=== PATIENT | male | born 1950 | race Caucasian/White ===

== ENCOUNTER 2019-02-17 10:49 | Observation (INO) | payer MEDICARE, OTHER, SELFPAY ==
[2019-02-17] VITALS (13 sets, daily range): BP systolic 143–174; BP diastolic 73–88; PULSE 73–83; RESP 13–20; TEMP 36.7–36.9; O2SAT 96–100; BMI 28.0; BMI 28.2
--- NOTE | 2019-02-17 11:02 | RAD_ITS ---
STUDY: X-RAY CHEST REASON FOR EXAM: Male, 68 years old. Mediastinal evaluation, right arm pain. TECHNIQUE: Single AP portable view of the chest. COMPARISON: None. FINDINGS: The lungs are clear and expanded. There is no demonstrated pleural abnormality. Normal size heart. Normal mediastinum and jenelle. Normal visualized pulmonary arteries. Normal visualized aortic arch and descending thoracic aorta. Normal visualized thoracic spine. Normal visualized ribs, clavicles, and shoulders. There is no demonstrated abnormality of the visualized soft tissue structures of the upper abdomen. RAD/Chest 1 View IMPRESSION: No evidence of acute cardiopulmonary process. Electronically Signed: Romulo Goode DO at 12:31 EDT , Service support ,
--- NOTE | 2019-02-17 11:02 | CT_ITS ---
STUDY: CT BRAIN WITHOUT CONTRAST REASON FOR EXAM: Male, 68 years old. CVA. RADIATION DOSAGE (If Supplied By Facility): CTDIvol = ( 44.99 ) mGy, DLP = ( 812.98 ) mGycm TECHNIQUE: Transaxial CT imaging of the brain was performed without administration of intravenous contrast material. Individualized dose optimization techniques were used for this CT. COMPARISON: No relevant priors. FINDINGS: Normal soft tissue structures. Normal calvarium. Normal size ventricles and extra-axial spaces for the patient's age. Normal white matter tracts of the cerebral hemispheres. Normal basal ganglia and thalami. Normal brainstem. Normal cerebellum. There is no intracranial hemorrhage. There are no findings of an acute ischemic infarction. Normal visualized paranasal sinuses. CT/Brain/Head without Contrast IMPRESSION: No evidence of acute intracranial bleed, mass or ischemia. N.B. : The above information has been verbally conveyed by Romulo Goode DO to Dr. Suarez; [phone], on 02/17/2019 11:29:07 (ET). Electronically Signed: Romulo Goode DO at 11:30 EDT , Service support ,
--- NOTE | 2019-02-17 11:02 | EKG12_ITS ---
Test Reason : PAIN Blood Pressure : / mmHG Vent. Rate : 087 BPM Atrial Rate : 087 BPM P-R Int : 196 ms QRS Dur : 122 ms QT Int : 380 ms P-R-T Axes : 028 -40 045 degrees QTc Int : 457 ms Sinus rhythm with Premature atrial complexes Left axis deviation Septal infarct , age undetermined Abnormal ECG Confirmed by LEEANN HUITRON, DANIELLE ([id number]), television news video editor TANESHA LU ([id number]) on 02/19/2019 11:28:48 AM Referred By: AMADA Confirmed By:DANIELLE BRADSHAW MD
--- NOTE | 2019-02-17 11:03 | CT_ITS ---
STUDY: CTA HEAD AND NECK WITH CONTRAST REASON FOR EXAM: Male, 68 years old. CVA. RADIATION DOSAGE (If Supplied By Facility): CTDIvol = ( 21.98 ) mGy, DLP = ( 786.48 ) mGycm TECHNIQUE: CT angiography was performed with a multi-detector CT scanner. Data acquisition was obtained from the skull base through the vertex following intravenous administration of 100 IV Isovue 370. MIP images were reconstructed from the axial data set. Post-processing of the angiographic images was performed, with multiplanar reformation and 3D reconstruction. Individualized dose optimization techniques were used for this CT. COMPARISON: No relevant priors. FINDINGS: Normal bilateral petrous carotid arteries. Normal right cavernous carotid artery with a normal supraclinoid bifurcation. Normal left cavernous carotid artery with a normal supraclinoid bifurcation. Normal right A1 segments of the anterior cerebral artery. Normal left A1 segments of the anterior cerebral artery. Normal intact anterior communicating artery (ACOM). Normal bilateral A2 segments of the anterior cerebral arteries. Normal right M1 and M2 segments of the middle cerebral arteries, with a normal M1 bifurcation. Normal left M1 and M2 segments of the middle cerebral arteries, with a normal M1 bifurcation. Normal right posterior communicating artery (PCOM). Normal left posterior communicating artery (PCOM). Normal bilateral vertebral arteries. Normal basilar artery with a normal basilar bifurcation. The visualized bilateral superior cerebellar (SCA) arteries are normal. Normal bilateral P1, P2 and visualized P3 segments of the posterior cerebral arteries. There is no demonstrated aneurysm of the [place] of [place]. There is no demonstrated abnormality of the visualized brain. AORTIC ARCH: Normal visualized aortic arch. Normal origins of the brachiocephalic, left common carotid, and left subclavian arteries. RIGHT CAROTID ARTERIES: Normal right common carotid artery (CCA). Normal right common carotid bulb. Normal origin of the right internal carotid (ICA) artery without a hemodynamically significant stenosis. Normal visualized cervical portion of the right internal carotid artery. Normal origin of the right external carotid artery (ECA). LEFT CAROTID ARTERIES: Normal left common carotid artery (CCA). Normal left common carotid bulb. Normal origin of the left internal carotid (ICA) artery without a hemodynamically significant stenosis. Normal visualized cervical portion of the left internal carotid artery. Normal origin of the left external carotid artery (ECA). VERTEBRAL ARTERIES: There is enhancement within the bilateral vertebral arteries with a small right vertebral artery, and a dominant left vertebral artery. CT/CTA Head AND Neck W/ Contrast IMPRESSION: No evidence of significant steno-occlusive disease or aneurysm. N.B. : The above information has been verbally conveyed by Romulo Goode DO to Dr. Suarez; [phone], on 02/17/2019 11:28:55 (ET). Electronically Signed: Romulo Goode DO at 11:29 EDT , Service support ,
--- NOTE | 2019-02-17 11:04 | ED.DCSUM_ITS ---
History of Present Illness Chief Complaint: General Illness Informant: Patient - Arrival: Ambulatory Onset: Today - 20-30 min [employer] Context: Sudden Onset Timing: Continuous Quality and Location: Right Arm Parasthesia. Negative for: Right Facial Droop, Left Facial Droop, Right Arm Weakness, Slurred Speech, Expressive Aphasia, Receptive Aphasia, Difficulty with Ambulation Onset: relatively sudden Current Severity: Mild Maximum Severity: Severe Worsened by: nothing Relieved by: nothing Associated Symptoms: Headache - mild. Negative for: Nausea, Vomiting, Chest Pain Narrative: Patient states she was driving to time, I started feeling a little lightheaded but not near syncopal, states he had trouble focusing with regards to his vision without any focal visual field deficits, and his right upper extremity was numb. He did not notice weakness or any pain. Mild headache, no thunderclap. No loss of consciousness. No chest discomfort or chest symptoms. Never had this before. No history of strokes. No recent head injury. No recent h ospitalization or surgery. No IV drug use. No known history of cardiac disease or valvular disease. Prior similar symptoms: No - Past Medical History (1) HTN (hypertension) Status: Chronic (2) Hyperlipidemia Status: Chronic Past Medical History - Allergies and Home Meds Allergies/Adverse Reactions: Allergies Penicillins [PCN] Allergy (Verified 02/17/19 10:51) Hives Primary Care Physician: Jamey Damian MD [Primary Care Provider] - Smoking Status: Former smoker Drugs: None Review of Systems General: Denies: Chills, Fever, Sweats Eyes: Reports: Blurred Vision - bilaterally - improved now. Denies: Diplopia ENT: Denies: Rhinorrhea, Sore throat Cardiovascular: Denies: Chest pain, Palpitations Respiratory: Denies: Dyspnea, Cough, Dyspnea on exertion Gastrointestinal: Denies: Abdominal pain, Nausea, Vomiting, Diarrhea, Melena, Hematochezia Genitourinary: Denies: Dysuria, Hematuria, Frequency Musculoskeletal: Denies: Back pain, Extremity Pain Skin: Denies: Rash, Wounds Neurological: Reports: Headache, Weakness, Numbness STROKE Vital Signs/Narrative: Vital Signs Temp Pulse Resp BP Pulse Ox 02/17/19 10:52 98.1 F 83 16 174/80 H 96 Inital Vital Signs reviewed: Yes - NIHSS Initial 1a Level of Consciousness: 0 1b LOC Questions (Score 2 if aphasic/stupor): 0 1c LOC Commands (Only score 1st attempt): 0 2 Best Gaze (If aphasic, use reflexive mvmts.): 0 3 Visual: 0 4 Facial Palsy: 0 5 Motor Arm Right (UN = amputation/fusion): 1 5 Motor Arm Left: 0 6 Motor Leg Right: 0 6 Motor Leg Left: 0 7 Limb ataxia (Only + if out of proportion): 0 8 Sensory (Aphasia/stupor=0 or 1, coma=2): 1 9 Best Language: 0 10 Dysarthria (mute, coma=2, intubated=UN): 0 11 Extinction and Inattention (only scored if +): 0 Total Score: 2 General: Well nourished, Well developed Head: Normocephalic, Atraumatic Eyes: Perrl, EOMI ENT: Moist mucous membranes, No rhinorrhea Neck: Supple, Nontender, - - no carotid bruits Cardiovascular: Regular rate, Regular rhythm, No murmurs, Normal S1, Normal S2. Negative for: Tachycardia Respiratory: No distress, CTA bilaterally, Chest nontender Abdomen: Soft, Nontender, Nondistended, Normal bowel sounds Back: Nontender, Normal Inspection Extremities: Nontender, No edema. Negative for: Calf Tenderness Skin: Normal color, No rash, No Trauma Neurological: Alert, Oriented x3, Cranial nerves II-XII grossly intact, Normal Gait Psychological: Normal affect, Normal Mood Diagnostic/Tx/Re-eval - Rhythm Strip Rhythm Strip: Sinus Rhythm Rate: 87 Ectopy: None - EKG Initial EKG Interpretation: Sinus Rhythm, No Acute Injury Pattern, - - Left axis. Q waves V1-2. Prior: No Prior - Medical Decision Making Stroke Team Activated: Yes - Upon completion of NIH Reviewed Inclusion/Exclusion criteria: Yes Was Patient considered for Endovascular Intervention?: No - CTA neg IV Alteplase (t-PA) Administered: No - due to significant improvement/resolution of sx Radiology called CT and CTA report at [address] Fine evaluated patient via [facility] tele-stroke neurology consultation. At the time of evaluation, his symptoms resolved and his NIH is 0. Therefore, no TPA is indicated. He recommends admission for TIA work-up and close monitoring. He also recommends aspirin. Patient states he had some lower GI bleeding when he was on aspirin after his prostate cancer surgery, so he stopped it but that was long ago, may be 2 or 3 years. He has had no GI bleeding lately. We will give him aspirin and continue to monitor. Discussed w/ Dr. Bright for admission to tele. Critical care time (excluding procedures): 30-74 minutes - 35 minutes including time spent discussing with patient, consultants, arranging admission, and performing direct patient care to bedside ED Disposition - Plan for ED Patient: Disposition: Acute Care [facility] Diagnosis: TIA (transient ischemic attack) Referrals: Jamey Damian MD [Primary Care Provider] -
[2019-02-17 11:10] LABS: Absolute Lymphocyte Count 0.99 X10^3/uL (0.83-4.51); Absolute Neutrophil Count 5.2 X10^3/uL (2.0-7.7); Basophil# 0.07 X10^3/uL; Eosinophil# 0.14 X10^3/uL; Hematocrit 37.9 % (40-54); Hemoglobin 13.4 g/dL (13.0-16.5); Lymphocyte # 0.99 X10^3/ul (4.0); Lymphocyte % 14.4 % (19-41); Mean Corp Hgb Conc 35.4 g/dL (32-36); Mean Corpuscular Hgb 31.6 pg (27.0-32.0); Mean Corpuscular Volume 89.4 fL (80-94); Mean Platelet Vol. 9.5 fl (6.2-12.0); Monocyte# 0.43 X10^3/uL; Monocyte% 6.2 % (0-10); NRBC Flagged by Analyzer 0 % (0-5); Neutrophil # 5.23 X10^3/uL (2.7-7.7); Platelet Count 245 K/mm3 (150-450); RBC Distribution Width CV 11.9 % (11.6-14.6); RBC Distribution Width SD 39.2 fl (35.1-43.9); Red Blood Count 4.24 M/mm3 (4.6-6.2); White Blood Count 6.9 K/mm3 (4.4-11.0)
[2019-02-17 11:11] LABS: Bedside Glucose 237 mg/dL (70-110)
[2019-02-17 11:21] LABS: Partial Thromboplast Time 38.3 Seconds (24.1-36.2)
[2019-02-17 11:27] LABS: Anion Gap 8 (5-15); BUN 19 mg/dL (7-18); BUN/Creat Ratio 16.8 RATIO (10-20); Calcium,Total 8.9 mg/dL (8.5-10.1); Chloride 97 mmol/L (98-107); Creatinine, Serum 1.13 mg/dL (0.70-1.30); EST Glomerular Filtration Rate 69 mL/min (>60); Est Glom Filt Rate - Afr Amer 83 mL/min (>60); Estimated Creatinine Clearance 70.58 ml/min; Glucose 240 mg/dL (74-106); Potassium 3.7 mmol/L (3.5-5.1); Sodium Level 128 mmol/L (136-145)
[2019-02-17] MEDS: Aspirin E.C. 325 MG Tablet PO (11:51)
--- NOTE | 2019-02-17 12:02 | HP.PCM_ITS ---
Problem List (1) TIA (transient ischemic attack) Status: Acute (2) HTN (hypertension) Status: Chronic (3) Hyperlipidemia Status: Chronic History of Present Illness Date of Admission: 02/17/19 Chief Complaint: Right arm numbness and blurry vision. The patient is a 68 year old M with history of hypertension and dyslipidemia came to ER when he had blurry vision and right arm numbness while driving to a store today. The symptoms lasted for about 15 to 20 minutes as per the patient. He also found his speech slow but no slurring or difficulty in understanding or difficulty verbalization. Mild headache. Patient denies any previous history of TIA or stroke, coronary artery disease/OR or stents or head injury. In ED, triage blood pressure was high BP 174/80, heart rate 83/min. No tachypnea or hypoxia EKG shows normal sinus rhythm at 87 bpm PACs and LAD. ER labs shows glucose 240 in BMP and Accu-Chek 237. As per patient, his BP was 130/72 in PCP office and glucose 97 during screening in December 2018 CT head does not show evidence of acute intracranial bleed mass or ischemia. CTA head and neck no significant evidence of steno-occlusive disease or aneurysm. [] Past Medical History Past Medical History (Chronic Problems): Chronic Problems HTN (hypertension) (Chronic) Hyperlipidemia (Chronic) Allergies Penicillins [PCN] Allergy (Verified 02/17/19 10:51) Hives Home Medications: Ambulatory Orders Medication Instructions Recorded Amlodipine [Norvasc] 10 mg PO DAILY 02/17/19 Losartan Potassium 25 mg PO DAILY 02/17/19 Simvastatin 20 mg PO QHS 02/17/19 Smoking Status: Former smoker - Quit 39 years ago Drugs: None - *Family History Paternal History Items: Hypertension Review of Systems Constitutional: Denies: Chills, Fever, Weight Change HEENT: Reports: Visual Changes. Denies: Head Aches, Sinus Congestion, Sinus Drainage Cardiovascular: Denies: Chest Pain, Palpitations Respiratory: Denies: Cough, Shortness of breath at rest, Sputum production Gastrointestinal: Denies: Abdominal Pain, Nausea, Vomiting Genitourinary: Denies: Dysuria Musculoskeletal: Denies: Joint Pain, Joint Tenderness Skin: Denies: Rash, Wounds Neurological: Reports: Blurred vision, Change in Speech, Numbness. Denies: Focal weakness, Tingling Psychiatric: Denies: Anxiety, Depression, Homicidal Ideations, Suicidal Ideations Hematologic/ Lymphatic: Denies: Easy Bruising, Easy Bleeding VTE Information - Inpt Only VTE Present on Admission: No VTE Mechan Device Prophylaxis: None VTE Pharm Prophylaxis ordered?: Yes Patient Problems: Active and Suspected Problems TIA (transient ischemic attack) (Acute) - Physical Exam General: Alert, Oriented x3, Cooperative HEENT: Atraumatic, PERRLA, EOMI, Normocephalic Neck: Supple, No JVD, Negative Carotid Bruits Lungs: Clear to auscultation, Normal air movement, No rhonchi, No wheeze, No rales Cardiovascular: Regular rate, Regular Rhythm, Normal S1, Normal S2, No murmurs Abdomen: Bowel Sounds Present, Soft, Non Tender, Non-Distended Extremities: No edema, Capillary Refill Less than 3 Seconds Skin: No rashes, No breakdown Musculoskeletal: No Tenderness to Palpation of Joints or Extremities, Arthritic Changes Neurological: Cranial nerves II-XII grossly intact, Deep Tendon Reflexes 2+/4 and Symmetrical, Neuro grossly intact, Motor Exam 5/5 strength throughout, - - No facial droop. Muscle strength at major joints 5 x 5. NIH stroke scale 0. Was NIH stroke scale 2 as per nursing staff in triage Psych/Mental Status: Normal Affect, Appropriate Vital Signs Temp Pulse Resp BP Pulse Ox 98.1 F 79 20 H 149/82 H 97 02/17/19 10:52 02/17/19 11:50 02/17/19 11:50 02/17/19 11:50 02/17/19 11:50 Oxygen Flow Rate (L/min) 1 Oxygen Delivery Method Nasal Cannula Weight: 206 lb 9.17 oz Body Mass Index (BMI) 28.0 Finger Stick Blood Glucose 237 Intake and Output for Last 24 Hours 02/15/19 02/16/19 02/17/19 23:59 23:59 23:59 Intake Total 500 / 500 Balance 500 / 500 Laboratory Tests Past 24 Hrs 02/17/19 02/17/19 02/17/19 11:04 11:04 11:04 WBC 6.9 RBC 4.24 L Hgb 13.4 Hct 37.9 L MCV 89.4 MCH 31.6 MCHC 35.4 RDW Std Deviation 39.2 RDW Coeff of Tobin 11.9 Plt Count 245 MPV 9.5 Immature Gran % (Auto) 0.400 Neut % (Auto) 76.0 H Lymph % (Auto) 14.4 L Reeves % (Auto) 6.2 Eos % (Auto) 2.0 Baso % (Auto) 1.0 Absolute Neuts (auto) 5.2 Absolute Lymphs (auto) 0.99 Nucleated RBC % 0 PT 13.0 INR 1.0 APTT 38.3 H Sodium 128 L Potassium 3.7 Chloride 97 L Carbon Dioxide 23.0 Anion Gap 8 BUN 19 H Creatinine 1.13 Estim Creat Clear Calc 70.58 Est GFR (MDRD) Af Amer 83 Est GFR (MDRD) Non-Af 69 BUN/Creatinine Ratio 16.8 Glucose 240 H Calcium 8.9 Troponin I < 0.015 POC Glucose 02/17/19 11:04 POC Glucose 237 H Assessment/Plan All Active Problems TIA (transient ischemic attack) (Acute) The patient is a 68 year old M with history of hypertension and dyslipidemia came to ER when he had blurry vision and right arm numbness while driving to a store today. The symptoms lasted for about 15 to 20 minutes as per the patient. He also found his speech slow but no slurring or difficulty in understanding or difficulty verbalization. Mild headache. Patient denies any previous history of TIA or stroke, coronary artery disease/OR or stents or head injury. In ED, triage blood pressure was high BP 174/80, heart rate 83/min. No tachypnea or hypoxia EKG shows normal sinus rhythm at 87 bpm PACs and LAD. ER labs shows glucose 240 in BMP and Accu-Chek 237. As per patient, his BP was 130/72 in PCP office and glucose 97 during screening in December 2018 CT head does not show evidence of acute intracranial bleed mass or ischemia. CTA head and neck no significant evidence of steno-occlusive disease or aneurysm. 1. Acute neurological status most probably TIA: Patient is being admitted in PCU. Neuro exam is at baseline and no neurological deficit. Cardiac monitori ng. Troponin is normal. On aspirin and statin. MRI brain ordered. 2D echo ordered. PT, OT and speech evaluation. Accu-Cheks before meals and at bedtime and cover with Humalog sliding scale. Fasting profile, TSH and A1c ordered. Blood pressure control as per stroke guidelines. To maintain about systolic 150-185 mmHg in first 24 hours. 2. Hypertension, uncontrolled: Patient is on losartan 25 mg daily and amlodipine 10 mg daily at home. Antihypertensive meds and resumed with holding parameters as per stroke guidelines. 3. Dyslipidemia: On statin 80 mg daily. 4. DVT prophylaxis: On Lovenox 40 mg subcu daily Laboratory Results 02/17/19 11:04: WBC 6.9, RBC 4.24 L, Hgb 13.4, Hct 37.9 L, MCV 89.4, MCH 31.6, MCHC 35.4, RDW Std Deviation 39.2, RDW Coeff of Tobin 11.9, Plt Count 245, MPV 9.5, Immature Gran % (Auto) 0.400, Neut % (Auto) 76.0 H, Lymph % (Auto) 14.4 L, Reeves % (Auto) 6.2, Eos % (Auto) 2.0, Baso % (Auto) 1.0, Absolute Neuts (auto) 5.2, Absolute Lymphs (auto) 0.99, Nucleated RBC % 0 02/17/19 11:04: PT 13.0, INR 1.0, APTT 38.3 H 02/17/19 11:04: Sodium 128 L, Potassium 3.7, Chloride 97 L, Carbon Dioxide 23.0, Anion Gap 8, BUN 19 H, Creatinine 1.13, Estim Creat Clear Calc 70.58, Est GFR (MDRD) Af Amer 83, Est GFR (MDRD) Non-Af 69, BUN/Creatinine Ratio 16.8, Glucose 240 H, Calcium 8.9, Troponin I < 0.015 02/17/19 11:04: POC Glucose 237 H 02/17/19 12:22: Hemoglobin A1c Pending Clinical Impression(s) from Imaging Studies Brain CT 02/17/19 11:02 IMPRESSION: No evidence of acute intracranial bleed, mass or ischemia. Chest X-Ray 02/17/19 11:02 IMPRESSION: No evidence of acute cardiopulmonary process. Head/Neck CTA 02/17/19 11:03 IMPRESSION: No evidence of significant steno-occlusive disease or aneurysm. Code Visit OBSV E&M: 29985 Initial observation care L3
[2019-02-17 12:57] LABS: Hemoglobin A1c 5.6 % (4.2-6.3)
[2019-02-17 13:28] LABS: Magnesium 1.9 mg/dL (1.6-2.6)
[2019-02-17] MEDS: 0.9% Normal Saline 1,000 ML 100 ML IV (13:32)
[2019-02-17 16:51] LABS: Bedside Glucose 101 mg/dL (70-110)
[2019-02-17] MEDS: Enoxaparin 40 MG/0.4 ML Syringe SC (21:34)
[2019-02-17 22:56] LABS: Bedside Glucose 111 mg/dL (70-110)
[2019-02-18] VITALS (8 sets, daily range): BP systolic 129–153; BP diastolic 73–79; PULSE 67–87; RESP 16; TEMP 36.6–36.9; O2SAT 94–98; BMI 28.2
[2019-02-18 05:51] LABS: Bedside Glucose 103 mg/dL (70-110)
--- NOTE | 2019-02-18 05:55 | ECHOD_ITS ---
Reason For Study: TIA/[facility] Procedure This was a 2D Doppler, Color Flow transthoracic echocardiogram. Contrast injection was performed. Exam performed portable in patient room. Left Ventricle Normal LV size. Left ventricular systolic function is normal. The estimated ejection fraction is 60 %. No regional wall motion abnormalities noted. Right Ventricle Normal RV size. Normal systolic function. Atria The left atrium is moderately enlarged. Normal right atrium. No doppler evidence for ASD. Bubble contrast study negative for right to left interatrial shunt. Mitral Valve There is no mitral annular calcification. Normal mitral valve. Mild (1+) mitral valve insufficiency. Tricuspid Valve Normal tricuspid valve. Trivial tricuspid valve insufficiency. Aortic Valve Trisinus/trileaflet aortic valve. Normal aortic valve. Mild (1+) aortic valve insufficiency. Pulmonic Valve The pulmonic valve is not well visualized. Trivial pulmonic valve insufficiency. Great Vessels The aortic root is not well visualized. Pericardium/Pleural No pericardial effusion. Medication Performed a rapid injection of agitated mix of 9 cc saline and 1cc air to assess for atrial septal defect. MMode/2D Measurements & Calculations LVIDd: 4.3 cm IVSd: 1.5 cm LA dimension: 4.4 cm LVIDs: 2.7 cm LVPWd: 1.2 cm FS: 36.3 % LAV(MOD-sp4): 78.3 ml LA A4 area: 23.1 cm2 RA A4 area: 14.4 cm2 Time Measurements MV dec time: 0.25 sec Doppler Measurements & Calculations MV E max sadi: 80.0 cm/sec Lat Peak E' Sadi: 9.8 cm/sec Med Peak E' Sadi: 8.6 cm/sec MV A max sadi: 70.3 cm/sec E/E' lat: 8.2 E/E' med: 9.3 MV E/A: 1.1 MV V2 max: 85.4 cm/sec MV P1/2t max sadi: 86.1 cm/sec Ao V2 max: 134.6 cm/sec MV max P.9 mmHg MV P1/2t: 86.4 msec Ao max P.2 mmHg MV V2 mean: 53.2 cm/sec MV dec slope: 291.6 cm/sec2 MV mean P.3 mmHg MV V2 VTI: 23.5 cm MVA(P1/2t): 2.5 cm2 AI max sadi: 425.8 cm/sec LV V1 max: 121.8 cm/sec PA V2 max: 122.3 cm/sec AI max P.5 mmHg LV V1 max P.9 mmHg AI dec slope: 143.9 cm/sec2 AI P1/2t: 866.6 msec Interpretation Summary Contrast injection was performed. Left ventricular systolic function is normal. The estimated ejection fraction is 60 %. The left atrium is moderately enlarged. Mild (1+) mitral valve insufficiency. Trivial tricuspid valve insufficiency. Mild (1+) aortic valve insufficiency. Trivial pulmonic valve insufficiency. Transmitral diastolic flow velocities suggest diastolic dysfunction (pseudonormal pattern). Bubble contrast study negative for right to left interatrial shunt. Ordering Physician: Rupert Bright Referring Physician: Jamey Damian M.D. Performed By: Marbin Barksdale RCS
[2019-02-18 06:19] LABS: Anion Gap 8 (5-15); BUN 13 mg/dL (7-18); BUN/Creat Ratio 14.9 RATIO (10-20); Calcium,Total 8.5 mg/dL (8.5-10.1); Chloride 104 mmol/L (98-107); Cholesterol 160 mg/dL (200); Creatinine, Serum 0.87 mg/dL (0.70-1.30); EST Glomerular Filtration Rate 93 mL/min (>60); Est Glom Filt Rate - Afr Amer 113 mL/min (>60); Estimated Creatinine Clearance 88.96 ml/min; Glucose 99 mg/dL (74-106); High Density Lipoprotein 82 mg/dL; Potassium 3.8 mmol/L (3.5-5.1); Sodium Level 136 mmol/L (136-145); Thyroid Stim Hormone (TSH) 1.79 uIU/mL (0.358-3.74); Triglycerides 85 mg/dL; Very Low Density Lipoprotein 17 mg/dL (5-40)
--- NOTE | 2019-02-18 08:00 | MRI_ITS ---
STUDY: MRI BRAIN WITHOUT CONTRAST REASON FOR EXAM: Male, 68 years old. TIA, right arm numbness. Vision change TECHNIQUE: Standardized multiplanar fat and water weighted pulse sequences were obtained. COMPARISON: CT head 02/17/2019. FINDINGS: Normal size of the ventricles and extra-axial spaces for the patient's age. Normal white matter tracts of the supratentorial brain. Normal bilateral basal ganglia. Normal thalami. There is no extra-axial fluid accumulation. Normal flow voids within the major intracranial circulation suggesting patency by spin echo criteria. Normal sella turcica, pituitary gland, infundibular stalk, optic chiasm and hypothalamus. Normal tectal plate and pineal gland. Normal midbrain, sidra and medulla. Normal cerebellum. Normal basal cisterns. Normal bilateral temporal bones. Normal bilateral internal auditory canals. No demonstrated orbital abnormality, within the constraints of a routine brain study. Normal visualized paranasal sinuses. Normal calvarium and skull base. Normal visualized soft tissue structures. Normal visualized upper cervical spine. MRI/Brain without Contrast IMPRESSION: Normal unenhanced MRI of the brain. Electronically Signed: Juana Agrawal, at 13:11 EDT Tel , Service support ,
[2019-02-18] MEDS: Aspirin 81 MG TAB.CHEW PO (10:03)
[2019-02-18] MEDS: Losartan Potassium 25 MG Tablet PO (10:03)
[2019-02-18] MEDS: amLODIPine 10 MG Tablet PO (10:03)
[2019-02-18] MEDS: Enoxaparin 40 MG/0.4 ML Syringe SC (10:04)
--- NOTE | 2019-02-18 13:05 | DCINST_ITS ---
- Discharge Diagnoses Current Active Problems: Current Active and Chronic Problems HTN (hypertension) (Chronic) Hyperlipidemia (Chronic) TIA (transient ischemic attack) (Acute) You will use the following diet at home:: Cardiac Your food should be the consistency of: Regular Discharge Activity: Return to Normal Activity Weight Bearing Status: Full weight bearing Call your doctor if you observe: Fever of 101 or Higher, Shortness of breath, Dizziness, Fainting spells, Chest pain, Increased palpitations (irregular heartbeat), Uncontrolled pain Allergies/Adverse Reactions: Allergies Penicillins [PCN] Allergy (Verified 02/17/19 10:51) Hives Medications to take at Discharge Amlodipine [Norvasc] 10 mg PO DAILY 02/17/19 Losartan Potassium 25 mg PO DAILY 02/17/19 Simvastatin 20 mg PO QHS 02/17/19 Aspirin [Aspirin, Baby] 81 mg PO DAILY@0800 #90 tab.chew 02/18/19 The following prescriptions were given: Aspirin [Aspirin, Baby] 81 mg PO DAILY@0800 #90 tab.chew Prescription Printed Primary Care Physician: Jamey Damian MD [Primary Care Provider] - Please follow up with your Primary Care Physician in: 2-3 weeks. Test Results: Test results from this visit will be discussed in further detail at your follow- up appointment, if applicable.
--- NOTE | 2019-02-18 13:22 | DS.PCM_ITS ---
Discharge Date and Diagnosis - Problem List Patient Problems: Active and Suspected Problems TIA (transient ischemic attack) (Acute) Date of Admission: 02/17/19 Date of Discharge: 02/18/19 - Primary Discharge Diagnosis Active and Suspected Problems TIA (transient ischemic attack) (Acute) - Secondary Discharge Diagnosis Chronic Problems HTN (hypertension) (Chronic) Hyperlipidemia (Chronic) Hospital Course and Treatment Imaging Results: 02/18/19 05:55 Echo Complete [ECHO] Routine 02/18/19 08:00 Brain without Contrast [MRI] Routine Clinical Impression(s) from Imaging Studies Brain CT 02/17/19 11:02 IMPRESSION: No evidence of acute intracranial bleed, mass or ischemia. N.B. : The above information has been verbally conveyed by Romulo Goode DO to Dr. Suarez; [phone], on 02/17/2019 11:29:07 (ET). Electronically Signed: Romulo Goode DO at 11:30 EDT , Service support , ADDENDUM: 02/17/19 1137 IMPRESSION: No evidence of acute intracranial bleed, mass or ischemia. N.B. : The above information has been verbally conveyed by Romulo Goode DO to Dr. Suarez; [phone], on 02/17/2019 11:29:07 (ET). Electronically Signed: Romulo Goode DO at 11:30 EDT , Service support , Chest X-Ray 02/17/19 11:02 IMPRESSION: No evidence of acute cardiopulmonary process. Electronically Signed: Romulo Goode DO at 12:31 EDT , Service support , Head/Neck CTA 02/17/19 11:03 IMPRESSION: No evidence of significant steno-occlusive disease or aneurysm. N.B. : The above information has been verbally conveyed by Romulo Goode DO to Dr. Suarez; [phone], MD, on 02/17/2019 11:28:55 (ET). Electronically Signed: Romulo Goode DO at 11:29 EDT , Service support , ADDENDUM: 02/17/19 1136 IMPRESSION: No evidence of significant steno-occlusive disease or aneurysm. N.B. : The above information has been verbally conveyed by Romulo Goode DO to Dr. Suarez; [phone], on 02/17/2019 11:28:55 (ET). Electronically Signed: Romulo Goode DO at 11:29 EDT , Service support , Brain MRI 02/18/19 08:00 IMPRESSION: Normal unenhanced MRI of the brain. Electronically Signed: Juana Agrawal, at 13:11 EDT Tel , Service support , Operations: None Procedures: 2-D Echocardiogram, EKG Summary of Care Provided: Patient seen and examined on the day of discharge and appeared to be stable to discharge home. He denies any more right arm numbness or blurred vision. He denies any other new focal findings. His vital signs are stable. The patient is a 68 year old M admitted because of right arm numbness with blurry vision with concern for TIA. He underwent complete TIA/stroke work-up that was unremarkable. Initial CT scan brain without contrast showed no acute infarct or hemorrhage. CTA of the head and neck was unremarkable and showed no evidence of significant steno-occlusive disease or aneurysm. MRI brain also performed and revealed no evidence of acute infarct, mass or aneurysm. 2D echocardiogram revealed normal LV size and function, ejection fraction was 60%, mild aortic insufficiency, bubble contrast study was negative for [id number] shunt. Routine blood work was remarkable for mild hyponatremia and sodium was corrected with IV normal saline. Hemoglobin A1c was 5.6. Troponin was negative. TSH and serum magnesium were normal. Lipid profile revealed total cholesterol of 160, LDL cholesterol of 61 and HDL cholesterol of 82. His EKG revealed normal sinus rhythm without evidence of cardiac arrhythmias or ischemic changes. Patient was treated with aspirin, statins. Acute stroke ruled out. Patient discharged home in a stable medical condition, discharged on baby aspirin daily, continued on simvastatin, losartan and Norvasc, recommended follow-up with PCP in 2 to 3 weeks. Patient Problems: Active and Suspected Problems TIA (transient ischemic attack) (Acute) - Physical Exam General: Alert, Oriented x3, Cooperative, No apparent distress HEENT: Atraumatic, PERRLA, EOMI, Normocephalic Oral: Moist Mucosa, No Gingival or Mucosal Lesions/ Ulcerations Neck: Supple, No JVD, Negative Carotid Bruits, Trachea Midline, Thyroid Normal Size and Texture Lungs: Clear to auscultation, Normal air movement, No rhonchi, No wheeze, No rales Cardiovascular: Regular rate, Regular Rhythm, Normal S1, Normal S2, PMI Normal Abdomen: Bowel Sounds Present, Soft, Non Tender, Non-Distended, No Hepato- splenomegaly Extremities: No clubbing, No cyanosis, No edema Skin: No rashes, No breakdown Lymphatic: No Cervical, Supraclavicular, or Inguinal Adenopathy Neurological: Cranial nerves II-XII grossly intact, Motor Exam 5/5 strength throughout Psych/Mental Status: Normal Affect, Appropriate Vital Signs Temp Pulse Resp BP Pulse Ox 97.9 F 87 16 140/74 H 95 02/18/19 12:14 02/18/19 12:14 02/18/19 12:14 02/18/19 12:14 02/18/19 12:14 Oxygen Flow Rate (L/min) 1 Oxygen Delivery Method Room Air Weight: 202 lb 6.15 oz Body Mass Index (BMI) 28.2 Finger Stick Blood Glucose 237 Intake and Output for Last 24 Hours 02/16/19 02/17/19 02/18/19 23:59 23:59 23:59 Intake Total 2049. / 2049. 400 / 400 Balance / 400 / 400 Laboratory Tests Past 24 Hrs 02/17/19 02/18/19 11:04 05:40 Sodium 136 Potassium 3.8 Chloride 104 Carbon Dioxide 24.0 Anion Gap 8 BUN 13 Creatinine 0.87 Estim Creat Clear Calc 88.96 Est GFR (MDRD) Af Amer 113 Est GFR (MDRD) Non-Af 93 BUN/Creatinine Ratio 14.9 Glucose 99 Calcium 8.5 Magnesium 1.9 Triglycerides 85 Cholesterol 160 LDL Cholesterol 61 VLDL Cholesterol 17 HDL Cholesterol 82 TSH 1.79 POC Glucose 02/18/19 02/17/19 02/17/19 05:34 21:26 16:47 POC Glucose 103 111 H 101 Discharge Activity: Return to Normal Activity Weight Bearing Status: Full weight bearing Call your doctor if you observe: Fever of 101 or Higher, Shortness of breath, Dizziness, Fainting spells, Chest pain, Increased palpitations (irregular heartbeat), Uncontrolled pain Home Medications: Medications to take at Discharge Amlodipine [Norvasc] 10 mg PO DAILY 02/17/19 Losartan Potassium 25 mg PO DAILY 02/17/19 Simvastatin 20 mg PO QHS 02/17/19 Aspirin [Aspirin, Baby] 81 mg PO DAILY@0800 #90 tab.chew 02/18/19 Following Prescrptions Were Given to Patient: Aspirin [Aspirin, Baby] 81 mg PO DAILY@0800 #90 tab.chew Prescription Printed Primary Care Physician: Jamey Damian MD [Primary Care Provider] - Please follow up with your Primary Care Physician in: 2-3 weeks. Disposition: Home Minutes spent on discharge:: 26 Patient Condition:: Stable Medical Necessity - Tobacco Use Smoking Status: Former smoker Meaningful Use Info Meaningful Use Diagnoses (Choose all that apply): None applicable Code Visit OBSV E&M: 28225 Observation care discharge
== END 2019-02-18 13:06 | disposition home or self-care (01) ==
LOC: ED 11:55 → PCU 12:02
PROVIDERS: Admitting Provider Internal Medicine; Emergency Provider Emergency Medicine; Family Provider Internal Medicine; PCP Internal Medicine; Visit Provider Hospitalist
DX: G45.9 Transient cerebral ischemic attack, unspecified (principal); E78.5 Hyperlipidemia, unspecified; I10 Essential (primary) hypertension; Z79.899 Other long term (current) drug therapy; Z87.891 Personal history of nicotine dependence; H53.8 Other visual disturbances; R29.702 NIHSS score 2
CPT/HCPCS: 36415; 70450; 70496; 70498; 70551; 71045; 80048; 80061; 82962; 83036; 83735; 84443; 84484; 85025; 85610; 85730; 92610; 93005; 93306; 94762; 96360; 96361; 96372; 99218; 99285; 99406; J7030; J7040; Q9967; A4216; G0378

== ENCOUNTER 2019-05-28 16:11 | Observation (INO) | payer MEDICARE, OTHER, SELFPAY ==
[2019-02-18 07:31] VITALS: BMI 28.2
[2019-05-28] VITALS (12 sets, daily range): BP systolic 98–158; BP diastolic 64–81; PULSE 70–93; RESP 12–20; TEMP 36.8; O2SAT 97–99; BMI 28.1; BMI 27.6
--- NOTE | 2019-05-28 16:25 | CT_ITS ---
STUDY: CTA CHEST REASON FOR EXAM: Male, 68 years old. Evaluation for pulmonary embolus RADIATION DOSAGE (If Supplied By Facility): CTDIvol = ( 8.84 ) mGy, DLP = ( 482.88 ) mGycm TECHNIQUE: The examination was performed with the intravenous administration of IV 100mL Isovue-370. Post-processing of the angiographic images was performed, with multiplanar reformation and 3D reconstruction. Individualized dose optimization techniques were used for this CT. COMPARISON: None. FINDINGS: There is no acute or chronic pulmonary embolism. Aorta is of normal caliber. Lungs are clear. There is no pneumothorax, pulmonary edema or pleural effusions. Mediastinal contents are normal. Cardiac chambers are normal in size and shape. Pericardium is normal. Left atrial appendage is clear. There is severe coronary artery disease. Osseous structures are intact. Abdominal structures are unremarkable. CT/CTA Chest W/WO Contrast IMPRESSION: 1. No pulmonary embolism 2. Unremarkable aorta. 3. Severe coronary artery disease. 4. Refer to ultrasonography of the venous lower extremities for more complete risk stratification of the patient at risk for venous thrombus embolism. Electronically Signed: Beatris Arguello, at 17:53 EST Tel , Service support ,
--- NOTE | 2019-05-28 16:26 | EKG12_ITS ---
Test Reason : CP Blood Pressure : / mmHG Vent. Rate : 091 BPM Atrial Rate : 091 BPM P-R Int : 214 ms QRS Dur : 108 ms QT Int : 364 ms P-R-T Axes : 057 -29 051 degrees QTc Int : 447 ms Sinus rhythm with 1st degree A-V block Septal infarct , age undetermined Abnormal ECG Confirmed by ROSA HUITRON, KYM ([id number]), field map editor MELODY DELVALLE ([id number]) on 05/29/2019 11:06:14 AM Referred By: Felipa Medina Confirmed By:KYM LEE MD
--- NOTE | 2019-05-28 16:30 | RAD_ITS ---
STUDY: X-RAY CHEST REASON FOR EXAM: Male, 68 years old. Chest pain. TECHNIQUE: Single frontal view of the chest. COMPARISON: February 17, 2019 FINDINGS: Stable hyperexpansion. There is no demonstrated pleural abnormality. Borderline cardiomegaly unchanged. Normal mediastinum and jenelle. Normal visualized pulmonary arteries. Normal visualized aortic arch and descending thoracic aorta. Normal visualized thoracic spine. Normal visualized ribs, clavicles, and shoulders. There is no demonstrated abnormality of the visualized soft tissue structures of the upper abdomen. RAD/Chest 1 View (Portable) IMPRESSION: Stable chest with no acute finding. Electronically Signed: Geoff Lane MD at 16:59 EST , Service support ,
--- NOTE | 2019-05-28 16:31 | ED.VIS.GEN ---
History of Present Illness Chief Complaint: Chest Pain Informant: Patient Onset: Today Context: Gradual Onset Timing: Continuous Current Severity: Moderate Maximum Severity: Moderate Narrative: The patient is a 68-year-old male with history of hypertension, hyperlipidemia and recent TIA who presents to the emergency department chest pain. The patient states he was in his normal state of health. He states that he had sudden onset pain in the left side of his chest that radiated to his left shoulder. States that he felt mildly short of breath. He is never had symptoms like this before. He denies any history of coronary vascular disease. He does admit that he recently traveled to the [facility] was on a cruise. He states that he has had no exertional chest pain. He walks 3 to 5 miles a day without any symptoms. He does admit to a strong family history of heart disease. Prior similar symptoms: No Recent Illness/Hospitalization: No Past Medical History - Allergies and Home Meds Allergies/Adverse Reactions: Allergies Penicillins [PCN] Allergy (Verified 05/28/19 16:17) [facility] Primary Care Physician: Jamey Damian MD [Primary Care Provider] - Prior records reviewed: Yes Past Medical History: - - Hypertension, hyperlipidemia Surgical History: noncontributory Smoking Status: Former smoker - Family History Paternal Family History: Reports: Hypertension Review of Systems General: Denies: Chills, Fever, Sweats Eyes: Denies: Visual changes - bilaterally, Diplopia ENT: Denies: Rhinorrhea, Sore throat Cardiovascular: Reports: Chest pain. Denies: Palpitations Respiratory: Denies: Dyspnea, Cough, Dyspnea on exertion Gastrointestinal: Denies: Abdominal pain, Nausea, Vomiting, Diarrhea, Melena, Hematochezia Genitourinary: Denies: Dysuria, Hematuria, Frequency Musculoskeletal: Denies: Back pain, Extremity Pain Skin: Denies: Rash, Wounds Neurological: Denies: Headache, Weakness, Numbness Physical Exam Vital Signs/Narrative: Vital Signs Temp Pulse Resp BP Pulse Ox 05/28/19 16:11 98.3 F 91 15 158/76 H 98 Inital Vital Signs reviewed: Yes General: Well nourished, Well developed, No Acute Distress Head: Normocephalic, Atraumatic Eyes: Perrl, EOMI ENT: Moist mucous membranes, No rhinorrhea Neck: Supple, Nontender Cardiovascular: Regular rate, Regular rhythm, No murmurs Respiratory: No distress, CTA bilaterally, Chest nontender Abdomen: Soft, Nontender, Nondistended, Normal bowel sounds Back: Nontender, Normal Inspection Extremities: Nontender, No edema Skin: Normal color, No rash Neurological: Alert, Oriented x3, Cranial nerves II-XII grossly intact, Normal Strength, Normal Sensation Psychological: Normal affect, Normal Mood Diagnostic/Tx/Re-eval Chest X-Ray - ED: 1 View, Normal, Heart, Lungs, Mediastinum Clinical Impression(s) from Imaging Studies Chest CTA 05/28/19 16:25 IMPRESSION: 1. No pulmonary embolism 2. Unremarkable aorta. 3. Severe coronary artery disease. 4. Refer to ultrasonography of the venous lower extremities for more complete risk stratification of the patient at risk for venous thrombus embolism. Electronically Signed: Beatris Arguello at 17:53 EST Tel , Service support , Chest X-Ray 05/28/19 16:30 IMPRESSION: Stable chest with no acute finding. Electronically Signed: Geoff Lane MD at 16:59 EST , Service support , Abnormal Lab Results 05/28/19 05/28/19 05/28/19 16:30 16:30 16:30 WBC 8.4 RBC 4.40 L Hgb 13.7 Hct 39.6 L MCV 90.0 MCH 31.1 MCHC 34.6 RDW Std Deviation 39.6 RDW Coeff of Tobin 12.1 Plt Count 313 MPV 9.8 Immature Gran % (Auto) 0.600 Neut % (Auto) 77.0 H Lymph % (Auto) 13.5 L Baxter % (Auto) 6.6 Eos % (Auto) 1.2 Baso % (Auto) 1.1 H Absolute Neuts (auto) 6.4 Absolute Lymphs (auto) 1.13 Nucleated RBC % 0 PT 12.9 INR 1.0 APTT 38.3 H Sodium 133 L Potassium 3.8 Chloride 100 Carbon Dioxide 24.0 Anion Gap 9 BUN 20 H Creatinine 1.34 H Estim Creat Clear Calc 57.75 Est GFR (MDRD) Af Amer 68 Est GFR (MDRD) Non-Af 57 L BUN/Creatinine Ratio 14.9 Glucose 195 H Calcium 9.2 Magnesium 2.1 Troponin I < 0.015 - Rhythm Strip Rhythm Strip: Sinus Rhythm Rate: 80 Ectopy: None - EKG Initial EKG Interpretation: Sinus Rhythm, No Acute Injury Pattern, Non-Specific ST Changes Prior: Unchanged - Medical Decision Making The patient presents with substernal chest pain that radiates to his back. It started at rest. EKG was obtained. He does have Q waves anteriorly, but unchanged from prior. With 3 sublingual nitro, he was pain-free. With the patient's recent travel history, I did obtain a CT of his chest. This was unremarkable for acute pulmonary process. His aorta is also normal. It does demonstrate rather significant coronary disease. The patient is now pain-free. His enzymes are normal. However, given his age and risk factors I do feel that he would benefit from cardiac work-up. Patient was discussed with the hospitalist. Impression 1. Chest pain ED Disposition - Plan for ED Patient: Referrals: Jamey Damian MD [Primary Care Provider] -
[2019-05-28] MEDS: Aspirin 81 MG TAB.CHEW 324 MG PO (16:40)
[2019-05-28] MEDS: 0.9% Normal Saline 1,000 ML 150 ML IV (16:40)
[2019-05-28] MEDS: Nitroglycerin SL (ED/IMG/CATH) 0.4 MG TABLET SUBLINGUAL ×3 (16:46→17:03)
[2019-05-28 16:50] LABS: Absolute Lymphocyte Count 1.13 X10^3/uL (0.83-4.51); Absolute Neutrophil Count 6.4 X10^3/uL (2.0-7.7); Basophil# 0.09 X10^3/uL; Basophil% 1.1 % (0-1); Eosinophils% 1.2 % (0-5); Hematocrit 39.6 % (40-54); Hemoglobin 13.7 g/dL (13.0-16.5); Lymphocyte # 1.13 X10^3/ul (4.0); Lymphocyte % 13.5 % (19-41); Mean Corp Hgb Conc 34.6 g/dL (32-36); Mean Corpuscular Hgb 31.1 pg (27.0-32.0); Mean Platelet Vol. 9.8 fl (6.2-12.0); Monocyte# 0.55 X10^3/uL; Monocyte% 6.6 % (0-10); NRBC Flagged by Analyzer 0 % (0-5); Neutrophil # 6.44 X10^3/uL (2.7-7.7); Partial Thromboplast Time 38.3 Seconds (24.1-36.2); Platelet Count 313 K/mm3 (150-450); RBC Distribution Width CV 12.1 % (11.6-14.6); RBC Distribution Width SD 39.6 fl (35.1-43.9); White Blood Count 8.4 K/mm3 (4.4-11.0)
[2019-05-28 16:58] LABS: Prothrombin Time (Protime)PT. 12.9 SECONDS (11.7-14.9)
[2019-05-28 17:18] LABS: Anion Gap 9 (5-15); BUN 20 mg/dL (7-18); BUN/Creat Ratio 14.9 RATIO (10-20); Calcium,Total 9.2 mg/dL (8.5-10.1); Chloride 100 mmol/L (98-107); Creatinine, Serum 1.34 mg/dL (0.70-1.30); EST Glomerular Filtration Rate 57 mL/min (>60); Est Glom Filt Rate - Afr Amer 68 mL/min (>60); Estimated Creatinine Clearance 57.75 ml/min; Glucose 195 mg/dL (74-106); Magnesium 2.1 mg/dL (1.6-2.6); Potassium 3.8 mmol/L (3.5-5.1); Sodium Level 133 mmol/L (136-145)
--- NOTE | 2019-05-28 18:42 | PCM.HP.STD ---
Problem List (1) Chest pain Status: Acute Qualifiers: Chest pain type: unspecified Qualified Code(s): R07.9 - Chest pain, unspecified (2) HTN (hypertension) Status: Chronic Qualifiers: Hypertension type: essential hypertension Qualified Code(s): I10 - Essential (primary) hypertension (3) Hyperlipidemia Status: Chronic Qualifiers: Hyperlipidemia type: unspecified Qualified Code(s): E78.5 - Hyperlipidemia, unspecified History of Present Illness Date of Admission: 05/28/19 Chief Complaint: Chest pain - 1 day The patient is a 68 year old M with past medical history of hypertension, hyperlipidemia who comes in with complaints of substernal crushing chest pain which has been ongoing for several hours. This chest pain happened whilst at rest. He denied any dizziness or diaphoresis or shortness of breath or palpitations with this. He recently came back from a cruise to the [facility] but denied any lower extremity swelling or pain. Pain was relieved when he took 3 pills of nitroglycerin in the ED. Vitals in the ED showed temperature of 98.3F, blood pressure 158/76, heart rate 91, respiratory rate was 15, SPO2 was 98% on room air. BC count was 8.4 hemoglobin 13.7, platelet 313 INR 1.0, sodium was 133, potassium 3.8, chloride 100, bicarbonate 24, BUN 20, creatinine 1.34, admission was 2.1, troponins were negative. EKG showed normal sinus rhythm with no acute ST-T changes, QTC was 447. CTA of the chest was negative for acute PE. Chest X-ray showed no acute cardiopulmonary findings. Past Medical History Past Medical History (Chronic Problems): Chronic Problems HTN (hypertension) (Chronic) Hyperlipidemia (Chronic) Allergies Penicillins [PCN] Allergy (Verified 05/28/19 16:17) Hives Home Medications: Ambulatory Orders Medication Instructions Recorded Amlodipine [Norvasc] 10 mg PO DAILY 02/17/19 Losartan Potassium 25 mg PO DAILY 02/17/19 Simvastatin 20 mg PO DAILY 02/17/19 Aspirin [Aspirin, Baby] 81 mg PO DAILY@0800 #90 tab.chew 02/18/19 Surgical History: noncontributory Psychiatric History: No pertinent psych hx Lives: Alone Smoking Status: Former smoker Tobacco Use: Non-smoker Alcohol: Occasional Drugs: None - *Family History Paternal History Items: Hypertension Maternal History Items: Heart Disease, Stroke Review of Systems Constitutional: Denies: Anorexia, Chills, Fever, Malaise, Weight Change Eyes: Denies: Blurred vision, Cataracts, Conjunctivae Inflammation, Eyelid Inflammation, Pain, Redness HEENT: Denies: Difficulty Hearing, Difficulty Swallowing, Head Aches, Nasal bleeding, Sinus Congestion, Sinus Drainage Cardiovascular: Reports: Chest Pain. Denies: Claudication, Orthopnea, Palpitations Respiratory: Denies: Cough, Hemoptysis, Shortness of Breath, Shortness of breath at rest, Shortness of breath upon exertion, Sputum production Gastrointestinal: Denies: Abdominal Pain, Constipation, Hematemesis, Hematochezia, Nausea, Vomiting Genitourinary: Denies: Dysuria, Frequency Musculoskeletal: Denies: Joint Pain, Joint stiffness, Joint swelling, Joint Tenderness Skin: Denies: Rash, Wounds Neurological: Denies: Difficulty swallowing, Focal weakness, Numbness, Tingling Psychiatric: Denies: Anxiety, Depression, Homicidal Ideations, Suicidal Ideations Hematologic/ Lymphatic: Denies: Easy Bruising, Easy Bleeding VTE Information - Inpt Only VTE Present on Admission: No VTE Pharm Prophylaxis ordered?: Yes Patient Problems: Active and Suspected Problems Chest pain (Acute) - Physical Exam Vitals/I&O's: Vital Signs Temp Pulse Resp BP Pulse Ox 98.3 F 76 20 H 125/75 H 99 05/28/19 16:11 05/28/19 18:02 05/28/19 18:02 05/28/19 18:02 05/28/19 18:02 Oxygen Flow Rate (L/min) 2 Oxygen Delivery Method Nasal Cannula Weight: 91.626 kg Body Mass Index (BMI) 28.1 Finger Stick Blood Glucose 237 General: Alert, Oriented x3, Cooperative, No apparent distress HEENT: Atraumatic, PERRLA, EOMI, Normocephalic Oral: Moist Mucosa Neck: Supple Lungs: Clear to auscultation, Normal air movement Cardiovascular: Regular rate, Regular Rhythm, Normal S1, Normal S2, No murmurs Abdomen: Bowel Sounds Present, Soft, Non Tender, Non-Distended, No Hepato-splenomegaly Extremities: No edema Skin: No rashes, No breakdown Musculoskeletal: No Tenderness to Palpation of Joints or Extremities Lymphatic: No Cervical, Supraclavicular, or Inguinal Adenopathy Neurological: Cranial nerves II-XII grossly intact, Neuro grossly intact Psych/Mental Status: Normal Affect, Appropriate Laboratory Results 05/28/19 16:30: WBC 8.4, RBC 4.40 L, Hgb 13.7, Hct 39.6 L, MCV 90.0, MCH 31.1, MCHC 34.6, RDW Std Deviation 39.6, RDW Coeff of Tobin 12.1, Plt Count 313, MPV 9.8, Immature Gran % (Auto) 0.600, Neut % (Auto) 77.0 H, Lymph % (Auto) 13.5 L, [place] % (Auto) 6.6, Eos % (Auto) 1.2, Baso % (Auto) 1.1 H, Absolute Neuts (auto) 6.4, Absolute Lymphs (auto) 1.13, Nucleated RBC % 0 05/28/19 16:30: Sodium 133 L, Potassium 3.8, Chloride 100, Carbon Dioxide 24.0, Anion Gap 9, BUN 20 H, Creatinine 1.34 H, Estim Creat Clear Calc 57.75, Est GFR (MDRD) Af Amer 68, Est GFR (MDRD) Non-Af 57 L, BUN/Creatinine Ratio 14.9, Glucose 195 H, Calcium 9.2, Magnesium 2.1, Troponin I < 0.015 05/28/19 16:30: PT 12.9, INR 1.0, APTT 38.3 H Current Medications Sodium Chloride () 1,000 mls @ 150 mls/hr IV .[id number] [facility] Last Admin: 05/28/19 16:40 Dose: 150 mls/hr Documented by: Assessment/Plan All Active Problems TIA (transient ischemic attack) (Acute) Chest pain (Acute) 68 year old M with past medical history of hypertension, hyperlipidemia who comes in with complaints of substernal crushing chest pain which has been ongoing for several hours. 1. Acute chest pain, atypical, stable vitals, no acute ST changes on EKG We will admit to PCU, trend troponins, nitro as needed Exercise stress test in a.m. 2. Hypertension, controlled, continue on home medications 3. Hyperlipidemia, continue on statins 4. DVT PPx- Heparin SC Code Visit OBSV E&M: 22557 Initial observation care L3
--- NOTE | 2019-05-28 19:54 | NURSING ---
Pt states he had a pneumonia shot when he was 67.
[2019-05-28] MEDS: Heparin Injection (Vial) 5,000 UNIT/ML VIAL 5000 UNIT SC (22:31)
[2019-05-29] VITALS (8 sets, daily range): BP systolic 128–153; BP diastolic 70–75; PULSE 64–82; RESP 10–18; TEMP 36.9–37.2; O2SAT 93–98
[2019-05-29 05:33] LABS: Absolute Lymphocyte Count 1.73 X10^3/uL (0.83-4.51); Absolute Neutrophil Count 3.8 X10^3/uL (2.0-7.7); Basophil# 0.09 X10^3/uL; Basophil% 1.4 % (0-1); Eosinophil# 0.17 X10^3/uL; Eosinophils% 2.6 % (0-5); Hematocrit 37.5 % (40-54); Hemoglobin 12.7 g/dL (13.0-16.5); Lymphocyte # 1.73 X10^3/ul (4.0); Lymphocyte % 26.7 % (19-41); Mean Corp Hgb Conc 33.9 g/dL (32-36); Mean Corpuscular Hgb 30.5 pg (27.0-32.0); Mean Corpuscular Volume 90.1 fL (80-94); Mean Platelet Vol. 9.5 fl (6.2-12.0); Monocyte# 0.72 X10^3/uL; Monocyte% 11.1 % (0-10); NRBC Flagged by Analyzer 0 % (0-5); Neutrophil # 3.75 X10^3/uL (2.7-7.7); Neutrophil % 57.7 % (47-70); Platelet Count 285 K/mm3 (150-450); RBC Distribution Width CV 12.2 % (11.6-14.6); RBC Distribution Width SD 40.1 fl (35.1-43.9); Red Blood Count 4.16 M/mm3 (4.6-6.2); White Blood Count 6.5 K/mm3 (4.4-11.0)
[2019-05-29] MEDS: Losartan Potassium 25 MG Tablet PO (05:42)
[2019-05-29] MEDS: Aspirin 81 MG TAB.CHEW PO (05:42)
[2019-05-29 06:00] LABS: ALB/GLOB Ratio 1.1 RATIO (0.9-2.4); AST(SGOT) 20 U/L (15-37); Alanine Aminotransfer ALT/SGPT 31 U/L (16-61); Alkaline Phosphatase 61 U/L (45-117); Anion Gap 7 (5-15); BUN 14 mg/dL (7-18); Calcium,Total 8.7 mg/dL (8.5-10.1); Chloride 102 mmol/L (98-107); EST Glomerular Filtration Rate 79 mL/min (>60); Est Glom Filt Rate - Afr Amer 96 mL/min (>60); Estimated Creatinine Clearance 77.39 ml/min; Globulin 3.5 g/dL (2.2-4.2); Glucose 91 mg/dL (74-106); Potassium 4.1 mmol/L (3.5-5.1); Protein, Total 7.5 g/dL (6.4-8.2); Sodium Level 135 mmol/L (136-145)
[2019-05-29] MEDS: amLODIPine 10 MG Tablet PO (09:06)
--- NOTE | 2019-05-29 11:42 | STRESSREP ---
Stress Test Report Treadmill EKG report: Resting EKG: Normal sinus rhythm, normal axis, normal intervals, poor R wave progression across precordium which may be lead misplacement. No previous myocardial infarction noted. Treadmill EKG patient exercised according to Azar protocol for 7 minutes and 0 seconds achieving a maximum workload of 8.50 METS. Resting heart rate was initially 72 beats a minute and keith to maximum 127 bpm which represents 82% of the maximal age-predicted heart rate. Resting blood pressure was 148/76, and keith to maximum 160/68. Test was terminated due to dyspnea. Rate-pressure product was 20,160. During exercise the patient's heart rate increased as expected. Patient had no dynamic EKG changes to suggest ischemia. Rare PVC noted. Appropriate blood pressure response to exercise. Conclusions: Normal adequate treadmill EKG. Negative for ischemia by EKG criteria. No anginal symptoms noted. Rare PVC noted. Test terminated due to dyspnea. Although the patient did not quite reach target heart rate, his rate pressure product was adequate to call at a adequate test. Patient tolerated the procedure well. No complications. Recommend clinical correlation or alternative mode of testing of coronary Klooster disease and strongly suspected.
--- NOTE | 2019-05-29 13:33 | DCINST_ITS ---
- Discharge Diagnoses Current Active Problems: Current Active and Chronic Problems Chest pain (Acute) You will use the following diet at home:: No restrictions Your food should be the consistency of: Regular Your liquids should be the consistency of: Regular/Thin Discharge Activity: Return to Normal Activity Weight Bearing Status: Full weight bearing Allergies/Adverse Reactions: Allergies Penicillins [PCN] Allergy (Verified 05/28/19 16:17) Hives Medications to take at Discharge Amlodipine [Norvasc] 10 mg PO DAILY 02/17/19 Losartan Potassium 25 mg PO DAILY 02/17/19 Simvastatin 20 mg PO DAILY 02/17/19 Aspirin [Aspirin, Baby] 81 mg PO DAILY@0800 #90 tab.chew 02/18/19 Primary Care Physician: Jamey Damian MD [Primary Care Provider] - Please follow up with your Primary Care Physician in: in 2-3 weeks Test Results: Test results from this visit will be discussed in further detail at your follow- up appointment, if applicable.
--- NOTE | 2019-05-30 13:06 | DS.PCM_ITS ---
Discharge Date and Diagnosis Date of Admission: 05/28/19 Date of Discharge: 05/29/19 - Primary Discharge Diagnosis #1 musculoskeletal chest pain #2 essential hypertension #3 hyperlipidemia #4 cerebrovascular disease - Secondary Discharge Diagnosis Chronic Problems HTN (hypertension) (Chronic) Hyperlipidemia (Chronic) Hospital Course and Treatment Operations: None Procedures: Stress test Summary of Care Provided: The patient is a 68 year old M who was seen in the emergency room at [facility] with a chief complaint of chest pain. Patient states that his chest pain went away with the administration of 3 nitroglycerin in the ER. Patient's EKG did not show evidence of ischemic changes, there is evidence of Q waves in V1 and V2 but this was unchanged from her previous EKG. Patient's cardiac enzymes were unremarkable, patient had a chest CTA that did not show any evidence of pulmonary embolism. Patient was placed in observation status on PCU, cardiac enzymes were cycled and these remain normal, patient underwent an exercise nonnuclear stress test on 05/29/2019-he had no complaints of chest pain while he was on the treadmill and there was no signs of any EKG changes suggesting ischemia. On 05/29/2019, patient was seen and examined: On examination he appeared in good health and spirits. Vital signs as documented. Skin warm and dry and without overt rashes. Neck without JVD. Lungs clear. Heart exam notable for regular rhythm, normal sounds and absence of murmurs, rubs or gallops. Abdomen unremarkable and without evidence of organomegaly, masses, or abdominal aortic enlargement. Extremities nonedematous. Neuro: Cranial nerves II through XII are grossly intact, no focal motor deficits were noted, sensation to light touch and pinprick intact. Psych: Patient is alert and oriented x3, he does not appear anxious or depressed Patient was discharged in stable condition on 05/29/2019. - Physical Exam Vitals/I&O's: Vital Signs Temp Pulse Resp BP Pulse Ox 98.9 F 82 18 141/72 H 98 05/29/19 13:53 05/29/19 13:55 05/29/19 13:55 05/29/19 13:55 05/29/19 13:55 Oxygen Flow Rate (L/min) 2 Oxygen Delivery Method Room Air Weight: 88.6 kg Body Mass Index (BMI) 27.6 Finger Stick Blood Glucose 237 Intake and Output for Last 24 Hours 05/28/19 05/29/19 05/30/19 23:59 23:59 23:59 Intake Total 699.5 / 699.5 430 / 430 Balance 699.5 / 699.5 430 / 430 Discharge Activity: Return to Normal Activity Weight Bearing Status: Full weight bearing Home Medications: Medications to take at Discharge Amlodipine [Norvasc] 10 mg PO DAILY 02/17/19 Losartan Potassium 25 mg PO DAILY 02/17/19 Simvastatin 20 mg PO DAILY 02/17/19 Aspirin [Aspirin, Baby] 81 mg PO DAILY@0800 #90 tab.chew 02/18/19 Primary Care Physician: Jamey Damian MD [Primary Care Provider] - Please follow up with your Primary Care Physician in: in 2-3 weeks Disposition: Home Minutes spent on discharge:: 30 Patient Condition:: Stable Medical Necessity - Tobacco Use Smoking Status: Former smoker Tobacco Use: Non-smoker Meaningful Use Info Meaningful Use Diagnoses (Choose all that apply): None applicable Code Visit OBSV E&M: 79879 Observation care discharge
== END 2019-05-29 13:34 | disposition home or self-care (01) ==
LOC: ED 16:45 → PCU 19:12
PROVIDERS: Admitting Provider Internal Medicine; Emergency Provider Emergency Medicine; Family Provider Internal Medicine; PCP Internal Medicine; Referring Provider Internal Medicine; Visit Provider Internal Medicine
DX: R07.2 Precordial pain (principal); I10 Essential (primary) hypertension; E78.5 Hyperlipidemia, unspecified; Z79.899 Other long term (current) drug therapy; Z79.82 Long term (current) use of aspirin; Z86.73 Personal history of transient ischemic attack (TIA), and cerebral infarction without residual deficits; R06.02 Shortness of breath; Z87.891 Personal history of nicotine dependence; I25.10 Atherosclerotic heart disease of native coronary artery without angina pectoris
CPT/HCPCS: 36415; 71045; 71275; 80048; 80053; 83735; 84484; 85025; 85610; 85730; 93005; 93017; 96360; 96361; 96372; 99218; 99251; 99285; J7030; Q9967; A4216; G0378; G0463

== ENCOUNTER 2021-03-24 11:50 | Day surgery (SDC) | payer MEDICARE, OTHER, SELFPAY ==
[2021-03-24] VITALS (10 sets, daily range): BP systolic 117–152; BP diastolic 60–76; PULSE 77–97; RESP 16–18; TEMP 35.8–36.4; O2SAT 94–98; BMI 25.8
--- NOTE | 2021-03-24 | CYST_PTH ---
PATIENT: UMESH MCCORD LOC: [facility] U#:[id number] AGE/SX: 70/M ROOM: RE03/24/[address]: Dr. Buzz Hobson DDS : 1950 BED: DIS: 03/24/2021 SPEC #: [id number] RECD: 03/24/21 15:41 STATUS: FRANCES PRETTY #: [id number] EPIFANIO: 03/24/21 00:[address]: Buzz Hobson DEPT: SURGICAL PATHOLOGY RECD BY: Nakul Brandon ENTERED: 03/25/21 09:04 SP TYPE: Cyst OTHR DR: Jamey Damian MD Tissues: CYST Procedures: Surgery Specimen Level IV HEADER OPERATION: Excision oral tumor PRE-OP DIAGNOSIS: Odontogenic cyst tumor right mandible TISSUE SUBMITTED: Cyst wall right mandible MICROSCOPIC DIAGNOSIS Cyst wall of right mandible, biopsy: Consistent with dentigerous cyst. AM:moi 03/26/2021 COMMENT Case has been reviewed in consultation with Dr. Moncada who concurs with the above diagnosis. IDC:HANNA MICROSCOPIC DESCRIPTION Slides are reviewed. GROSS DESCRIPTION Received in fixative is one container labeled with the patient's name and designated cyst wall right mandible. The specimen consists of an irregular piece of vogel-pink congested tissue measuring 1.5 x 1.5 x 0.2 cm. The specimen is serially sectioned and submitted entirely in one cassette. / HANNA:moi 03/25/21 TC:5 CPT: 50708
[2021-03-24] MEDS: Lactated Ringers 1,000 ML 100 ML IV (12:20)
[2021-03-24] MEDS: Bupivacaine Mpf 0.5% 30 ML VIAL (14:35)
[2021-03-24] MEDS: Lidocaine 1% /Epi 1:100 (20ml) 20 ML Vial (14:35)
--- NOTE | 2021-03-24 14:49 | PCM.OPRPT ---
Report of Operation Date of Procedure: 03/24/21 Pre-Operative Diagnosis: REight mandibular tumor/cyst Post-Operative Diagnosis: Cyst Surgery/Procedure Performed:: Enucleation and curretage right mndibular cyst and remova impacted tooth 32 Surgeon: Jazlyn Type of Anesthesia: General Special Medications: none
--- NOTE | 2021-03-24 14:54 | PCM.OPRPT ---
Report of Operation Date of Procedure: 03/24/21 Pre-Operative Diagnosis: Mandibular cyst/tumor Post-Operative Diagnosis: Mandibular cyst /Impacted tooth 32 Surgery/Procedure Performed:: Enucleation and curettage Cyst mandible Surgeon: Jazlyn Type of Anesthesia: General Special Medications: none Specimen's removed: cystic lining Drains: none Estimated Blood Loss (mL): minmal Description of Procedure: Identified in pre-op hold area and description of procedure gone over. Risks include infection, fractured jaw injury to neurovascular structures resulting in paraesthesia. Taken to OR placed into supine position and anesthesia monitors placed. Patient intubated and prepped in sterile manner for surgery. Local anesthesia administered. Throat pack placed. Incision right retromolar region full flap elevation. Bone removed to gain access to cyst/tumor and impacted tooth 32. The tooth was sectioned and removed. The cystic lining was removed and sent for pathology. Site irrigated and sutured with 3-0 chromic. Patient awakened and extubated in OR. Patient is stable and transported to PACU.
[2021-03-24] MEDS: Lactated Ringers 1,000 ML 75 ML IV (16:01)
== END 2021-03-24 16:53 | disposition home or self-care (01) ==
LOC: SDC 11:52 → AC 11:53
PROVIDERS: PCP Internal Medicine; Referring Provider Dentist Oral and Maxillofacial Surgery; Visit Provider Dentist Oral and Maxillofacial Surgery
PROC: (CPT 41826; principal; 2021-03-24 13:15)
DX: K09.0 Developmental odontogenic cysts (principal); K01.1 Impacted teeth; Z87.891 Personal history of nicotine dependence; E78.00 Pure hypercholesterolemia, unspecified; I10 Essential (primary) hypertension; Z87.2 Personal history of diseases of the skin and subcutaneous tissue; Z72.89 Other problems related to lifestyle; Z87.19 Personal history of other diseases of the digestive system
CPT/HCPCS: 41826; 88304; 88305; J7120; J2405

== ENCOUNTER 2023-05-18 07:17 | Inpatient (IN) | payer MEDICARE, OTHER, SELFPAY ==
--- NOTE | 2023-04-27 06:59 | RAD_ITS ---
STUDY: X-RAY CHEST REASON FOR EXAM: Male, 72 years old. Preop for hip surgery TECHNIQUE: PA and lateral views of the chest. COMPARISON: 05/28/2019 FINDINGS: The lungs are clear and expanded. There is no demonstrated pleural abnormality. Normal size heart. Normal mediastinum and jenelle. Normal visualized pulmonary arteries. Normal visualized aortic arch and descending thoracic aorta. Normal visualized thoracic spine. Normal visualized ribs, clavicles, and shoulders. There is no demonstrated abnormality of the visualized soft tissue structures of the upper abdomen. RAD/Chest PA and Lateral IMPRESSION: No acute pulmonary process Electronically Signed: Bonifacio Duran MD at 8:26 EST ,
--- NOTE | 2023-04-27 06:59 | EKG12_ITS ---
Test Reason : PRE OP Blood Pressure : / mmHG Vent. Rate : 081 BPM Atrial Rate : 081 BPM P-R Int : 230 ms QRS Dur : 106 ms QT Int : 370 ms P-R-T Axes : 072 -52 072 degrees QTc Int : 429 ms Sinus rhythm with 1st degree A-V block Left anterior fascicular block Septal infarct , age undetermined Abnormal ECG Confirmed by AURELIANO HUITRON, JAYESH ([id number]), marketing editor PREMA GOMEZ ([id number]) on 05/01/2023 10:40:47 AM Referred By: ANAMIKA Confirmed By:MICHELL BEDOYA MD
[2023-04-27 07:34] LABS: Absolute Neutrophil Count 3.8 X10^3/uL (2.0-7.7); Basophil# 0.12 X10^3/uL; Basophil% 1.4 % (0-1); Eosinophil# 0.14 X10^3/uL; Eosinophils% 1.6 % (0-5); Hematocrit 38.5 % (40-54); Hemoglobin 13.1 g/dL (13.0-16.5); Lymphocyte % 40.9 % (19-41); Mean Corpuscular Hgb 31.8 pg (27.0-32.0); Mean Corpuscular Volume 93.4 fL (80-94); Mean Platelet Vol. 8.8 fl (6.2-12.0); Monocyte# 0.95 X10^3/uL; Monocyte% 11.1 % (0-10); NRBC Flagged by Analyzer 0 % (0-5); Neutrophil % 44.5 % (47-70); Platelet Count 294 K/mm3 (150-450); RBC Distribution Width CV 12.7 % (11.6-14.6); RBC Distribution Width SD 43.6 fl (35.1-43.9); Red Blood Count 4.12 M/mm3 (4.6-6.2); White Blood Count 8.6 K/mm3 (4.4-11.0)
[2023-04-27 07:58] LABS: Prothrombin Time (Protime)PT. 12.9 SECONDS (11.7-14.9)
[2023-04-27 07:59] LABS: Partial Thromboplast Time 34.4 Seconds (24.1-36.2)
[2023-04-27 08:01] LABS: Anion Gap 7 (5-15); BUN 19 mg/dL (7-18); BUN/Creat Ratio 17.8 RATIO (10-20); Calcium,Total 9.3 mg/dL (8.5-10.1); Chloride 98 mmol/L (98-107); Creatinine, Serum 1.07 mg/dL (0.70-1.30); EST Glomerular Filtration Rate 72 mL/min (>60); Est Glom Filt Rate - Afr Amer 88 mL/min (>60); Glucose 110 mg/dL (74-106); Potassium 3.8 mmol/L (3.5-5.1); Sodium Level 130 mmol/L (136-145)
[2023-05-18] VITALS (12 sets, daily range): BP systolic 97–156; BP diastolic 59–79; PULSE 65–84; RESP 16–18; TEMP 36.1–37.1; O2SAT 95–100; BMI 26.1
[2023-05-18] MEDS: Lactated Ringers 1,000 ML 15 ML IV (06:37)
--- NOTE | 2023-05-18 07:13 | DS.PCM_ITS ---
Providers Date of Admission: 05/18/23 Primary Care Physician: Dr. Jamey Damian MD Reason For Visit: Post Lum Interbody Fusion Kevan Two Level Diagnosis Discharge Diagnosis (1) Lumbar stenosis: Status: Acute Code(s): M48.061 - Spinal stenosis, lumbar region without neurogenic claudication Medications at Discharge Home Medications amlodipine 10 mg tablet 10 mg PO DAILY BP 02/17/19 losartan 25 mg tablet 50 mg PO DAILY BP 02/17/19 simvastatin 20 mg tablet 20 mg PO DAILY CHOLESTEROL 02/17/19 hydrocodone-acetaminophen 5-325mg 5mg-325mg 1 tab PO Q6H 7 days #28 tabs 05/18/23 Hospital Course Operations - (L4-5, L5-S1 posterior lumbar interbody fusion, decompression, posterior spinal fusion with instrumentation, use of allograft) Summary of Care Provided Minutes Spent on Discharge: 15 Hospital Course: The patient is a 72-year-old male who underwent L4-5, L5-S1 fusion on 05/18/2023. He was subsequently admitted. The hospitalist was consulted for medical management. The patient progressed well. His pain was controlled and he was mobilizing well. No significant medical issues were reported. His drain was pulled on postoperative day 1. The patient was subsequently discharged home on 05/19/2023 to follow-up with Dr. Corley in 3 weeks Physical Exam Const alert, oriented x3 and no apparent distress General Appearance: cooperative, comfortable and well kempt Neck full ROM General: normal visual inspection Resp normal respiratory effort and normal air movement Effort and Inspection: able to speak in complete sentences Cardio regular rate and peripheral pulses 2+ throughout GI soft to palpation, non-tender and non-distended Back/Spine Back/Spine Narrative: Dressing clean dry and intact. Incision well approximated with interrupted sutures in place. No tenderness erythema drainage or fluctuance Cervical Spine: cervical ROM normal Lumbar Spine / Lower Back: normal to inspection Extremity normal to inspection, full ROM, normal capillary refill, no clubbing, cyanosis or edema and no calf tenderness Skin no rashes or lesions noted General Skin Exam: no breakdown Neuro oriented x3, CN's II-XII intact bilaterally, moves all extremities, no focal motor deficits, no sensory deficits noted and deep tendon reflexes 2+ bilaterally Motor Exam: strength 5/5 throughout and muscle tone normal throughout Weight / BMI Weight Weight: 181 lb 12.8 oz Body Mass Index (BMI) 26.1 ABG / Lab / Microbiology Data 05/19/23 05:28 05/19/23 05:28 Microbiology: Microbiology 04/27/23 07:20 Swab (Method) Nasal Screen MRSA/MSSA - Final D/C Instructions Discharge Diet: No restrictions Additional Activity Instructions: No repetitive bending twisting or lifting greater than 5 pounds. Wear back brace at all times. Okay to remove brace to sleep Call your doctor if your incision/area has: Continuous Slow Oozing, Sudden Increased Bleeding, Increased Pain/ Swelling, Increased Redness, Foul Smelling Discharge and Swelling at the incision site Call your doctor if you observe: Fever of 101 or Higher, Coldness, Increased Pain, Numbness or Tingling, Change in Color, Inability to urinate, Inability to have a bowel movement, Using more than 1 pad per hour, Shortness of breath, Dizziness, Fainting spells, Swelling in the ankles, Chest pain, Prolonged hiccupping, Increased palpitations (irregular heartbeat), Calf discomfort and Uncontrolled pain Cleanse incision/area with: Do not get Incision Wet and Keep Dressing Clean & Dry Additional Dressing/Incision Instructions: Change dressing daily with iodine gauze and tape. Use waterproof dressing to shower Additional Instructions: 1. During your procedure, you received sedation through your IV. Please follow these instructions for the next 24 hours: Do not drive a motor vehicle, do not drink any alcoholic beverages, and do not sign any legal documents or make per nina or business decisions. A responsible adult should stay with you at least 6 hours after the procedure. 2. Keep your surgical site/incision clean and the dressing dry and intact. You may use an ice pack at the surgical site to reduce any swelling or discomfort. 3. Monitor the incision site for any signs or symptoms of infection. Watch for redness, excessive swelling or drainage, or continued pain at the incision site after 3 days. Contact your physician immediately for a fever, chills or a t emperature of 101.5? F or greater. 4. Take your medication exactly as prescribed by your physician. Do not attempt to wean yourself off any of your medications even though your pain is improving. This process needs to be carefully monitored by your doctor. Take any antibiotics prescribed exactly as directed and until they are gone. 5. Avoid stretching, bending, pulling, twisting or any sudden movements. Do not bend or twist at the waist. Wear back brace at all times 6. No lifting greater than 5 pounds. 7. Do not operate a motor vehicle, equipment or a power tool while taking pain medication 8. Do not have any manipulation done by a chiropractor or any other physician without first consulting with the surgeon 9. Please contact our office if you are even scheduled for a CT scan or an MRI. 10. Please call us if you have any questions, problems or concerns. Please Follow Up With: Wilver Corley DO When: 3 weeks Meaningful Use Info Meaningful Use Diagnoses (Choose all that apply): None applicable Discharge Plan Admission Admit Date/Time: 05/18/23 07:17 Attending Provider: Wilver Corley Primary Care Provider: Jamey Damian Consulting Providers: Yen Tucker Discharge Orders/Prescriptions Prescriptions: New hydrocodone-acetaminophen 5-325 mg tablet 1 tab PO Q6H 7 Days Qty: 28 0RF Continued amlodipine 10 MG tablet 10 mg PO DAILY simvastatin 20 MG tablet 20 mg PO DAILY losartan 25 MG tablet 50 mg PO DAILY Referrals / Follow Up: Wilver Corley DO [Med Staff - Active Staff] - Jamey Damian MD [[facility]] - Disposition Disposition (needs filled in before D/C Order can be placed): Home Health Service
--- NOTE | 2023-05-18 07:13 | PCM.OPRPT ---
Problems Associated Problem List Diagnoses (1) Lumbar stenosis: Report of Operation Date of Procedure: 05/18/23 Description of Surgical Findings:: Preop diagnosis: 1. Lumbar stenosis, L4-5, L5-S1 with spondylosis 2. Lumbar degenerative disc disease L4-5, L5-S1 Postop diagnosis: 1. Lumbar stenosis, L4-5, L5-S1 with spondylosis 2. Lumbar degenerative disc disease L4-5, L5-S1 Procedures performed: 1. L4-5 posterior lumbar interbody fusion 2. L5-S1 posterior lumbar interbody fusion 3. Insertion of intervertebral biomechanical device x2 4. Structural allograft for spinal fusion 5. L4 bilateral laminectomies, foraminotomies, facetectomies, decompression of bilateral nerve roots 6. L5 bilateral laminectomies, foraminotomies, facetectomies, decompression of bilateral nerve roots 7. S1 bilateral laminectomies, foraminotomies, facetectomies, decompression of bilateral nerve roots 8. L4-5 posterolateral fusion 9. L5-S1 posterolateral fusion 10. Pedicle screw fixation 11.. Local autograft for spinal fusion 12.. Neuro monitoring bilateral upper and bilateral lower extremities Statement of medical necessity: The patient is a 72-year-old male with intractable back and leg pain. Image studies confirm the above diagnoses. They have failed conservative treatments and have opted for operative intervention understanding the risk to include but not limited to infection, bleeding, damage to nerves arteries and veins, possibility of spinal fluid leak, nonunion, hardware failure, continued pain, need for further surgery, deep vein thrombosis, pulmonary embolism, heart attack, risk of stroke or . Description of the procedure: The patient was identified in the preoperative holding area. There they received preoperative IV antibiotics and were then transferred to the operative suite. Once in the operative suite after general endotracheal anesthesia was established, the patient was positioned prone on the [place] operating table. All bony prominences were padded accordingly. The lumbar spine was prepped and draped in a standard fashion. Bear hugger's were not turned on until the drapes were placed and sealed with Ioban. A midline incision was made and taken down to the fascia. The fascia was divided and subperiosteal dissection was taken down to the level of the transverse processes and sacral ala of L4, L5, and S1 bilaterally. Deep retractors were placed. A bone scalpel was used to make cuts in the lamina and then a series of rongeurs and Kerrisons were used removing the spinous process and lamina of L4 and L5 and S1. Then facetectomies of greater than 50% were performed as well as foraminotomies decompressing the bilateral nerve roots. Given the severity of the stenosis I needed to perform wide bilateral laminectomies and near complete facetectomies in order to decompress the neural elements, created instability necessitating the fusion. I then proceeded with interbody fusion. The nerve roots and dura were identified and retracted medially. A knife was utilized to perform an annulotomy at L4-5. Endplate elevators, curettes, and pituitaries were utilized to remove disc material. Endplates were prepared with a rasp. An appropriate sized intervertebral peek cage device measuring 12 mm was packed with structural allograft and impacted into position completing the posterior lumbar interbody fusion at the L4-5 level. The same steps were repeated at the L5-S1 level. An intervertebral peek cage device measuring 8 mm was packed with morselized cancellous allograft and impacted into position thus completing the posterior lumbar interbody fusion at the L5-S1 level. I then proceeded with pedicle screw fixation. Starting points were found at the junction of the superior articular process and transverse processes and sacral ala. A power bur was used for the starting points. Pedicle probes were placed bilaterally and then 6.5 x 55 mm screws were placed bilaterally at L4 and L5. 6.5 x 45 mm screws were placed bilaterally at S1. The screws were tested with intraoperative neurophysiologic monitoring and tested within normal limits. Connector rods were applied and secured with set screws. I then proceeded with the posterolateral fusion. This was accomplished by decorticating the transverse processes bilaterally at L4 and L5 and the sacral ala bilaterally at S1. This decorticated bone was then bridged with local autograft from the decompression as well as morselized cancellous allograft completing the posterolateral fusion of the L4-5 and L5-S1 levels. The incision was thoroughly irrigated. Tisseel was placed over the dura as a hemostatic agent. A deep drain was placed. The fascia was closed with #1 Vicryl, subcutaneous with 2-0 Vicryl and skin with 2-0 nylon. A sterile dressing was applied with 4 x 4's ABD and tape. Sponge instrument and needle counts were correct at the end of the case. Neurophysiologic monitoring was maintained at baseline throughout the duration of the case. The patient was extubated and taken to the PACU without incident Surgeon: Wilver Corley Type of Anesthesia: General Drains: Hemovac Estimated Blood Loss (mL): 750 cc Fluids Replaced: 2800 cc Grafts/Implants Used: Unified spine Complications None Admit VTE Documentation VTE Present on Admission: No
--- NOTE | 2023-05-18 07:13 | PCM.PN.ORT ---
Objective Data Objective Data Vital Signs: Vital Signs Temp Pulse Resp BP Pulse Ox O2 Del Method 98.6 F 84 18 156/77 H 100 Room Air 05/18/23 06:27 05/18/23 06:27 05/18/23 06:27 05/18/23 06:27 05/18/23 06:27 05/18/23 06:27 Oxygen Delivery Method Room Air Weight: 181 lb 12.8 oz Body Mass Index (BMI) 26.1 Lab / Micro Data 04/27/23 07:20 04/27/23 07:20 Micro: Microbiology 04/27/23 07:20 Swab (Method) Nasal Screen MRSA/MSSA - Final Physical Exam Const alert, oriented x3 and no apparent distress General Appearance: cooperative, comfortable and well kempt HEENT normocephalic and head/scalp atraumatic Eyes EOMs intact bilaterally and conjunctivae normal Neck full ROM General: normal visual inspection Chest inspection of chest normal and palpation of chest normal Resp normal respiratory effort and normal air movement Cardio regular rate, regular rhythm and peripheral pulses 2+ throughout GI soft to palpation, non-tender and non-distended Back/Spine Back/Spine Narrative: Dressing clean dry and intact Cervical Spine: cervical ROM normal Thoracic Spine / Upper Back: normal to inspection Lumbar Spine / Lower Back: normal to inspection Extremity normal to inspection, full ROM, normal capillary refill, no clubbing, cyanosis or edema and no calf tenderness Skin no rashes or lesions noted General Skin Exam: no breakdown Neuro oriented x3, CN's II-XII intact bilaterally, moves all extremities, no focal motor deficits, no sensory deficits noted and deep tendon reflexes 2+ bilaterally Motor Exam: muscle tone normal throughout Assessment & Plan Assessment/Plan (1) Lumbar stenosis: PLAN: Admit to floor See orders Discharge planning, likely home tomorrow
[2023-05-18] MEDS: Clindamycin 600 MG/50 ML BAG 100 MG IV (07:35)
--- NOTE | 2023-05-18 07:51 | RAD_ITS ---
PROCEDURE: Lumbar fusion. DATE OF EXAMINATION: May 18, 2023. INDICATION: Male, 72 years old. Lumbar fusion. FLUOROSCOPY TIME (if supplied): (2 minutes and 14.2 seconds) minutes/seconds. 56.38 mGy. 5 intraoperative images were obtained. RAD/Lumbar Spine 2 or 3 Views IMPRESSION: Intraoperative fluoroscopic services provided for L3-L4 and L4-L5 fusion with prosthetic disc at the L4-L5 and L5-S1 levels. Electronically Signed: Daryl Young MD at 13:44 EST ,
[2023-05-18] MEDS: Heparin 10,000 UNITS/10 ML Vial 10000 UNITS (09:06)
[2023-05-18] MEDS: THROMBIN (RECOMBINANT) 20,000 UNIT VIAL 20000 UNIT TOPICAL (09:07)
[2023-05-18] MEDS: Bupivacaine 0.25% 30 ML Vial (11:52)
[2023-05-18] MEDS: Clindamycin 900 MG/50 ML BAG 75 MG IV ×2 (15:59→23:03)
[2023-05-18] MEDS: Lactated Ringers 1,000 ML 100 ML IV ×2 (16:00→20:29)
--- NOTE | 2023-05-18 17:12 | PCM.PN.HOSP ---
Reason for Visit Reason for Visit: Diagnoses Spinal stenosis, lumbar region without neurogenic claudication (05/18/23) Encounter for other preprocedural examination (05/18/23) Subjective Subjective Patient is s/p L4-5, L5-S1 posterior lumbar interbody fusion with Dr. Corley earlier today for lumbar spine stenosis, medicine was consulted postoperatively for medical management. Patient seen at bedside this evening. Patient was sleeping on my arrival to the room. Appeared moderately fatigued for majority of my interview but was answering questions appropriately. Patient reported mild low back pain at rest that was tolerable. States he has not tried to get out of bed since coming back from the operating room early this afternoon. Patient is satting in the high 90s on 2 L nasal cannula, no increased work of breathing noted. Patient denies any chest pain, shortness of breath, fevers or chills, abdominal pain or discomfort. No other acute concerns at this time. Objective Data Objective Data Vital Signs: Vital Signs Temp Pulse Resp BP Pulse Ox O2 Del Method O2 Flow Rate 98.7 F 70 18 101/59 L 98 Nasal Cannula 2 05/18/23 15:15 05/18/23 15:15 05/18/23 15:15 05/18/23 15:15 05/18/23 15:15 05/18/23 15:15 05/18/23 15:15 Oxygen Flow Rate (L/min) 2 Oxygen Delivery Method Nasal Cannula Weight: 82.463 kg Body Mass Index (BMI) 26.1 Intake & Output: Intake and Output for Last 24 Hours 05/16/23 05/17/23 05/18/23 23:59 23:59 23:59 Intake Total 50 / 50 Output Total 300 / 300 Balance -250 / -250 Lab / Micro Data 04/27/23 07:20 04/27/23 07:20 Micro: Microbiology 04/27/23 07:20 Swab (Method) Nasal Screen MRSA/MSSA - Final Radiography Diagnostic Testing: Radiology Impression Lumbar Spine X-Ray 05/18/23 07:51 IMPRESSION: Intraoperative fluoroscopic services provided for L3-L4 and L4-L5 fusion with prosthetic disc at the L4-L5 and L5-S1 levels. Electronically Signed: Daryl Young MD at 13:44 EST , Physical Exam Const alert, oriented x3, no apparent distress and average body habitus Constitutional Narrative: Pleasant elderly male, moderately fatigued appearing postoperatively, sitting comfortably in bed, conversing normally, no acute distress. General Appearance: cooperative and comfortable HEENT normocephalic, head/scalp atraumatic, hearing grossly normal bilaterally, nasal mucous membranes and turbinates normal and moist oral mucous membranes Eyes PERRL, EOMs intact bilaterally and conjunctivae normal Neck full ROM, no lymphadenopathy and supple Lymph Lymphatic: no lymphadenopathy noted Chest inspection of chest normal Resp normal respiratory effort, normal air movement, no use of accessory muscles and clear to auscultation bilaterally Resp Narrative: Satting in high 90s on 2 L nasal cannula, no increased work of breathing noted. Cardio regular rate, regular rhythm, no murmurs and peripheral pulses 2+ throughout GI normal to inspection, nondistended, normoactive bowel sounds, soft to palpation, non-tender and non-distended Back/Spine Back/Spine Narrative: Moderate serosanguineous to bloody fluid output from surgical site drain noted. Otherwise low back grossly normal on visual examination. Extremity normal to inspection and no pedal edema Skin no rashes or lesions noted Neuro moves all extremities and no focal motor deficits Speech: speech normal Psych mental status grossly normal Assessment & Plan Assessment/Plan (1) Lumbar stenosis: PLAN: Plan Patient is a 72-year-old male who presented [facility] on 05/18/2023 for planned orthopedic procedure. Medicine consulted postoperatively for medical management. 1. Lumbar stenosis with spondylosis S/p L4-5, L5-S1 posterior lumbar interbody fusion with Dr. Corley with orthopedics on 05/18. Patient tolerated procedure well. Seen at bedside postoperatively, reported mild low back pain that was tolerable with pain medication, otherwise felt fatigued but no other acute concerns. ? Orthopedic surgery primary patient. PT/OT/case management consulted. Pain control with scheduled Tylenol, as needed p.o. oxycodone and IV morphine. Follow-up a.m. labs. Monitor output from surgical site drain. Does have Molina catheter in place, should have this removed tomorrow prior to discharge. If remains stable, likely okay for discharge home tomorrow. 2. Hypertension ? Home medications of amlodipine 10 mg daily, losartan 50 mg daily. Mild hypotension postoperatively, which is expected. Reordered home amlodipine and losartan for tomorrow morning with hold parameters. 3. Hyperlipidemia ? Continue home statin. DVT prophylaxis: SCDs CODE STATUS: Full code, unverified Expected disposition: Home, tomorrow Total clinical time spent by myself addressing the patient's medical issues, reviewing all the data, and collaborating with patient's care team: 25 minutes. Charges/Coding Visit Charges Inpatient E&M: 73306 Subs Hosp L1
[2023-05-18] MEDS: oxyCODONE 5 MG Tablet PO (20:30)
[2023-05-18] MEDS: Acetaminophen 500 MG Tablet 1000 MG PO (23:01)
[2023-05-19 03:14] VITALS: BP 113/71; PULSE 72; RESP 16; TEMP 37.1; O2SAT 98; BMI 26.1
[2023-05-19] MEDS: oxyCODONE 5 MG Tablet PO (03:22)
[2023-05-19 04:37] VITALS: BMI 26.1
[2023-05-19] MEDS: Acetaminophen 500 MG Tablet 1000 MG PO ×2 (06:08→15:10)
[2023-05-19] MEDS: Lactated Ringers 1,000 ML 100 ML IV (06:12)
[2023-05-19 06:22] LABS: Absolute Lymphocyte Count 1.48 X10^3/uL (0.83-4.51); Absolute Neutrophil Count 13.8 X10^3/uL (2.0-7.7); Basophil# 0.02 X10^3/uL; Basophil% 0.1 % (0-1); Eosinophil# 0.01 X10^3/uL; Eosinophils% 0.1 % (0-5); Hematocrit 28.1 % (40-54); Hemoglobin 9.5 g/dL (13.0-16.5); Lymphocyte # 1.48 X10^3/ul (0.83-4.51); Lymphocyte % 8.9 % (19-41); Mean Corp Hgb Conc 33.8 g/dL (32-36); Mean Corpuscular Hgb 31.8 pg (27.0-32.0); Monocyte# 1.19 X10^3/uL; Monocyte% 7.2 % (0-10); NRBC Flagged by Analyzer 0 % (0-5); Neutrophil # 13.75 X10^3/uL (2.7-7.7); Platelet Count 229 K/mm3 (150-450); RBC Distribution Width CV 12.7 % (11.6-14.6); RBC Distribution Width SD 43.7 fl (35.1-43.9); Red Blood Count 2.99 M/mm3 (4.6-6.2); White Blood Count 16.6 K/mm3 (4.4-11.0)
[2023-05-19 06:49] VITALS: BP 118/69; PULSE 76; RESP 16; TEMP 36.5; O2SAT 98; BMI 26.1
[2023-05-19 07:29] LABS: Anion Gap 10 (5-15); BUN 23 mg/dL (7-18); BUN/Creat Ratio 19.8 RATIO (10-20); Calcium,Total 8.2 mg/dL (8.5-10.1); Chloride 96 mmol/L (98-107); Creatinine, Serum 1.16 mg/dL (0.70-1.30); EST Glomerular Filtration Rate 66 mL/min (>60); Est Glom Filt Rate - Afr Amer 80 mL/min (>60); Estimated Creatinine Clearance 61.18 ml/min; Glucose 124 mg/dL (74-106); Potassium 4.1 mmol/L (3.5-5.1); Sodium Level 129 mmol/L (136-145)
--- NOTE | 2023-05-19 09:47 | CASEMGMT ---
IVÁN CARLSON Assessment: Face to Face with pt for initial transition planning/care coordination assessment. IVÁN CARLSON introduced self and role at [facility], pt voices understanding and consents to assessment. Pt is A&O x4 and answers all questions appropriately at this time. Care providers, pharmacy, and demographics verified/updated. Admitting Dx: Post Lum Interbody Fusion Watt Two Level PCP: Rickie Specialists: Pt. states none [facility]erred [facility] Insurance: MCR A & B Prescription Benefit: yes LNOK: Rohit Preston (son) Living Will/HCPOA: NO and No; pt. declines to receive information on ADs. Living Arrangements: Pt lives alone in a 1 story home with basement. FFSU. 1 step no railing to enter. Pt. states prior to this admission he was I in all ADLs/IADLs. Transportation: Self and neighbor DME: crutches, pt. states he plans to borrow a walker from his neighbor (Pt. states his neighbor will assist him in getting into the house as well. IVÁN CARLSON still provided pt. with a script for a FWW in case he decides he would like to get one). Pt. declines to receive information on medical alert systems. Pt. denies need for additional DME at this time. HHC/SNF: Denies previous SNF or HHC Pt states no concerns with going home at time of dc with HHC SN. He states his son lives 2 hours away, but that he has called his neighbor's , whose is a prevention coordinator and was informed by the that her (the prevention coordinator) would be more than happy to assist pt. with caring for his dressing changes one home. Pt. states he also plans to ask another neighbor for help with dressing changes if the prevention coordinator is busy on a certain day. Pt states no further concerns/needs. CM to follow. Advised pt to ask CM if any further question/concerns/needs arise, voices understanding. Pt Goal: Home with HHC, SN. A list of HHC providers including quality and resource use data and consistent with the patient?s preferred geographic region, medical needs, and insurance network were provided from the [employer] Guide. Pt's choices are as follows: (1) [facility], (2) [facility], and (3) [facility] in [place]. Plan: Home with HHC, and support of neighbors for daily dressing changes (pt. states one neighbor is a prevention coordinator and is willing to assist pt. in changing his dressings, and pt. states if the prevention coordinator is at work, he plans to have another neighbor assist with dressing changes. IVÁN CARLSON asked if pt. has the phone numbers for the prevention coordinator or the other neighbor and pt. states he does not (states he also left his phone at home). Pt. states the prevention coordinator works in [facility] and his name is Eh Mccloud. Pt. states he cannot recall the names of any of his neighbors or their numbers.
--- NOTE | 2023-05-19 10:57 | CASEMGMT ---
Discharge Planning A list of HH providers including quality and resource use data and consistent with the patient's preferred geographic region, medical needs, and insurance network was created in [employer] Guide.? This list was provided to the RN ALDO. Loraine Augustin, Discharge Planning Asst
--- NOTE | 2023-05-19 11:08 | PHA.DC.MC.R ---
Pharmacy [facility] Service has performed discharge medication reconciliation and counseling for this patient. The patient's discharge medication list was reviewed for discrepancies and discrepancies were resolved. The patient was counseled on the following discharge medications and changes in medications for homegoing were reviewed. The Reason for Use, instructions for use, and potential side effects were reviewed for all new medications. The patient's questions regarding all of their medications were answered. 1. Hydrocodone/acetaminophen 5/325 mg PO Q6H x 7 days The patient was able to verbally demonstrate an understanding of their discharge medications. Medications at Discharge Home Medications amlodipine 10 mg tablet 10 mg PO DAILY BP 02/17/19 losartan 25 mg tablet 50 mg PO DAILY BP 02/17/19 simvastatin 20 mg tablet 20 mg PO DAILY CHOLESTEROL 02/17/19 hydrocodone-acetaminophen 5-325mg 5mg-325mg 1 tab PO Q6H 7 days #28 tabs 05/18/23
--- NOTE | 2023-05-19 11:13 | CASEMGMT ---
RN CM called and made HHC for SN referral to [facility]. [facility] has informed RN CM that they ust have a for sure person who can be there tomorrow to be taught how to do the dressing changes. They also informed RN CM that they will need an actual order for the dressing changes.
[2023-05-19 11:15] VITALS: BP 121/66; PULSE 84; RESP 18; TEMP 36.8; O2SAT 97
--- NOTE | 2023-05-19 13:00 | CASEMGMT ---
RN ALDO received denial notice from [facility] stating they cannot accept pt.
--- NOTE | 2023-05-19 13:43 | PN_ITS ---
Subjective Subjective Patient seen and examined. He felt well and had no active complaints. He is POD 1 for posterior lumbar interbody fusion of L4-5 and L5-S1. Objective Data Objective Data Vital Signs: Vital Signs Temp Pulse Resp BP Pulse Ox O2 Del Method O2 Flow Rate 98.3 F 84 18 121/66 H 97 Room Air 2 05/19/23 11:15 05/19/23 11:15 05/19/23 11:15 05/19/23 11:15 05/19/23 11:15 05/19/23 11:15 05/18/23 20:20 Oxygen Flow Rate (L/min) 2 Oxygen Delivery Method Room Air Weight: 181 lb 12.8 oz Body Mass Index (BMI) 26.1 Intake & Output: Intake and Output for Last 24 Hours 05/17/23 05/18/23 05/19/23 23:59 23:59 23:59 Intake Total 798.33 / 998.33 2332.67 / 2332.67 Output Total 610 / 820 600 / 600 Balance 188.33 / 178.33 1732.67 / 1732.67 Lab / Micro Data 05/19/23 05:28 05/19/23 05:28 Labs: Laboratory Results - last 24 hr 05/19/23 05:28: WBC 16.6 H, RBC 2.99 L, Hgb 9.5 L, Hct 28.1 L, MCV 94.0, MCH 31.8, MCHC 33.8, RDW Std Deviation 43.7, RDW Coeff of Tobin 12.7, Plt Count 229, MPV 10.0, Immature Gran % (Auto) 0.700, Neut % (Auto) 83.0 H, Lymph % (Auto) 8.9 L, [place] % (Auto) 7.2, Eos % (Auto) 0.1, Baso % (Auto) 0.1, Absolute Neuts (auto) 13.8 H, Absolute Lymphs (auto) 1.48, Nucleated RBC % 0, Sodium 129 L, Potassium 4.1, Chloride 96 L, Carbon Dioxide 23.0, Anion Gap 10, BUN 23 H, Creatinine 1.16, Estim Creat Clear Calc 61.18, Est GFR (MDRD) Af Amer 80, Est GFR (MDRD) Non-Af 66, BUN/Creatinine Ratio 19.8, Glucose 124 H, Calcium 8.2 L Micro: Microbiology 04/27/23 07:20 Swab (Method) Nasal Screen MRSA/MSSA - Final Radiography Diagnostic Testing: Radiology Impression Lumbar Spine X-Ray 05/18/23 07:51 IMPRESSION: Intraoperative fluoroscopic services provided for L3-L4 and L4-L5 fusion with prosthetic disc at the L4-L5 and L5-S1 levels. Electronically Signed: Daryl Young MD at 13:44 EST , Physical Exam Const alert, oriented x3 and no apparent distress HEENT normocephalic, head/scalp atraumatic, moist oral mucous membranes and oropharynx normal Eyes PERRL and EOMs intact bilaterally Neck no lymphadenopathy and supple Lymph Lymphatic: no lymphadenopathy noted and no lymphedema noted Resp normal respiratory effort, normal air movement and clear to auscultation bilaterally Cardio regular rate, regular rhythm, S1 normal heart sound, S2 normal heart sound and no murmurs GI normal to inspection, nondistended, normoactive bowel sounds, soft to palpation, non-tender and non-distended Extremity normal capillary refill, no clubbing, cyanosis or edema and no calf tenderness Skin Skin Narrative: intact dressing over lower back, at site of surgery Neuro CN's II-XII intact bilaterally, no focal motor deficits, no sensory deficits noted and deep tendon reflexes 2+ bilaterally Motor Exam: strength 5/5 throughout and general weakness Psych thought process normal and cooperative Appearance: appropriate Assessment & Plan Assessment/Plan (1) Lumbar stenosis: (2) HTN (hypertension): QUALIFIERS: Hypertension type: essential hypertension Qualified Code(s): I10 - Essential (primary) hypertension (3) Hyperlipidemia: QUALIFIERS: Hyperlipidemia type: unspecified Qualified Code(s): E78.5 - Hyperlipidemia, unspecified PLAN: Plan #Severe spinal stenosis * s/p L4-L5 and L5-S1 posterior lumbar interbody fusion * management as per spine surgery * PT/OT On board. * fall precautions * on PO tylenol, PO oxycodone and IV morphine prn for pain * #Hypertension; on amlodipine, losartan. IV hydralzine prn #Hyperlipidemia: on statin DVT prophylaxis; SCDs Disposition: as per primary team spine surgery Charges/Coding Visit Charges Inpatient E&M: 83605 Subs Hosp L2
--- NOTE | 2023-05-19 14:44 | CASEMGMT ---
IVÁN CARLSON called pt's LNOK, son Rohit Preston, to see if he knows any names/contact information for neighbors or others who could possibly assist pt. with caring for his dressing changes when HHC is not there. No answer. LVM with contact information for Theodora MINOR CM and requested a call back.
--- NOTE | 2023-05-19 15:00 | CASEMGMT ---
IVÁN CARLSON received return call from pt's son, Rohit Preston, stating that he is currently in [place], [place] (where he lives0 and unable to stop by pt's house to order picker/assembler his phone to bring it to [facility] so that we could try to contact people for pt. Rohit also states that he is not aware of any names or contact information for pt's neighbors or the freezer worker, Eh Mccloud. IVÁN CARLSON informed Loraine, Discharge Steel Checker, that [facility] HHC denied pt. and asked if she could please send referrals for HHC to pt's other two prefernces.
[2023-05-19 15:09] VITALS: BP 130/68; PULSE 92; RESP 16; TEMP 37.1; O2SAT 98
[2023-05-19 15:15] VITALS: BMI 26.1
--- NOTE | 2023-05-19 15:44 | CASEMGMT ---
Discharge Planning HH referral sent via [facility] to [facility], [facility], and [facility]. Loraine Augustin, Discharge Planning Asst.
--- NOTE | 2023-05-19 15:47 | CASEMGMT ---
IVÁN CARLSON received a phone number from pt. (that he found in his wallet), for a neighbor by the name of Ariana Gunter (89 years old). Pt. asked IVÁN CARLSON to call Ariana and ask if she could do pt's dressing changes for him when HHC is not there. IVÁN CARLSON called Ariana Gunter ([phone]) and informed her of who I am and why I was calling. I explained that pt. will need daily dressing changes and that HHC SN will only be able to come out to pt. 1-2x/week. Ariana voices understanding and states she is more than happy to help pt. with his dressing changes and can be there at pt's home tomorrow for HHC SN to teach her how to do the dressing changes. IVÁN CARLSON called [facility] and informed them of this updated information about the C referral. [facility] called IVÁN CARLSON back and stated they will accept pt. for HHC with a SOC date of 05/20/23. IVÁN CARLSON updated Discharge Handle And Vent Machine Operator on this. IVÁN CARLSON notified pt. that [facility] accepted him with a SOC tomorrow and that Ariana has agreed to assist with his dressing changes. Pt. denies having any additional needs/concerns/need for help concerning his discharge planning. Pt. denies having any further questions/concerns at this time.
== END 2023-05-19 15:50 | disposition home health service (06) | DRG 455 ==
LOC: ACINP 14:43 → SDC 14:45 → MS3 14:45
PROVIDERS: Hospitalist; Admitting Provider Orthopaedic Surgery; PCP Internal Medicine; Referring Provider Orthopaedic Surgery; Visit Provider Orthopaedic Surgery
PROC: 0SG10AJ Fusion of 2 or more Lumbar Vertebral Joints with Interbody Fusion Device, Posterior Approach, Anterior Column, Open Approach (ICD-10-PCS; CPT 22630; principal; 2023-05-18 07:00)
DX: M48.061 Spinal stenosis, lumbar region without neurogenic claudication (principal); E78.5 Hyperlipidemia, unspecified; I10 Essential (primary) hypertension; M47.816 Spondylosis without myelopathy or radiculopathy, lumbar region; M51.36 Other intervertebral disc degeneration, lumbar region; M47.817 Spondylosis without myelopathy or radiculopathy, lumbosacral region; M48.07 Spinal stenosis, lumbosacral region; M51.37 Other intervertebral disc degeneration, lumbosacral region
CPT/HCPCS: 36415; 71046; 72100; 76000; 80048; 85025; 85610; 85730; 87081; 93005; 94668; 97162; 97530; C1713; J7120; J2405; J3490

== ENCOUNTER 2025-04-28 06:24 | Outpatient (CLI) | payer MEDICARE, OTHER, SELFPAY ==
--- NOTE | 2025-04-28 06:28 | ECHOD_ITS ---
Reason For Study Reason For Study: HYPERTENSION Procedure This was a 2D Doppler, Color Flow transthoracic echocardiogram. Myocardial strain analysis was performed in this exam to aid in the assessment of cardiac function. Exam performed in department. Left Ventricle Normal LV size. The global longitudinal strain = -20.1 % (normal). The left ventricular ejection fraction is 65 %. Stage 2 diastolic dysfunction. No regional wall motion abnormalities noted. Right Ventricle Normal RV size. Normal systolic function. Mitral Valve Normal mitral valve. Tricuspid Valve Normal tricuspid valve. Trivial tricuspid valve insufficiency. Pulmonary artery systolic pressure is 16 mmHg. Aortic Valve Trisinus/trileaflet aortic valve. Mild (1+) eccentric aortic valve insufficiency. Pulmonic Valve Normal pulmonic valve. Great Vessels Normal aortic root. The pulmonary artery is normal size. Normal inferior vena cava. Pericardium/Pleural No pericardial effusion. MMode/2D Measurements & Calculations LVIDd: 4.4 cm IVSd: 1.3 cm LVOT diam: 2.3 cm LVIDs: 2.6 cm LVPWd: 1.1 cm LVOT area: 4.2 cm2 RVDd: 4.1 cm FS: 42.2 % asc Aorta Diam: 3.6 cm LAV(MOD-bp): 60.0 ml LVAd ap4: 25.4 cm2 LAV(MOD-bp) Indexed: 29.1 ml/m2 LVLd ap4: 7.2 cm LAV(MOD-sp2): 64.8 ml EDV(MOD-sp4): 71.4 ml LAV(MOD-sp4): 55.1 ml EDV(sp4-el): 76.2 ml LVAs ap4: 13.3 cm2 LVLs ap4: 6.1 cm ESV(MOD-sp4): 24.5 ml ESV(sp4-el): 24.6 ml EF(MOD-sp4): 65.7 % EF(sp4-el): 67.7 % SV(MOD-sp4): 46.9 ml SV(MOD-sp2): 35.0 ml LVAd ap2: 23.0 cm2 LVLd ap2: 7.3 cm SI(MOD-sp4): 22.7 ml/m2 SI(MOD-sp2): 17.0 ml/m2 EDV(MOD-sp2): 59.1 ml EDV(sp2-el): 61.9 ml LVAs ap2: 13.5 cm2 LVLs ap2: 6.2 cm ESV(MOD-sp2): 24.1 ml ESV(sp2-el): 25.2 ml EF(MOD-sp2): 59.3 % SV(sp4-el): 51.6 ml Ao sinus diam: 3.[address] Junction: 3.0 cm LA A4 area: 19.5 cm2 LA dimension(2D): 3.9 cm RA A4 area: 12.7 cm2 TAPSE: 1.9 cm Time Measurements MV dec time: 0.17 sec Doppler Measurements & Calculations MV E max sadi: 82.6 cm/sec Lat Peak E' Sadi: 10.7 cm/sec Med Peak E' Sadi: 9.4 cm/sec MV A max sadi: 60.3 cm/sec E/E' lat: 7.7 E/E' med: 8.8 MV E/A: 1.4 Ao V2 max: 160.9 cm/sec AI max sadi: 353.0 cm/sec MV dec slope: 499.1 cm/sec2 Ao max P.4 mmHg AI max P.8 mmHg Ao V2 mean: 117.7 cm/sec Ao mean P.2 mmHg AI dec slope: 176.4 cm/sec2 Ao V2 VTI: 39.6 cm AI P1/2t: 586.2 msec AV (velocity ratio): 0.72 DARION(I,D): 3.0 cm2 DARION(V,D): 3.2 cm2 LV V1 max: 122.6 cm/sec SV(LVOT): 118.2 ml PA V2 max: 98.6 cm/sec LV V1 max P.0 mmHg LV V1 mean P.5 mmHg LV V1 mean: 103.8 cm/sec LV V1 VTI: 28.5 cm TR max sadi: 186.0 cm/sec TR max P.8 mmHg ECHO/Echo Complete Interpretation Summary Normal LV size. The left ventricular ejection fraction is 65 %. The global longitudinal strain = -20.1 % (normal). Stage 2 diastolic dysfunction. Mild (1+) eccentric aortic valve insufficiency. Pulmonary artery systolic pressure is 16 mmHg. Ordering Physician: Stuart Johnson Referring Physician: Jamey Damian M.D. Performed By: Dana Childs RDCS
--- OUTSIDE RECORDS SUMMARY | 2025-04-28 06:28 | XMS RPT_ITS | CCD ---
Author Organization [facility] CliniSysc Care Team Providers [employer] Ax Consultant Name Role Phone Jamey Damian MD Primary Care Provider [phone] Erwin HUITRON MD, Daesung Unavailable Dr. Jamey Damian Primary Care Provider Dr. Colby Colon Attending Provider [phone] Dr. Wilver Willson Referring Provider Dr. Wilver Willson Admit Provider Dr. Wilver Willson Other Provider Dr. Alphonse Good Attending Provider Dr. Alphonse Good Other Provider [phone] Dr. Yen Tucker Attending Provider Dr. Yen Tucker Other Provider Jamey Damian MD Primary Care Provider Erwin HUITRON MD, Daesung Unavailable Jamey Damian MD Primary Care Provider Erwin HUITRON, Daesung Unavailable Hudson SCRIPT ARTIST.COUTIERIER, Delmy M Unavailable ANCA LOVE Attending Unavailable JAMEY DAMIAN Referring Unavailable RICKIE, JAMEY Harris Primary Care Unavailable RICKIE, JAMEY Harris Referring Unavailable DAMIAN, JAMEY Harris Primary Care Unavailable DAMIAN, JAMEY Harris Referring Unavailable DAMIAN, JAMEY Harris Primary Care Unavailable RICKIE, JAMEY Harris Referring Unavailable DAMIAN, JAMEY Harris Primary Care Unavailable JAMEY DAMIAN Attending Unavailable JAMEY DAMIAN Primary Care Unavailable DELMY TREVIÑO M Referring Unavailable JAMEY DAMIAN Primary Care Unavailable DELMY TREVIÑO M Referring Unavailable JAMEY DAMIAN Primary Care Unavailable HUDSON, DELMY M Attending Unavailable JAMEY DAMIAN Primary Care Unavailable DELMY TREVIÑO M Attending Unavailable JAMEY DAMIAN Primary Care Unavailable Rickie HUITRON, Dr. Concepcion Primary Care Physician Dr. Jamey Damian MD Referring Provider Dr. Stuart Johnson MD Attending Physician Stuart Johnson Attending Unavailable Jamey Damian Primary Care Unavailable Jamey Damian Referring Unavailable Alex Parnell Attending Unavailable Jaime Johnsonril Referring Unavailable Jamey Damian Primary Care Unavailable Alex Parnell Attending Unavailable Alex Stuart Referring Unavailable Jamey Damian Primary Care Unavailable Allergies Allergy Classification Reported Allergen(s) Allergy Type Date of Onset Reaction(s) Facility (20 sources) Penicillins; Translations: [PENICILLINS] Propensity to adverse reactions 9 Hives, Shortness of Breath [facility] Work Phone: (2 sources) Penicillins Allergy to substance 3 [facility] (1 source) Penicillins Drug allergy (disorder) 5 [facility] Repository Medications Current Medications Medication Drug Class(es) Dates Sig (Normalized) Sig (Original) amLODIPine 10 mg oral tablet (20 sources) Dihydropyridine Calcium Channel Aníbal Start: 02-17-2019 End: 07-03-2024 take 1 tablet by mouth once daily amLODIPine (NORVASC) 10 mg tablet Take 1 tablet by mouth once daily. 90 tablet 3 07/03/2024 Active Comment on above: Take 1 tablet by kelsey once daily. dicyclomine hydrochloride 20 mg oral tablet (20 sources) Anticholinergic Start: 07-03-2024 take 1 tablet by mouth every six hours as needed for pain dicyclomine (BENTYL) 20 mg tablet Take 1 tablet by mouth every 6 hours. As needed for abdominal pain. 28 tablet 5 07/03/2024 Active Start: 10-24-2023 End: 07-03-2024 take 1 tablet by mouth every six hours as needed for pain dicyclomine (BENTYL) 20 mg tablet Take 1 tablet by mouth every 6 hours. As needed for abdominal pain. 28 tablet 10/24/2023 07/03/2024 Discontinued Start: 10-22-2020 End: 03-27-2023 take 1 tablet by mouth every six hours as needed for pain dicyclomine (BENTYL) 20 mg tablet Take 1 tablet by mouth every 6 hours. As needed for abdominal pain. 28 tablet 3 06/21/2022 03/27/2023 Discontinued (Course of therapy completed) Comment on above: Take 1 tablet by kelsey th every 6 hours. As needed for abdominal pain. enteric contrast (will be provided with radiology test) (1 source) Start: End: enteric contrast (will be provided with radiology test) Indications: Right inguinal pain For CT ABD/PEL W IVCON Routine order Administer, As Directed One Time Only, via Oral, Rectal, both Oral and Rectal, Enteric Tube, Stoma or Indwelling Catheter, Enteric Contrast as designated per enteric contrast guidelines 1 Each 0 10/19/2023 10/20/2023 Active gabapentin 100 mg oral capsule (10 sources) Anti-epileptic Agent Start: End: take 1 capsule by mouth three times daily gabapentin (NEURONTIN) 100 mg capsule Take 1 capsule by mouth three times a day. Prescribed by Dr. Willson 06/28/2023 07/03/2024 Discontinued (Course of therapy completed) iv contrast (will be provided with radiology test) (1 source) Start: End: iv contrast (will be provided with radiology test) Indications: Right inguinal pain CT ABD/PEL -Inject, intravenously, once for 1 dose.No IV access, insert saline lock prior to the beginning of sedation, infusion, injection of imaging exam. Discontinue saline lock post exam. If Pt. has a central line or IVAD, may access for administration according to line specific nursing protocol. Once exam is complete flush line and de-access according to line specific nursing protocol in the CT contrast administration guidelines link. 1 Each 0 10/19/2023 10/20/2023 Active losartan potassium 50 mg oral tablet (20 sources) Angiotensin 2 Receptor Aníbal Start: take 1 tablet by mouth once daily Start: 07-29-2021 End: 07-03-2024 take 1 tablet by mouth once daily losartan (COZAAR) 50 mg tablet Take 1 tablet by mouth once daily. 90 tablet 3 07/03/2024 Active Start: 02-17-2019 End: 03-18-2025 take 2 tablets by mouth once daily Losartan 25 MG tablet Discontinued 50 mg PO DAILY February 17, 2019 12:00am March 18, 2025 3:18pm BP Start: 02-17-2019 take 50 mg by mouth once daily Losartan Active 50 MG PO DAILY February 16, 2019 11:00pm Comment on above: Take 1 tablet by kelsey once daily. predniSONE 10 mg oral tablet (2 sources) Start: 12-17-19 End: 12-29-19 predniSONE (DELTASONE) 10 mg tablet Take 4 tabs daily x 3 days, then 3 tabs x 3 days, 2 tabs x 3 days, then 1 tab x3 days with food. 30 tablet 0 12/16/2022 12/28/2022 Active Comment on above: Take 4 tabs daily x 3 days, then 3 tabs x 3 days, 2 tabs x 3 days, then 1 tab x3 days with food. simvastatin 20 mg oral tablet (20 sources) HMG-CoA Reductase Inhibitor Start: 02-18-20 End: 07-03-19 25 take 1 tablet by mouth once daily simvastatin (ZOCOR) 20 mg tablet Take 1 tablet by mouth once daily. 90 tablet 3 07/03/2024 Active Comment on above: Take 1 tablet by kelsey once daily. triamcinolone acetonide 1 mg/ml topical cream (20 sources) Corticosteroid Start: 07-29-19 triamcinolone acetonide (KENALOG) 0.1 % cream Indications: Psoriasis Apply 1 application to affected area twice daily. As directed. 80 g 1 07/29/2021 Active Comment on above: Apply 1 application to affected area twice daily. As directed. Completed/Discontinued Medications Medication Drug Class(es) Dates Sig (Normalized) Sig (Original) acetaminophen 325 mg / HYDROcodone bitartrate 5 mg oral tablet (2 sources) Opioid Agonist Start: 05-18-2023 End: 03-18-2025 Hydrocodone-Acetami nophen 5-325 mg tablet Discontinued 1 {tbl} PO EVERY 6 HOURS 28 7 0 May 18, 2023 March 18, 2025 3:18pm Spinal stenosis of lumbar region Spinal stenosis, lumbar region without neurogenic claudication Start: 05-18-2023 take 1 tablet by kelsey th every six hours Hydrocodone-Acetaminophen Active 1 TABLE T PO EVERY 6 HOURS 28 7 May 18, 2023 zolpidem tartrate 5 mg oral tablet (11 sources) gamma-Aminobutyric Acid-ergic Agonist Start: 01-27-2022 End: 03-27-2023 take 1 tablet by mouth at bedtime as needed zolpidem (AMBIEN) 5 mg tablet Indications: Secondary insomnia Take 1 tablet by mouth at bedtime as needed for sedation for up to 14 days. 14 tablet 01/27/2022 03/27/2023 Discontinued (Course of therapy completed) Comment on above: Take 1 tablet by mouth at bedtime as nee ded for sedation for up to 14 days. Problems Active Problems Problem Classification Problem Date Documented Da te Episodic/Chronic Coronary atherosclerosis and other heart disease (5 sources) Coronary arteriosclerosis; Translations: [Atherosclerotic heart disease of [place] coronary artery without angina pectoris] Onset: 11-01-2023 11-01-2023 Chronic Deficiency and other anemia (1 source) Anemia; Translations: [Anemia, unspecified] Episodic Diseases of mouth; excluding dental (1 source) Disorder of lip; Translations: [Diseases of lips] 11-29-2023 Episodic Disorders of lipid metabolism (20 sources) Hyperlipidemia; Translations: [Hyperlipidemia, unspecified] Onset: 02-03-2009 08-13-2012 Chronic Essential hypertension (20 sources) Hypertensive disorder; Translations: [Essential (primary) hypertension] Onset: 02-03-2009 02-03-2009 Chronic Heart valve disorders (15 sources) Mitral valve regurgitation; Translations: [Nonrheumatic mitral (valve) insufficiency] Onset: 03-02-2009 Resolved: 08-13-2012 08-13-2012 Chronic Immunizations and screening for infectious disease (3 sources) Vaccination needed; Translations: [Encounter for immunization] Episodic Malignant neoplasm without specification of site (1 source) Malignant neoplastic disease; Translations: [Malignant (primary) neoplasm, unspecified] 03-18-2025 Chronic Comment on above: PROSTATE Nausea and vomiting (1 source) Diarrhea and vomiting; Translations: [Vomiting, unspecified] Episodic Nonspecific chest pain (8 sources) Chest pain; Translations: [Chest pain, unspecified] Onset: 11-01-2023 05-28-2019 Episodic Osteoarthritis (1 source) Arthritis; Translations: [Unspecified osteoarthritis, unspecified site] 03-18-2025 Chronic Other gastrointestinal disorders (20 sources) Irritable bowel syndrome; Translations: [Irritable bowel syndrome without diarrhea] Onset: 12-06-2019 12-06-2019 Chronic Other gastrointestinal disorders (1 source) Altered bowel function; Translations: [Change in bowel habit] Episodic Other gastrointestinal disorders (1 source) Acute diarrhea; Translations: [Diarrhea, unspecified] Episodic Other inflammatory condition of skin (20 sources) Psoriasis; Translations: [Psoriasis, unspecified] Onset: 03-04-2010 03-04-2010 Chronic Other male genital disorders (1 source) Disorder of prostate; Translations: [Disorder of prostate, unspecified] 03-18-2025 Episodic Comment on above: CANCER AND HAD RADIA TION 2015 Other non-traumatic joint disorders (2 sources) Multiple joint pain; Translations: [Pain in unspecified joint] Episodic Other skin disorders (1 source) H/O: psoriasis; Translations: [Personal history of diseases of the skin and subcutaneous tissue] 03-18-2025 Episodic Residual codes; unclassified (1 source) Insomnia; Translations: [Other insomnia] Chronic Residual codes; unclassified (1 source) History of clinical finding in subject; Translations: [Personal history of other specified conditions] 03-18-2025 Episodic Comment on above: D/T BACK/BILAT LEG P AIN Screening and history of mental health and substance abuse codes (2 sources) Patient encounter status; Translations: [Encounter for screening for depression] 07-03-2024 Episodic Spondylosis; intervertebral disc disorders; other back problems (16 sources) Acute low back pain; Translations: [Acute midline low back pain without sciatica] Onset: 05-19-2023 Episodic Transient cerebral ischemia (8 sources) Transient cerebral ischemia; Translations: [Transient cerebral ischemic attack, unspecified] Onset: 11-01-2023 02-17-2019 Chronic Past or Other Problems Problem Classification Problem Date Documented Date Episodic/Chronic Abdominal hernia (20 sources) Umbilical hernia; Translations: [Umbilical hernia without obstruction or gangrene] Onset: 02-03-2009 Resolved: 08-13-2012 08-09-2011 Episodic Abdominal pain (5 sources) Lower abdominal pain; Translations: [Lower abdominal pain, unspecified] Onset: 11-01-2023 Episodic Cancer of prostate (20 sources) History of malignant neoplasm of prostate; Translations: [Personal history of malignant neoplasm of prostate] Onset: 08-03-2015 12-07-2018 Episodic Hyperplasia of prostate (12 sources) Hyperplasia of prostate; Translations: [Benign prostatic hyperplasia with lower urinary tract symptoms] Onset: 08-09-2011 Resolved: 12-07-2018 12-07-2018 Chronic Other and unspecified benign neoplasm (20 sources) Adenomatous polyp of colon ; Translations: [Benign neoplasm of colon, unspecified] Onset: 09-30-2013 10-07-2013 Episodic Other connective tissue disease (11 sources) History of lumbar fusion; Translations: [Arthrodesis status] Onset: 05-18-2023 10-20-2023 Episodic Other diseases of kidney and ureters (20 sources) Simple renal cyst; Translations: [Cyst of kidney, acquired] Onset: 09-02-2020 09-02-2020 Episodic Other male genital disorders (12 sources) High grade prostatic intraepithelial neoplasia; Translations: [Prostatic intraepithelial neoplasia] Onset: 05-26-2015 Resolved: 03-30-2017 03-30-2017 Episodic Other screening for suspected conditions (not mental disorders or infectious disease) (12 sources) Raised prostate specific antigen; Translations: [Elevated prostate specific antigen [PSA]] Onset: 08-10-2014 Resolved: 12-18-2015 12-18-2015 Episodic Viral infection (20 sources) Postherpetic neuralgia; Translations: [Other postherpetic nervous system involvement] Onset: 01-27-2022 Resolved: 03-27-2023 Episodic Results Test Name Value Interpretation Reference Range Facility Cardiology Visit Reporton Cardiology Visit Report [facility] [address] [place] [address] OFFICE VISIT Date of Service: 04/02/25 MR#: [id number] Acct: [id number] Name: UMESH PRESTON Rep #: [id number] : 1950 Provider: Dr. Stuart Johnson MD Age/Sex: 74/M Location[place] [facility] [place] Status: Signed HPI HPI History of Present Illness Details: The patient is a 74-year-old male with a history of hypertension and hypercholesterolemia, presenting for cardiovascular evaluation. The patient expresses concern about his cardiovascular health due to a family history of strokes and myocardial infarctions. He desires to establish care with a local siebel consultant for ongoing management and to address any potential issues promptly, especially given his plans to travel to [place] around [place]. He reports not feeling well since undergoing cataract surgery and cyst removal from his jaw in December, attributing this to the anesthesia. He denies experiencing dyspnea, chest pain, dizziness, or syncope. He has not had any episodes of chest pain since 2018, when he was hospitalized for such symptoms. His physical exam appears to be unremarkable at this time and his EKG demonstrates a sinus rhythm with a rate of 78 bpm first-degree AV block and premature atrial complexes noted. A left anterior fascicular block is present. He has a history of hypertension and hypercholesterolemia, both of which are currently well- controlled with medication. He is a former smoker, having quit 45 years ago. He underwent back surgery in the fall of 2022, which has limited his ability to walk long distances. Previously, he walked 3-5 miles daily; currently, he walks 0.5 to 0.75 miles per day and plays golf, mostly using a cart but walking some of the course.He lives alone and has a son who resides 150 miles away. He expresses anxiety about living alone and the possibility of experiencing a medical emergency without immediate assistance. He has a family history of cardiovascular disease, with both parents and most relatives having from strokes or myocardial infarctions. 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 Required: No Accompanied by: Self Is patient in pain?: No Allergies Penicillins (PCN) Allergy (Verified 04/02/25 09:01) Hives Medications ???Medication ???Instructions ???Recorded ???Confirmed ???Type amlodipine 10 mg tablet 10 mg PO DAILY BP 02/17/19 5 History simvastatin 20 mg tablet 20 mg PO DAILY CHOLESTEROL 9 04/02/25 History losartan 50 mg tablet 50 mg PO QDAY 03/18/25 04/02/25 Hi story Ejection fraction %: 60 Have you fallen in the past year?: No PFSH Medical History Mitral regurgitation IBS (irritable bowel syndrome) Lumbar stenosis Arthritis History of pain when walking Cancer History of psoriasis Prostate disease Chest pain TIA (transient ischemic attack) Hyperlipidemia HTN (hypertension) Surgical History Hx of cataract surgery S/P lumbar fusion (05/18/23) Hx of oral surgery Hx of colonoscopy Hx of tonsillectomy Hx of umbilical hernia repair Hx of inguinal hernia repair Family History Mother CVA (cerebral vascular accident) Hypertension Father Cancer Social History Smoking Status: Former smoker alcohol intake: current alcohol intake frequency: 0-2 drinks per day substance use type: does not use ROS Const Const: Negative for fatigue, weakness, daytime sleepiness or difficulty sleeping ENT ENT: Negative for dizziness or Nosebleed/epistaxis Cardio Chest Pain: No Palpitations: No Edema: None Resp Respiratory: Positive for SOB at rest; Negative for SOB with activity, SOB orthopnea SOB lying down or Cough GI GI: Negative nausea, vomiting or heartburn Neuro Neuro: Negative for dizziness, lightheadedness, near syncope or weakness Endo Endo: Negative for fatigue Cardiology Exam Const Appearance: cooperative, healthy appearing, no acute distress, well developed and well groomed Nutritional Appearance: average body habitus and well nourished Orientation: alert, awake and oriented x3 Head Head: normal to inspection, normocephalic and atraumatic Ears: hearing grossly normal bilaterally and external ears normal Nose: external nose normal, nares normal, nasal mucous membranes and turbinates normal, septum normal and no nasal discharge Face and S (more content not included)... Normal [facility] 07-17-2024 MIKE Telephone (INTMWS) UMESH PRESTON ([id number]) 1950 M Date Time Provider Department 07/17/24 JAMEY DAMIAN INTMWS During your visit today, we recorded the following information about you: Disha Gomes LPN 07/17/2024 8:47 AM Signed ----- Message from Delmy Treviño APRN.COUTIERIER sent at 07/17/2024 8:44 AM EST ----- Please let the patient know his labs looked good overall. Sodium is a little low which is chronic and not significant. Lipids are optimal. Delmy Treviño APRN.Disha Castaneda LPN 07/17/2024 8:50 AM Signed Patient notified of below results/recommendation, verbalized understanding. Disha Gomes LPN Allergies As of Date: 07/17/2024 Noted Allergy Reaction PENICILLINS 02/03/2009 4 - Hives 12 - Shortness of Breath Date Reviewed: 07/03/2024 Reviewed by: Delmy Treviño APRN.COUTIERIER - Fully Assessed Reason for Visit: Results [95] Prescriptions as of 07/17/2024 - amLODIPine (NORVASC) 10 mg tablet Take 1 tablet by mouth once daily. - dicyclomine (BENTYL) 20 mg tablet Take 1 tablet by mouth every 6 hours. As needed for abdominal pain. - losartan (COZAAR) 50 mg tablet Take 1 tablet by mouth once daily. - simvastatin (ZOCOR) 20 mg tablet Take 1 tablet by mouth once daily. - triamcinolone acetonide (KENALOG) 0.1 % cream Apply 1 application to affected area twice daily. As directed. Problem List As Of Date 07/17/2024 Noted Resolved Umbilical hernia [K42.9] 02/03/2009 08/09/2011 HTN (Hypertension) [I10] 02/03/2009 Hyperlipidemia [E78.5] 02/03/2009 Health maintenance examination [Z00.00] 03/02/2009 12/07/2018 Mitral regurgitation [I34.0] 03/02/2009 08/13/2012 Psoriasis [L40.9] 03/04/2010 BPH NOS w ur obs/LUTS [N40.1] 08/09/2011 12/07/2018 Left inguinal hernia [K40.90] 01/04/2012 08/13/2012 Adenomatous colon polyp [D12.6] 09/30/2013 PSA elevation [R97.20] 08/10/2014 12/18/2015 High grade prostatic intraepithelial neoplasia *05/26/2015 03/30/2017 History of prostate cancer [Z85.46] 08/03/2015 Irritable bowel syndrome without diarrhea [K58.*12/06/2019 Perinephric cyst [N28.1] 09/02/2020 Postherpetic neuralgia [B02.29] 01/27/2022 03/27/2023 Spinal stenosis of lumbar region [M48.061] 05/19/2023 S/P lumbar spinal fusion [Z98.1] 05/18/2023 Chest pain [R07.9] 11/01/2023 Transient ischemic attack [G45.9] 11/01/2023 Hypertension [I10] 05/19/2023 Coronary artery disease [I25.10] 11/01/2023 Encounter Status:Closed by DISHA GOMES on 07/17/[address] [facility] CBC W Auto Differential pane l (Bld)on 07-16-2024 Basophils (Bld) [#/Vol] 0.08 10*3/uL Normal <0.[address] [facility] Comment on above: Order Comment: Speci men Type: BLOOD SPECIMENOrdering Facility: [facility] Address: [address] [place] [address] Performed By: #### 5 7021-8 ####[facility] LABCLIA [id number] [place] [address] [place] Basophils/100 WBC (Bld) 1.0 % Normal [facility] Comment on above: Order Comment: Speci men Type: BLOOD SPECIMENOrdering Facility: [facility] Address: [address] [place] [address] Performed By: #### 5 7021-8 ####[facility] LABCLIA [id number] [place] [address] [place] Differential cell count method Nom (Bld) Auto Normal [facility] Comment on above: Order Comment: Speci men Type: BLOOD SPECIMENOrdering Facility: [facility] Address: [address] [place] [address] Performed By: #### 5 7021-8 ####[facility] LABCLIA [id number] [place] [address] [place] Eosinophils (Bld) [#/Vol] 0.13 10*3/uL Normal <0.[address] [facility] Comment on above: Order Comment: Speci men Type: BLOOD SPECIMENOrdering Facility: [facility] Address: [address] [place] [address] Performed By: #### 5 7021-8 ####[facility] LABCLIA [id number] [place] [address] [place] Eosinophils/100 WBC (Bld) 1.7 % Normal [facility] Comment on above: Order Comment: Speci men Type: BLOOD SPECIMENOrdering Facility: [facility] Address: [address] [place] [address] Performed By: #### 5 7021-8 ####[facility] LABCLIA [id number] [place] [address] [place] Erythrocyte distribution width (RBC) [Ratio] 12.4 % Normal 11.5-15.[address] [facility] Comment on above: Order Comment: Speci men Type: BLOOD SPECIMENOrdering Facility: [facility] Address: [address] [place] [address] Performed By: #### 5 7021-8 ####[facility] LABCLIA [id number] [place] [address] [place] Hematocrit (Bld) [Volume fraction] 40.6 % Normal 39.0-51.[address] [facility] Comment on above: Order Comment: Speci men Type: BLOOD SPECIMENOrdering Facility: [facility] Address: [address] [place] [address] Performed By: #### 5 7021-8 ####[facility] LABCLIA [id number] [place] [address] [place] Hemoglobin (Bld) [Mass/Vol] 13.9 g/dL Normal 13.0-17.[address] [facility] Comment on above: Order Comment: Speci men Type: BLOOD SPECIMENOrdering Facility: [facility] Address: [address] [place] [address] Performed By: #### 5 7021-8 ####[facility] LABCLIA [id number] [place] [address] [place] Immature granulocytes (Bld) [#/Vol] 10*3/uL Normal <0.[address] [facility] Comment on above: Order Comment: Speci men Type: BLOOD SPECIMENOrdering Facility: [facility] Address: [address] [place] [address] Performed By: #### 5 7021-8 ####[facility] LABCLIA [id number] [place] [address] [place] Immature granulocytes/100 WBC (Bld) 0.3 % Normal [facility] Comment on above: Order Comment: Speci men Type: BLOOD SPECIMENOrdering Facility: [facility] Address: [address] [place] [address] Performed By: #### 5 7021-8 ####[facility] LABCLIA [id number] [place] [address] [place] Lymphocytes (Bld) [#/Vol] 2.98 10*3/uL Normal 1.00-4.[address] [facility] Comment on above: Order Comment: Speci men Type: BLOOD SPECIMENOrdering Facility: [facility] Address: [address] [place] [address] Performed By: #### 5 7021-8 ####[facility] LABIA [id number] [place] [address] [place] Lymphocytes/100 WBC (Bld) 38.2 % Normal [facility] Comment on above: Order Comment: Speci men Type: BLOOD SPECIMENOrdering Facility: [facility] Address: [address] [place] [address] Performed By: #### 5 7021-8 ####[facility] LABIA [id number] [place] [address] [place] MCH (RBC) [Entitic mass] 30.4 pg Normal 26.0-34.[address] [facility] Comment on above: Order Comment: Speci men Type: BLOOD SPECIMENOrdering Facility: [facility] Address: [address] [place] [address] Performed By: #### 5 7021-8 ####[facility] LABIA [id number] [place] [address] [place] MCHC (RBC) [Mass/Vol] 34.2 g/dL Normal 30.5-36.0 [facility] Comment on above: Order Comment: Speci men Type: BLOOD SPECIMENOrdering Facility: [facility] Address: [address] [place] [address] Performed By: #### 5 7021-8 ####[facility] LABIA [id number] [place] [address] [place] MCV (RBC) [Entitic vol] 88.8 fL Normal 80.0-100.[address] [facility] Comment on above: Order Comment: Speci men Type: BLOOD SPECIMENOrdering Facility: [facility] Address: [address] [place] [address] Performed By: #### 5 7021-8 ####[facility] LABCLIA [id number] [place] [address] [place] Monocytes (Bld) [#/Vol] 0.76 10*3/uL Normal <0.[address] [facility] Comment on above: Order Comment: Speci men Type: BLOOD SPECIMENOrdering Facility: [facility] Address: [address] [place] [address] Performed By: #### 5 7021-8 ####[facility] LABCLIA [id number] [place] [address] [place] Monocytes/100 WBC (Bld) 9.7 % Normal [facility] Comment on above: Order Comment: Speci men Type: BLOOD SPECIMENOrdering Facility: [facility] Address: [address] [place] [address] Performed By: #### 5 7021-8 ####[facility] LABCLIA [id number] [place] [address] [place] Neutrophils (Bld) [#/Vol] 3.83 10*3/uL Normal 1.45-7.[address] [facility] Comment on above: Order Comment: Speci men Type: BLOOD SPECIMENOrdering Facility: [facility] Address: [address] [place] [address] Performed By: #### 5 7021-8 ####[facility] LABCLIA [id number] [place] [address] [place] Neutrophils/100 WBC (Bld) 49.1 % Normal [facility] Comment on above: Order Comment: Speci men Type: BLOOD SPECIMENOrdering Facility: [facility] Address: [address] [place] [address] Performed By: #### 5 7021-8 ####[facility] LABCLIA [id number] [place] [address] [place] Nucleated RBC (Bld) [#/Vol] 10*3/uL Normal <0.[address] [facility] Comment on above: Order Comment: Speci men Type: BLOOD SPECIMENOrdering Facility: [facility] Address: [address] [place] [address] Performed By: #### 5 7021-8 ####[facility] LABCLIA [id number] [place] [address] [place] Nucleated RBC/100 WBC (Bld) [Ratio] 0.0 /100 WBC [address] [facility] Comment on above: Order Comment: Speci men Type: BLOOD SPECIMENOrdering Facility: [facility] Address: [address] [place] [address] Performed By: #### 5 7021-8 ####[facility] LABIA [id number] [place] [address] [place] Platelet mean volume (Bld) [Entitic vol] 9.7 fL Normal 9.0-12.[address] [facility] Comment on above: Order Comment: Speci men Type: BLOOD SPECIMENOrdering Facility: [facility] Address: [address] [place] [address] Performed By: #### 5 7021-8 ####[facility] LABIA [id number] [place] [address] [place] Platelets (Bld) [#/Vol] 290 10*3/uL Normal 150-[address] [facility] Comment on above: Order Comment: Speci men Type: BLOOD SPECIMENOrdering Facility: [facility] Address: [address] [place] [address] Performed By: #### 5 7021-8 ####[facility] LABIA [id number] [place] [address] [place] RBC (Bld) [#/Vol] 4.57 10*6/uL Normal 4.20-6.00 [facility] Comment on above: Order Comment: Speci men Type: BLOOD SPECIMENOrdering Facility: [facility] Address: [address] [place] [address] Performed By: #### 5 7021-8 ####[facility] LABIA [id number] [place] [address] [place] WBC (Bld) [#/Vol] 7.80 10*3/uL Normal 3.70-11.00 [facility] Comment on above: Order Comment: Speci men Type: BLOOD SPECIMENOrdering Facility: [facility] Address: [address] [place] [address] Performed By: #### 5 7021-8 ####[facility] LABIA [id number] [place] [address] [place] [facility] Comprehensive metabolic 2000 panelon 07-16-2024 Albumin [Mass/Vol] 4.7 g/dL Normal 3.9-4.9 [facility] Comment on above: Order Comment: Speci men Type: BLOOD SPECIMENOrdering Facility: [facility] Address: [address] [place] [address] Performed By: #### 2 4323-8, 91391-9 ####[facility] LABIA [id number] [place] [address] [place] ALP [Catalytic activity/Vol] 76 U/L Normal 38-[address] [facility] Comment on above: Order Comment: Speci men Type: BLOOD SPECIMENOrdering Facility: [facility] Address: [address] [place] [address] Performed By: #### 2 4323-8, 67382-6 ####[facility] LABIA [id number] [place] [address] [place] ALT [Catalytic activity/Vol] 16 U/L Normal 10-[address] [facility] Comment on above: Order Comment: Speci men Type: BLOOD SPECIMENOrdering Facility: [facility] Address: [address] [place] [address] Performed By: #### 2 4323-8, 74930-4 ####[facility] LABCLIA [id number] [place] [id number] [place] Anion gap [Moles/Vol] 13 mmol/L Normal 8-15 [facility] Comment on above: Order Comment: Speci men Type: BLOOD SPECIMENOrdering Facility: [facility] Address: [address] [place] [address] Performed By: #### 2 4323-8, 95646-9 ####[facility] LABCLIA [id number] [place] [address] [place] AST [Catalytic activity/Vol] 24 U/L Normal 14-[address] [facility] Comment on above: Order Comment: Speci men Type: BLOOD SPECIMENOrdering Facility: [facility] Address: [address] [place] [address] Performed By: #### 2 4323-8, 27360-0 ####[facility] LABCLIA [id number] [place] [address] [place] Bilirubin [Mass/Vol] 0.7 mg/dL Normal 0.2-1.3 [facility] Comment on above: Order Comment: Speci men Type: BLOOD SPECIMENOrdering Facility: [facility] Address: [address] [place] [address] Performed By: #### 2 4323-8, 66929-3 ####[facility] LABCLIA [id number] [place] [address] [place] Calcium [Mass/Vol] 9.6 mg/dL Normal 8.5-10.2 [facility] Comment on above: Order Comment: Speci men Type: BLOOD SPECIMENOrdering Facility: [facility] Address: [address] [place] [address] Performed By: #### 2 4323-8, 30707-6 ####[facility] LABCLIA [id number] [place] [address] [place] Chloride [Moles/Vol] 95 mmol/L Low 98-107 [facility] Comment on above: Order Comment: Speci men Type: BLOOD SPECIMENOrdering Facility: [facility] Address: [address] [place] [address] Performed By: #### 2 4323-8, 95925-4 ####[facility] LABCLIA [id number] [place] [address] [place] CO2 [Moles/Vol] 24 mmol/L Normal 22-[address] [facility] Comment on above: Order Comment: Speci men Type: BLOOD SPECIMENOrdering Facility: [facility] Address: [address] [place] [address] Performed By: #### 2 4323-8, 02122-0 ####[facility] LABCLIA [id number] [place] [address] [place] Creatinine [Mass/Vol] 1.06 mg/dL Normal 0.73-1.22 [facility] Comment on above: Order Comment: Speci men Type: BLOOD SPECIMENOrdering Facility: [facility] Address: [address] [place] [address] Performed By: #### 2 4323-8, 09578-0 ####[facility] LABIA [id number] [place] [address] [place] Creatinine and Glomerular filtration rate.predicted panel (S/P/Bld) 75 mL/min/1.73m??? Normal >=[address] [facility] Comment on above: Order Comment: Speci men Type: BLOOD SPECIMENOrdering Facility: [facility] Address: [address] [place] [address] Result Comment: Sophia mated Glomerular Filtration Rate (eGFR) is calculated using the 2020 CKD-EPI creatinine equation. This equation utilizes serum creatinine, sex, and age as parameters. The creatinine assay has traceable calibration to isotope dilution-mass spectrometry. Refer to KDIGO guidelines for clinical interpretation. In patients with unstable renal function, e.g. those with acute kidney injury, the eGFR may not accurately reflect actual GFR. Performed By: #### 2 4323-8, 34114-0 ####[facility] LABCLIA [id number] [place] [address] [place] Glucose [Mass/Vol] 92 mg/dL Normal 74-99 [facility] Comment on above: Order Comment: Speci men Type: BLOOD SPECIMENOrdering Facility: [facility] Address: [address] [place] [address] Result Comment: The [place] Diabetes Association (ADA) provides guidance for cutoff values for fasting glucose and random glucose. The ADA defines fasting as no caloric intake for at least 8 hours. Fasting plasma glucose results between 100 to 125 mg/dL indicate increased risk for diabetes (prediabetes). Fasting plasma glucose results greater than or equal to 126 mg/dL meet the criteria for diagnosis of diabetes. In the absence of unequivocal hyperglycemia, results should be confirmed by repeat testing. In a patient with classic symptoms of hyperglycemia or hyperglycemic crisis, random plasma glucose results greater than or equal to 200 mg/dL meet the criteria for diagnosis of diabetes. Reference: Standards of Medical Care in Diabetes 2016, [place] Diabetes Association. Diabetes Care. 2016.39(Suppl 1). Performed By: #### 2 4323-8, 49068-6 ####[facility] LABIA [id number] [place] [address] [place] Potassium [Moles/Vol] 4.5 mmol/L Normal 3.7-5.1 [facility] Comment on above: Order Comment: Speci men Type: BLOOD SPECIMENOrdering Facility: [facility] Address: [address] [place] [address] Performed By: #### 2 4323-8, 48755-1 ####[facility] LABIA [id number] [place] [address] [place] Protein [Mass/Vol] 7.5 g/dL Normal 6.3-8.0 [facility] Comment on above: Order Comment: Speci men Type: BLOOD SPECIMENOrdering Facility: [facility] Address: [address] [place] [id number] Performed By: #### 2 4323-8, 88580-0 ####[facility] LABCLIA [id number] [address] [address] [place] Sodium [Moles/Vol] 132 mmol/L Low 136-144 [facility] Comment on above: Order Comment: Speci men Type: BLOOD SPECIMENOrdering Facility: [facility] Address: [address] [place] [address] Performed By: #### 2 4323-8, 13956-3 ####[facility] LABCLIA [id number] [place] [address] [place] Urea nitrogen [Mass/Vol] 16 mg/dL Normal 9-[address] [facility] Comment on above: Order Comment: Speci men Type: BLOOD SPECIMENOrdering Facility: [facility] Address: [address] [place] [address] Performed By: #### 2 4323-8, 56215-0 ####[facility] LABCLIA [id number] [place] [address] [place] Lipid 1996 panelon 5 Cholesterol [Mass/Vol] 176 mg/dL Normal <[address] [facility] Comment on above: Order Comment: Speci men Type: BLOOD SPECIMENOrdering Facility: [facility] Address: [address] [place] [address] Result Comment: <200 mg/dL, Desirable 200-239 mg/dL, Borderline high >239 mg/dL, High Performed By: #### 2 4323-8, 27528-9 ####[facility] LABIA [id number] [place] [address] [place] Cholesterol in HDL [Mass/Vol] 78 mg/dL Normal >[address] [facility] Comment on above: Order Comment: Speci men Type: BLOOD SPECIMENOrdering Facility: [facility] Address: [address] [place] [address] Result Comment: 40-5 9 mg/dL, Acceptable >59 mg/dL, High: Negative risk factor for coronary heart disease <40 mg/dL, Low: Positive risk factor for coronary heart disease Performed By: #### 2 4323-8, 97757-1 ####[facility] LABCLIA [id number] [place] [address] [place] Cholesterol in LDL [Mass/Vol] 82 mg/dL Normal <[address] [facility] Comment on above: Order Comment: Speci men Type: BLOOD SPECIMENOrdering Facility: [facility] Address: [address] [place] [address] Result Comment: <100 mg/dL, Optimal 100-129 mg/dL, Near optimal/above optimal 130-159 mg/dL, Borderline high 160-189 mg/dL, High >189 mg/dL, Very high Secondary prevention optimal LDL Cholesterol levels are recommended to be < 70 mg/dL Performed By: #### 2 4323-8, 80108-7 ####[facility] LABCLIA [id number] [address] [place] Cholesterol in LDL/Cholesterol in HDL [Mass ratio] 1.05 {ratio} Normal <2.[address] [facility] Comment on above: Order Comment: Speci men Type: BLOOD SPECIMENOrdering Facility: [facility] Address: [address] [place] [address] Result Comment: Refe rence: 1. National Cholesterol Education Program ATP III Guideline At-A-Glance Quick Desk Reference: National Heart, Lung, and Blood [place]. National Institutes of Health. 2001: NIH Publication No. 01-3305. 2. An International Atherosclerosis Society position paper: global recommendations for the management of dyslipidemia: executive summary, Atherosclerosis. 2014: 232(2):410-413. Performed By: #### 2 4323-8, 40579-2 ####[facility] LABCLIA [id number] [place] [address] [place] Cholesterol in VLDL [Mass/Vol] 16 mg/dL Normal <[address] [facility] Comment on above: Order Comment: Speci men Type: BLOOD SPECIMENOrdering Facility: [facility] Address: [address] [place] [address] Performed By: #### 2 4323-8, 47096-4 ####[facility] LABCLIA [id number] [place] [address] [place] Cholesterol non HDL [Mass/Vol] 98 mg/dL Normal <[address] [facility] Comment on above: Order Comment: Speci men Type: BLOOD SPECIMENOrdering Facility: [facility] Address: [address] [place] [address] Result Comment: <130 mg/dL, Optimal 130-159 mg/dL, Near optimal/above optimal 160-189 mg/dL, Borderline high 190-219 mg/dL, High >219 mg/dL, Very high Secondary prevention optimal non HDL Cholesterol levels are recommended to be <100 mg/dL Performed By: #### 2 4323-8, 73936-0 ####[facility] LABCLIA [id number] [place] [address] [place] Cholesterol.total/Cho lesterol in HDL [Mass ratio] 2.26 {ratio} Normal <5.[address] [facility] Comment on above: Order Comment: Speci men Type: BLOOD SPECIMENOrdering Facility: [facility] Address: [address] [place] [address] Performed By: #### 2 4323-8, 49002-4 ####[facility] LABCLIA [id number] [place] [address] [place] FASTING TIME 14 hrs Normal [facility] Comment on above: Order Comment: Speci men Type: BLOOD SPECIMENOrdering Facility: [facility] Address: [address] [place] [address] Performed By: #### 2 4323-8, 10825-6 ####[facility] LABCLIA [id number] [place] [address] [place] Triglyceride [Mass/Vol] 82 mg/dL Normal <[address] [facility] Comment on above: Order Comment: Speci men Type: BLOOD SPECIMENOrdering Facility: [facility] Address: [address] [place] [address] Result Comment: <150 mg/dL, Normal 150-199 mg/dL, Borderline high 200-499 mg/dL, High >499 mg/dL, Very high Performed By: #### 2 4323-8, 46327-4 ####[facility] LABCLIA [id number] BLAINENancy BATISTADESK [id number] OF [facility] CNOVon 07-03-2024 CNOV Office Visit (INTMWS ) UMESH PRESTON ([id number]) 1950 Date Time Provider Department 07/03/24 8:00 AM DELMY TREVIÑO INTMWS During your visit today, we recorded the following information about you: Pulse Respiration Blood pressure Weight 76/minute 14/minute 122/74 85.8 kg Delmy Treviño, SCRIPT ARTIST.COUTIERIER 07/03/2024 8:26 AM Signed CC: Patient presents with: Follow Up: 6 months HPI Umeshnikos Preston is a 74 year old male who presents today for above. He is taking medications as prescribed, denies side effects. BP historically well controlled in the office, he does not check at home. He is feeling well overall and has no concerns. Review of Systems Constitutional: Negative for chills, diaphoresis, fatigue, fever and unexpected weight change. Respiratory: Negative for cough, shortness of breath and wheezing. Cardiovascular: Negative for chest pain, palpitations and leg swelling. Genitourinary: Negative for decreased urine volume and dysuria. Neurological: Negative for dizziness, syncope, weakness, light-headedness and headaches. 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 Needs follow-up CT kidney in 6 months (02/2021) PONV (postoperative nausea and vomiting) Postherpetic neuralgia 01/27/2022 Prostate cancer (HCC) 08/03/2015 Psoriasis 03/04/2010 Radiation proctitis 07/12/2016 Right inguinal hernia S/P lumbar spinal fusion 05/18/2023 Spinal stenosis of lumbar region 05/19/2023 TIA (transient ischemic attack) Umbilical hernia 02/03/2009 PAST SURGICAL HISTORY Procedure Laterality Date COLONOSCOPY 07/12/2016 radiation proctitis, cauterized COLONOSCOPY 09/13/2021 repeat in 5 years COLONOSCOPY FLX DX W/COLLJ SPEC WHEN PFRMD 10/18/2003 Colonoscopy, [place], [place], negative COLONOSCOPY FLX DX W/COLLJ SPEC WHEN PFRMD 09/30/2013 Repeat 2016 EXTRACTION ERUPTED TOOTH/EXR 03/24/2021 HERNIA REPAIR HX LUMBAR SPINE FUSION COMBINED 05/18/2023 L4-L5,L5-S1 fusion, laminectomies, foramenectomies, facetectomies RPR 1ST INGUN HRNA AGE 5 YRS/> REDUCIBLE Hernia repair, inguinal,Lap, Left RPR UMBILICAL HRNA 5 YRS/> REDUCIBLE 02/13/2009 Simple TONSILLECTOMY HX ULTRASOUND PROSTATE BIOPSY 11/26/2014 ULTRASOUND PROSTATE BIOPSY 2015 ALLERGIES Penicillins MEDICATIONS dicyclomine (BENTYL) 20 mg tablet Take 1 tablet by mouth every 6 hours. As needed for abdominal pain. losartan (COZAAR) 50 mg tablet Take 1 tablet by mouth once daily. amLODIPine (NORVASC) 10 mg tablet Take 1 tablet by mouth once daily. simvastatin (ZOCOR) 20 mg tablet Take 1 tablet by mouth once daily. triamcinolone acetonide (KENALOG) 0.1 % cream Apply 1 application to affected area twice daily. As directed. FAMILY HISTORY Problem Relation Age of Onset Stroke Mother dec. 71 years old Hypertension Mother Arthritis Mother rheumatoid Cancer Father smoker-lung cancer, dec. other (Only child [Other]) Other Social History Tobacco Use Smoking status: Former Current packs/day: 0.00 Average packs/day: 0.5 packs/day for 10.0 years (5.0 ttl pk-yrs) Types: Cigarettes Start date: 10/17/1968 Quit date: 10/17/1978 Years since quittin.7 Smokeless tobacco: Never Vaping Use Vaping status: Never Used Substance Use Topics Alcohol use: Yes Alcohol/week: 6.0 standard drinks of alcohol Types: 6 Cans of Beer (12oz) per week Drug use: No BP 122/74 Pulse 76 Resp 14 Wt 85.8 kg (189 lb 2.5 oz) SpO2 98% BMI 27.14 kg/m? Physical Exam Vitals reviewed. Constitutional: Appearance: Normal appearance. Cardiovascular: Rate and Rhythm: Normal rate and regular rhythm. Heart sounds: Normal heart sounds. No murmur heard. Pulmonary: Effort: Pulmonary effort is normal. Breath sounds: Normal breath sounds. No wheezing, rhonchi or rales. Skin: General: Skin is warm and dry. Neurological: Mental Status: He is alert. Psychiatric: Mood and Affect: Mood normal. Health maintenance reviewed with patient: Pneumococcal Vaccine: 50+(2 of 2 - PCV) due on 12/05/2020 LDL Cholesterol due on 12/09/2023 Covid-19 Vaccine( season) due on 02/18/2024 DTaP,Tdap,Td Vaccine(1 - Tdap) due on 07/03/2025 Annual PCP Team Chronic Disease Visit due on 07/03/2025 Depression Screening due on 07/03/2025 Anxiety Screening due on 07/03/2025 BP Controlled (<130/80) due on 07/03/2025 Colorectal Cancer Screening due on 09/13/2026 Diabetes Screening due (more content not included)... Normal [facility] GIORGIOon 11-29-2023 CNOV Office Visit (INTMWS ) UMESH PRESTON ([id number]) 1950 M Date Time Provider Department 11/29/23 9:40 AM DELMY TREVIÑO INTMWS During your visit today, we recorded the following information about you: Temperature Pulse Respiration Blood pressure 97.9 degrees 71/minute 18/minute 164/78 Weight 82.1 kg Delmy Treviño, SCRIPT ARTIST.COUTIERIER 11/29/2023 12:22 PM Signed CC: Patient presents with: hard lump inside lower lip HPI Umesh Preston is a 73 year old male who presents today for a lump noticed at the left lower lip/cheek on Monday. He denies any trauma nor remembers biting his cheek. He has tenderness that seems to be improving. He has not noticed any area that is open or draining. He denies jaw pain, toothaches, tongue pain, dry mouth, fever, malaise, N/V, fevers, recent illness or fatigue. His chewing and swallowing has not changed. He wears a mouth guard at night to prevent grinding his teeth. There have been no changes with that. 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 It was an incidental finding on an xray performed for gum disease and loose teeth. He had surgery performed to remove the tumor and since has not had any other problems. Review of Systems Constitutional: Negative for activity change, appetite change, chills, fatigue and fever. HENT: Positive for mouth sores. Negative for congestion, drooling, postnasal drip, rhinorrhea, sinus pain, sore throat, trouble swallowing and voice change. Respiratory: Negative for chest tightness and shortness of breath. Cardiovascular: Negative for chest pain and palpitations. Gastrointestinal: Negative for abdominal pain, nausea and vomiting. Musculoskeletal: Negative for neck pain and neck stiffness. Skin: Negative for color change. Neurological: Negative for dizziness, speech difficulty, numbness and headaches. 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 Needs follow-up CT kidney in 6 months (02/2021) PONV (postoperative nausea and vomiting) Postherpetic neuralgia 01/27/2022 Prostate cancer (HCC) 08/03/2015 Psoriasis 03/04/2010 Radiation proctitis 07/12/2016 Right inguinal hernia S/P lumbar spinal fusion 05/18/2023 Spinal stenosis of lumbar region 05/19/2023 TIA (transient ischemic attack) Umbilical hernia 02/03/2009 PAST SURGICAL HISTORY Procedure Laterality Date COLONOSCOPY 07/12/2016 radiation proctitis, cauterized COLONOSCOPY 09/13/2021 repeat in 5 years COLONOSCOPY FLX DX W/COLLJ SPEC WHEN PFRMD 10/18/2003 Colonoscopy, [place], [place], negative COLONOSCOPY FLX DX W/COLLJ SPEC WHEN PFRMD 09/30/2013 Repeat 2016 EXTRACTION ERUPTED TOOTH/EXR 03/24/2021 HERNIA REPAIR HX LUMBAR SPINE FUSION COMBINED 05/18/2023 L4-L5,L5-S1 fusion, laminectomies, foramenectomies, facetectomies RPR 1ST INGUN HRNA AGE 5 YRS/> REDUCIBLE Hernia repair, inguinal,Lap, Left RPR UMBILICAL HRNA 5 YRS/> REDUCIBLE 02/13/2009 Simple TONSILLECTOMY HX ULTRASOUND PROSTATE BIOPSY 11/26/2014 ULTRASOUND PROSTATE BIOPSY 2015 ALLERGIES Penicillins MEDICATIONS dicyclomine (BENTYL) 20 mg tablet Take 1 tablet by mouth every 6 hours. As needed for abdominal pain. losartan (COZAAR) 50 mg tablet Take 1 tablet by mouth once daily. amLODIPine (NORVASC) 10 mg tablet Take 1 tablet by mouth once daily. simvastatin (ZOCOR) 20 mg tablet Take 1 tablet by mouth once daily. gabapentin (NEURONTIN) 100 mg capsule Take 1 capsule by mouth three times a day. Prescribed by Dr. Willson (Patient not taking: Reported on 11/29/2023) triamcinolone acetonide (KENALOG) 0.1 % cream Apply 1 application to affected area twice daily. As directed. FAMILY HISTORY Problem Relation Age of Onset Stroke Mother dec. 71 years old Hypertension Mother Arthritis Mother rheumatoid Cancer Father smoker-lung cancer, dec. other (Only child [Other]) Other Social History Tobacco Use Smoking status: Former Packs/day: 0.50 Years: 10.00 Additional pack years: 0.00 Total pack years: 5.00 Types: Cigarettes Quit date: 10/17/1978 Years since quittin.1 Smokeless tobacco: Never Vaping Use Vaping Use: Never used Substance Use Topics Alcohol use: Yes Alcohol/week: 6.0 standard drinks of alcohol Types: 6 Cans of Beer (12oz) per week Drug use: No BP 164/78 Pulse 71 Temp 36.6 ?C (97.9 ?F) (Temporal) Resp 18 Wt 82.1 kg (181 lb) SpO2 98% BMI 25.97 (more content not included)... Normal [facility] 11-27-2023 [place] Telephone (INTMWS) UMESH PRESTON ([id number]) 1950 M Date Time Provider Department 11/27/23 JAMEY DAMIAN INTWS During your visit today, we recorded the following information about you: Nicole Ambriz RN 11/27/2023 8:29 AM Signed Patient calling to make an appt. Appt has been made with Delmy Treviño CNP for 11/29/23. Patient reports over the weekend he has noticed the return of a hard lump that he can feel on the inside of his lower lip. Reports he had this a few years ago and it was treated. Reports it is sore. Area unable to be seen from outside or inside of mouth, but can be felt. Reports pea sized. Denies fever, no radiating pain, and does not feel ill. Pt aware to all PCP office if sx's worsen between now and his appt. Nicole Ambriz RN Allergies As of Date: 11/27/2023 Noted Allergy Reaction PENICILLINS 02/03/2009 4 - Hives 12 - Shortness of Breath Date Reviewed: 11/01/2023 Reviewed by: Alaina Caban RN - Fully Assessed Reason for Visit: Patient Update [1234] Prescriptions as of 11/27/2023 - dicyclomine (BENTYL) 20 mg tablet Take 1 tablet by mouth every 6 hours. As needed for abdominal pain. - losartan (COZAAR) 50 mg tablet Take 1 tablet by mouth once daily. - amLODIPine (NORVASC) 10 mg tablet Take 1 tablet by mouth once daily. - simvastatin (ZOCOR) 20 mg tablet Take 1 tablet by mouth once daily. - gabapentin (NEURONTIN) 100 mg capsule Take 1 capsule by mouth three times a day. Prescribed by Dr. Willson - triamcinolone acetonide (KENALOG) 0.1 % cream Apply 1 application to affected area twice daily. As directed. Problem List As Of Date 11/27/2023 Noted Resolved Umbilical hernia [K42.9] 02/03/2009 08/09/2011 HTN (Hypertension) [I10] 02/03/2009 Hyperlipidemia [E78.5] 02/03/2009 Health maintenance examination [Z00.00] 03/02/2009 12/07/2018 Mitral regurgitation [I34.0] 03/02/2009 08/13/2012 Psoriasis [L40.9] 03/04/2010 BPH NOS w ur obs/LUTS [N40.1] 08/09/2011 12/07/2018 Left inguinal hernia [K40.90] 01/04/2012 08/13/2012 Adenomatous colon polyp [D12.6] 09/30/2013 PSA elevation [R97.20] 08/10/2014 12/18/2015 High grade prostatic intraepithelial neoplasia *05/26/2015 03/30/2017 History of prostate cancer [Z85.46] 08/03/2015 Irritable bowel syndrome without diarrhea [K58.*12/06/2019 Perinephric cyst [N28.1] 09/02/2020 Postherpetic neuralgia [B02.29] 01/27/2022 03/27/2023 Spinal stenosis of lumbar region [M48.061] 05/19/2023 S/P lumbar spinal fusion [Z98.1] 05/18/2023 Chest pain [R07.9] 11/01/2023 Transient ischemic attack [G45.9] 11/01/2023 Hypertension [I10] 05/19/2023 Coronary artery disease [I25.10] 11/01/2023 Encounter Status:Closed by NICOLE AMBRIZ on 11/27/23 [facility] CNOVon 11-01-2023 CNOV Office Visit (GENSWS ) UMESH PRESTON ([id number]) 1950 M Date Time Provider Department 11/01/23 2:30 PM ANCA LOVE During your visit today, we recorded the following information about you: Temperature Pulse Blood pressure Weight 97.6 degrees 77/minute 138/72 83.2 kg Height 1.778 m Alaina Caban, IVÁN 11/01/2023 2:38 PM Signed REVIEW OF SYSTEMS: General: The patient denies fatigue, denies weight loss, denies weight gain, denies feeling hot, and denies feelings of cold. Eyes: The patient denies glaucoma, denies eye injury/surgery, does wear glasses or contacts. Ear/Nose/Throat: The patient denies allergies, denies hayfever, denies ear infections, and denies bloody noses. Cardiovascular: The patient denies chest pain, denies heart disease, NOTES high blood pressure,denies cardiac stent, denies prior heart attack, denies irregular heart beat, NOTES high cholesterol, denies poor circulation, denies heart failure, other cardiac issues, denies claudication, denies cold feet, denies peripheral arterial stent. Respiratory: The patient denies tuberculosis, denies pneumonia, denies frequent cough, denies pulmonary embolism, denies shortness of breath, and denies coughing up blood. Gastrointestinal: The patient denies difficulty swallowing, denies acid reflux, denies ulcers, denies vomiting, denies jaundice/hepatitis, denies gallbladder problems, denies black or tarry stools, denies hemorrhoids, denies bleeding from rectum, denies diverticulitis, denies constipation, denies diarrhea, denies loss of stool control, and NOTES hernias. Kidney/Bladder: The patient denies kidney stones, denies urine infections, and denies bloody urine. Skin: The patient denies a history of skin cancer, denies bleeding/changing moles, and denies a history of skin rash. Neurologic: The patient denies a history of epilepsy/convulsions, denies headaches, denies head/spinal injuries, and denies stroke/TIA. Psychiatric: The patient denies psychiatric medications, denies depression, and denies voices, denies substance abuse. Endocrine: The patient denies thyroid disorders, denies diabetes, and denies hormonal problems. Hematologic: The patient denies a history of bruising, denies bleeding, and denies anemia, denies blood clots. Infections: The patient denies a history of measles and mumps, denies rheumatic fever, and denies sexually transmitted diseases. Musculoskeletal: The patient denies back pain/injury, NOTES back problems, denies sciatica, denies knee/foot trouble, denies arthritis, or denies gout. When was patient's last Mammogram screening? N/A Last Colonoscopy: 09/13/2021 IVÁN Moser, Anca Morfin MD 11/02/2023 3:30 PM Signed Umesh Preston 1950 REFERRING PHYSICIAN: Jamey Damian MD CHIEF COMPLAINT: Consult (Rt inguinal hernia) HPI: The patient is a pleasant 73 year old male has known right inguinal hernia. However, he noted right sided and upper abdominal pain. He states that this was completely relieved with taking Bentyl. He states that he has had this problem in the past and was diagnosed with irritable bowel. He denies any abdominal pain at present. When I told patient that CT scan findings revealed a right inguinal hernia, he stated that he had no pain in the area. He had previous umbilical hernia and left inguinal hernia. He denies gastrointestinal and/or urinary obstructive symptoms. 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 Needs follow-up CT kidney in 6 months (02/2021) PONV (postoperative nausea and vomiting) Postherpetic neuralgia 01/27/2022 Prostate cancer (HCC) 08/03/2015 Psoriasis 03/04/2010 Radiation proctitis 07/12/2016 Right inguinal hernia S/P lumbar spinal fusion 05/18/2023 Spinal stenosis of lumbar region 05/19/2023 TIA (transient ischemic attack) Umbilical hernia 02/03/2009 PAST SURGICAL HISTORY Procedure Laterality Date COLONOSCOPY 07/12/2016 radiation proctitis, cauterized COLONOSCOPY 09/13/2021 repeat in 5 years COLONOSCOPY FLX DX W/COLLJ SPEC WHEN PFRMD 10/18/2003 Colonoscopy, [place], [place], negative COLONOSCOPY FLX DX W/COLLJ SPEC WHEN PFRMD 09/30/2013 Repeat 2016 EXTRACTION ERUPTED TOOTH/EXR 03/24/2021 HERNIA REPAIR HX LUMBAR SPINE FUSION COMBINED 05/18/2023 L4-L5,L5-S1 fusion, laminectomies, foramenectomies, facetectomies RPR 1ST INGUN HRNA AGE 5 YRS/> REDUCIBLE (more content not included)... Normal [facility] CT ABD/PEL W IVCONon 05-13-[address] ABD/PEL W IVCON * * *Final Report* * * DATE OF EXAM: Oct 30 2023 2:45PM [facility] 0530 - CT ABD/PEL W IVCON / PROCEDURE REASON: Right inguinal pain * * * * Physician Interpretation * * * * EXAMINATION: CT ABDOMEN AND PELVIS WITH IV CONTRAST PATIENT/TECHNOLOGIST PROVIDED HISTORY: Hx ??? of new hernia, prior hernia repair. CLINICAL HISTORY: 73 years old Male with Right inguinal pain. Abdominal pain, acute, nonlocalized TECHNIQUE: CT of the abdomen and pelvis was performed using standard technique, scanning from just above the dome of the diaphragm to the symphysis pubis. MQ: CTAP_3 Contrast: IV: 100 ml of Omnipaque 350 Oral: 12 ml of Omni 240 10-25ml diluted with water CT Radiation dose: Integrated Dose-length product (DLP) for this visit = 604 mGy*cm. CT Dose Reduction Employed: Automated exposure control(AEC) and iterative recon COMPARISON: CT abdomen pelvis 08/18/2020, MRI liver 08/27/2020, CT pelvis 08/12/2015 RESULT: Liver: Subcentimeter cyst anterior LEFT hepatic lobe. 1.2 cm perihepatic density adjacent to the posterior inferior RIGHT hepatic lobe in the perinephric fat unchanged since 08/18/2020 and of doubtful clinical significance. Biliary: No bile duct dilation. Gallbladder is contracted. No calcified stones. Spleen: Tiny calcified granulomata. No mass. No splenomegaly. Pancreas: No mass or duct dilation. Adrenals: No mass. Kidneys: No mass, calculus or hydronephrosis. GI tract: No dilation or wall thickening. Normal appendix. Lymph nodes: No abdominal or pelvic lymphadenopathy. Mesentery/Peritoneum: No ascites or mass. Retroperitoneum: No mass. Vasculature: - Abdominal aorta and iliac arteries: Atherosclerotic calcifications without aneurysm. - Celiac and SMA: Patent without stenosis. - Portal venous system (SMV, splenic vein, portal vein and branches): Patent. - Hepatic veins: Patent. Pelvis: No mass, ascites or fluid collection. Urinary bladder is decompressed. Bones/Soft Tissues: LEFT inguinal herniorrhaphy with mesh without recurrent hernia. Small fat-containing RIGHT inguinal hernia unchanged from priors dating back to 2015. Status post L4-S1 decompression and posterior instrumented fusion with bilateral transpedicular screws, vertical interconnecting rods and interbody grafts at L4-L5 and L5-S1. Mild levoscoliosis of the thoracolumbar spine. Multilevel moderate-severe disc height loss with endplate degenerative changes in the thoracolumbar spine. Lower thorax: No consolidation. No pleural effusion. Coronary artery atherosclerotic calcifications. Localizer images: No additional findings. IMPRESSION: No acute process in the abdomen or pelvis. Admin Prog Coord: PSCB Transcribe Date/Time: Oct 31 2023 12:11P Dictated by : SABA MATHIS DO This examination was interpreted and the report reviewed and electronically signed by: SABA MATHIS DO on Oct 31 2023 12:32PM EST [id number] Normal [facility] 10-21-2023 [facility] Telephone (INTMWS) MUESH PRESTON ([id number]) 1950 M Date Time Provider Department 10/21/23 JAMEY DAMIAN During your visit today, we recorded the following information about you: Paloma Hansen LPN 10/21/2023 11:52 AM Signed ----- Message from Jamey Damian MD sent at 10/21/2023 10:09 AM EDT ----- Test results are okay and stable compared to previous results. Mild anemia. Mild hyponatremia (low sodium). Prostate specific antigen normal. Paloma Hansen LPN 10/21/2023 11:56 AM Signed Phoned patient and went over results, notes from Dr Damian with understanding. Allergies As of Date: 10/21/2023 Noted Allergy Reaction PENICILLINS 02/03/2009 4 - Hives 12 - Shortness of Breath Date Reviewed: 06/28/2023 Reviewed by: Delmy Treviño, SCRIPT ARTIST.COUTIERIER - Fully Assessed Reason for Visit: Results [95] Prescriptions as of 10/21/2023 - losartan (COZAAR) 50 mg tablet Take 1 tablet by mouth once daily. - amLODIPine (NORVASC) 10 mg tablet Take 1 tablet by mouth once daily. - simvastatin (ZOCOR) 20 mg tablet Take 1 tablet by mouth once daily. - gabapentin (NEURONTIN) 100 mg capsule Take 1 capsule by mouth three times a day. Prescribed by Dr. Willson - triamcinolone acetonide (KENALOG) 0.1 % cream Apply 1 application to affected area twice daily. As directed. Problem List As Of Date 10/21/2023 Noted Resolved Umbilical hernia [K42.9] 02/03/2009 08/09/2011 HTN (Hypertension) [I10] 02/03/2009 Hyperlipidemia [E78.5] 02/03/2009 Health maintenance examination [Z00.00] 03/02/2009 12/07/2018 Mitral regurgitation [I34.0] 03/02/2009 08/13/2012 Psoriasis [L40.9] 03/04/2010 BPH NOS w ur obs/LUTS [N40.1] 08/09/2011 12/07/2018 Left inguinal hernia [K40.90] 01/04/2012 08/13/2012 Adenomatous colon polyp [D12.6] 09/30/2013 PSA elevation [R97.20] 08/10/2014 12/18/2015 High grade prostatic intraepithelial neoplasia *05/26/2015 03/30/2017 History of prostate cancer [Z85.46] 08/03/2015 Irritable bowel syndrome without diarrhea [K58.*12/06/2019 Perinephric cyst [N28.1] 09/02/2020 Postherpetic neuralgia [B02.29] 01/27/2022 03/27/2023 Spinal stenosis of lumbar region [M48.061] 05/19/2023 S/P lumbar spinal fusion [Z98.1] 05/18/2023 Encounter Status:Closed by [facility] ([id number]) 1950 Date Time Provider Department 10/21/23 JAMEY DAMIAN INTCindyWS During your visit today, we recorded the following information about you: Paloma Hansen LPN 10/21/2023 11:59 AM Signed Patient calling asking if he could have rx for Dicyclomine 20 mg. He said it is helping with his hernia issues. He is using up old rx that VISITOR SERVICES COORDINATOR had given him. Patient uses [facility] for his pharmacy. Please advise Allergies As of Date: 10/21/2023 Noted Allergy Reaction PENICILLINS 02/03/2009 4 - Hives 12 - Shortness of Breath Date Reviewed: 06/28/2023 Reviewed by: Delmy Treviño APRN.COUTIERIER - Fully Assessed Reason for Visit: Patient Question [3017] Order(s):dicyclomine (BENTYL) 20 mg tabletTake 1 tablet by mouth every 6 hours. As needed for abdominal pain.Disp: 28 tabletRfl: 0 Prescriptions as of 10/24/2023 - dicyclomine (BENTYL) 20 mg tablet Take 1 tablet by mouth every 6 hours. As needed for abdominal pain. - losartan (COZAAR) 50 mg tablet Take 1 tablet by mouth once daily. - amLODIPine (NORVASC) 10 mg tablet Take 1 tablet by mouth once daily. - simvastatin (ZOCOR) 20 mg tablet Take 1 tablet by mouth once daily. - gabapentin (NEURONTIN) 100 mg capsule Take 1 capsule by mouth three times a day. Prescribed by Dr. Willson - triamcinolone acetonide (KENALOG) 0.1 % cream Apply 1 application to affected area twice daily. As directed. Problem List As Of Date 10/21/2023 Noted Resolved Umbilical hernia [K42.9] 02/03/2009 08/09/2011 HTN (Hypertension) [I10] 02/03/2009 Hyperlipidemia [E78.5] 02/03/2009 Health maintenance examination [Z00.00] 03/02/2009 12/07/2018 Mitral regurgitation [I34.0] 03/02/2009 08/13/2012 Psoriasis [L40.9] 03/04/2010 BPH NOS w ur obs/LUTS [N40.1] 08/09/2011 12/07/2018 Left inguinal hernia [K40.90] 01/04/2012 08/13/2012 Adenomatous colon polyp [D12.6] 09/30/2013 PSA elevation [R97.20] 08/10/2014 12/18/2015 High grade prostatic intraepithelial neoplasia *05/26/2015 03/30/2017 History of prostate cancer [Z85.46] 08/03/2015 Irritable bowel syndrome without diarrhea [K58.*12/06/2019 Perinephric cyst [N28.1] 09/02/2020 Postherpetic neuralgia [B02.29] 01/27/2022 03/27/2023 Spinal stenosis of lumbar region [M48.061] 05/19/2023 S/P lumbar spinal fusion [Z98.1] 05/18/2023 Prescriptions ordered this encounter Disp Refills Start End DICYCLOMINE 20 MG TABLET 28 t* 0 10/24/2023 Route: ORAL Sig: Take 1 tablet by mouth every 6 hours. As needed for abdominal pain. Encounter Status:Closed by JAMEY DAMIAN on 10/24/[address] [facility] Basic metabolic 2000 panelon 10-20-2023 Anion gap [Moles/Vol] 11 mmol/L 9 - 18 mmol/L [facility] Calcium [Mass/Vol] 9.5 mg/dL 8.5 - 10. 2 mg/dL [facility] Chloride [Moles/Vol] 98 mmol/L 97 - 10 5 mmol/L [facility] CO2 [Moles/Vol] 24 mmol/L 22 - 30 mmol/L [facility] Creatinine [Mass/Vol] 1.04 mg/dL 0.73 - 1.22 mg/dL [facility] GFR/1.73 sq M.predicted among non-blacks MDRD (S/P/Bld) [Vol rate/Area] 77 mL/min/{1.73_m2} - PINF [facility] Comment on above: Estimated Glomerular Filtration Rate (eGFR) is calculated using the 2020 CKD-EPI creatinine equation. This equation utilizes serum creatinine, sex, and age as parameters. The creatinine assay has traceable calibration to isotope dilution-mass spectrometry. Refer to KDIGO guidelines for clinical interpretation. In patients with unstable renal function, e.g. those with acute kidney injury, the eGFR may not accurately reflect actual GFR. Glucose [Mass/Vol] 115 mg/dL High 74 - 99 mg/dL [facility] Comment on above: The [place] Diabete s Association (ADA) provides guidance for cutoff values for fasting glucose and random glucose. The ADA defines fasting as no caloric intake for at least 8 hours. Fasting plasma glucose results between 100 to 125 mg/dL indicate increased risk for diabetes (prediabetes). Fasting plasma glucose results greater than or equal to 126 mg/dL meet the criteria for diagnosis of diabetes. In the absence of unequivocal hyperglycemia, results should be confirmed by repeat testing. In a patient with classic symptoms of hyperglycemia or hyperglycemic crisis, random plasma glucose results greater than or equal to 200 mg/dL meet the criteria for diagnosis of diabetes. Reference: Standards of Medical Care in Diabetes 2016, [place] Diabetes Association. Diabetes Care. 2016.39(Suppl 1). Interpretation and review of laboratory results Abnormal [facility] Potassium [Moles/Vol] 4.4 mmol/L 3.7 - 5.1 mmol/L [facility] Sodium [Moles/Vol] 133 mmol/L Low 136 - 144 mmol/L [facility] Urea nitrogen [Mass/Vol] 20 mg/dL 9 - 24 mg/dL [facility] Anion gap [Moles/Vol] 11 mmol/L Normal 9-18 [facility] Comment on above: Order Comment: Speci men Type: BLOOD SPECIMENOrdering Facility: [facility] Address: [address] [place] [address] Performed By: #### 2 4321-2 ####[facility] LABCLIA [id number] [place] [address] [place] Calcium [Mass/Vol] 9.5 mg/dL Normal 8.5-10.2 [facility] Comment on above: Order Comment: Speci men Type: BLOOD SPECIMENOrdering Facility: [facility] Address: [address] [place] [address] Performed By: #### 2 4321-2 ####[facility] LABCLIA [id number] [place] [address] [place] Chloride [Moles/Vol] 98 mmol/L Normal 97-105 [facility] Comment on above: Order Comment: Speci men Type: BLOOD SPECIMENOrdering Facility: [facility] Address: [address] [place], [place] [id number] Performed By: #### 2 4321-2 ####[facility] LABCLIA [id number] [place] [address] [place] CO2 [Moles/Vol] 24 mmol/L Normal 22-[address] [facility] Comment on above: Order Comment: Speci men Type: BLOOD SPECIMENOrdering Facility: [facility] Address: [address] [id number] Performed By: #### 2 4321-2 ####[facility] LABIA [id number] [place] [id number] [place] Creatinine [Mass/Vol] 1.04 mg/dL Normal 0.73-1.22 [facility] Comment on above: Order Comment: Speci men Type: BLOOD SPECIMENOrdering Facility: [facility] Address: [address] [place] [address] Performed By: #### 2 4321-2 ####[facility] LABIA [id number] [place] [address] [place] Creatinine and Glomerular filtration rate.predicted panel (S/P/Bld) 77 mL/min/1.73m??? Normal >=[address] [facility] Comment on above: Order Comment: Grady men Type: BLOOD SPECIMENOrdering Facility: [facility] Address: [address] [place] [address] Result Comment: Sophia mated Glomerular Filtration Rate (eGFR) is calculated using the 2020 CKD-EPI creatinine equation. This equation utilizes serum creatinine, sex, and age as parameters. The creatinine assay has traceable calibration to isotope dilution-mass spectrometry. Refer to KDIGO guidelines for clinical interpretation. In patients with unstable renal function, e.g. those with acute kidney injury, the eGFR may not accurately reflect actual GFR. Performed By: #### 2 4321-2 ####[facility] LABIA [id number] [place] [id number] [place] Glucose [Mass/Vol] 115 mg/dL High 74-99 [facility] Comment on above: Order Comment: Evelini men Type: BLOOD SPECIMENOrdering Facility: [facility] Address: [address] [place] [address] Result Comment: The [place] Diabetes Association (ADA) provides guidance for cutoff values for fasting glucose and random glucose. The ADA defines fasting as no caloric intake for at least 8 hours. Fasting plasma glucose results between 100 to 125 mg/dL indicate increased risk for diabetes (prediabetes). Fasting plasma glucose results greater than or equal to 126 mg/dL meet the criteria for diagnosis of diabetes. In the absence of unequivocal hyperglycemia, results should be confirmed by repeat testing. In a patient with classic symptoms of hyperglycemia or hyperglycemic crisis, random plasma glucose results greater than or equal to 200 mg/dL meet the criteria for diagnosis of diabetes. Reference: Standards of Medical Care in Diabetes 2016, [place] [employer]. Diabetes Care. 2016.39(Suppl 1). Performed By: #### 2 4321-2 ####[facility] LABIA [id number] [place] [address] [place] Potassium [Moles/Vol] 4.4 mmol/L Normal 3.7-5.1 [facility] Comment on above: Order Comment: Evelini men Type: BLOOD SPECIMENOrdering Facility: [facility] Address: [address] [place] [address] Performed By: #### 2 4321-2 ####[facility] [id number] [place] [address] [place] Sodium [Moles/Vol] 133 mmol/L Low 136-144 [facility] Comment on above: Order Comment: Grady truong Type: BLOOD SPECIMENOrdering Facility: [facility] Address: [address] [place] [address] Performed By: #### 2 4321-2 ####[facility] LABIA [id number] [place] [address] [place] Urea nitrogen [Mass/Vol] 20 mg/dL Normal 9-[address] [facility] Comment on above: Order Comment: Evelini men Type: BLOOD SPECIMENOrdering Facility: [facility] Address: [address] [place] [address] Performed By: #### 2 4321-2 ####[facility] LABIA [id number] [place] [address] [place] CBC panel Auto (Bld)on 10-19 Erythrocyte distribution width (RBC) [Ratio] 14.9 % 11.5 - 15.0 % [facility] Hematocrit (Bld) [Volume fraction] 37.6 % Low 39.0 - 51.0 % [facility] Hemoglobin (Bld) [Mass/Vol] 12.3 g/dL Low 13.0 - 17.0 g/dL [facility] Interpretation and review of laboratory results Abnormal [facility] MCH (RBC) [Entitic mass] 28.8 pg 26.0 - 34.0 pg [facility] MCHC (RBC) [Mass/Vol] 32.7 g/dL 30.5 - 36.0 g/dL [facility] MCV (RBC) [Entitic vol] 88.1 fL 80.0 - 100.0 fL [facility] Nucleated RBC (Bld) [#/Vol] NINF [facility] Platelet mean volume (Bld) [Entitic vol] 9.9 fL 9.0 - 12.7 fL [facility] Platelets (Bld) [#/Vol] 306 10*3/uL [facility] RBC (Bld) [#/Vol] 4.27 10*6/uL 4.20 - 6.0 0 m/uL [facility] WBC (Bld) [#/Vol] 7.83 10*3/uL [facility] Erythrocyte distribution width (RBC) [Ratio] 14.9 % Normal 11.5-15.[address] [facility] Comment on above: Order Comment: Speci men Type: BLOOD SPECIMENOrdering Facility: [facility] Address: [address] [place] [address] Performed By: #### 5 8410-2 ####[facility] LABCLIA [id number] [place] [address] [place] Hematocrit (Bld) [Volume fraction] 37.6 % Low 39.0-51.[address] [facility] Comment on above: Order Comment: Speci men Type: BLOOD SPECIMENOrdering Facility: [facility] Address: [address] [place] [address] Performed By: #### 5 8410-2 ####[facility] LABCLIA [id number] [place] [address] [place] Hemoglobin (Bld) [Mass/Vol] 12.3 g/dL Low 13.0-17.[address] [facility] Comment on above: Order Comment: Speci men Type: BLOOD SPECIMENOrdering Facility: [facility] Address: [address] [place] [address] Performed By: #### 5 8410-2 ####[facility] LABCLIA [id number] [place] [address] [place] MCH (RBC) [Entitic mass] 28.8 pg Normal 26.0-34.[address] [facility] Comment on above: Order Comment: Speci men Type: BLOOD SPECIMENOrdering Facility: [facility] Address: [address] [place] [address] Performed By: #### 5 8410-2 ####[facility] LABCLIA [id number] [place] [address] [place] MCHC (RBC) [Mass/Vol] 32.7 g/dL Normal 30.5-36.0 [facility] Comment on above: Order Comment: Speci men Type: BLOOD SPECIMENOrdering Facility: [facility] Address: [address] [place] [address] Performed By: #### 5 8410-2 ####[facility] LABIA [id number] [place] [address] [place] MCV (RBC) [Entitic vol] 88.1 fL Normal 80.0-100.[address] [facility] Comment on above: Order Comment: Speci men Type: BLOOD SPECIMENOrdering Facility: [facility] Address: [address] [place] [address] Performed By: #### 5 8410-2 ####[facility] LABCLIA [id number] [place] [address] [place] Nucleated RBC (Bld) [#/Vol] 10*3/uL Normal <0.[address] [facility] Comment on above: Order Comment: Speci men Type: BLOOD SPECIMENOrdering Facility: [facility] Address: [address] [place] [address] Performed By: #### 5 8410-2 ####[facility] LABCLIA [id number] [place] [address] [place] Platelet mean volume (Bld) [Entitic vol] 9.9 fL Normal 9.0-12.[address] [facility] Comment on above: Order Comment: Speci men Type: BLOOD SPECIMENOrdering Facility: [facility] Address: [address] [place] [address] Performed By: #### 5 8410-2 ####[facility] LABCLIA [id number] [place] [address] [place] Platelets (Bld) [#/Vol] 306 10*3/uL Normal 150-[address] [facility] Comment on above: Order Comment: Speci men Type: BLOOD SPECIMENOrdering Facility: [facility] Address: [address] [place] [address] Performed By: #### 5 8410-2 ####[facility] LABCLIA [id number] [place] [address] [place] RBC (Bld) [#/Vol] 4.27 10*6/uL Normal 4.20-6.00 [facility] Comment on above: Order Comment: Speci men Type: BLOOD SPECIMENOrdering Facility: [facility] Address: [address] [place] [address] Performed By: #### 5 8410-2 ####[facility] LABCLIA [id number] [place] [address] [place] WBC (Bld) [#/Vol] 7.83 10*3/uL Normal 3.70-11.00 [facility] Comment on above: Order Comment: Speci men Type: BLOOD SPECIMENOrdering Facility: [facility] Address: [address] [place] [address] Performed By: #### 5 8410-2 ####[facility] LABCLIA [id number] [place] [address] [place] PROSTATE-SPECIFIC ANTIGEN DI AGNOSTICon 10-20-2023 Prostate specific Ag [Mass/Vol] 0.38 ng/mL NINF - 2.60 ng/mL [facility] Comment on above: Total PSA test metho dology used is the Electrochemiluminescence Immunoassay by [employer]. Total PSA values by differing methodologies cannot be interchanged. PSA SerPl-mCncon 10-20-2023 Prostate specific Ag [Mass/Vol] 0.38 ng/mL Normal <2.[address] [facility] Comment on above: Order Comment: Speci men Type: BLOOD SPECIMENOrdering Facility: [facility] Address: [address] [place] [address] Result Comment: Tota l PSA test methodology used is the Electrochemiluminescence Immunoassay by [employer]. Total PSA values by differing methodologies cannot be interchanged. Performed By: #### 2 857-1 ####[facility] LABCLIA [id number] [place] [id number] [place] Prostate specific Ag [Mass/V ol]on 10-20-2023 Interpretation and review of laboratory results Normal [facility] CNOVon 10-19-2023 CNOV Office Visit (INTMWS ) UMESH PRESTON ([id number]) 1950 M Date Time Provider Department 10/19/23 6:20 PM JAMEY DAMIAN INTMWS During your visit today, we recorded the following information about you: Temperature Pulse Respiration Blood pressure 98.6 degrees 72/minute 16/minute 134/72 Weight 82.1 kg Jamey Damian MD 10/20/2023 12:49 PM Signed This note was created using NoteWriter. Subjective Umesh Preston is a 73 year old male here with gradually worsening right groin pain that started one week ago, when he was carrying salt bags to the basement. Symptoms were reminiscent of inguinal hernia he had on the left. He denied systemic symptoms, but pain was increasing from initial 5/10 to 8/10 currently. I had not seen him recently. Last year he had progressive low back pain that led to low back surgery with good benefit. Review of Systems Constitutional: Negative for fatigue, fever and unexpected weight change. Respiratory: Negative for shortness of breath. Cardiovascular: Negative for chest pain. Gastrointestinal: Negative for constipation, diarrhea, nausea, rectal pain and vomiting. Genitourinary: Negative for difficulty urinating, dysuria, hematuria and testicular pain. Musculoskeletal: Negative. Neurological: Negative for dizziness and headaches. 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 S/P Lumbar Spinal Fusion PAST SURGICAL HISTORY Procedure Laterality Date COLONOSCOPY 07/12/2016 radiation proctitis, cauterized COLONOSCOPY 09/13/2021 repeat in 5 years COLONOSCOPY FLX DX W/COLLJ SPEC WHEN PFRMD 10/18/2003 Colonoscopy, [place], [place], negative COLONOSCOPY FLX DX W/COLLJ SPEC WHEN PFRMD 09/30/2013 Repeat 2016 EXTRACTION ERUPTED TOOTH/EXR 03/24/2021 HERNIA REPAIR HX LUMBAR SPINE FUSION COMBINED 05/18/2023 L4-L5,L5-S1 fusion, laminectomies, foramenectomies, facetectomies RPR 1ST INGUN HRNA AGE 5 YRS/> REDUCIBLE Hernia repair, inguinal,Lap, Left RPR UMBILICAL HRNA 5 YRS/> REDUCIBLE 02/13/2009 Simple TONSILLECTOMY HX ULTRASOUND PROSTATE BIOPSY 11/26/2014 ULTRASOUND PROSTATE BIOPSY 2015 Social History Tobacco Use Smoking status: Former Packs/day: 0.50 Years: 10.00 Additional pack years: 0.00 Total pack years: 5.00 Types: Cigarettes Quit date: 10/17/1978 Years since quittin.0 Smokeless tobacco: Never Vaping Use Vaping Use: Never used Substance Use Topics Alcohol use: Yes Alcohol/week: 6.0 standard drinks of alcohol Types: 6 Cans of Beer (12oz) per week Drug use: No Current Outpatient Medications Medication Sig losartan (COZAAR) 50 mg tablet Take 1 tablet by mouth once daily. amLODIPine (NORVASC) 10 mg tablet Take 1 tablet by mouth once daily. simvastatin (ZOCOR) 20 mg tablet Take 1 tablet by mouth once daily. gabapentin (NEURONTIN) 100 mg capsule Take 1 capsule by mouth three times a day. Prescribed by Dr. Willson triamcinolone acetonide (KENALOG) 0.1 % cream Apply 1 application to affected area twice daily. As directed. No current facility-administered medications for this visit. Objective Blood Pressure 134/72 Pulse 72 Temperature 37 ?C (98.6 ?F) (Temporal) Respiration 16 Weight 82.1 kg (181 lb) Oxygen Saturation 98% Body Mass Index 25.97 kg/m? Physical Exam Constitutional: Appearance: Normal appearance. Cardiovascular: Rate and Rhythm: Normal rate and regular rhythm. Heart sounds: No murmur heard. No gallop. Pulmonary: Breath sounds: Normal breath sounds. Abdominal: General: Bowel sounds are normal. There is no distension. Palpations: Abdomen is soft. Tenderness: There is abdominal tenderness. Hernia: A hernia is present. Hernia is present in the right inguinal area. Comments: Possible early right inguinal hernia, non incarcerated. Mild inguinal tenderness. Genitourinary: Testes: Normal. Lymphadenopathy: Lower Body: No right inguinal adenopathy. Neurological: Mental Status: He is alert. Assessment and Plan 1. Right inguinal pain - ICD9: 789.03, ICD10: R10.31 (primary diagnosis) Etiology unclear - CT ABD/PEL W IVCON - IV CONTRAST (RADIOLOGY PROCEDURE) - ENTERIC CONTRAST (RADIOLOGY PROCEDURE) - COMPLETE BLOOD COUNT - BASIC METABOLIC PANEL - CONSULT TO GENERAL SURGERY - If surgery indicated, this will need to be done locally due to his driving limitations. 2. History of prostate cancer - ICD9: V10.46, ICD10: Z85.46 - PROSTATE-SPECIFIC ANTIGEN DIAGNOSTIC 3. Primary hypertension - ICD9: 401.9, ICD10: I10 - Factors affecting control: acute illness, pain. - Continue current medications 4. S/P lumbar spinal fusion - ICD9: V45.4, ICD10: Z98.1 Noted. MD Dalton Feliciano (more content not included)... Normal [facility] 10-19-2023 [facility] Telephone (INTMWS) UMESH PRESTON ([id number]) 1950 M Date Time Provider Department 10/19/23 JAMEY DAMIAN INTMWS During your visit today, we recorded the following information about you: Marianela Combs LPN 10/19/2023 11:55 AM Signed Pt calls and states the following: ABDOMINAL PAIN LOCATION: right lower quad RADIATION: from back to front ONSET: this started 1 week ago SUDDEN: came on gradual PATTERN: pain is constant. most of the time. Pian will decreased then then come back severe SEVERITY: Pain scale 5 and at times get up to a 7 or 8 RECURRENT SYMPTOMS: had a hernia on left side felt the same way CAUSE: carry salt to the basement and this aggravated it more RELIEVING/AGGRAVATING FACTORS: none OTHER SYMPTOMS: none DENIES: Vomiting, diarrhea, constipation and urine problems. Pt was scheduled for an apt today 6:20 PM LAMINE Atkinson Victor H, MD 10/19/2023 1:17 PM Signed Noted. Allergies As of Date: 10/19/2023 Noted Allergy Reaction PENICILLINS 02/03/2009 4 - Hives 12 - Shortness of Breath Date Reviewed: 06/28/2023 Reviewed by: Delmy Treviño, SCRIPT ARTIST.COUTIERIER - Fully Assessed Reason for Visit: Future Appointment [256] Prescriptions as of 10/19/2023 - losartan (COZAAR) 50 mg tablet Take 1 tablet by mouth once daily. - amLODIPine (NORVASC) 10 mg tablet Take 1 tablet by mouth once daily. - simvastatin (ZOCOR) 20 mg tablet Take 1 tablet by mouth once daily. - gabapentin (NEURONTIN) 100 mg capsule Take 1 capsule by mouth three times a day. Prescribed by Dr. Willson - triamcinolone acetonide (KENALOG) 0.1 % cream Apply 1 application to affected area twice daily. As directed. Problem List As Of Date 10/19/2023 Noted Resolved Umbilical hernia [K42.9] 02/03/2009 08/09/2011 HTN (Hypertension) [I10] 02/03/2009 Hyperlipidemia [E78.5] 02/03/2009 Health maintenance examination [Z00.00] 03/02/2009 12/07/2018 Mitral regurgitation [I34.0] 03/02/2009 08/13/2012 Psoriasis [L40.9] 03/04/2010 BPH NOS w ur obs/LUTS [N40.1] 08/09/2011 12/07/2018 Left inguinal hernia [K40.90] 01/04/2012 08/13/2012 Adenomatous colon polyp [D12.6] 09/30/2013 PSA elevation [R97.20] 08/10/2014 12/18/2015 High grade prostatic intraepithelial neoplasia *05/26/2015 03/30/2017 History of prostate cancer [Z85.46] 08/03/2015 Irritable bowel syndrome without diarrhea [K58.*12/06/2019 Perinephric cyst [N28.1] 09/02/2020 Postherpetic neuralgia [B02.29] 01/27/2022 03/27/2023 Encounter Status:Closed by JAMEY DAMIAN on 10/19/[address] [facility] Absolute lymphocyte countOrd ered By: Alphonse Good on 05-19-2023 Lymphocytes Auto (Unsp spec) [#/Vol] 1.48 10*3/uL 0.83-4.51 [facility] Basophil percentageOrdered B y: Alphonse Good on 05-19-2023 Basophils/100 WBC (Bld) 0.1 % 0-1 [facility] Chloride [Moles/Vol] 96 mmol/L 98-107 [facility] Eosinophils/100 WBC (Bld) 0.1 % 0-5 [facility] Glucose [Mass/Vol] 124 mg/dL 74-106 [facility] Comment on above: Fasting Glucose resu lt from 100 to 125 mg/dL suggests IMPAIRED HOMEOSTASIS per A.D.A. criteria. Neutrophils (Bld) [#/Vol] 13.8 10*3/uL 2.0-7.7 [facility] Neutrophils/100 WBC (Bld) 83.0 % 47-70 [facility] Potassium [Moles/Vol] 4.1 mmol/L 3.5-5.1 [facility] Sodium [Moles/Vol] 129 mmol/L 136-145 [facility] WBC (Bld) [#/Vol] 16.6 10*3/uL 4.4-11.0 [facility] Blood erythrocytes count (nu mber/volume)Ordered By: Alphonse Good on 05-19-2023 RBC (Bld) [#/Vol] 2.99 10*6/uL 4.6-6.2 [facility] Blood hemoglobin measurement (mass/volume)Ordered By: Alphonse Good on 05-19-2023 Hemoglobin (Bld) [Mass/Vol] 9.5 g/dL 13.0-16.5 [facility] Blood lymphocytes/100 leukoc ytesOrdered By: Alphonse Good on 05-19-2023 Lymphocytes/100 WBC (Bld) 8.9 % 19-41 [facility] Blood monocytes/100 leukocyt esOrdered By: Alphonse Good on 05-19-2023 Monocytes/100 WBC (Bld) 7.2 % 0-10 [facility] Blood platelet mean volumeOr dered By: Alphonse Good on 05-19-2023 Platelet mean volume (Bld) [Entitic vol] 10.0 fL 6.2-12.0 [facility] Determination of erythrocyte mean corpuscular volume (MCV)Ordered By: Alphonse Good on 05-19-2023 MCV (RBC) [Entitic vol] 94.0 fL 80-94 [facility] Hematocrit Auto (Bld) [Volum e fraction]Ordered By: Alphonse Good on 05-19-2023 Hematocrit (Bld) [Volume fraction] 28.1 % 40-54 [facility] Laboratory - Chemistry and C hemistry - challengeOrdered By: Alphonse Good on 05-19-2023 CO2 [Moles/Vol] 23.0 mmol/L 21.0-32.0 [facility] Urea nitrogen/Creatinine [Mass ratio] 19.8 mg/mg 10-20 [facility] Laboratory - Hematology and Cell countsOrdered By: Alphonse Good on 05-19-2023 Erythrocyte distribution width (RBC) [Entitic vol] 43.7 fL 35.1-43.9 [facility] Erythrocyte distribution width (RBC) [Ratio] 12.7 % 11.6-14.6 [facility] Immature granulocytes/100 WBC (Bld) 0.700 % 0.0-0.9 [facility] Comment on above: IG% - Immature Granu locytes (promyelocytes, myelocytes and metamyelocytes) > 1% indicates that a LEFT SHIFT is Present. MCH (RBC) [Entitic mass] 31.8 pg 27.0-32.0 [facility] Nucleated RBC/100 WBC (Bld) [Ratio] 0 % 0-5 [facility] MCHC Auto (RBC) [Mass/Vol]Or dered By: Alphonse Good on 05-19-2023 MCHC (RBC) [Mass/Vol] 33.8 g/dL 32-36 [facility] No Panel InformationOrdered By: Alphonse Good on 05-19-2023 Estimated Creatinine Clearance Calc 61.18 ml/min [facility] Estimated GFR (MDRD) Amer 80 mL/min >60 [facility] Comment on above: GFR Calc Estimated GFR (MDRD) Non-Af Amer 66 mL/min >60 [facility] Comment on above: Non- GFR Calc Platelets bldOrdered By: Kimberly Good on 05-19-2023 Platelets (Bld) [#/Vol] 229 10*3/uL 150-450 [facility] Serum or plasma calcium enzo urement (mass/volume)Ordered By: Alphonse Good on 05-19-2023 Calcium [Mass/Vol] 8.2 mg/dL 8.5-10.1 [facility] Serum or plasma creatinine m easurement (mass/volume)Ordered By: Alphonse Good on 05-19-2023 Creatinine [Mass/Vol] 1.16 mg/dL 0.70-1.30 [facility] Comment on above: The validity of the calculated GFR & GFRAA in patients over 70 years has not been determined. Clinical correlation is essential. Serum or plasma urea nitroge n measurement (mass/volume)Ordered By: Alphonse Good on 05-19-2023 Urea nitrogen [Mass/Vol] 23 mg/dL 7-18 [facility] Thin prep Papanicolaou smear with manual screeningOrdered By: Alphonse Good on 05-19-2023 Thin prep Papanicolaou smear with manual screening 10 5-15 [facility] INR in Blood by Coagulation assayOrdered By: Wilver Willson on 04-27-2023 INR Coag (Bld) [Relative time] 1.0 {INR} [facility] Laboratory - CoagulationOrde red By: Wilver Willson on 04-27-2023 aPTT Coag (Bld) [Time] 34.4 s 24.1-36.2 [facility] PT Coag (PPP) [Time] 12.9 s 11.7-14.9 [facility] No Panel InformationOrdered By: Wilver Willson on 04-27-2023 Nasal Screen MRSA/MSSA [facility] XR Lumbar spine 3 Viewson IMPRESSION: MULTILEV EL ADVANCED DEGENERATIVE DISC AND FACET DISEASE Admin Prog Coord: LESA Transcribe Date/Time: Dec 16 2022 12:20P Dictated by : GAIL JAMES MD This examination was interpreted and the report reviewed and electronically signed by: GAIL JAMES MD on Dec 16 2022 12:21PM [facility] DIVISION OF RADIOLOGY * * *Final Report* * * DATE OF EXAM: Dec 14 2022 12:46PM WOX [id number] - XR LUMBAR 3V AP/LAT/L5-S1 / PROCEDURE REASON: Acute midline low back pain without sciatica * * * * Physician Interpretation * * * * EXAM: LUMBAR SPINE, 3 VIEWS CLINICAL: 72-year-old male with acute midline low back pain TECHNIQUE: AP, lateral coned down lateral COMPARISON: None RESULTS: Counting reference: Anatomic Variant: None. L4-5 is considered the level of the iliac crest and assume there are 5 lumbar-type vertebrae. Levoscoliosis centered at thoracolumbar junction. Marked narrowing of all lumbar disc levels with osteophytes anteriorly. 7 mm, grade 1 anterolisthesis of L4 and L5. Facet narrowing throughout the lumbar spine. DIVISION OF RADIOLOGY Provider, Bela Boogie - 12/16/2022 * * *Final Report* * * DATE OF EXAM: Dec 14 2022 12:46PM WOX [id number] - XR LUMBAR 3V AP/LAT/L5-S1 / PROCEDURE REASON: Acute midline low back pain without sciatica * * * * Physician Interpretation * * * * EXAM: LUMBAR SPINE, 3 VIEWS CLINICAL: 72-year-old male with acute midline low back pain TECHNIQUE: AP, lateral coned down lateral COMPARISON: None RESULTS: Counting reference: Anatomic Variant: None. L4-5 is considered the level of the iliac crest and assume there are 5 lumbar-type vertebrae. Levoscoliosis centered at thoracolumbar junction. Marked narrowing of all lumbar disc levels with osteophytes anteriorly. 7 mm, grade 1 anterolisthesis of L4 and L5. Facet narrowing throughout the lumbar spine. IMPRESSION IMPRESSION: MULTILEVEL ADVANCED DEGENERATIVE DISC AND FACET DISEASE Admin Prog Coord: PSCB Transcribe Date/Time: Dec 16 2022 12:20P Dictated by : GAIL JAMES MD This examination was interpreted and the report reviewed and electronically signed by: GAIL JAMES MD on Dec 16 2022 12:21PM EST [facility] XR Lumbar spine 3 ViewsOrder ed By: Ccf Provider on 12-16-2022 [facility] ESR Westergren method (Bld) [Velocity]on 12-14-2022 ESR (Bld) [Velocity] 15 mm/h 0 - 15 mm/hr [facility] XR Lumbar spine 3 Viewson Radiology Study observation (narrative) [facility] OVA + PARA MICROSCOPICon Ova and parasites identified LM Nom (Unsp spec) No Parasites Seen [facility] Gastrointestinal pathogens i dentified SANDY+probe Nom (Stl)on 06-17-2022 Campylobacter sp DNA SANDY+probe Nom (Unsp spec) Not detected Not Detected [facility] Salmonella sp DNA SANDY+probe Ql (Unsp spec) Not detected Not Detected [facility] Shiga toxin stx gene SANDY+probe Nom (Unsp spec) Not detected Not Detected [facility] Shigella sp DNA SANDY+probe Ql (Unsp spec) Not detected Not Detected [facility] Vital Signs Date Time Vital Sign Value Performing Clinician Faci lity 04-02-2025 08:57-0400 Body height 177.[address] Jamey Damian MD Work Phone: [facility] 04-02-2025 08:57-0400 Body mass index (BMI) [Ratio] 27.1 kg/m2 Dr. Jamey Damian MD Work Phone: [facility] 04-02-2025 08:57-0400 Body weight 85.[address] Jamey Damian MD Work Phone: [phone] [place] [address] 04-02-2025 08:57-0400 Diastolic blood pressure 68 mm[Hg] Dr. Jamey Damian MD Work Phone: [phone] [place] [address] 04-02-2025 08:57-0400 Heart rate 75 /min Dr. Jamey Damian MD Work Phone: [phone] [place] [address] 04-02-2025 08:57-0400 Respiratory rate 16 /min Dr. Jamey Damian MD Work Phone: [phone] [place] [address] 04-02-2025 08:57-0400 Systolic blood pressure 128 mm[Hg] Dr. Jamey Damian MD Work Phone: [phone])[phone] [place] [address] 07-03-2024 07:56-0500 Body mass index (BMI) [Ratio] 27.14 kg/m2 Delmy Hudson SCRIPT ARTIST.COUTIERIER Work Phone: [facility] 07-03-2024 07:56-0500 Body weight 85.8 kg Delmy Hudson SCRIPT ARTIST.COUTIERIER Work Phone: [facility] 07-03-2024 07:56-0500 Diastolic blood pressure 74 mm[Hg] Delmy Hudson SCRIPT ARTIST.COUTIERIER Work Phone: [facility] 07-03-2024 07:56-0500 Heart rate 76 /min Delmy Hudson SCRIPT ARTIST.COUTIERIER Work Phone: [facility] 07-03-2024 07:56-0500 Respiratory rate 14 /min Delmy Hudson SCRIPT ARTIST.COUTIERIER Work Phone: [facility] 07-03-2024 07:56-0500 SaO2% (BldA) [Mass fraction] 98 % Delmy Hudson SCRIPT ARTIST.COUTIERIER Work Phone: [facility] 07-03-2024 07:56-0500 Systolic blood pressure 122 mm[Hg] Delmy Hudsno SCRIPT ARTIST.COUTIERIER Work Phone: [facility] 11-29-2023 09:29-0400 Body mass index (BMI) [Ratio] 25.97 kg/m2 Delmy Hudson SCRIPT ARTIST.COUTIERIER Work Phone: [facility] 11-29-2023 09:29-0400 Body temperature 97.9 [degF] Delmy Hudson SCRIPT ARTIST.COUTIERIER Work Phone: [facility] 11-29-2023 09:29-0400 Body weight 82.1 kg Delmy Hudson SCRIPT ARTIST.COUTIERIER Work Phone: [facility] 11-29-2023 09:29-0400 Diastolic blood pressure 78 mm[Hg] Delmy Hudson SCRIPT ARTIST.COUTIERIER Work Phone: [facility] 11-29-2023 09:29-0400 Heart rate 71 /min Delmy LojaHudson SCRIPT ARTIST.COUTIERIER Work Phone: [facility] 11-29-2023 09:29-0400 Respiratory rate 18 /min Delmy Hudson SCRIPT ARTIST.COUTIERIER Work Phone: [facility] 11-29-2023 09:29-0400 SaO2% (BldA) [Mass fraction] 98 % Delmy Hudson SCRIPT ARTIST.COUTIERIER Work Phone: [facility] 11-29-2023 09:29-0400 Systolic blood pressure 164 mm[Hg] Delmy Hudson SCRIPT ARTIST.COUTIERIER Work Phone: [facility] 11-01-2023 14:38-0400 Body height 177.8 cm Anca Love MD Work Phone: [facility] 11-01-2023 14:38-0400 Body mass index (BMI) [Ratio] 26.32 kg/m2 Anca Love MD Work Phone: [facility] 11-01-2023 14:38-0400 Body temperature 97.59 [degF] Anca Love MD Work Phone: [facility] 11-01-2023 14:38-0400 Body weight 83.19 kg Anca Love MD Work Phone: [facility] 11-01-2023 14:38-0400 Diastolic blood pressure 72 mm[Hg] Anca Love MD Work Phone: [facility] 11-01-2023 14:38-0400 Heart rate 77 /min Anca Love MD Work Phone: [facility] 11-01-2023 14:38-0400 SaO2% (BldA) [Mass fraction] 99 % Anca Love MD Work Phone: [facility] 11-01-2023 14:38-0400 Systolic blood pressure 138 mm[Hg] Anca Love MD Work Phone: [facility] 10-19-2023 18:18-0400 Body mass index (BMI) [Ratio] 25.97 kg/m2 Jamey Damian MD Work Phone: [facility] 10-19-2023 18:18-0400 Body temperature 98.6 [degF] Jamey Damian MD Work Phone: [facility] 10-19-2023 18:18-0400 Body weight 82.1 kg Jamey Damian MD Work Phone: [facility] 10-19-2023 18:18-0400 Diastolic blood pressure 72 mm[Hg] Jamey Damian MD Work Phone: [facility] 10-19-2023 18:18-0400 Heart rate 72 /min Jamey Damian MD Work Phone: [facility] 10-19-2023 18:18-0400 Respiratory rate 16 /min Jamey Damian MD Work Phone: [facility] 10-19-2023 18:18-0400 SaO2% (BldA) [Mass fraction] 98 % Jamey Damian MD Work Phone: [facility] 10-19-2023 18:18-0400 Systolic blood pressure 134 mm[Hg] Jamey Damian MD Work Phone: [facility] 05-19-2023 15:09-0500 Body temperature 98.7 [degF] Dr. Jamey Damian Work Phone: [facility] 05-19-2023 15:09-0500 Diastolic blood pressure 68 mm[Hg] Dr. Jamey Damian Work Phone: [facility] 05-19-2023 15:09-0500 Heart rate 92 /min Dr. Jamey Damian Work Phone: 8(801)[phone] [place] [address] 05-19-2023 15:09-0500 Respiratory rate 16 /min Dr. Jamey Damian Work Phone: [facility] 05-19-2023 15:09-0500 SaO2% (BldA) [Mass fraction] 98 % Dr. Jamey Damian Work Phone: [facility] 05-19-2023 15:09-0500 Systolic blood pressure 130 mm[Hg] Dr. Jamey Damian Work Phone: 4(479)[phone] [place] [address] 05-18-2023 20:20-0500 Inhaled oxygen flow rate 2 L/min Dr. Jamey Damian Work Phone: [facility] 05-18-2023 15:15-0500 Body height 177.[address] Jamey Damian Work Phone: 4(342)[phone] [place] [address] 05-18-2023 15:15-0500 Body mass index (BMI) [Ratio] 26.1 kg/m2 Dr. Jamey Damian Work Phone: [facility] 05-18-2023 15:15-0500 Body weight 82.[address] Jamey Damian Work Phone: [facility] 03-27-2023 08:19-0400 Body height 177.8 cm Delmy Thomas APRN.CNP Work Phone: [facility] 03-27-2023 08:19-0400 Body weight 83.92 kg Delmy Older SCRIPT ARTIST.COUTIERIER Work Phone: [facility] 03-27-2023 08:19-0400 Diastolic blood pressure 76 mm[Hg] Delmy Older SCRIPT ARTIST.COUTIERIER Work Phone: [facility] 03-27-2023 08:19-0400 Heart rate 87 /min Delmy Older SCRIPT ARTIST.COUTIERIER Work Phone: [facility] 03-27-2023 08:19-0400 Respiratory rate 16 /min Delmy Older SCRIPT ARTIST.COUTIERIER Work Phone: [facility] 03-27-2023 08:19-0400 SaO2% (BldA) [Mass fraction] 97 % Delmy Older SCRIPT ARTIST.COUTIERIER Work Phone: [facility] 03-27-2023 08:19-0400 Systolic blood pressure 138 mm[Hg] Delmy Older SCRIPT ARTIST.COUTIERIER Work Phone: [facility] 12-14-2022 11:54-0400 Body weight 84.37 kg Delmy Older SCRIPT ARTIST.COUTIERIER Work Phone: [facility] 12-14-2022 11:54-0400 Diastolic blood pressure 76 mm[Hg] Delmy Older SCRIPT ARTIST.COUTIERIER Work Phone: [facility] 12-14-2022 11:54-0400 Heart rate 80 /min Delmy Older SCRIPT ARTIST.COUTIERIER Work Phone: [facility] 12-14-2022 11:54-0400 Respiratory rate 16 /min Delmy Older SCRIPT ARTIST.COUTIERIER Work Phone: [facility] 12-14-2022 11:54-0400 Systolic blood pressure 136 mm[Hg] Delmy Older SCRIPT ARTIST.COUTIERIER Work Phone: [facility] 06-21-2022 08:17-0500 Diastolic blood pressure 72 mm[Hg] Delmy Older SCRIPT ARTIST.COUTIERIER Work Phone: [facility] 06-21-2022 08:17-0500 Systolic blood pressure 130 mm[Hg] Delmy Older SCRIPT ARTIST.COUTIERIER Work Phone: [facility] 06-21-2022 08:07-0500 Body temperature 97.9 [degF] Delmy Older SCRIPT ARTIST.COUTIERIER Work Phone: [facility] 06-21-2022 08:07-0500 Body weight 83.92 kg Delmy Older SCRIPT ARTIST.COUTIERIER Work Phone: [facility] 06-21-2022 08:07-0500 Heart rate 79 /min Delmy Older SCRIPT ARTIST.COUTIERIER Work Phone: [facility] 06-21-2022 08:07-0500 Respiratory rate 14 /min Delmy Older SCRIPT ARTIST.COUTIERIER Work Phone: [facility] 06-15-2022 07:15-0500 Body temperature 97.3 [degF] Canelo Warner SCRIPT ARTIST.COUTIERIER Work Phone: [facility] 06-15-2022 07:15-0500 Body weight 84.82 kg Canelo Warner SCRIPT ARTIST.COUTIERIER Work Phone: [facility] 06-15-2022 07:15-0500 Diastolic blood pressure 72 mm[Hg] Canelo Warner SCRIPT ARTIST.COUTIERIER Work Phone: [facility] 06-15-2022 07:15-0500 Heart rate 86 /min Canelo Warner SCRIPT ARTIST.COUTIERIER Work Phone: [facility] 06-15-2022 07:15-0500 Respiratory rate 16 /min Canelo Warner SCRIPT ARTIST.COUTIERIER Work Phone: [facility] 06-15-2022 07:15-0500 SaO2% (BldA) [Mass fraction] 98 % Canelo Warner SCRIPT ARTIST.COUTIERIER Work Phone: [facility] 06-15-2022 07:15-0500 Systolic blood pressure 128 mm[Hg] Canelo Warner SCRIPT ARTIST.COUTIERIER Work Phone: [facility] 06-06-2022 09:05-0500 Body temperature 97.3 [degF] Huong Nick PA-C Work Phone: [facility] 06-06-2022 09:05-0500 Body weight 85.64 kg Huong Athy PA-C Work Phone: [facility] 06-06-2022 09:05-0500 Diastolic blood pressure 64 mm[Hg] Huong Athy PA-C Work Phone: [facility] 06-06-2022 09:05-0500 Heart rate 90 /min Huong Athy PA-C Work Phone: [facility] 06-06-2022 09:05-0500 Respiratory rate 21 /min Huong Athy PA-C Work Phone: [facility] 06-06-2022 09:05-0500 SaO2% (BldA) [Mass fraction] 99 % Huong Athy PA-C Work Phone: [facility] 06-06-2022 09:05-0500 Systolic blood pressure 140 mm[Hg] Huong Athy PA-C Work Phone: [facility] 01-27-2022 08:56-0400 Diastolic blood pressure 66 mm[Hg] Jamey Damian MD Work Phone: [facility] 01-27-2022 08:56-0400 Systolic blood pressure 128 mm[Hg] Jamey Damian MD Work Phone: [facility] 01-27-2022 08:39-0400 Body temperature 97.11 [degF] Jamey Damian MD Work Phone: [facility] 01-27-2022 08:39-0400 Body weight 82.92 kg Jamey Damian MD Work Phone: [facility] 01-27-2022 08:39-0400 Heart rate 76 /min Jamey Damian MD Work Phone: [facility] 01-27-2022 08:39-0400 Respiratory rate 18 /min Jamey Damian MD Work Phone: [facility] Encounters Encounter Date Encounter Type Care Provider Facility Start: 04-29-2025 ambulatory Stuart Johnson Facility:[facility] Start: 04-28-2025 [facility] Start: 04-02-2025 End: 04-02-[address] Stuart Johnson MD -[facility] Work Phone: Start: 04-02-2025 End: 04-02-[address] Jamey Damian MD Work Phone: -[facility] Start: 07-17-2024 End: 07-17-2024 Telephone encounter Jamey Damian MD Work Phone: [facility] Comment on above: Results Start: 07-16-2024 End: 07-16-2024 ambulatory DELMY TREVIÑO Facility:[facility] Start: 07-03-2024 End: 07-03-2024 ambulatory DELMY TREVIÑO Facility:[facility] Start: 07-03-2024 End: 07-03-2024 Patient encounter procedure Delmy LojaHudson SCRIPT ARTIST.COUTIERIER Work Phone: [facility] Comment on above: Primary hypertension (Primary Dx); Hyperlipidemia, unspecified hyperlipidemia type; Screening for depression; Encounter for screening examination for other mental health and behavioral disorders; Encounter for immunization Start: 11-29-2023 End: 11-29-2023 ambulatory DELMY TREVIÑO Facility:[facility] Start: 11-29-2023 End: 11-29-2023 Patient encounter procedure Delmy White Hudson SCRIPT ARTIST.COUTIERIER Work Phone: [facility] Comment on above: Lip cyst (Primary Dx ) Start: 11-27-2023 Telephone encounter Jamey barker MD Work Phone: [facility] Comment on above: Patient Update Start: 11-01-2023 End: 11-01-2023 ambulatory ANCA LOVE Facility:[facility] Start: 11-01-2023 End: 11-01-2023 Patient encounter procedure Anca Love MD Work Phone: General Surgery Comment on above: Right inguinal herni a Start: 10-30-2023 End: 10-30-2023 ambulatory JAMEY DAMIAN Facility:[facility] Start: 10-30-2023 End: 10-30-2023 Subsequent hospital visit by physician Radha Santiago [facility] Cat Scan Comment on above: Right inguinal pain [R10.31] Start: 10-21-2023 Telephone encounter Jamey barker MD Work Phone: [facility] Comment on above: Results Patient Question Start: 10-20-2023 End: 10-20-2023 ambulatory JAMEY DAMIAN Facility:[facility] Start: 10-19-2023 End: 10-19-2023 ambulatory JAMEY DAMIAN Facility:[facility] Start: 10-19-2023 End: 10-19-2023 Patient encounter procedure Jamey Damian MD Work Phone: [facility] Comment on above: Right inguinal pain (Primary Dx); History of prostate cancer; Primary hypertension; S/P lumbar spinal fusion Start: 10-19-2023 Telephone encounter Jamey barker MD Work Phone: [facility] Comment on above: Future Appointment Start: 05-19-2023 Telephone encounter Jamey barker MD Work Phone: [facility] Comment on above: [facility] follow for sk illed nursing Start: 05-19-2023 Non-patient / Non-visit Dr. Jade Damian Work Phone: [facility] Work Phone: Start: 05-18-2023 Non-patient / Non-visit Dr. Jade Damian Work Phone: [facility] Work Phone: Start: 05-18-2023 End: 05-19-2023 Evaluation and management of inpatient Dr[facility] Work Phone: Start: 04-28-2023 Telephone encounter Jamey barker MD Work Phone: [facility] Comment on above: Patient Question; Pa tient Update Start: 04-27-2023 End: 04-27-2023 Non-patient / Non-visit Dr. Jamey Damian Work Phone: [facility] Work Phone: Start: 03-27-2023 End: 03-27-2023 Patient encounter procedure Delmy Older SCRIPT ARTIST.COUTIERIER Work Phone: [facility] Comment on above: Preop exam for inter nal medicine (Primary Dx); Primary hypertension Start: 03-27-2023 End: 03-27-2023 Patient encounter status Delmy Older SCRIPT ARTIST.COUTIERIER Work Phone: [facility] Work Phone: Start: 12-21-2022 Telephone encounter Jamey barker MD Work Phone: [facility] Comment on above: Referral Request Start: 12-16-2022 Telephone encounter Delmy Older SCRIPT ARTIST.COUTIERIER Work Phone: [facility] Comment on above: Results Start: 12-14-2022 End: 12-14-2022 Subsequent hospital visit by physician Marquez [facility] Work Phone: Radiology Comment on above: Acute midline low ba ck pain without sciatica [M54.50] Start: 12-14-2022 End: 12-14-2022 Patient encounter procedure Delmy Older SCRIPT ARTIST.COUTIERIER Work Phone: [facility] Comment on above: Arthralgia of multip le joints (Primary Dx); Acute midline low back pain without sciatica Start: 11-15-2022 Telephone encounter Jamey barker MD Work Phone: [facility] Comment on above: Orders Start: 06-21-2022 Telephone encounter Canelo lion APRN.COUTIERIER Work Phone: [facility] Comment on above: Results Start: 06-21-2022 End: 06-21-2022 Patient encounter procedure Delmy Older SCRIPT ARTIST.COUTIERIER Work Phone: [facility] Comment on above: Acute diarrhea (Prim alexander Dx); Abdominal cramping Start: 06-15-2022 End: 06-15-2022 Patient encounter procedure Canelo Warner SILVANO.COUTIERIER Work Phone: [facility] Comment on above: Bowel habit changes (Primary Dx); Lower abdominal pain Start: 06-07-2022 Telephone encounter Briseyda Berumen SCRIPT ARTIST.COUTIERIER Work Phone: [facility] Comment on above: Results Start: 06-06-2022 End: 06-06-2022 Patient encounter procedure Huong Nick PA-C Work Phone: [facility] Comment on above: Vomiting and diarrhe a (Primary Dx); Encounter for laboratory testing for COVID-19 virus Start: 01-27-2022 End: 01-27-2022 Patient encounter procedure Jamey Damian MD Work Phone: [facility] Comment on above: Secondary insomnia ( Primary Dx); Postherpetic neuralgia; Primary hypertension; Anemia, unspecified type; Need for COVID-19 vaccine Start: 12-25-2021 Telephone encounter Jamey barker MD Work Phone: [facility] Comment on above: Shingles Start: 03-02-2009 End: 12-07-2018 Patient encounter status Jamey Damian MD Work Phone: [facility] Procedures Date Procedure Procedure Detail Performing Clinician Start: 07-16-2024 Lipid 1996 panel - S sam or Plasma Jamey Damian MD Work Phone: Start: 07-03-2024 PFIZER-BIONTGlycobia COVI D-19 VACCINE AGE 12+ YR (COMIRNATY) Delmy Treviño APRN.COUTIERIER Work Phone: Start: 07-03-2024 Adult depression scr eening assessment Delmy Treviño APRN.COUTIERIER Work Phone: Start: 05-18-2023 Fluoroscopic guidance Nancy Damian Work Phone: Start: 05-18-2023 X-ray of lumbar spin e, two or three views Dr. Jamey Damian Work Phone: Start: 05-18-2023 Post Lum Interbody F usion Watt Two Level (Not Applicable) Dr. Jamey Damian Work Phone: Start: 04-27-2023 Nasal Screen MRSA/MSSA Dr. Jamey Damian Work Phone: Start: 04-27-2023 Plain chest X-ray Dr. Dakota Damian Work Phone: Start: 12-14-2022 Radex spine lumbosac ral 2/3 views Delmy Treviño SCRIPT ARTIST.COUTIERIER Work Phone: Start: 12-08-2022 Lipid 1996 panel - S sam or Plasma Delmy Thomas SCRIPT ARTIST.COUTIERIER Work Phone: Start: 06-16-2022 Ova&parasites direct smears concentration & id Canelo Warner SCRIPT ARTIST.COUTIERIER Work Phone: Start: 01-27-2022 PFIZER-BIONTGlycobia COVI D-19 VACCINE, AGE 12+ YR (KINNEY TOP) Jamey Damian MD Work Phone: Start: 09-13-2021 Colonoscopy Jamey Cortez MD Work Phone: Start: 07-29-2021 Adult depression scr eening assessment Jamey Damian MD Work Phone: Plan of Treatment Date Care Activity Detail Author Start: 07-16-2029 Lipid panel Lipid Screening [facility] Start: 12-09-2027 Lipid 1996 panel - S sam or Plasma Lipid Screening [facility] Start: 12-09-2027 Lipid panel Lipid Screening [facility] Start: 12-09-2027 LIPID SCREEN LIPID SCREEN [facility] Start: 07-16-2027 Diabetes Screening Diabetes Screenin [facility] Start: 01-19-2027 LIPID SCREEN LIPID SCREEN [facility] Start: 10-19-2026 Diabetes Screening Diabetes Screenin g [facility] Start: 09-13-2026 Colonoscopy COLONOSCOPY [facility] Start: 09-13-2026 COLORECTAL CANCER SCREENING COLORECTAL CANCER SCREENING [facility] Start: 09-13-2026 Screening for malign ant neoplasm of colon [facility] Start: 12-08-2025 DIABETES SCREEN DIABETES SCREEN [facility] Start: 12-08-2025 Diabetes Screening Diabetes Screenin g [facility] Start: 10-19-2025 LIPID SCREEN LIPID SCREEN [facility] Start: 07-16-2025 Hepatitis B surface antibody level LDL Cholesterol [facility] Start: 07-03-2025 Annual PCP Team Administrative Office Manager aroldo Disease Visit Annual PCP Team Chronic Disease Visit [facility] Start: 07-03-2025 Anxiety Screening Anxiety Screening [facility] Start: 07-03-2025 BP Controlled (<130/80) BP Controlle d (<130/80) [facility] Start: 07-03-2025 Depression Screening Depression Scre ening [facility] Start: 07-03-2025 Urine microalbumin profile DTaP,Tdap,Td Vaccine (1 - Tdap) [facility] Comment on above: Postponed from 06/09 (Declined at this time) Start: 04-02-2025 Radionuclide imaging of perfusion of myocardium under exercise stress [facility] Start: 04-02-2025 End: 04-02-2025 Evaluation of diagnostic study results [facility] Start: 01-19-2025 DIABETES SCREEN DIABETES SCREEN [facility] Start: 01-01-2025 End: 01-01-2025 Patient encounter procedure 01/01/2025 8:00 AM EDT Office Visit [facility] [address] [place] [address] Delmy Treviño M, SCRIPT ARTIST.COUTIERIER [address] [place] [address] medicare 6 months [facility] Comment on above: medicare 6 months Start: 11-28-2024 Annual PCP Team Administrative Office Manager aroldo Disease Visit Annual PCP Team Chronic Disease Visit [facility] Start: 10-18-2024 Annual PCP Team Administrative Office Manager aroldo Disease Visit Annual PCP Team Chronic Disease Visit [facility] Start: 07-03-2024 End: 10-02-2024 CBC W Auto Differential panel - Blood COMPLETE BLOOD COUNT AND DIFFERENTIAL Lab Routine Primary hypertension Expected: 07/03/2024, Expires: 10/02/2024 [facility] Comment on above: Expected: 07/03/2024 , Expires: 10/02/2024 Start: 07-03-2024 End: 10-02-2024 Comprehensive metabolic 2000 panel - Serum or Plasma COMPREHENSIVE METABOLIC PANEL Lab Routine Primary hypertension Hyperlipidemia, unspecified hyperlipidemia type Expected: 07/03/2024, Expires: 10/02/2024 [facility] Work Phone: Comment on above: Expected: 07/03/2024 , Expires: 10/02/2024 Start: 07-03-2024 End: 10-02-2024 Lipid 1996 panel - Serum or Plasma LIPID PANEL BASIC Lab Routine Hyperlipidemia, unspecified hyperlipidemia type Expected: 07/03/2024, Expires: 10/02/2024 [facility] Comment on above: Expected: 07/03/2024 , Expires: 10/02/2024 Start: 07-03-2024 End: 07-03-2024 Patient encounter procedure 07/03/2024 8:00 AM EST Office Visit [facility] [address] [place], [place] [address] Delmy Treviño, SCRIPT ARTIST.COUTIERIER [address] [place], [place] [id number] 6 mth V [facility] Comment on above: 6 mth V Start: 06-28-2024 Pneumococcal Vaccine : 65+ (2 of 2 - PCV) Pneumococcal Vaccine: 65+ (2 of 2 - PCV) [facility] Comment on above: Postponed from 12/05 (Declined at this time) Start: 06-28-2024 RSV Vaccine (1 - 1-d ose 60+ series) RSV Vaccine (1 - 1-dose 60+ series) [facility] Comment on above: Postponed from 06/09 (Declined at this time) Start: 03-27-2024 Annual PCP Team Administrative Office Manager aroldo Disease Visit Annual PCP Team Chronic Disease Visit [facility] Start: 03-27-2024 Urine microalbumin profile DTaP,Tdap,Td Vaccine (1 - Tdap) [facility] Comment on above: Postponed from 06/09 (Declined at this time) Start: 03-17-2024 DIABETES SCREEN DIABETES SCREEN [facility] Start: 02-18-2024 Covid-19 Vaccine ( season) Covid-19 Vaccine ( season) [facility] Start: 02-18-2024 Influenza vaccination Influenza Vacc ine (#1) [facility] Start: 12-25-2023 End: 12-25-2023 Patient encounter procedure 12/25/2023 8:20 AM EDT Office Visit [facility] [address] [facility], [place] [address] Delmy Treviño, SCRIPT ARTIST.COUTIERIER [address] [facility], [place] [id number] 6 mth V [facility] Comment on above: 6 mth V Start: 12-15-2023 ANNUAL PCP TEAM RECYCLING TECH AROLDO DISEASE VISIT ANNUAL PCP TEAM CHRONIC DISEASE VISIT [facility] Start: 12-09-2023 Hepatitis B surface antibody level LDL Cholesterol [facility] Start: 11-29-2023 End: 11-29-2023 Patient encounter procedure 11/29/2023 9:40 AM EDT Office Visit [facility] [address] [facility] [place] [address] Delmy Treviño, SCRIPT ARTIST.COUTIERIER [address] [facility], [place] [address] hard lump inside lower lip, noted over weekend, has history of this 3 years ago, see phone note for details 11/27/23 [facility] Comment on above: hard lump inside low er lip, noted over weekend, has history of this 3 years ago, see phone note for details 11/27/23 Start: 11-01-2023 End: 11-01-2023 Patient encounter procedure 11/01/2023 2:30 PM EDT Office Visit General Surgery [address] [place], [place] [id number] Anca Love MD [address] [place] [address] Right inguinal pain [R10.31] General Surgery Comment on above: Right inguinal pain [R10.31] Start: 10-30-2023 End: 10-30-2023 Patient encounter procedure 10/30/2023 3:15 PM EDT Office Visit General Surgery [address] [place] [address] Anca Love MD [address] [place] [id number] Right inguinal pain [R10.31] General Surgery Comment on above: Right inguinal pain [R10.31] Start: 10-30-2023 End: 10-30-2023 Patient encounter procedure Cat Scan Comment on above: Right inguinal pain [R10.31] Start: 10-27-2023 Covid-19 Vaccine () Covid-19 Vaccine () [facility] Start: 06-21-2023 ANNUAL PCP TEAM RECYCLING TECH AROLDO DISEASE VISIT ANNUAL PCP TEAM CHRONIC DISEASE VISIT [facility] Start: 06-19-2023 Behavioral Health Screening Behavioral Health Screening [facility] Start: 05-19-2023 Referral to service [facility] Start: 05-19-2023 Patient discharge [facility] Start: 05-18-2023 Oxygen therapy [facility] Start: 05-18-2023 Consultation [facility] Start: 05-18-2023 Following clinical pathway protocol [facility] Start: 05-18-2023 Admission procedure [facility] Start: 05-18-2023 Maintenance of drain age tube [facility] Start: 05-18-2023 Provision of activit y privileges [facility] Start: 05-18-2023 Application of ice collar, cap or bag [facility] Start: 05-18-2023 Application of intermittent pneumatic compression device [facility] Start: 05-18-2023 Catheterization of vein [facility] Start: 05-18-2023 Consultation [facility] Start: 05-18-2023 Following clinical pathway protocol [facility] Start: 05-18-2023 Incentive spirometry [facility] Start: 05-18-2023 Introduction of urin alexander catheter [facility] Start: 05-18-2023 Measuring intake and output [facility] Start: 05-18-2023 Neurovascular assessment [facility] Start: 05-18-2023 Patient education [facility] Start: 05-18-2023 Procedure discontinued [facility] Start: 05-18-2023 Recommendation to continue with treatment [facility] Start: 05-18-2023 Referral to service [facility] Start: 05-18-2023 Taking patient vital signs [facility] Start: 05-18-2023 [facility] Start: 02-17-2023 Covid-19 Vaccine () Covid-19 Vaccine () [facility] Start: 02-17-2023 Influenza vaccination INFLUENZA (#1) [facility] Start: 01-27-2023 ANNUAL PCP TEAM RECYCLING TECH AROLDO DISEASE VISIT ANNUAL PCP TEAM CHRONIC DISEASE VISIT [facility] Start: 01-27-2023 BP CONTROLLED (<130/80) BP CONTROLLE D (<130/80) [facility] Start: 12-17-2022 End: 02-16-2023 CBC W Auto Differential panel - Blood CBC + DIFF Lab Routine Primary hypertension Expected: 12/17/2022 (Approximate), Expires: 02/16/2023 [facility] Work Phone: Comment on above: Expected: 12/17/2022 (Approximate), Expires: 02/16/2023 Start: 12-17-2022 End: 02-16-2023 Comprehensive metabolic 2000 panel - Serum or Plasma COMP METABOLIC PANEL Lab Routine Hyperlipidemia, unspecified hyperlipidemia type Primary hypertension Expected: 12/17/2022 (Approximate), Expires: 02/16/2023 [facility] Work Phone: Comment on above: Expected: 12/17/2022 (Approximate), Expires: 02/16/2023 Start: 12-17-2022 End: 02-16-2023 Lipid 1996 panel - Serum or Plasma LIPID PANEL BASIC Lab Routine Hyperlipidemia, unspecified hyperlipidemia type Expected: 12/17/2022 (Approximate), Expires: 02/16/2023 [facility] Work Phone: Comment on above: Expected: 12/17/2022 (Approximate), Expires: 02/16/2023 Start: 12-17-2022 End: 02-16-2023 Prostate specific Ag [Mass/volume] in Serum or Plasma PSA/PROSTSPECAG DIAG Lab Routine History of prostate cancer Expected: 12/17/2022 (Approximate), Expires: 02/16/2023 [facility] Work Phone: Comment on above: Expected: 12/17/2022 (Approximate), Expires: 02/16/2023 Start: 12-14-2022 End: 02-13-2023 C reactive protein [Mass/volume] in Serum or Plasma [facility] Work Phone: Comment on above: Expected: 12/14/2022 , Expires: 02/13/2023 Start: 12-14-2022 End: 02-13-2023 Creatine kinase [Enzymatic activity/volume] in Serum or Plasma [facility] Work Phone: Comment on above: Expected: 12/14/2022 , Expires: 02/13/2023 Start: 07-30-2022 End: 09-29-2022 Basic metabolic 2000 panel - Serum or Plasma BASIC METABOLIC PNL Lab Routine Primary hypertension Expected: 07/30/2022, Expires: 09/29/2022 [facility] Work Phone: Comment on above: Expected: 07/30/2022 , Expires: 09/29/2022 Start: 07-30-2022 End: 09-29-2022 CBC panel - Blood by Automated count CBC Lab Routine Anemia, unspecified type Expected: 07/30/2022, Expires: 09/29/2022 [facility] Work Phone: Comment on above: Expected: 07/30/2022 , Expires: 09/29/2022 Start: 07-29-2022 Adult depression screening assessment DEPRESSION SCREENING [facility] Start: 07-29-2022 ANNUAL PCP TEAM RECYCLING TECH AROLDO DISEASE VISIT ANNUAL PCP TEAM CHRONIC DISEASE VISIT [facility] Start: 06-19-2022 ADVANCE DIRECTIVE DISCUSSION ADVANCE DIRECTIVE DISCUSSION [facility] Start: 06-19-2022 DEPRESSION ASSESSMENT DEPRESSION ASS ESSMENT [facility] Start: 06-06-2022 End: 06-20-2022 Influenza virus A and B RNA and SARS-CoV-2 (COVID-19) N gene panel - Respiratory specimen by SANDY with probe detection COVID WITH FLUA+B, ROUTINE Microbiology Routine Vomiting and diarrhea Encounter for laboratory testing for COVID-19 virus Expected: 06/06/2022, Expires: 06/20/2022 [facility] Work Phone: Comment on above: Expected: 06/06/2022 , Expires: 06/20/2022 Start: 03-24-2022 COVID-19 VACCINE (5 - Booster for Moderna series) COVID-19 VACCINE (5 - Booster for Moderna series) [facility] Start: 02-17-2022 Influenza vaccination INFLUENZA (#1) [facility] Start: 08-20-2021 COVID-19 VACCINE (4 - Booster for Moderna series) COVID-19 VACCINE (4 - Booster for Moderna series) [facility] Start: 06-19-2021 ADVANCE DIRECTIVE DISCUSSION ADVANCE DIRECTIVE DISCUSSION [facility] Start: 06-19-2021 DEPRESSION ASSESSMENT DEPRESSION ASS ESSMENT [facility] Start: 12-05-2020 Pneumococcal Vaccine : 65+ (2 - PCV) Pneumococcal Vaccine: 65+ (2 - PCV) [facility] Start: 12-05-2020 PNEUMOCOCCAL: 65+ (2 - PCV) PNEUMOCOCCAL: 65+ (2 - PCV) [facility] Start: 08-14-2013 FECAL OCCULT BLOOD FECAL OCCULT BLOO D [facility] Start: 08-14-2013 Screening for malign ant neoplasm of colon Fecal Occult Blood [facility] Start: 10-09-2012 SHINGRIX VACCINE (2 of 3) ADAMS GRIX VACCINE (2 of 3) [facility] Start: 2012 RSV Vaccine (1 - 1-d ose 60+ series) RSV Vaccine (1 - 1-dose 60+ series) [facility] Start: 1997 COLOGUARD (FIT-DNA) COLOGUARD (FIT-D NA) [facility] Start: [address] COLONOGRAPHY [facility] Start: 1997 Screening for malign ant neoplasm of colon [facility] Start: 1997 SIGMOIDOSCOPY SIGMOIDOSCOPY [facility] nancy [facility] Start: 1971 Urine microalbumin profile DTAP,TDAP,TD (1 - Tdap) [facility] Start: 1970 Anxiety Screening Anxiety Screening [facility] Start: 1970 BP CONTROLLED (<130/80) BP CONTROLLE D (<130/80) [facility] Start: 1970 Depression Screening Depression Scre ening [facility] End: 11-17-2024 CT Abdomen and Pelvis W contrast IV CT ABD/PEL W IVCON Radiology Routine Right inguinal pain 1 Occurrences starting 10/19/2023 until 11/17/2024 [facility] Work Phone: Comment on above: 1 Occurrences starti ng 10/19/2023 until 11/17/2024 CT Abdomen and Pelvi s W contrast IV CT ABD/PEL W IVCON Radiology Routine Right inguinal pain 10/30/2023 2:45 PM EDT [facility] Work Phone: CT angiography of coronary arteries [facility] Patient referral [facility] Work Phone: End: 01-13-2024 Radex spine lumbosacral 2/3 views XR LUMBAR GENERAL 3V AP/LAT/L5-S1 Radiology Routine Acute midline low back pain without sciatica 1 Occurrences starting 12/14/2022 until 01/13/2024 [facility] Work Phone: Comment on above: 1 Occurrences starti ng 12/14/2022 until 01/13/2024 Radex spine lumbosac ral 2/3 views XR LUMBAR GENERAL 3V AP/LAT/L5-S1 Radiology Routine Acute midline low back pain without sciatica 12/14/2022 12:46 PM EDT [facility] Work Phone: [facility] Immunizations Immunization Date Immunization Notes Care Provider Alex silva 07-03-2024 COVID-19 vaccine, ag e 12+ yr (Appsee-BIOBuyWithMe [facility]) Delmy Treviño SCRIPT ARTIST.COUTIERIER Work Phone: [facility] 07-03-2024 pneumococcal conjuga te (PCV20) vaccine, 20 valent (PREVNAR 20) Delmy [facility] SCRIPT ARTIST.COUTIERIER Work Phone: [facility] 07-03-2024 pneumococcal Conjuga te, unspecified formulation Delmy Hudson SCRIPT ARTIST.COUTIERIER Work Phone: [facility] 03-21-2024 influenza, high dose seasonal, preservative-free Delmy [facility] SCRIPT ARTIST.COUTIERIER Work Phone: [facility] 03-21-2024 respiratory syncytia l virus (RSV) vaccine, adjuvanted (AREXVY) Delmy [facility] SCRIPT ARTIST.COUTIERIER Work Phone: [facility] 06-28-2023 COVID-19 vaccine, ag e 12+ yr, season ([employer]) Jamey Damian MD Work Phone: [facility] 03-17-2023 influenza, high dose seasonal, preservative-free Delmy Older SCRIPT ARTIST.COUTIERIER Work Phone: [facility] Work Phone: 03-17-2023 influenza virus vaccine, unspecified formulation Xr Blabir Work Phone: [facility] 09-19-2022 zoster vaccine recombinant Delmy Older SCRIPT ARTIST.COUTIERIER Work Phone: [facility] Work Phone: 07-19-2022 zoster vaccine recombinant Delmy Older SCRIPT ARTIST.COUTIERIER Work Phone: [facility] Work Phone: 01-27-2022 COVID-19 vaccine, ag e 12+ yr (Appsee-[employer]IONTECH - [facility]) Jamey Damian MD Work Phone: [facility] Work Phone: 03-17-2021 influenza, high-dose , quadrivalent vaccine (FLUZONE HIGH DOSE QUADRIVALENT) Jamey Damian MD Work Phone: [facility] 09-16-2020 COVID-19 vaccine, fu ll dose (MODERNA) Jamey Damian MD Work Phone: [facility] Work Phone: 08-19-2020 COVID-19 vaccine, fu ll dose (MODERNA) Jamey Damian MD Work Phone: [facility] Work Phone: 03-16-2020 influenza (aIIV4) vaccine, age 65+ yr, quadrivalent, PF (FLUAD QUADRIVALENT) Jamey Damian MD Work Phone: [facility] Work Phone: 12-06-2019 pneumococcal polysaccharide vaccine, 23 valent Jamey Damian MD Work Phone: [facility] 04-08-2019 influenza, injectabl e, quadrivalent, preservative free Jamey Damian MD Work Phone: [facility] Work Phone: 04-02-[address] Jamey Damian Work Phone: [facility] 04-02-2018 influenza, high dose seasonal, preservative-free Jamey Damian MD Work Phone: [facility] Work Phone: 03-30-2017 influenza, injectabl e, quadrivalent, contains preservative Jamey Damian MD Work Phone: [facility] 03-21-2016 influenza, seasonal, injectable Jamey Damian MD Work Phone: [facility] 08-14-2012 zoster vaccine, live Jamey Damian MD Work Phone: [facility] Work Phone: Payers Date Payer Category Payer Self-pay [id number] 2017 Medicare MEDICARE MEDICAR E A AND B [id number] 2017-Present [phone] [place] [address] Medicare [id number] 2017 Medicare MEDICARE MEDICAR E A AND B [id number] 2017-Present [phone] [address] [address] [place] [address] Medicare [id number] 2017 Unknown MMO MMO MEDICARE SUPPLEMENT [id number] 2017-Present [phone] [address] [place] [address] Indemnity [id number] 2017 Unknown MMO MMO MEDICARE SUPPLEMENT [id number] 2017-Present [phone] [address] [place] [address] Indemnity [id number] 2017 Medicare [id number] 2017 Unknown [id number] 2011 Unknown AULTCARE [id number] Unknown [id number] Unknown [id number] Unknown [id number] Social History Date Type Detail Facility Start: 01-27-2022 End: 03-18-2025 Tobacco smoking status DCIS Ex-smoker [facility] Work Phone: Start: 10-17-1968 End: 10-17-1978 History of tobacco use Current smoker [facility] Work Phone: Start: 10-17-1968 End: 10-17-1978 History of tobacco use Cigarette Smoker [facility] Work Phone: Start: 10-29-2021 End: 07-03-2024 Alcohol intake Current drinker of alcohol (finding) [facility] Start: 10-29-2021 End: 12-14-2022 Alcohol intake [facility] Work Phone: Start: 1950 Sex Assigned At Not on file [facility] Start: 12-16-2021 End: 01-27-2022 Exposure to SARS-CoV-2 (event) Not sure [facility] Work Phone: Start: 01-27-2022 End: 07-03-2024 Tobacco use and exposure Smokeless tobacco non-user [facility] Work Phone: Start: 12-14-2022 End: 03-27-2023 Tobacco use panel [facility] Work Phone: Adult Depression Screening Assessment 0 [facility] Work Phone: Start: 04-26-2023 Tobacco smoking stat [facility] Unknown if ever smoked [facility] Start: 05-28-2019 Occasional [facility] Start: 05-28-2019 None [facility] Start: 05-28-2019 Alone [facility] Start: 05-28-2019 Non-smoker [facility] Start: 1950 Sex Assigned At Male [facility] How often to you hav e a drink containing alcohol? Never [facility] Medical Equipment Procedure Code Equipment Code Equipment Original Text Equipment Identifier Dates [id number] FDA Start: 05-18-2023 screw 6.5 x 45 FDA Start: 05-18-2023 screw 6.5 x 45 FDA Start: 05-18-2023 screw 6.5 x 55 FDA Start: 05-18-2023 screw 6.5 x 55 FDA Start: 05-18-2023 screw 6.5 x 55 FDA Start: 05-18-2023 screw 6.5 x 55 FDA Start: 05-18-2023 set screws FDA Start: 05-18-2023 set screws FDA Start: 05-18-2023 set screws FDA Start: 05-18-2023 set screws FDA Start: 05-18-2023 [id number] FDA Start: 05-18-2023 set screws FDA Start: 05-18-2023 set screws FDA Start: 05-18-2023 Collagen haemost atic agent, non-antimicrobial ()[id number] FDA Start: 05-18-2023 Plant polysaccha ride haemostatic agent, bioabsorbable ()[id number] FDA Start: 05-18-2023 Plant polysaccha ride haemostatic agent, bioabsorbable ()[id number] FDA Start: 05-18-2023 Plant polysaccha ride haemostatic agent, bioabsorbable ()[id number] 1 FDA Start: 05-18-2023 GRAFT,FRANCISCO ELITE MED FDA S tart: 05-18-2023 PUTTY,BONE DBM 5 CC WILLSON FDA Start: 05-18-2023 SEALANT,TISSEEL 2ML FDA Start : 05-18-2023 Talos PPeek IBFD FDA Start: 05-18-2023 Talos Peek IBFD FDA Start: 05-18-2023 yang 60mm FDA Start: 05-18-2023 yang 60mm FDA Start: 05-18-2023 Goals Date Patient Goal Desired Activity /State Functional Status Date Assessment Result Facility 05-19-2023 Functional status Ambulates [facility] Work Phone: Mental Status Date Assessment Result Facility 05-19-2023 Cognitive function Level Of Cons ciousness Awake;Alert [facility] Work Phone: 05-19-2023 Cognitive function Voice/Name [facility] Work Phone: Clinical Notes 05-26-2015 to 04-02-2025 Telephone Encounter - Disha Gomes LPN - 07/17/2024 8:50 AM ESTTelephone Encounter - Disha Gomes LPN - 07/17/2024 8:50 AM Delmy Hall APRN.MARITZA - 07/03/2024 8:01 AM EST Note Date & Type Note Facility 04-02-2025 Progress note [facility] 07-17-2024 Telephone encounter Note Patient notified of below results/recommendation, verbalized understanding. Disha Gomes LPN [facility] 07-17-2024 Miscellaneous Notes Patient notified of below results/recommendation, verbalized understanding. Disha Gomes LPN ----- Message from Delmy Treviño APRN.COUTIERIER sent at 07/17/2024 8:44 AM EST ----- Please let the patient know his labs looked good overall. Sodium is a little low which is chronic and not significant. Lipids are optimal. Delmy Treviño APRN.COUTIERIER documented in this encounter [facility] 07-17-2024 Telephone encounter Note ----- Message from Delmy Treviño APRN.COUTIERIER sent at 07/17/2024 8:44 AM EST ----- Please let the patient know his labs looked good overall. Sodium is a little low which is chronic and not significant. Lipids are optimal. Delmy Treviño APRN.COUTIERIER [facility] 07-03-2024 Note HNO ID: [id number] Author: DELMY TREVIÑO APRN.COUTIERIER Service: ? Author Type: Nurse Practitioner Type: Progress Notes Filed: 07/03/2024 08:26 Note Text: CC: Patient presents with: Follow Up: 6 months HPI Umesh Preston is a 74 year old male who presents today for above. He is taking medications as prescribed, denies side effects. BP historically well controlled in the office, he does not check at home. He is feeling well overall and has no concerns. Review of Systems Constitutional: Negative for chills, diaphoresis, fatigue, fever and unexpected weight change. Respiratory: Negative for cough, shortness of breath and wheezing. Cardiovascular: Negative for chest pain, palpitations and leg swelling. Genitourinary: Negative for decreased urine volume and dysuria. Neurological: Negative for dizziness, syncope, weakness, light-headedness and headaches. 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 Needs follow-up CT kidney in 6 months (02/2021) PONV (postoperative nausea and vomiting) Postherpetic neuralgia 01/27/2022 Prostate cancer (HCC) 08/03/2015 Psoriasis 03/04/2010 Radiation proctitis 07/12/2016 Right inguinal hernia S/P lumbar spinal fusion 05/18/2023 Spinal stenosis of lumbar region 05/19/2023 TIA (transient ischemic attack) Umbilical hernia 02/03/2009 PAST SURGICAL HISTORY Procedure Laterality Date COLONOSCOPY 07/12/2016 radiation proctitis, cauterized COLONOSCOPY 09/13/2021 repeat in 5 years COLONOSCOPY FLX DX W/COLLJ SPEC WHEN PFRMD 10/18/2003 Terri, [place], negative COLONOSCOPY FLX DX W/COLLJ SPEC WHEN PFRMD 09/30/2013 Repeat 2017 EXTRACTION ERUPTED TOOTH/EXR 03/24/2021 HERNIA REPAIR HX LUMBAR SPINE FUSION COMBINED 05/18/2023 L4-L5,L5-S1 fusion, laminectomies, foramenectomies, facetectomies RPR 1ST INGUN HRNA AGE 5 YRS/> REDUCIBLE Hernia repair, inguinal,Lap, Left RPR UMBILICAL HRNA 5 YRS/> REDUCIBLE 02/13/2009 Simple TONSILLECTOMY HX ULTRASOUND PROSTATE BIOPSY 11/26/2014 ULTRASOUND PROSTATE BIOPSY 2015 ALLERGIES Penicillins MEDICATIONS dicyclomine (BENTYL) 20 mg tablet Take 1 tablet by mouth every 6 hours. As needed for abdominal pain. losartan (COZAAR) 50 mg tablet Take 1 tablet by mouth once daily. amLODIPine (NORVASC) 10 mg tablet Take 1 tablet by mouth once daily. simvastatin (ZOCOR) 20 mg tablet Take 1 tablet by mouth once daily. triamcinolone acetonide (KENALOG) 0.1 % cream Apply 1 application to affected area twice daily. As directed. FAMILY HISTORY Problem Relation Age of Onset Stroke Mother dec. 71 years old Hypertension Mother Arthritis Mother rheumatoid Cancer Father smoker-lung cancer, may. other (Only child [Other]) Other Social History Tobacco Use Smoking status: Former Current packs/day: 0.00 Average packs/day: 0.5 packs/day for 10.0 years (5.0 ttl pk-yrs) Types: Cigarettes Start date: 10/17/1968 Quit date: 10/17/1978 Years since quittin.7 Smokeless tobacco: Never Vaping Use Vaping status: Never Used Substance Use Topics Alcohol use: Yes Alcohol/week: 6.0 standard drinks of alcohol Types: 6 Cans of Beer (12oz) per week Drug use: No BP 122/74 Pulse 76 Resp 14 Wt 85.8 kg (189 lb 2.5 oz) SpO2 98% BMI 27.14 kg/m? Physical Exam Vitals reviewed. Constitutional: Appearance: Normal appearance. Cardiovascular: Rate and Rhythm: Normal rate and regular rhythm. Heart sounds: Normal heart sounds. No murmur heard. Pulmonary: Effort: Pulmonary effort is normal. Breath sounds: Normal breath sounds. No wheezing, rhonchi or rales. Skin: General: Skin is warm and dry. Neurological: Mental Status: He is alert. Psychiatric: Mood and Affect: Mood normal. Health maintenance reviewed with patient: Pneumococcal Vaccine: 50+(2 of 2 - PCV) due on 12/05/2020 LDL Cholesterol due on 12/09/2023 Covid-19 Vaccine( season) due on 02/18/2024 DTaP,Tdap,Td Vaccine(1 - Tdap) due on 07/03/2025 Annual PCP Team Chronic Disease Visit due on 07/03/2025 Depression Screening due on 07/03/2025 Anxiety Screening due on 07/03/2025 BP Controlled (<130/80) due on 07/03/2025 Colorectal Cancer Screening due on 09/13/2026 Diabetes Screening due on 10/19/2026 Lipid Screening due on 12/09/2027 Abdominal Aortic Aneurysm Screening Completed Influenza Vaccine Completed Advance Directive Discussion Completed RSV Vaccine Completed Hepatitis C Screening Completed Shingrix Vaccine Completed DATA REVI (more content not included)... [facility] 07-03-2024 History of Present illness Narrative CC: Patient presents with: Follow Up: 6 months HPI Umesh Preston is a 74 year old male who presents today for above. He is taking medications as prescribed, denies side effects. BP historically well controlled in the office, he does not check at home. He is feeling well overall and has no concerns. Review of Systems Constitutional: Negative for chills, diaphoresis, fatigue, fever and unexpected weight change. Respiratory: Negative for cough, shortness of breath and wheezing. Cardiovascular: Negative for chest pain, palpitations and leg swelling. Genitourinary: Negative for decreased urine volume and dysuria. Neurological: Negative for dizziness, syncope, weakness, light-headedness and headaches. 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 Needs follow-up CT kidney in 6 months (02/2021) PONV (postoperative nausea and vomiting) Postherpetic neuralgia 01/27/2022 Prostate cancer (HCC) 08/03/2015 Psoriasis 03/04/2010 Radiation proctitis 07/12/2016 Right inguinal hernia S/P lumbar spinal fusion 05/18/2023 Spinal stenosis of lumbar region 05/19/2023 TIA (transient ischemic attack) Umbilical hernia 02/03/2009 PAST SURGICAL HISTORY Procedure Laterality Date COLONOSCOPY 07/12/2016 radiation proctitis, cauterized COLONOSCOPY 09/13/2021 repeat in 5 years COLONOSCOPY FLX DX W/COLLJ SPEC WHEN PFRMD 10/18/2003 Terri, [place], negative COLONOSCOPY FLX DX W/COLLJ SPEC WHEN PFRMD 09/30/2013 Repeat 2017 EXTRACTION ERUPTED TOOTH/EXR 03/24/2021 HERNIA REPAIR HX LUMBAR SPINE FUSION COMBINED 05/18/2023 L4-L5,L5-S1 fusion, laminectomies, foramenectomies, facetectomies RPR 1ST INGUN HRNA AGE 5 YRS/> REDUCIBLE Hernia repair, inguinal,Lap, Left RPR UMBILICAL HRNA 5 YRS/> REDUCIBLE 02/13/2009 Simple TONSILLECTOMY HX ULTRASOUND PROSTATE BIOPSY 11/26/2014 ULTRASOUND PROSTATE BIOPSY 2015 ALLERGIES Penicillins MEDICATIONS dicyclomine (BENTYL) 20 mg tablet Take 1 tablet by mouth every 6 hours. As needed for abdominal pain. losartan (COZAAR) 50 mg tablet Take 1 tablet by mouth once daily. amLODIPine (NORVASC) 10 mg tablet Take 1 tablet by mouth once daily. simvastatin (ZOCOR) 20 mg tablet Take 1 tablet by mouth once daily. triamcinolone acetonide (KENALOG) 0.1 % cream Apply 1 application to affected area twice daily. As directed. FAMILY HISTORY Problem Relation Age of Onset Stroke Mother dec. 71 years old Hypertension Mother Arthritis Mother rheumatoid Cancer Father smoker-lung cancer, other (Only child [Other]) Other Social History Tobacco Use Smoking status: Former Current packs/day: 0.00 Average packs/day: 0.5 packs/day for 10.0 years (5.0 ttl pk-yrs) Types: Cigarettes Start date: 10/17/1968 Quit date: 10/17/1978 Years since quittin.7 Smokeless tobacco: Never Vaping Use Vaping status: Never Used Substance Use Topics Alcohol use: Yes Alcohol/week: 6.0 standard drinks of alcohol Types: 6 Cans of Beer (12oz) per week Drug use: No BP 122/74 Pulse 76 Resp 14 Wt 85.8 kg (189 lb 2.5 oz) SpO2 98% BMI 27.14 kg/m Physical Exam Vitals reviewed. Constitutional: Appearance: Normal appearance. Cardiovascular: Rate and Rhythm: Normal rate and regular rhythm. Heart sounds: Normal heart sounds. No murmur heard. Pulmonary: Effort: Pulmonary effort is normal. Breath sounds: Normal breath sounds. No wheezing, rhonchi or rales. Skin: General: Skin is warm and dry. Neurological: Mental Status: He is alert. Psychiatric: Mood and Affect: Mood normal. Health maintenance reviewed with patient: Pneumococcal Vaccine: 50+(2 of 2 - PCV) due on 12/05/2020 LDL Cholesterol due on 12/09/2023 Covid-19 Vaccine( season) due on 02/18/2024 DTaP,Tdap,Td Vaccine(1 - Tdap) due on 07/03/2025 Annual PCP Team Chronic Disease Visit due on 07/03/2025 Depression Screening due on 07/03/2025 Anxiety Screening due on 07/03/2025 BP Controlled (<130/80) due on 07/03/2025 Colorectal Cancer Screening due on 09/13/2026 Diabetes Screening due on 10/19/2026 Lipid Screening due on 12/09/2027 Abdominal Aortic Aneurysm Screening Completed Influenza Vaccine Completed Advance Directive Discussion Completed RSV Vaccine Completed Hepatitis C Screening Completed Shingrix Vaccine Completed DATA REVIEWED: Most recent labs ASSESSMENT/PLAN: 1. Primary hypertension - ICD9: 401.9, ICD10: I10 (primary diagnosis) - Controlled - Continue current medications - Recommend home blood pressure monitoring, to bring results to next visit - Encouraged sodium restriction, DASH or Mediterranean diet - Recommend regular aerobic exercise - COMPREHENSIVE METABOLIC PANEL - COMPLETE BLOOD COUNT AND DIFFERENTIAL 2. Hyperlipidemia, unspecified hyperlipidemia type - ICD9: 272.4, ICD10: E78.5 - Control undetermined, due for labs - Continue current medications - COMPREHENSIVE METABOLIC PANEL - LIPID PANEL BASIC 3. Screening for depression - ICD9: V79.0, ICD10: Z13.31 - DEPRESSION SCREENING 4. Encounter for screening examination for other mental health and behavioral disorders - ICD9: V79.8, ICD10: Z13.39 - ANXIETY SCREENING 5. Encounter for immunization - ICD9: V03.89, ICD10: Z23 - PFIZER-BIONTECH COVID-19 VACCINE AGE 12+ YR (COMIRNATY) - PNEUMOCOCCAL VACCINE, 20 VALENT (PREVNAR 20) Prescription instructions reviewed with patient as applicable. Potential red flag symptoms discussed with the patient. Reviewed appropriate action plan to take if red flag symptoms occur. Patient agreeable to treatment plan. Delmy Treviño APRN.COUTIERIER documented in this encounter [facility] 11-29-2023 Note HNO ID: [id number] Author: DELMY TREVIÑO APRN.MARITZA Service: ? Author Type: Nurse Practitioner Type: Progress Notes Filed: 11/29/2023 12:22 Note Text: CC: Patient presents with: hard lump inside lower lip HPI Umesh Preston is a 73 year old male who presents today for a lump noticed at the left lower lip/cheek on Monday. He denies any trauma nor remembers biting his cheek. He has tenderness that seems to be improving. He has not noticed any area that is open or draining. He denies jaw pain, toothaches, tongue pain, dry mouth, fever, malaise, N/V, fevers, recent illness or fatigue. His chewing and swallowing has not changed. He wears a mouth guard at night to prevent grinding his teeth. There have been no changes with that. 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 It was an incidental finding on an xray performed for gum disease and loose teeth. He had surgery performed to remove the tumor and since has not had any other problems. Review of Systems Constitutional: Negative for activity change, appetite change, chills, fatigue and fever. HENT: Positive for mouth sores. Negative for congestion, drooling, postnasal drip, rhinorrhea, sinus pain, sore throat, trouble swallowing and voice change. Respiratory: Negative for chest tightness and shortness of breath. Cardiovascular: Negative for chest pain and palpitations. Gastrointestinal: Negative for abdominal pain, nausea and vomiting. Musculoskeletal: Negative for neck pain and neck stiffness. Skin: Negative for color change. Neurological: Negative for dizziness, speech difficulty, numbness and headaches. 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 Needs follow-up CT kidney in 6 months (02/2021) PONV (postoperative nausea and vomiting) Postherpetic neuralgia 01/27/2022 Prostate cancer (HCC) 08/03/2015 Psoriasis 03/04/2010 Radiation proctitis 07/12/2016 Right inguinal hernia S/P lumbar spinal fusion 05/18/2023 Spinal stenosis of lumbar region 05/19/2023 TIA (transient ischemic attack) Umbilical hernia 02/03/2009 PAST SURGICAL HISTORY Procedure Laterality Date COLONOSCOPY 07/12/2016 radiation proctitis, cauterized COLONOSCOPY 09/13/2021 repeat in 5 years COLONOSCOPY FLX DX W/COLLJ SPEC WHEN PFRMD 10/18/2003 Colonoscopy, [place], [place], negative COLONOSCOPY FLX DX W/COLLJ SPEC WHEN PFRMD 09/30/2013 Repeat 2017 EXTRACTION ERUPTED TOOTH/EXR 03/24/2021 HERNIA REPAIR HX LUMBAR SPINE FUSION COMBINED 05/18/2023 L4-L5,L5-S1 fusion, laminectomies, foramenectomies, facetectomies RPR 1ST INGUN HRNA AGE 5 YRS/> REDUCIBLE Hernia repair, inguinal,Lap, Left RPR UMBILICAL HRNA 5 YRS/> REDUCIBLE 02/13/2009 Simple TONSILLECTOMY HX ULTRASOUND PROSTATE BIOPSY 11/26/2014 ULTRASOUND PROSTATE BIOPSY 2015 ALLERGIES Penicillins MEDICATIONS dicyclomine (BENTYL) 20 mg tablet Take 1 tablet by mouth every 6 hours. As needed for abdominal pain. losartan (COZAAR) 50 mg tablet Take 1 tablet by mouth once daily. amLODIPine (NORVASC) 10 mg tablet Take 1 tablet by mouth once daily. simvastatin (ZOCOR) 20 mg tablet Take 1 tablet by mouth once daily. gabapentin (NEURONTIN) 100 mg capsule Take 1 capsule by mouth three times a day. Prescribed by Dr. Willson (Patient not taking: Reported on 11/29/2023) triamcinolone acetonide (KENALOG) 0.1 % cream Apply 1 application to affected area twice daily. As directed. FAMILY HISTORY Problem Relation Age of Onset Stroke Mother dec. 71 years old Hypertension Mother Arthritis Mother rheumatoid Cancer Father smoker-lung cancer, dec. other (Only child [Other]) Other Social History Tobacco Use Smoking status: Former Packs/day: 0.50 Years: 10.00 Additional pack years: 0.00 Total pack years: 5.00 Types: Cigarettes Quit date: 10/17/1978 Years since quittin.1 Smokeless tobacco: Never Vaping Use Vaping Use: Never used Substance Use Topics Alcohol use: Yes Alcohol/week: 6.0 standard drinks of alcohol Types: 6 Cans of Beer (12oz) per week Drug use: No BP 164/78 Pulse 71 Temp 36.6 ?C (97.9 ?F) (Temporal) Resp 18 Wt 82.1 kg (181 lb) SpO2 98% BMI 25.97 kg/m? Physical Exam HENT: Head: Jaw: No trismus, tenderness or pain on movement. Salivary Glands: Right salivary gland is not tender. Left salivary gland is not tender. Comments: Tender intact cystic appearing lesion located near the commissure of the left lower lip. Approximatel (more content not included)... [facility] 11-29-2023 History of Present illness Narrative Images from the original note were not included. CC: Patient presents with: hard lump inside lower lip HPI Umesh Preston is a 73 year old male who presents today for a lump noticed at the left lower lip/cheek on Monday. He denies any trauma nor remembers biting his cheek. He has tenderness that seems to be improving. He has not noticed any area that is open or draining. He denies jaw pain, toothaches, tongue pain, dry mouth, fever, malaise, N/V, fevers, recent illness or fatigue. His chewing and swallowing has not changed. He wears a mouth guard at night to prevent grinding his teeth. There have been no changes with that. 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 It was an incidental finding on an xray performed for gum disease and loose teeth. He had surgery performed to remove the tumor and since has not had any other problems. Review of Systems Constitutional: Negative for activity change, appetite change, chills, fatigue and fever. HENT: Positive for mouth sores. Negative for congestion, drooling, postnasal drip, rhinorrhea, sinus pain, sore throat, trouble swallowing and voice change. Respiratory: Negative for chest tightness and shortness of breath. Cardiovascular: Negative for chest pain and palpitations. Gastrointestinal: Negative for abdominal pain, nausea and vomiting. Musculoskeletal: Negative for neck pain and neck stiffness. Skin: Negative for color change. Neurological: Negative for dizziness, speech difficulty, numbness and headaches. 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 Needs follow-up CT kidney in 6 months (02/2021) PONV (postoperative nausea and vomiting) Postherpetic neuralgia 01/27/2022 Prostate cancer (HCC) 08/03/2015 Psoriasis 03/04/2010 Radiation proctitis 07/12/2016 Right inguinal hernia S/P lumbar spinal fusion 05/18/2023 Spinal stenosis of lumbar region 05/19/2023 TIA (transient ischemic attack) Umbilical hernia 02/03/2009 PAST SURGICAL HISTORY Procedure Laterality Date COLONOSCOPY 07/12/2016 radiation proctitis, cauterized COLONOSCOPY 09/13/2021 repeat in 5 years COLONOSCOPY FLX DX W/COLLJ SPEC WHEN PFRMD 10/18/2003 Colonoscopy, [place], negative COLONOSCOPY FLX DX W/COLLJ SPEC WHEN PFRMD 09/30/2013 Repeat 2017 EXTRACTION ERUPTED TOOTH/EXR 03/24/2021 HERNIA REPAIR HX LUMBAR SPINE FUSION COMBINED 05/18/2023 L4-L5,L5-S1 fusion, laminectomies, foramenectomies, facetectomies RPR 1ST INGUN HRNA AGE 5 YRS/> REDUCIBLE Hernia repair, inguinal,Lap, Left RPR UMBILICAL HRNA 5 YRS/> REDUCIBLE 02/13/2009 Simple TONSILLECTOMY HX ULTRASOUND PROSTATE BIOPSY 11/26/2014 ULTRASOUND PROSTATE BIOPSY 2015 ALLERGIES Penicillins MEDICATIONS dicyclomine (BENTYL) 20 mg tablet Take 1 tablet by mouth every 6 hours. As needed for abdominal pain. losartan (COZAAR) 50 mg tablet Take 1 tablet by mouth once daily. amLODIPine (NORVASC) 10 mg tablet Take 1 tablet by mouth once daily. simvastatin (ZOCOR) 20 mg tablet Take 1 tablet by mouth once daily. gabapentin (NEURONTIN) 100 mg capsule Take 1 capsule by mouth three times a day. Prescribed by Dr. Willson (Patient not taking: Reported on 11/29/2023) triamcinolone acetonide (KENALOG) 0.1 % cream Apply 1 application to affected area twice daily. As directed. FAMILY HISTORY Problem Relation Age of Onset Stroke Mother dec. 71 years old Hypertension Mother Arthritis Mother rheumatoid Cancer Father smoker-lung cancer, may. other (Only child [Other]) Other Social History Tobacco Use Smoking status: Former Packs/day: 0.50 Years: 10.00 Additional pack years: 0.00 Total pack years: 5.00 Types: Cigarettes Quit date: 10/17/1978 Years since quittin.1 Smokeless tobacco: Never Vaping Use Vaping Use: Never used Substance Use Topics Alcohol use: Yes Alcohol/week: 6.0 standard drinks of alcohol Types: 6 Cans of Beer (12oz) per week Drug use: No BP 164/78 Pulse 71 Temp 36.6 C (97.9 F) (Temporal) Resp 18 Wt 82.1 kg (181 lb) SpO2 98% BMI 25.97 kg/m Physical Exam HENT: Head: Jaw: No trismus, tenderness or pain on movement. Salivary Glands: Right salivary gland is not tender. Left salivary gland is not tender. Comments: Tender intact cystic appearing lesion located near the commissure of the left lower lip. Approximately 1cm in diameter. No trauma noted. Swelling present into the buccal mucosa and outer lip. Right Ear: No mastoid tenderness. Left Ear: No mastoid tenderness. Mouth/Throat: Lips: [place]. Mouth: Mucous membranes are moist. Oral lesions (see diagram) present. No injury. Dentition: No dental tenderness, gingival swelling, dental caries, dental abscesses or gum lesions. Tongue: No lesions. Palate: No mass and lesions. Pharynx: Oropharynx is clear. No posterior oropharyngeal erythema or uvula swelling. Neck: Thyroid: No thyroid mass, thyromegaly or thyroid tenderness. Cardiovascular: Rate and Rhythm: Normal rate and regular rhythm. Heart sounds: Normal heart sounds, S1 normal and S2 normal. No murmur heard. Pulmonary: Effort: Pulmonary effort is normal. Breath sounds: Normal breath sounds. Musculoskeletal: Cervical back: Normal range of motion. No edema or rigidity. Normal range of motion. Lymphadenopathy: Head: Right side of head: No submental, submandibular, tonsillar, preauricular or posterior auricular adenopathy. Left side of head: No submental, submandibular, tonsillar, preauricular or posterior auricular adenopathy. Cervical: No cervical adenopathy. Skin: General: Skin is warm and dry. Neurological: Mental Status: He is alert and oriented to person, place, and time. ASSESSMENT/PLAN: 1. 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 Tenderness improving. No suspected infectious process. Unable to definitively diagnose as a mucocele due to his pain, location and size of the cyst. - Consult oral surgeon as soon as possible Prescription instructions reviewed with patient as applicable. Potential red flag symptoms discussed with the patient. Reviewed appropriate action plan to take if red flag symptoms occur. Patient agreeable to treatment plan. Delmy Treviño APRN.MARITZA documented in this encounter [facility] 11-27-2023 Telephone encounter Note Patient calling to make an appt. Appt has been made with eDlmy Treviño CNP for 11/29/23. Patient reports over the weekend he has noticed the return of a hard lump that he can feel on the inside of his lower lip. Reports he had this a few years ago and it was treated. Reports it is sore. Area unable to be seen from outside or inside of mouth, but can be felt. Reports pea sized. Denies fever, no radiating pain, and does not feel ill. Pt aware to all PCP office if sx's worsen between now and his appt. Nicole Ambriz RN [facility] 11-27-2023 Miscellaneous Notes Patient calling to make an appt. Appt has been made with Delmy Treviño CNP for 11/29/23. Patient reports over the weekend he has noticed the return of a hard lump that he can feel on the inside of his lower lip. Reports he had this a few years ago and it was treated. Reports it is sore. Area unable to be seen from outside or inside of mouth, but can be felt. Reports pea sized. Denies fever, no radiating pain, and does not feel ill. Pt aware to all PCP office if sx's worsen between now and his appt. Nicole Ambriz RN documented in this encounter [facility] 11-01-2023 Note HNO ID: [id number] Author: ANCA LOVE MD Service: ? Author Type: Physician Type: Progress Notes Filed: 11/02/2023 15:30 Note Text: Umesh Preston 1950 REFERRING PHYSICIAN: Jamey Damian MD CHIEF COMPLAINT: Consult (Rt inguinal hernia) HPI: The patient is a pleasant 73 year old male has known right inguinal hernia. However, he noted right sided and upper abdominal pain. He states that this was completely relieved with taking Bentyl. He states that he has had this problem in the past and was diagnosed with irritable bowel. He denies any abdominal pain at present. When I told patient that CT scan findings revealed a right inguinal hernia, he stated that he had no pain in the area. He had previous umbilical hernia and left inguinal hernia. He denies gastrointestinal and/or urinary obstructive symptoms. 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 Needs follow-up CT kidney in 6 months (02/2021) PONV (postoperative nausea and vomiting) Postherpetic neuralgia 01/27/2022 Prostate cancer (HCC) 08/03/2015 Psoriasis 03/04/2010 Radiation proctitis 07/12/2016 Right inguinal hernia S/P lumbar spinal fusion 05/18/2023 Spinal stenosis of lumbar region 05/19/2023 TIA (transient ischemic attack) Umbilical hernia 02/03/2009 PAST SURGICAL HISTORY Procedure Laterality Date COLONOSCOPY 07/12/2016 radiation proctitis, cauterized COLONOSCOPY 09/13/2021 repeat in 5 years COLONOSCOPY FLX DX W/COLLJ SPEC WHEN PFRMD 10/18/2003 Colonoscopy, [place], negative COLONOSCOPY FLX DX W/COLLJ SPEC WHEN PFRMD 09/30/2013 Repeat 2017 EXTRACTION ERUPTED TOOTH/EXR 03/24/2021 HERNIA REPAIR HX LUMBAR SPINE FUSION COMBINED 05/18/2023 L4-L5,L5-S1 fusion, laminectomies, foramenectomies, facetectomies RPR 1ST INGUN HRNA AGE 5 YRS/> REDUCIBLE Hernia repair, inguinal,Lap, Left RPR UMBILICAL HRNA 5 YRS/> REDUCIBLE 02/13/2009 Simple TONSILLECTOMY HX ULTRASOUND PROSTATE BIOPSY 11/26/2014 ULTRASOUND PROSTATE BIOPSY 2015 Current Outpatient Medications Medication Sig dicyclomine (BENTYL) 20 mg tablet Take 1 tablet by mouth every 6 hours. As needed for abdominal pain. losartan (COZAAR) 50 mg tablet Take 1 tablet by mouth once daily. amLODIPine (NORVASC) 10 mg tablet Take 1 tablet by mouth once daily. simvastatin (ZOCOR) 20 mg tablet Take 1 tablet by mouth once daily. gabapentin (NEURONTIN) 100 mg capsule Take 1 capsule by mouth three times a day. Prescribed by Dr. Willson triamcinolone acetonide (KENALOG) 0.1 % cream Apply 1 application to affected area twice daily. As directed. No current facility-administered medications for this visit. ALLERGIES: Penicillins PERSONAL HISTORY: Social History Tobacco Use Smoking status: Former Packs/day: 0.50 Years: 10.00 Additional pack years: 0.00 Total pack years: 5.00 Types: Cigarettes Quit date: 10/17/1978 Years since quittin.0 Smokeless tobacco: Never Vaping Use Vaping Use: Never used Substance Use Topics Alcohol use: Yes Alcohol/week: 6.0 standard drinks of alcohol Types: 6 Cans of Beer (12oz) per week Drug use: No FAMILY HISTORY Problem Relation Age of Onset Stroke Mother dec. 71 years old Hypertension Mother Arthritis Mother rheumatoid Cancer Father smoker-lung cancer, dec. other (Only child [Other]) Other The review of systems data was entered by the nurse and reviewed by ma Nursing Notes: Alaina Caban RN 11/01/2023 2:38 PM Signed REVIEW OF SYSTEMS: General: The patient denies fatigue, denies weight loss, denies weight gain, denies feeling hot, and denies feelings of cold. Eyes: The patient denies glaucoma, denies eye injury/surgery, does wear glasses or contacts. Ear/Nose/Throat: The patient denies allergies, denies hayfever, denies ear infections, and denies bloody noses. Cardiovascular: The patient denies chest pain, denies heart disease, NOTES high blood pressure,denies cardiac stent, denies prior heart attack, denies irregular heart beat, NOTES high cholesterol, denies poor circulation, denies heart failure, other cardiac issues, denies claudication, denies cold feet, denies peripheral arterial stent. Respiratory: The patient denies tuberculosis, denies pneumonia, denies frequent cough, denies pulmonary embolism, denies shortness of breath, and denies coughing up blood. Gastrointestinal: The patient denies difficulty swallowing, denies acid reflux, denies ulcers, denies vomiting, denies jaundice/he (more content not included)... [facility] 11-01-2023 History of Present illness Narrative Umesh Preston 1950 REFERRING PHYSICIAN: Jamey Damian MD CHIEF COMPLAINT: Consult (Rt inguinal hernia) HPI: The patient is a pleasant 73 year old male has known right inguinal hernia. However, he noted right sided and upper abdominal pain. He states that this was completely relieved with taking Bentyl. He states that he has had this problem in the past and was diagnosed with irritable bowel. He denies any abdominal pain at present. When I told patient that CT scan findings revealed a right inguinal hernia, he stated that he had no pain in the area. He had previous umbilical hernia and left inguinal hernia. He denies gastrointestinal and/or urinary obstructive symptoms. 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 Needs follow-up CT kidney in 6 months (02/2021) PONV (postoperative nausea and vomiting) Postherpetic neuralgia 01/27/2022 Prostate cancer (HCC) 08/03/2015 Psoriasis 03/04/2010 Radiation proctitis 07/12/2016 Right inguinal hernia S/P lumbar spinal fusion 05/18/2023 Spinal stenosis of lumbar region 05/19/2023 TIA (transient ischemic attack) Umbilical hernia 02/03/2009 PAST SURGICAL HISTORY Procedure Laterality Date COLONOSCOPY 07/12/2016 radiation proctitis, cauterized COLONOSCOPY 09/13/2021 repeat in 5 years COLONOSCOPY FLX DX W/COLLJ SPEC WHEN PFRMD 10/18/2003 Colonoscopy, [place], [place], negative COLONOSCOPY FLX DX W/COLLJ SPEC WHEN PFRMD 09/30/2013 Repeat 2017 EXTRACTION ERUPTED TOOTH/EXR 03/24/2021 HERNIA REPAIR HX LUMBAR SPINE FUSION COMBINED 05/18/2023 L4-L5,L5-S1 fusion, laminectomies, foramenectomies, facetectomies RPR 1ST INGUN HRNA AGE 5 YRS/> REDUCIBLE Hernia repair, inguinal,Lap, Left RPR UMBILICAL HRNA 5 YRS/> REDUCIBLE 02/13/2009 Simple TONSILLECTOMY HX ULTRASOUND PROSTATE BIOPSY 11/26/2014 ULTRASOUND PROSTATE BIOPSY 2015 Current Outpatient Medications Medication Sig dicyclomine (BENTYL) 20 mg tablet Take 1 tablet by mouth every 6 hours. As needed for abdominal pain. losartan (COZAAR) 50 mg tablet Take 1 tablet by mouth once daily. amLODIPine (NORVASC) 10 mg tablet Take 1 tablet by mouth once daily. simvastatin (ZOCOR) 20 mg tablet Take 1 tablet by mouth once daily. gabapentin (NEURONTIN) 100 mg capsule Take 1 capsule by mouth three times a day. Prescribed by Dr. Willson triamcinolone acetonide (KENALOG) 0.1 % cream Apply 1 application to affected area twice daily. As directed. No current facility-administered medications for this visit. ALLERGIES: Penicillins PERSONAL HISTORY: Social History Tobacco Use Smoking status: Former Packs/day: 0.50 Years: 10.00 Additional pack years: 0.00 Total pack years: 5.00 Types: Cigarettes Quit date: 10/17/1978 Years since quittin.0 Smokeless tobacco: Never Vaping Use Vaping Use: Never used Substance Use Topics Alcohol use: Yes Alcohol/week: 6.0 standard drinks of alcohol Types: 6 Cans of Beer (12oz) per week Drug use: No FAMILY HISTORY Problem Relation Age of Onset Stroke Mother dec. 71 years old Hypertension Mother Arthritis Mother rheumatoid Cancer Father smoker-lung cancer, may. other (Only child [Other]) Other The review of systems data was entered by the nurse and reviewed by ma Nursing Notes: Alaina Caban RN 11/01/2023 2:38 PM Signed REVIEW OF SYSTEMS: General: The patient denies fatigue, denies weight loss, denies weight gain, denies feeling hot, and denies feelings of cold. Eyes: The patient denies glaucoma, denies eye injury/surgery, does wear glasses or contacts. Ear/Nose/Throat: The patient denies allergies, denies hayfever, denies ear infections, and denies bloody noses. Cardiovascular: The patient denies chest pain, denies heart disease, NOTES high blood pressure,denies cardiac stent, denies prior heart attack, denies irregular heart beat, NOTES high cholesterol, denies poor circulation, denies heart failure, other cardiac issues, denies claudication, denies cold feet, denies peripheral arterial stent. Respiratory: The patient denies tuberculosis, denies pneumonia, denies frequent cough, denies pulmonary embolism, denies shortness of breath, and denies coughing up blood. Gastrointestinal: The patient denies difficulty swallowing, denies acid reflux, denies ulcers, denies vomiting, denies jaundice/hepatitis, denies gallbladder problems, denies black or tarry stools, denies hemorrhoids, denies bleeding from rectum, denies diverticulitis, denies constipation, denies diarrhea, denies loss of stool control, and NOTES hernias. Kidney/Bladder: The patient denies kidney stones, denies urine infections, and denies bloody urine. Skin: The patient denies a history of skin cancer, denies bleeding/changing moles, and denies a history of skin rash. Neurologic: The patient denies a history of epilepsy/convulsions, denies headaches, denies head/spinal injuries, and denies stroke/TIA. Psychiatric: The patient denies psychiatric medications, denies depression, and denies voices, denies substance abuse. Endocrine: The patient denies thyroid disorders, denies diabetes, and denies hormonal problems. Hematologic: The patient denies a history of bruising, denies bleeding, and denies anemia, denies blood clots. Infections: The patient denies a history of measles and mumps, denies rheumatic fever, and denies sexually transmitted diseases. Musculoskeletal: The patient denies back pain/injury, NOTES back problems, denies sciatica, denies knee/foot trouble, denies arthritis, or denies gout. When was patient's last Mammogram screening? N/A Last Colonoscopy: 09/13/2021 Alaina Caban RN PHYSICAL EXAMINATION: General: The patient is 73 year old male, well nourished, well hydrated in no acute distress. The patient is oriented to time, place, and person. VITALS: Blood pressure 138/72, pulse 77, temperature 36.4 C (97.6 F), height 177.8 cm (5' 10), weight 83.2 kg (183 lb 6.4 oz), SpO2 99%. Body mass index is 26.32 kg/m . Head: Normal cephalic, atraumatic Eyes: pupils are equally round, sclera are clear/anicteric Neck is supple with no tracheal deviation Cardiac: regular Respiratory: Normal respiratory excursion and pattern. Abdominal exam: benign Extremities: no clubbing, cyanosis or edema. Neuro: non focal Psych: normal mood Assessment IMPRESSION: asymptomatic right inguinal hernia PLAN: I have discussed the above with the patient. The patient is not interested in hernia surgery at this point in time. He states that if he were to have surgery, he doesn't want to leave [facility] and would prefer [facility] I have told him signs/symptoms of hernia requiring surgery. He acknowledges the above. Patient to return to his PCP for medical care. I have answered all questions to the patient s satisfaction and the patient has no further questions. I have confirmed and edited as necessary, the PFSH and ROS obtained by others. Consultation requested by Dr. Jamey Damian for an opinion regarding patient's right inguinal hernia. My final recommendations will be communicated back to the requesting physician by way of shared Medical record or letter to requesting physician via US mail. . Diagnoses: (K40.90) Right inguinal hernia I spent a total of 31 minutes on the date of the service which included preparing to see the patient with review of any pertinent laboratory studies/radiological imaging/medical records, [id number] patient care, obtaining oral medical history from the patient in this encounter, counseling and educating the patient/family/caregiver, and completing appropriate medical documentation. Anca Love MD documented in this encounter [facility] 11-01-2023 Nurse Note REVIEW OF SYSTEMS: General: The patient denies fatigue, denies weight loss, denies weight gain, denies feeling hot, and denies feelings of cold. Eyes: The patient denies glaucoma, denies eye injury/surgery, does wear glasses or contacts. Ear/Nose/Throat: The patient denies allergies, denies hayfever, denies ear infections, and denies bloody noses. Cardiovascular: The patient denies chest pain, denies heart disease, NOTES high blood pressure,denies cardiac stent, denies prior heart attack, denies irregular heart beat, NOTES high cholesterol, denies poor circulation, denies heart failure, other cardiac issues, denies claudication, denies cold feet, denies peripheral arterial stent. Respiratory: The patient denies tuberculosis, denies pneumonia, denies frequent cough, denies pulmonary embolism, denies shortness of breath, and denies coughing up blood. Gastrointestinal: The patient denies difficulty swallowing, denies acid reflux, denies ulcers, denies vomiting, denies jaundice/hepatitis, denies gallbladder problems, denies black or tarry stools, denies hemorrhoids, denies bleeding from rectum, denies diverticulitis, denies constipation, denies diarrhea, denies loss of stool control, and NOTES hernias. Kidney/Bladder: The patient denies kidney stones, denies urine infections, and denies bloody urine. Skin: The patient denies a history of skin cancer, denies bleeding/changing moles, and denies a history of skin rash. Neurologic: The patient denies a history of epilepsy/convulsions, denies headaches, denies head/spinal injuries, and denies stroke/TIA. Psychiatric: The patient denies psychiatric medications, denies depression, and denies voices, denies substance abuse. Endocrine: The patient denies thyroid disorders, denies diabetes, and denies hormonal problems. Hematologic: The patient denies a history of bruising, denies bleeding, and denies anemia, denies blood clots. Infections: The patient denies a history of measles and mumps, denies rheumatic fever, and denies sexually transmitted diseases. Musculoskeletal: The patient denies back pain/injury, NOTES back problems, denies sciatica, denies knee/foot trouble, denies arthritis, or denies gout. When was patient's last Mammogram screening? N/A Last Colonoscopy: 09/13/2021 Alaina Caban RN [facility] 11-01-2023 Nurse Note REVIEW OF SYSTEMS: General: The patient denies fatigue, denies weight loss, denies weight gain, denies feeling hot, and denies feelings of cold. Eyes: The patient denies glaucoma, denies eye injury/surgery, does wear glasses or contacts. Ear/Nose/Throat: The patient denies allergies, denies hayfever, denies ear infections, and denies bloody noses. Cardiovascular: The patient denies chest pain, denies heart disease, NOTES high blood pressure,denies cardiac stent, denies prior heart attack, denies irregular heart beat, NOTES high cholesterol, denies poor circulation, denies heart failure, other cardiac issues, denies claudication, denies cold feet, denies peripheral arterial stent. Respiratory: The patient denies tuberculosis, denies pneumonia, denies frequent cough, denies pulmonary embolism, denies shortness of breath, and denies coughing up blood. Gastrointestinal: The patient denies difficulty swallowing, denies acid reflux, denies ulcers, denies vomiting, denies jaundice/hepatitis, denies gallbladder problems, denies black or tarry stools, denies hemorrhoids, denies bleeding from rectum, denies diverticulitis, denies constipation, denies diarrhea, denies loss of stool control, and NOTES hernias. Kidney/Bladder: The patient denies kidney stones, denies urine infections, and denies bloody urine. Skin: The patient denies a history of skin cancer, denies bleeding/changing moles, and denies a history of skin rash. Neurologic: The patient denies a history of epilepsy/convulsions, denies headaches, denies head/spinal injuries, and denies stroke/TIA. Psychiatric: The patient denies psychiatric medications, denies depression, and denies voices, denies substance abuse. Endocrine: The patient denies thyroid disorders, denies diabetes, and denies hormonal problems. Hematologic: The patient denies a history of bruising, denies bleeding, and denies anemia, denies blood clots. Infections: The patient denies a history of measles and mumps, denies rheumatic fever, and denies sexually transmitted diseases. Musculoskeletal: The patient denies back pain/injury, NOTES back problems, denies sciatica, denies knee/foot trouble, denies arthritis, or denies gout. When was patient's last Mammogram screening? N/A Last Colonoscopy: 09/13/2021 Alaina Caban RN documented in this encounter [facility] 10-30-2023 History of Present illness Narrative Radiology Service Progress Note DATE OF SERVICE: October 30, 2023 TIME: 2:50 PM PATIENT IDENTITY VERIFICATION COMPLETED USING TWO (2) STANDARD IDENTIFIERS: Name and Date of confirmed by patient verbally. FALL SCREENING: Has the patient had 2 falls in the last year or 1 fall with injury or currently using an Ambulatory Assistive Device (Walker, Cane, Wheelchair, Crutches, etc.)? No PATIENT GENDER DATA: Male PATIENT RELEVANT IMPLANT DATA REVIEWED: Yes PATIENT PRESENTS WITH AN IMPLANTABLE OR ATTACHED HEATER ROOM HELPER: No ALLERGIES: Reviewed and unchanged CONTRAST ALLERGY: NO. EXAM: CT -CONTRAST INDUCED NEPHROPATHY RISK FACTORS: Patient age > 60 years CREATININE: Creatinine Date Value Ref Range Status 10/20/2023 1.04 0.73 - 1.22 mg/dL Final 12/08/2022 1.08 0.73 - 1.22 mg/dL Final 01/19/2022 1.01 0.73 - 1.22 mg/dL Final Estimated Glomerular Filtration Rate Date Value Ref Range Status 10/20/2023 77 >=60 mL/min/1.73m Final Comment: Estimated Glomerular Filtration Rate (eGFR) is calculated using the 2020 CKD-EPI creatinine equation. This equation utilizes serum creatinine, sex, and age as parameters. The creatinine assay has traceable calibration to isotope dilution-mass spectrometry. Refer to KDIGO guidelines for clinical interpretation. In patients with unstable renal function, e.g. those with acute kidney injury, the eGFR may not accurately reflect actual GFR. eGFR- Date Value Ref Range Status 03/17/2021 >60 Final P.O.C.T. RESULTS: POC done: Yes, See Lab Tab October 30, 2023 TREATMENT: N/A PERIPHERAL IV DATA: Ambulatory: A peripheral IV was started in the Left antecubital site with a Angio cath: 22 gauge. RADIOLOGY DEPARTMENT: CT; Exam(s) Completed: Abdomen/Pelvis SIGNATURE: RT Genet(Reva) PATIENT NAME: Umesh Preston DATE: October 30, 2023 TIME: 2:50 PM documented in this encounter [facility] 10-30-2023 Note HNO ID: [id number] Author: AZALEA BRADSHAW RT(R) Service: ? Author Type: Security System Analyst Type: Progress Notes Filed: 10/30/2023 14:51 Note Text: Radiology Service Progress Note DATE OF SERVICE: October 30, 2023 TIME: 2:50 PM PATIENT IDENTITY VERIFICATION COMPLETED USING TWO (2) STANDARD IDENTIFIERS: Name and Date of confirmed by patient verbally. FALL SCREENING: Has the patient had 2 falls in the last year or 1 fall with injury or currently using an Ambulatory Assistive Device (Walker, Cane, Wheelchair, Crutches, etc.)? No PATIENT GENDER DATA: Male PATIENT RELEVANT IMPLANT DATA REVIEWED: Yes PATIENT PRESENTS WITH AN IMPLANTABLE OR ATTACHED HEATER ROOM HELPER: No ALLERGIES: Reviewed and unchanged CONTRAST ALLERGY: NO. EXAM: CT -CONTRAST INDUCED NEPHROPATHY RISK FACTORS: Patient age > 60 years CREATININE: Creatinine Date Value Ref Range Status 10/20/2023 1.04 0.73 - 1.22 mg/dL Final 12/08/2022 1.08 0.73 - 1.22 mg/dL Final 01/19/2022 1.01 0.73 - 1.22 mg/dL Final Estimated Glomerular Filtration Rate Date Value Ref Range Status 10/20/2023 77 >=60 mL/min/1.73m? Final Comment: Estimated Glomerular Filtration Rate (eGFR) is calculated using the 2020 CKD-EPI creatinine equation. This equation utilizes serum creatinine, sex, and age as parameters. The creatinine assay has traceable calibration to isotope dilution-mass spectrometry. Refer to KDIGO guidelines for clinical interpretation. In patients with unstable renal function, e.g. those with acute kidney injury, the eGFR may not accurately reflect actual GFR. eGFR- Date Value Ref Range Status 03/17/2021 >60 Final P.O.C.T. RESULTS: POC done: Yes, See Lab Tab October 30, 2023 TREATMENT: N/A PERIPHERAL IV DATA: Ambulatory: A peripheral IV was started in the Left antecubital site with a Angio cath: 22 gauge. RADIOLOGY DEPARTMENT: CT; Exam(s) Completed: Abdomen/Pelvis SIGNATURE: RT Genet(R) PATIENT NAME: Umesh Preston DATE: October 30, 2023 TIME: 2:[address] [facility] 10-21-2023 Telephone encounter Note Patient calling asking if he could have rx for Dicyclomine 20 mg. He said it is helping with his hernia issues. He is using up old rx that VISITOR SERVICES COORDINATOR had given him. Patient uses [facility] for his pharmacy. Please advise [facility] 10-21-2023 Miscellaneous Notes Patient calling asking if he could have rx for Dicyclomine 20 mg. He said it is helping with his hernia issues. He is using up old rx that VISITOR SERVICES COORDINATOR had given him. Patient uses [facility] for his pharmacy. Please advise documented in this encounter [facility] 10-21-2023 Telephone encounter Note Phoned patient and went over results, notes from Dr Damian with understanding. [facility] 10-21-2023 Miscellaneous Notes Phoned patient and went over results, notes from Dr Damian with understanding. ----- Message from Jamey Damian MD sent at 10/21/2023 10:09 AM EDT ----- Test results are okay and stable compared to previous results. Mild anemia. Mild hyponatremia (low sodium). Prostate specific antigen normal. documented in this encounter [facility] 10-21-2023 Telephone encounter Note ----- Message from Jamey Damian MD sent at 10/21/2023 10:09 AM EDT ----- Test results are okay and stable compared to previous results. Mild anemia. Mild hyponatremia (low sodium). Prostate specific antigen normal. [facility] 10-19-2023 Note HNO ID: [id number] Author: JAMEY DAMIAN MD Service: ? Author Type: Physician Type: Progress Notes Filed: 10/20/2023 12:49 Note Text: This note was created using [employer]. Subjective Umesh Preston is a 73 year old male here with gradually worsening right groin pain that started one week ago, when he was carrying salt bags to the basement. Symptoms were reminiscent of inguinal hernia he had on the left. He denied systemic symptoms, but pain was increasing from initial 10/26 to 8/10 currently. I had not seen him recently. Last year he had progressive low back pain that led to low back surgery with good benefit. Review of Systems Constitutional: Negative for fatigue, fever and unexpected weight change. Respiratory: Negative for shortness of breath. Cardiovascular: Negative for chest pain. Gastrointestinal: Negative for constipation, diarrhea, nausea, rectal pain and vomiting. Genitourinary: Negative for difficulty urinating, dysuria, hematuria and testicular pain. Musculoskeletal: Negative. Neurological: Negative for dizziness and headaches. 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 S/P Lumbar Spinal Fusion PAST SURGICAL HISTORY Procedure Laterality Date COLONOSCOPY 07/12/2016 radiation proctitis, cauterized COLONOSCOPY 09/13/2021 repeat in 5 years COLONOSCOPY FLX DX W/COLLJ SPEC WHEN PFRMD 10/18/2003 Colonoscopy, [place], [place], negative COLONOSCOPY FLX DX W/COLLJ SPEC WHEN PFRMD 09/30/2013 Repeat 2017 EXTRACTION ERUPTED TOOTH/EXR 03/24/2021 HERNIA REPAIR HX LUMBAR SPINE FUSION COMBINED 05/18/2023 L4-L5,L5-S1 fusion, laminectomies, foramenectomies, facetectomies RPR 1ST INGUN HRNA AGE 7 YRS/> REDUCIBLE Hernia repair, inguinal,Lap, Left RPR UMBILICAL HRNA 5 YRS/> REDUCIBLE 02/13/2009 Simple TONSILLECTOMY HX ULTRASOUND PROSTATE BIOPSY 11/26/2014 ULTRASOUND PROSTATE BIOPSY 2015 Social History Tobacco Use Smoking status: Former Packs/day: 0.50 Years: 10.00 Additional pack years: 0.00 Total pack years: 5.00 Types: Cigarettes Quit date: 10/17/1978 Years since quittin.0 Smokeless tobacco: Never Vaping Use Vaping Use: Never used Substance Use Topics Alcohol use: Yes Alcohol/week: 6.0 standard drinks of alcohol Types: 6 Cans of Beer (12oz) per week Drug use: No Current Outpatient Medications Medication Sig losartan (COZAAR) 50 mg tablet Take 1 tablet by mouth once daily. amLODIPine (NORVASC) 10 mg tablet Take 1 tablet by mouth once daily. simvastatin (ZOCOR) 20 mg tablet Take 1 tablet by mouth once daily. gabapentin (NEURONTIN) 100 mg capsule Take 1 capsule by mouth three times a day. Prescribed by Dr. Willson triamcinolone acetonide (KENALOG) 0.1 % cream Apply 1 application to affected area twice daily. As directed. No current facility-administered medications for this visit. Objective Blood Pressure 134/72 Pulse 72 Temperature 37 ?C (98.6 ?F) (Temporal) Respiration 16 Weight 82.1 kg (181 lb) Oxygen Saturation 98% Body Mass Index 25.97 kg/m? Physical Exam Constitutional: Appearance: Normal appearance. Cardiovascular: Rate and Rhythm: Normal rate and regular rhythm. Heart sounds: No murmur heard. No gallop. Pulmonary: Breath sounds: Normal breath sounds. Abdominal: General: Bowel sounds are normal. There is no distension. Palpations: Abdomen is soft. Tenderness: There is abdominal tenderness. Hernia: A hernia is present. Hernia is present in the right inguinal area. Comments: Possible early right inguinal hernia, non incarcerated. Mild inguinal tenderness. Genitourinary: Testes: Normal. Lymphadenopathy: Lower Body: No right inguinal adenopathy. Neurological: Mental Status: He is alert. Assessment and Plan 1. Right inguinal pain - ICD9: 789.03, ICD10: R10.31 (primary diagnosis) Etiology unclear - CT ABD/PEL W IVCON - IV CONTRAST (RADIOLOGY PROCEDURE) - ENTERIC CONTRAST (RADIOLOGY PROCEDURE) - COMPLETE BLOOD COUNT - BASIC METABOLIC PANEL - CONSULT TO GENERAL SURGERY - If surgery indicated, this will need to be done locally due to his driving limitations. 2. History of prostate cancer - ICD9: V10.46, ICD10: Z85.46 - PROSTATE-SPECIFIC ANTIGEN DIAGNOSTIC 3. Primary hypertension - ICD9: 401.9, ICD10: I10 - Factors affecting control: acute illness, pain. - Continue current medications 4. S/P lumbar spinal fusion - ICD9: V45.4, ICD10: Z98.1 Noted. Jamey Damian MD [facility] 10-19-2023 History of Present illness Narrative This note was created using [employer]. Subjective Umesh Preston is a 73 year old male here with gradually worsening right groin pain that started one week ago, when he was carrying salt bags to the basement. Symptoms were reminiscent of inguinal hernia he had on the left. He denied systemic symptoms, but pain was increasing from initial 10/26 to 8 currently. I had not seen him recently. Last year he had progressive low back pain that led to low back surgery with good benefit. Review of Systems Constitutional: Negative for fatigue, fever and unexpected weight change. Respiratory: Negative for shortness of breath. Cardiovascular: Negative for chest pain. Gastrointestinal: Negative for constipation, diarrhea, nausea, rectal pain and vomiting. Genitourinary: Negative for difficulty urinating, dysuria, hematuria and testicular pain. Musculoskeletal: Negative. Neurological: Negative for dizziness and headaches. 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 S/P Lumbar Spinal Fusion PAST SURGICAL HISTORY Procedure Laterality Date COLONOSCOPY 07/12/2016 radiation proctitis, cauterized COLONOSCOPY 09/13/2021 repeat in 5 years COLONOSCOPY FLX DX W/COLLJ SPEC WHEN PFRMD 10/18/2003 Colonoscopy, [place], [place], negative COLONOSCOPY FLX DX W/COLLJ SPEC WHEN PFRMD 09/30/2013 Repeat 2017 EXTRACTION ERUPTED TOOTH/EXR 03/24/2021 HERNIA REPAIR HX LUMBAR SPINE FUSION COMBINED 05/18/2023 L4-L5,L5-S1 fusion, laminectomies, foramenectomies, facetectomies RPR 1ST INGUN HRNA AGE 7 YRS/> REDUCIBLE Hernia repair, inguinal,Lap, Left RPR UMBILICAL HRNA 5 YRS/> REDUCIBLE 02/13/2009 Simple TONSILLECTOMY HX ULTRASOUND PROSTATE BIOPSY 11/26/2014 ULTRASOUND PROSTATE BIOPSY 2015 Social History Tobacco Use Smoking status: Former Packs/day: 0.50 Years: 10.00 Additional pack years: 0.00 Total pack years: 5.00 Types: Cigarettes Quit date: 10/17/1978 Years since quittin.0 Smokeless tobacco: Never Vaping Use Vaping Use: Never used Substance Use Topics Alcohol use: Yes Alcohol/week: 6.0 standard drinks of alcohol Types: 6 Cans of Beer (12oz) per week Drug use: No Current Outpatient Medications Medication Sig losartan (COZAAR) 50 mg tablet Take 1 tablet by mouth once daily. amLODIPine (NORVASC) 10 mg tablet Take 1 tablet by mouth once daily. simvastatin (ZOCOR) 20 mg tablet Take 1 tablet by mouth once daily. gabapentin (NEURONTIN) 100 mg capsule Take 1 capsule by mouth three times a day. Prescribed by Dr. Willson triamcinolone acetonide (KENALOG) 0.1 % cream Apply 1 application to affected area twice daily. As directed. No current facility-administered medications for this visit. Objective Blood Pressure 134/72 Pulse 72 Temperature 37 C (98.6 F) (Temporal) Respiration 16 Weight 82.1 kg (181 lb) Oxygen Saturation 98% Body Mass Index 25.97 kg/m Physical Exam Constitutional: Appearance: Normal appearance. Cardiovascular: Rate and Rhythm: Normal rate and regular rhythm. Heart sounds: No murmur heard. No gallop. Pulmonary: Breath sounds: Normal breath sounds. Abdominal: General: Bowel sounds are normal. There is no distension. Palpations: Abdomen is soft. Tenderness: There is abdominal tenderness. Hernia: A hernia is present. Hernia is present in the right inguinal area. Comments: Possible early right inguinal hernia, non incarcerated. Mild inguinal tenderness. Genitourinary: Testes: Normal. Lymphadenopathy: Lower Body: No right inguinal adenopathy. Neurological: Mental Status: He is alert. Assessment and Plan 1. Right inguinal pain - ICD9: 789.03, ICD10: R10.31 (primary diagnosis) Etiology unclear - CT ABD/PEL W IVCON - IV CONTRAST (RADIOLOGY PROCEDURE) - ENTERIC CONTRAST (RADIOLOGY PROCEDURE) - COMPLETE BLOOD COUNT - BASIC METABOLIC PANEL - CONSULT TO GENERAL SURGERY - If surgery indicated, this will need to be done locally due to his driving limitations. 2. History of prostate cancer - ICD9: V10.46, ICD10: Z85.46 - PROSTATE-SPECIFIC ANTIGEN DIAGNOSTIC 3. Primary hypertension - ICD9: 401.9, ICD10: I10 - Factors affecting control: acute illness, pain. - Continue current medications 4. S/P lumbar spinal fusion - ICD9: V45.4, ICD10: Z98.1 Noted. Jamey Damian MD documented in this encounter [facility] 10-19-2023 Telephone encounter Note Noted. [facility] 10-19-2023 Miscellaneous Notes Noted. Pt calls and states the following: ABDOMINAL PAIN LOCATION: right lower quad RADIATION: from back to front ONSET: this started 1 week ago SUDDEN: came on gradual PATTERN: pain is constant. most of the time. Pian will decreased then then come back severe SEVERITY: Pain scale 5 and at times get up to a 7 or 8 RECURRENT SYMPTOMS: had a hernia on left side felt the same way CAUSE: carry salt to the basement and this aggravated it more RELIEVING/AGGRAVATING FACTORS: none OTHER SYMPTOMS: none DENIES: Vomiting, diarrhea, constipation and urine problems. Pt was scheduled for an apt today 6:20 PM Marianela Combs LPN documented in this encounter [facility] 10-19-2023 Telephone encounter Note Pt calls and states the following: ABDOMINAL PAIN LOCATION: right lower quad RADIATION: from back to front ONSET: this started 1 week ago SUDDEN: came on gradual PATTERN: pain is constant. most of the time. Pian will decreased then then come back severe SEVERITY: Pain scale 5 and at times get up to a 7 or 8 RECURRENT SYMPTOMS: had a hernia on left side felt the same way CAUSE: carry salt to the basement and this aggravated it more RELIEVING/AGGRAVATING FACTORS: none OTHER SYMPTOMS: none DENIES: Vomiting, diarrhea, constipation and urine problems. Pt was scheduled for an apt today 6:20 PM Marianela Combs LPN [facility] 05-20-2023 Miscellaneous Notes Let detailed vm on identified vm with provider's message. Yes, I'll follow for general medical. [facility] reports patient had surgery- fusion on back, and will be d/c'd from [facility] today with orders for [facility] SN. Dr. Willson will follow for wound care, asking if pcp will follow for non wound care orders? documented in this encounter [facility] 05-19-2023 Progress note Note Date/Time May 19, 2023 1:52pm [facility] Medical Records Department [address] [place] [address] Progress Note 05/19/23 1343 MR#: [id number] Acct: [id number] Name: UMESH PRESTON Rep #:[id number] : 1950 72 From: Yen Tucker MD PCP: Dr. Jamey Damian MD Status:A DM IN Location: MS3 [id number] Subjective Subjective Patient seen and examined. He felt well and had no active complaints. He is POD 1 for posterior lumbar interbody fusion of L4-5 and L5-S1. Objective Data Objective Data Vital Signs: Vital Signs Temp Pulse Resp BP Pulse Ox O2 Del Method O2 Flow Rate 98.3 F 84 18 121/66 H 97 Room Air 2 05/19/23 11:15 05/19/23 11:15 05/19/23 11:15 05/19/23 11:15 05/19/23 11:15 05/19/23 11:15 05/18/23 20:20 Oxygen Flow Rate (L/min) 2 Oxygen Delivery Method Room Air Weight: 181 lb 12.8 oz Body Mass Index (BMI) 26.1 Intake & Output: Intake and Output for Last 24 Hours 05/17/23 05/18/23 05/19/23 23:59 23:59 23:59 Intake Total 798.33 / 998.33 2332.67 / 2332.67 Output Total 610 / 820 600 / 600 Balance 188.33 / 178.33 1732.67 / 1732.67 Lab / Micro Data 05/19/23 05:28 05/19/23 05:28 Labs: Laboratory Results - last 24 hr 05/19/23 05:28: WBC 16.6 H, RBC 2.99 L, Hgb 9.5 L, Hct 28.1 L, MCV 94.0, MCH 31.8, MCHC 33.8, RDW Std Deviation 43.7, RDW Coeff of Tobin 12.7, Plt Count 229, MPV 10.0, Immature Gran % (Auto) 0.700, Neut % (Auto) 83.0 H, Lymph % (Auto) 8.9L, Mesa % (Auto) 7.2, Eos % (Auto) 0.1, Baso % (Auto) 0.1, Absolute Neuts (auto)13.8 H, Absolute Lymphs (auto) 1.48, Nucleated RBC % 0, Sodium 129 L, Potassium 4.1, Chloride 96 L, Carbon Dioxide 23.0, Anion Gap 10, BUN 23 H, Creatinine 1.16, Estim Creat Clear Calc 61.18, Est GFR (MDRD) Af Amer 80, Est GFR (MDRD) Non-Af66, BUN/Creatinine Ratio 19.8, Glucose 124 H, Calcium 8.2 L Micro: Microbiology 04/27/23 07:20 Swab (Method) Nasal Screen MRSA/MSSA - Final Radiography Diagnostic Testing: Radiology Impression Lumbar Spine X-Ray 05/18/23 07:51 IMPRESSION: Intraoperative fluoroscopic services provided for L3-L4 and L4-L5 fusion with prosthetic disc at the L4-L5 and L5-S1 levels. Electronically Signed: Daryl Young MD at 13:44 EST , Physical Exam Const alert, oriented x3 and no apparent distress HEENT normocephalic, head/scalp atraumatic, moist oral mucous membranes and oropharynxnormal Eyes PERRL and EOMs intact bilaterally Neck no lymphadenopathy and supple Lymph Lymphatic: no lymphadenopathy noted and no lymphedema noted Resp normal respiratory effort, normal air movement and clear to auscultation bilaterally Cardio regular rate, regular rhythm, S1 normal heart sound, S2 normal heart sound and no murmurs GI normal to inspection, nondistended, normoactive bowel sounds, soft to palpation,non-tender and non-distended Extremity normal capillary refill, no clubbing, cyanosis or edema and no calf tenderness Skin Skin Narrative: intact dressing over lower back, at site of surgery Neuro CN's II-XII intact bilaterally, no focal motor deficits, no sensory deficits noted and deep tendon reflexes 2+ bilaterally Motor Exam: strength 5/5 throughout and general weakness Psych thought process normal and cooperative Appearance: appropriate Assessment & Plan Assessment/Plan (1) Lumbar stenosis: (2) HTN (hypertension): QUALIFIERS: Hypertension type: essential hypertension Qualified Code(s): I10 - Essential (primary) hypertension (3) Hyperlipidemia: QUALIFIERS: Hyperlipidemia type: unspecified Qualified Code(s): E78.5 - Hyperlipidemia, unspecified PLAN: Plan #Severe spinal stenosis * s/p L4-L5 and L5-S1 posterior lumbar interbody fusion * management as per spine surgery * PT/OT On board. * fall precautions * on PO tylenol, PO oxycodone and IV morphine prn for pain * #Hypertension; on amlodipine, losartan. IV hydralzine prn #Hyperlipidemia: on statin DVT prophylaxis; SCDs Disposition: as per primary team spine surgery Charges/Coding Visit Charges Inpatient E&M: 53628 Subs Hosp L2 05/19/23 1357 <Electronically signed by Yen Tucker MD> Yen Tucker MD Cosigner Signature (if applicable): CC: ~ Signed [facility] Work Phone: 1(688) 875-976412-01-2023 Consult note Author Steve Hart [facility] May 19, 2023 11:09am Note Date/Time May 19, 2023 1 1:09am [facility] Medical Records Department [address] [place] [address] Counseling Note - Pharmacy 05/19/231107 MR#: [id number] Acct: [id number] Name: UMESH PRESTON Rep #:[id number] : 1950 72 From: Steve Hart PCP: Dr. Jamey Damian MD Status:A DM IN Y Location: [place] [address] Pharmacy [facility] has performed discharge medication reconciliation and counseling for this patient. The patient's discharge medication list was reviewed for discrepancies and discrepancies were resolved. The patient was counseled on the following discharge medications and changes in medications for homegoing were reviewed. The Reason for Use, instructions for use, and potential side effects were reviewed for all new medications. The patient's questions regarding all of their medications were answered. 1. Hydrocodone/acetaminophen 5/325 mg PO Q6H x 7 days The patient was able to verbally demonstrate an understanding of their dischargemedications. Medications at Discharge Home Medications amlodipine 10 mg tablet 10 mg PO DAILY BP 02/17/19 losartan 25 mg tablet 50 mg PO DAILY BP 02/17/19 simvastatin 20 mg tablet 20 mg PO DAILY CHOLESTEROL 02/17/19 hydrocodone-acetaminophen 5-325mg 5mg-325mg 1 tab PO Q6H 7 days #28 tabs 05/18/23 05/19/23 1109 <Electronically signed by Steve davenport> Date _ Steve Vanegas Signature (if applicable): Date CC: ~ Signed [facility] Work Phone: 1(990) 137-424112-01-2023 Discharge summary Author Wilver Willson [facility] May 19, 2023 10:40am Note Date/Time May 18, 2023 7:13am [facility] Medical Records Department [address] [place] [address] Discharge Summary 05/18/23 0713 MR#: [id number] Acct: [id number] Name: UMESH PRESTON Rep #:[id number] : 1950 72 From: Wilver Brewer PCP: Dr. Jamey Damian MD Status:A DM IN Location: [place] [address] Providers Date of Admission: 05/18/23 Primary Care Physician: Dr. Jamey Damian MD Reason For Visit: Post Lum Interbody Fusion [place] Two Level Diagnosis Discharge Diagnosis (1) Lumbar stenosis: Status: Acute Code(s): M48.061 - Spinal stenosis, lumbar region without neurogenic claudication Medications at Discharge Home Medications amlodipine 10 mg tablet 10 mg PO DAILY BP 02/17/19 losartan 25 mg tablet 50 mg PO DAILY BP 02/17/19 simvastatin 20 mg tablet 20 mg PO DAILY CHOLESTEROL 02/17/19 hydrocodone-acetaminophen 5-325mg 5mg-325mg 1 tab PO Q6H 7 days #28 tabs 05/18/23 Hospital Course Operations - (L4-5, L5-S1 posterior lumbar interbody fusion, decompression, posterior spinal fusion with instrumentation, use of allograft) Summary of Care Provided Minutes Spent on Discharge: 15 Hospital Course: The patient is a 72-year-old male who underwent L4-5, L5-S1 fusion on 05/18/2023. He was subsequently admitted. The hospitalist was consulted for medical management. The patient progressed well. His pain was controlled and he was mobilizing well. No significant medical issues were reported. His drainwas pulled on postoperative day 1. The patient was subsequently discharged homeon 05/19/2023 to follow-up with Dr. Willson in 3 weeks Physical Exam Const alert, oriented x3 and no apparent distress General Appearance: cooperative, comfortable and well kempt Neck full ROM General: normal visual inspection Resp normal respiratory effort and normal air movement Effort and Inspection: able to speak in complete sentences Cardio regular rate and peripheral pulses 2+ throughout GI soft to palpation, non-tender and non-distended Back/Spine Back/Spine Narrative: Dressing clean dry and intact. Incision well approximated with interrupted sutures in place. No tenderness erythema drainage or fluctuance Cervical Spine: cervical ROM normal Lumbar Spine / Lower Back: normal to inspection Extremity normal to inspection, full ROM, normal capillary refill, no clubbing, cyanosis or edema and no calf tenderness Skin no rashes or lesions noted General Skin Exam: no breakdown Neuro oriented x3, CN's II-XII intact bilaterally, moves all extremities, no focal motor deficits, no sensory deficits noted and deep tendon reflexes 2+ bilaterally Motor Exam: strength 5/5 throughout and muscle tone normal throughout Weight / BMI Weight Weight: 181 lb 12.8 oz Body Mass Index (BMI) 26.1 ABG / Lab / Microbiology Data 05/19/23 05:28 05/19/23 05:28 Microbiology: Microbiology 04/27/23 07:20 Swab (Method) Nasal Screen MRSA/MSSA - Final D/C Instructions Discharge Diet: No restrictions Additional Activity Instructions: No repetitive bending twisting or lifting greater than 5 pounds. Wear back brace at all times. Okay to remove brace to sleep Call your doctor if your incision/area has: Continuous Slow Oozing, Sudden Increased Bleeding, Increased Pain/ Swelling, Increased Redness, Foul Smelling Discharge and Swelling at the incision site Call your doctor if you observe: Fever of 101 or Higher, Coldness, Increased Pain, Numbness or Tingling, Change in Color, Inability to urinate, Inability to have a bowel movement, Using more than 1 pad per hour, Shortness of breath, Dizziness, Fainting spells, Swelling in the ankles, Chest pain, Prolonged hiccupping, Increased palpitations (irregular heartbeat), Calf discomfort and Uncontrolled pain Cleanse incision/area with: Do not get Incision Wet and Keep Dressing Clean & Dry Additional Dressing/Incision Instructions: Change dressing daily with iodine gauze and tape. Use waterproof dressing to shower Additional Instructions: 1. During your procedure, you received sedation through your IV. Please follow these instructions for the next 24 hours: Do not drive a motor vehicle, do not drink any alcoholic beverages, and do not sign any legal documents or make personal or business decisions. A responsible adult should stay with you at least 6 hours after the procedure. 2. Keep your surgical site/incision clean and the dressing dry and intact. You may use an ice pack at the surgical site to reduce any swelling or discomfort. 3. Monitor the incision site for any signs or symptoms of infection. Watch for redness, excessive swelling or drainage, or continued pain at the incision site after 3 days. Contact your physician immediately for a fever, chills or a temperature of 101.5? F or greater. 4. Take your medication exactly as prescribed by your physician. Do not attempt to wean yourself off any of your medications even though your pain is improving.This process needs to be carefully monitored by your doctor. Take any antibiotics prescribed exactly as directed and until they are gone. 5. Avoid stretching, bending, pulling, twisting or any sudden movements. Do not bend or twist at the waist. Wear back brace at all times 6. No lifting greater than 5 pounds. 7. Do not operate a motor vehicle, equipment or a power tool while taking pain medication 8. Do not have any manipulation done by a chiropractor or any other physician without first consulting with the surgeon 9. Please contact our office if you are even scheduled for a CT scan or an MRI. 10. Please call us if you have any questions, problems or concerns. Please Follow Up With: Wilver Willson DO When: 3 weeks Meaningful Use Info Meaningful Use Diagnoses (Choose all that apply): None applicable Discharge Plan Admission Admit Date/Time: 05/18/23 07:17 Attending Provider: Wilver Willson Primary Care Provider: Jamey Damian Consulting Providers: Yen Tucker Discharge Orders/Prescriptions Prescriptions: New hydrocodone-acetaminophen 5-325 mg tablet 1 tab PO Q6H 7 Days Qty: 28 0RF Continued amlodipine 10 MG tablet 10 mg PO DAILY simvastatin 20 MG tablet 20 mg PO DAILY losartan 25 MG tablet 50 mg PO DAILY Referrals / Follow Up: Wilver Willson DO [Med Staff - Active Staff] - Jamey Damian MD [[facility]] - Disposition Disposition (needs filled in before D/C Order can be placed): Home Health Service 05/19/23 1040 <Electronically signed by Wilver Willson DO> Cosigner Signature (if applicable): CC: Dr. Wilver Willson DO; Dr. Jamey Damian MD~ Signed [facility] Work Phone: 1(891) 551-578411-30-2023 Progress note Author Alphonse Berriosowen [facility] May 18, 2023 6:45pm Note Date/Time May 18, 2023 5:16pm [facility] Medical Records Department [address] [place] [address] Progress Note - Hospitalist 05/18/23 1712 MR#: [id number] Acct: [id number] Name: UMESH PRESTON Rep #:[id number] : 1950 72 From: Alphonse guardado DO PCP: Dr. Jamey Damian MD Status:A DM IN Location: MS3 [id number] Reason for Visit Reason for Visit: Diagnoses Spinal stenosis, lumbar region without neurogenic claudication (05/18/23) Encounter for other preprocedural examination (05/18/23) Subjective Subjective Patient is s/p L4-5, L5-S1 posterior lumbar interbody fusion with Dr. Willson earlier today for lumbar spine stenosis, medicine was consulted postoperatively for medical management. Patient seen at bedside this evening. Patient was sleeping on my arrival to the room. Appeared moderately fatigued for majority of my interview but was answering questions appropriately. Patient reported mild low back pain at rest that was tolerable. States he has not tried to get out ofbed since coming back from the operating room early this afternoon. Patient is satting in the high 90s on 2 L nasal cannula, no increased work of breathing noted. Patient denies any chest pain, shortness of breath, fevers or chills, abdominal pain or discomfort. No other acute concerns at this time. Objective Data Objective Data Vital Signs: Vital Signs Temp Pulse Resp BP Pulse Ox O2 Del Method O2 Flow Rate 98.7 F 70 18 101/59 L 98 Nasal Cannula 2 05/18/23 15:15 05/18/23 15:15 05/18/23 15:15 05/18/23 15:15 05/18/23 15:15 05/18/23 15:15 05/18/23 15:15 Oxygen Flow Rate (L/min) 2 Oxygen Delivery Method Nasal Cannula Weight: 82.463 kg Body Mass Index (BMI) 26.1 Intake & Output: Intake and Output for Last 24 Hours 05/16/23 05/17/23 05/18/23 23:59 23:59 23:59 Intake Total 50 / 50 Output Total 300 / 300 Balance -250 / -250 Lab / Micro Data 04/27/23 07:20 04/27/23 07:20 Micro: Microbiology 04/27/23 07:20 Swab (Method) Nasal Screen MRSA/MSSA - Final Radiography Diagnostic Testing: Radiology Impression Lumbar Spine X-Ray 05/18/23 07:51 IMPRESSION: Intraoperative fluoroscopic services provided for L3-L4 and L4-L5 fusion with prosthetic disc at the L4-L5 and L5-S1 levels. Electronically Signed: Daryl Young MD at 13:44 EST , Physical Exam Const alert, oriented x3, no apparent distress and average body habitus Constitutional Narrative: Pleasant elderly male, moderately fatigued appearing postoperatively, sitting comfortably in bed, conversing normally, no acute distress. General Appearance: cooperative and comfortable HEENT normocephalic, head/scalp atraumatic, hearing grossly normal bilaterally, nasal mucous membranes and turbinates normal and moist oral mucous membranes Eyes PERRL, EOMs intact bilaterally and conjunctivae normal Neck full ROM, no lymphadenopathy and supple Lymph Lymphatic: no lymphadenopathy noted Chest inspection of chest normal Resp normal respiratory effort, normal air movement, no use of accessory muscles and clear to auscultation bilaterally Resp Narrative: Satting in high 90s on 2 L nasal cannula, no increased work of breathing noted. Cardio regular rate, regular rhythm, no murmurs and peripheral pulses 2+ throughout GI normal to inspection, nondistended, normoactive bowel sounds, soft to palpation,non-tender and non-distended Back/Spine Back/Spine Narrative: Moderate serosanguineous to bloody fluid output from surgical site drain noted. Otherwise low back grossly normal on visual examination. Extremity normal to inspection and no pedal edema Skin no rashes or lesions noted Neuro moves all extremities and no focal motor deficits Speech: speech normal Psych mental status grossly normal Assessment & Plan Assessment/Plan (1) Lumbar stenosis: PLAN: Plan Patient is a 72-year-old male who presented [facility] on 05/18/2023 for planned orthopedic procedure. Medicine consulted postoperativelyfor medical management. 1. Lumbar stenosis with spondylosis S/p L4-5, L5-S1 posterior lumbar interbody fusion with Dr. Willson with orthopedics on 05/18. Patient tolerated procedure well. Seen at bedside postoperatively, reported mild low back pain that was tolerable with pain medication, otherwise felt fatigued but no other acute concerns. ? Orthopedic surgery primary patient. PT/OT/case management consulted. Pain control with scheduled Tylenol, as needed p.o. oxycodone and IV morphine. Follow-up a.m. labs. Monitor output from surgical site drain. Does have Molina catheter in place, should have this removed tomorrow prior to discharge. If remains stable, likely okay for discharge home tomorrow. 2. Hypertension ? Home medications of amlodipine 10 mg daily, losartan 50 mg daily. Mild hypotension postoperatively, which is expected. Reordered home amlodipine and losartan for tomorrow morning with hold parameters. 3. Hyperlipidemia ? Continue home statin. DVT prophylaxis: SCDs CODE STATUS: Full code, unverified Expected disposition: Home, tomorrow Total clinical time spent by myself addressing the patient's medical issues, reviewing all the data, and collaborating with patient's care team: 25 minutes. Charges/Coding Visit Charges Inpatient E&M: 93023 Subs Hosp L1 05/18/23 0546 <Electronically signed by Alphonse Good DO> Cosigner Signature (if applicable): CC: ~ Signed [facility] Work Phone: 1(906) 793-859711-30-2023 Progress note Author Wilver Willson [facility] May 18, 2023 3:45pm Note Date/Time May 18, 2023 7:13am [facility] Medical Records Department [address] [place] [address] Progress Note - Orthopedic 05/18/23 0713 MR#: [id number] Acct: [id number] Name: UMESH PRESTON Rep #:[id number] : 1950 72 From: Wilver Brewer PCP: Dr. Jamey Damian MD Status:A DM IN [id number] Objective Data Objective Data Vital Signs: Vital Signs Temp Pulse Resp BP Pulse Ox O2 Del Method 98.6 F 84 18 156/77 H 100 Room Air 05/18/23 06:27 05/18/23 06:27 05/18/23 06:27 05/18/23 06:27 05/18/23 06:27 05/18/23 06:27 Oxygen Delivery Method Room Air Weight: 181 lb 12.8 oz Body Mass Index (BMI) 26.1 Lab / Micro Data 04/27/23 07:20 04/27/23 07:20 Micro: Microbiology 04/27/23 07:20 Swab (Method) Nasal Screen MRSA/MSSA - Final Physical Exam Const alert, oriented x3 and no apparent distress General Appearance: cooperative, comfortable and well kempt HEENT normocephalic and head/scalp atraumatic Eyes EOMs intact bilaterally and conjunctivae normal Neck full ROM General: normal visual inspection Chest inspection of chest normal and palpation of chest normal Resp normal respiratory effort and normal air movement Cardio regular rate, regular rhythm and peripheral pulses 2+ throughout GI soft to palpation, non-tender and non-distended Back/Spine Back/Spine Narrative: Dressing clean dry and intact Cervical Spine: cervical ROM normal Thoracic Spine / Upper Back: normal to inspection Lumbar Spine / Lower Back: normal to inspection Extremity normal to inspection, full ROM, normal capillary refill, no clubbing, cyanosis or edema and no calf tenderness Skin no rashes or lesions noted General Skin Exam: no breakdown Neuro oriented x3, CN's II-XII intact bilaterally, moves all extremities, no focal motor deficits, no sensory deficits noted and deep tendon reflexes 2+ bilaterally Motor Exam: muscle tone normal throughout Assessment & Plan Assessment/Plan (1) Lumbar stenosis: PLAN: Admit to floor See orders Discharge planning, likely home tomorrow 05/18/23 6431 <Electronically signed by Wilver Willson DO> Cosigner Signature (if applicable): CC: ~ Signed [facility] Work Phone: 1(637) 789-878011-30-2023 Procedure [facility] 05-01-2023 Miscellaneous Notes* Telephone Encounter - Omar Pierre Ma - 05/01/2023 3:44 PM EST Form received - signed and faxed back. Patient notified. * Telephone Encounter - Omar Pierre Ma - 05/01/2023 11:44 AM EST TC to patient - he states that [facility] needs something from us stating that Delmy is ok with labs that were drawn. Advised patient to contact [facility] office and have them fax a form statingwhat they need. * Telephone Encounter - Delmy Thomas APRN.CNP - 05/01/2023 7:12 AM EST He had a pre-op exam on 03/27, that's up to the surgeon since it is more than 30 days Delmy Thomas APRN.CNP * Telephone Encounter - Omar Pierre Ma - 04/28/2023 3:41 PM EST Patient notified, asking if he is cleared for surgery which is based on this. Will patient need a pre op in this office as well? Please advise * Telephone Encounter - Delmy Thomas APRN.CNP - 04/28/2023 2:02 PM EST Sodium is chronically low, recent labs from PAT at baseline Delmy Thomas APRN.CNP * Telephone Encounter - Gia Whitley LPN - 04/28/2023 12:52 PM EST Results rec'd from Dr. Mathur's office to VISITOR SERVICES COORDINATOR to review. * Telephone Encounter - Arielle Morgan RN - 04/28/2023 12:00 PM EST Patient calls and states that he is scheduled for surgery at [facility] on 05/18. Patient had x rays and labs done yesterday. Patient sodium level was low and patient was supposed to call provider to advise on this. Patient is going to be out of after next Monday returning to home on 05/15/2023. Please review and advise, Arielle Morgan RN [facility] History of Present illness Narrative* William, Delmy, SCRIPT ARTIST.COUTIERIER - 03/27/2023 8:20 AM EDT CC: Patient presents with: Pre-Op Exam: Back surgery - [facility] HPI Umesh Preston is a 72 year old male who presents today for pre-op evaluation. 1. Diabetes: No 2. Hypertension requiring medication: Yes Medication changes:No Taking all medications as prescribed: Yes Side effects: No Home BP's: Yes 130's/70's Last 3 Encounter BP Readings: Date: BP: 03/27/2023 138/76 12/14/2022 136/76 06/21/2022 130/72 3. Congestive Heart Failure: No 4. Current Smoker within 1 Year: No 5. History of COPD: No 6. History of MARGRET: No 7. Dialysis: No Review of Systems Constitutional: Negative for activity change, chills, diaphoresis, fatigue, fever and unexpected weight change. HENT: Negative for trouble swallowing. Eyes: Negative for visual disturbance. Respiratory: Negative for cough, chest tightness, shortness of breath and wheezing. Cardiovascular: Negative for chest pain, palpitations and leg swelling. Gastrointestinal: Negative for abdominal pain, anal bleeding and blood in stool. Neurological: Negative for dizziness, tremors, seizures, syncope, speech difficulty and light-headedness. 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 HTN (hypertension) 02/03/2009 Hyperlipidemia 02/03/2009 Irritable bowel syndrome without diarrhea 12/06/2019 Left inguinal hernia 01/04/2012 Mitral regurgitation 03/02/2009 PONV (postoperative nausea and vomiting) Prostate cancer (HCC) 08/03/2015 Psoriasis 03/04/2010 Radiation proctitis 07/12/2016 Umbilical hernia 02/03/2009 PAST SURGICAL HISTORY Procedure Laterality Date COLONOSCOPY 07/12/2016 radiation proctitis, cauterized COLONOSCOPY 09/13/2021 repeat in 5 years COLONOSCOPY FLX DX W/COLLJ SPEC WHEN PFRMD 10/18/2003 Colonoscopy, [place], negative COLONOSCOPY FLX DX W/COLLJ SPEC WHEN PFRMD 09/30/2013 Repeat 2017 EXTRACTION ERUPTED TOOTH/EXR 03/24/2021 HERNIA REPAIR HX RPR 1ST INGUN HRNA AGE 5 YRS/> REDUCIBLE Hernia repair, inguinal,Lap, Left RPR UMBILICAL HRNA 5 YRS/> REDUCIBLE 02/13/2009 Simple TONSILLECTOMY HX ULTRASOUND PROSTATE BIOPSY 11/26/2014 ULTRASOUND PROSTATE BIOPSY 2015 ALLERGIES Penicillins MEDICATIONS amLODIPine (NORVASC) 10 mg tablet Take 1 tablet by mouth once daily. simvastatin (ZOCOR) 20 mg tablet Take 1 tablet by mouth once daily. losartan (COZAAR) 50 mg tablet Take 1 tablet by mouth once daily. dicyclomine (BENTYL) 20 mg tablet Take 1 tablet by mouth every 6 hours. As needed for abdominal pain. zolpidem (AMBIEN) 5 mg tablet Take 1 tablet by mouth at bedtime as needed for sedation for up to 14days. triamcinolone acetonide (KENALOG) 0.1 % cream Apply 1 application to affected area twice daily. As directed. FAMILY HISTORY Problem Relation Age of Onset Stroke Mother dec. 71 years old Hypertension Mother Arthritis Mother rheumatoid Cancer Father smoker-lung cancer, may. other (Only child [Other]) Other Social History Tobacco Use Smoking status: Former Packs/day: 0.50 Years: 10.00 Additional pack years: 0.00 Total pack years: 5.00 Types: Cigarettes Quit date: 10/17/1978 Years since quittin.4 Smokeless tobacco: Never Substance Use Topics Alcohol use: Yes Alcohol/week: 15.0 standard drinks of alcohol Types: 6 Cans of Beer (12oz) per week Drug use: No BP 138/76 Pulse 87 Resp 16 Ht 177.8 cm (5' 10) Wt 83.9 kg (185 lb) SpO2 97% BMI 26.54 kg/m Physical Exam Vitals reviewed. Constitutional: Appearance: Normal appearance. He is not ill-appearing. Cardiovascular: Rate and Rhythm: Normal rate and regular rhythm. Pulses: Normal pulses. Heart sounds: Normal heart sounds. No murmur heard. Pulmonary: Effort: Pulmonary effort is normal. Breath sounds: Normal breath sounds. No wheezing, rhonchi or rales. Musculoskeletal: Cervical back: Neck supple. Right lower leg: No edema. Left lower leg: No edema. Lymphadenopathy: Cervical: No cervical adenopathy. Skin: General: Skin is warm and dry. Neurological: Mental Status: He is alert. Psychiatric: Mood and Affect: Mood normal. Behavior: Behavior normal. Diagnoses/Plan 1. Pre-operative evaluation Patient will have EKG, labs and chest x-ray completed during PAT at [facility], date TBD There is no known pertinent medical condition which may affect meron-operative course JIMENEZ risk: Patient is scheduled for a low-risk procedure. Risk of 0.3 % calculated using the NSQIP surgical risk calculator The patient is medically stable for surgery from internal medicine standpoint 2. Primary hypertension - ICD9: 401.9, ICD10: I10 - Controlled - Continue current medications - Recommend home blood pressure monitoring, to bring results to next visit - Encouraged sodium restriction, DASH or Mediterranean diet Delmy Thomas APRN.CNP documented in this encounterM[facility]07-05-2023 Miscellaneous Notes* Telephone Encounter - Omar Pierre Ma - 12/21/2022 6:55 PM EDT Patient notified, verbalized understanding. Referral faxed to [place] [facility] @ [phone]. Omar Pierre Ma * Telephone Encounter - Delmy Thomas APRN.CNP - 12/21/2022 6:01 PM EDT We don't have spine medicine in [place] with [facility]. We can fax referral to [facility] but he will need to set up appointment Delmy Thomas APRN.CNP * Telephone Encounter - Marianela Combs LPN - 12/21/2022 3:35 PM EDT Pt calling for a referral for Ortho to be seen for his back. He needs to stay in [place]. Please put in referral and notify him to help get apt booked. Marianela Combs LPN documented in this encounterM[facility]06-30-2023 Miscellaneous Notes* Telephone Encounter - Omar Pierre Ma - 12/16/2022 1:54 PM EDT Patient notified, verbalized understanding. Please send rx to [facility]. * Telephone Encounter - Delmy Thomas APRN.CNP - 12/16/2022 1:26 PM EDT Please let the patient know his labs were normal. The x-ray of his back showed advanced degenerative disc and facet disease at levels of the lumbar spine. This is likely the cause of the back and hippain. The shoulder pain is also likely due to osteoarthritis. Recommend treatment with prednisone and consider referral to pain management if symptoms do not improve Delmy Thomas APRN.COUTIERIER documented in this encounterMorrow [facility]06-28-2023 History of Present illness Narrative* Sveta Miller, RT(R) - 12/14/2022 12:50 PM EDT Radiology Service Progress Note PATIENT NAME: Umesh Preston DATE OF SERVICE: December 14, 2022 TIME: 12:36 PM PATIENT IDENTITY VERIFICATION COMPLETED USING TWO (2) IDENTIFIERS: Name and Date of confirmedby patient verbally. FALL SCREENING: Has the patient had 2 falls in the last year or 1 fall with injury or currently using an Ambulatory Assistive Device (Walker, Cane, Wheelchair, Crutches, etc.)? No PATIENT GENDER DATA: Male PATIENT RELEVANT IMPLANT DATA REVIEWED: Yes RADIOLOGY DEPARTMENT: General X-ray: Exam(s) Completed: Spine X-Ray(s): Lumbar AP / LAT / L5-S1 PERIPHERAL IV DATA: Not applicable SIGNED BY: RT Letty(R) December 14, 2022 12:36 PM documented in this encounterMorrow [facility] Hospital06-28-2023 History of Present illness Narrative* Delmy Older, SCRIPT ARTIST.COUTIERIER - 12/14/2022 12:04 PM EDT CC: Patient presents with: joint pain , lower back , left shoulder x 2 weeks HPI Umesh Preston is a 72 year old male who presents today for above. Patient reports joint pain x 3 weeks. Located: bilateral shoulders, bilateral hips, right knee, low back. Does not always occur at the same time, seems to jump around Described as: aching in the bones Cause: no injury Pain is aggravated by: rest Pain is alleviated by activity Associated symptoms include morning stiffness that improves with activity. Denies joint swelling, redness, or increased warmth, numbness, tingling, weakness in the legs, bowel/bladder incontinence, saddle anesthesia. Treatments tried: heat and Naproxen with temporary relief. Ice makes it worse. Ever had pain like this before: No REVIEW OF SYSTEMS HEENT: Negative for frequent or significant headaches or blurred vision MUSCULOSKELETAL: Negative for: myalgias SKIN: Negative for lesions, rash, and itching. 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 HTN (hypertension) 02/03/2009 Hyperlipidemia 02/03/2009 Irritable bowel syndrome without diarrhea 12/06/2019 Left inguinal hernia 01/04/2012 Mitral regurgitation 03/02/2009 PONV (postoperative nausea and vomiting) Prostate cancer (HCC) 08/03/2015 Psoriasis 03/04/2010 Radiation proctitis 07/12/2016 Umbilical hernia 02/03/2009 PAST SURGICAL HISTORY Procedure Laterality Date COLONOSCOPY 07/12/2016 radiation proctitis, cauterized COLONOSCOPY 09/13/2021 repeat in 5 years COLONOSCOPY FLX DX W/COLLJ SPEC WHEN PFRMD 10/18/2003 [place], negative COLONOSCOPY FLX DX W/COLLJ SPEC WHEN PFRMD 09/30/2013 Repeat 2017 EXTRACTION ERUPTED TOOTH/EXR 03/24/2021 HERNIA REPAIR HX RPR 1ST INGUN HRNA AGE 5 YRS/> REDUCIBLE Hernia repair, inguinal,Lap, Left RPR UMBILICAL HRNA 5 YRS/> REDUCIBLE 02/13/2009 Simple TONSILLECTOMY HX ULTRASOUND PROSTATE BIOPSY 11/26/2014 ULTRASOUND PROSTATE BIOPSY 2015 ALLERGIES Penicillins MEDICATIONS amLODIPine (NORVASC) 10 mg tablet Take 1 tablet by mouth once daily. simvastatin (ZOCOR) 20 mg tablet Take 1 tablet by mouth once daily. losartan (COZAAR) 50 mg tablet Take 1 tablet by mouth once daily. dicyclomine (BENTYL) 20 mg tablet Take 1 tablet by mouth every 6 hours. As needed for abdominal pain. zolpidem (AMBIEN) 5 mg tablet Take 1 tablet by mouth at bedtime as needed for sedation for up to 14days. triamcinolone acetonide (KENALOG) 0.1 % cream Apply 1 application to affected area twice daily. As directed. FAMILY HISTORY Problem Relation Age of Onset Stroke Mother may. 71 years old Hypertension Mother Arthritis Mother rheumatoid Cancer Father smoker-lung cancer, may. other (Only child [Other]) Other Social History Tobacco Use Smoking status: Former Packs/day: 0.50 Years: 10.00 Pack years: 5.00 Types: Cigarettes Quit date: 10/17/1978 Years since quittin.1 Smokeless tobacco: Never Substance Use Topics Alcohol use: Yes Alcohol/week: 15.0 standard drinks Types: 6 Cans of Beer (12oz) per week Drug use: No PHYSICAL EXAM BP 136/76 Pulse 80 Resp 16 Wt 84.4 kg (186 lb) BMI 26.69 kg/m General Appearance: well appearing, in no acute distress, alert Lymph nodes: No cervical lymphadenopathy and No supraclavicular lymphadenopathy Back: tenderness with palpation of lumbar spine Lungs: Lungs clear to auscultation. No wheezing, rhonchi, rales. Heart: RRR without murmur, gallop, or rubs. No ectopy Musculoskeletal: Negative findings: No crepitation detected, No erythema, induration, or nodules, No evidence of joint effusion, Positive findings: tenderness with palpation of left shoulder-AC jointand clavicle DATA REVIEWED: Most recent labs ASSESSMENT/PLAN: 1. Arthralgia of multiple joints - ICD9: 719.49, ICD10: M25.50 (primary diagnosis) Differentials include osteoarthritis, PMR or other type of inflammatory arthritis Work-up with: - SED RATE WESTERGREN - C-REACTIVE PROTEIN (CRP) - CK CREATINE KINASE Follow-up pending results 2. Acute midline low back pain without sciatica - ICD9: 724.2, ICD10: M54.50 - XR LUMBAR GENERAL 3V AP/LAT/L5-S1 today, see plan above Prescription instructions reviewed with patient as applicable. Potential red flag symptoms discussed with the patient. Reviewed appropriate action plan to take if red flag symptoms occur. Patient agreeable to treatment plan. Delmy Thomas APRN.MARITZA documented in this encounterM[facility]05-31-2023 Miscellaneous Notes* Telephone Encounter - Cindy Membreno RN - 11/16/2022 1:59 PM EDT Patient returned call and given provider's message below with verbalized understanding. * Telephone Encounter - Paloma Hansen LPN - 11/16/2022 9:49 AM EDT Phoned patient and left message to return call ask to speak to a nurse. * Telephone Encounter - Disha Gomes LPN - 11/15/2022 3:36 PM EDT Patient is wanting to have Labs prior to his Medicare Wellness appt, 12/26/2022. Asking for Lipid & PSA, plus any additional test. Disha Gomes LPN documented in this encounterM[facility]01-03-2023 Miscellaneous Notes* Telephone Encounter - Nathalia Gil - 06/21/2022 11:39 AM EST Patient given results and verbalized understanding of instructions given. Nathalia Gil * Telephone Encounter - Canelo Warner APRN.MARITZA - 06/21/2022 11:02 AM EST Please notify that stool testing negative. Continue f/u with pcp. documented in this encounterM[facility]01-03-2023 History of Present illness Narrative* Delmy Thomas, SILVANO.MARITZA - 06/21/2022 8:11 AM EST CC: Patient presents with: Follow Up HPI Umesh Perston is a 72 year old male who presents today for above. Patient was initially seen in urgent care on 06/06 with vomiting and diarrhea. COVID test was negative. Symptoms attributed to viralgastroenteritis. He returned to urgent care on 06/15 with continued diarrhea and abdominal cramping. Stool studies ordered. So far enteric pathogen PCR is negative, Ova and Parasites pending. Patientreports symptoms have resolved now. Denies abdominal pain, diarrhea, constipation, black/bloody stools, nausea, vomiting, fever, chills, body aches, fatigue, dizziness, lightheadedness, feeling faintor syncope. 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 HTN (hypertension) 02/03/2009 Hyperlipidemia 02/03/2009 Irritable bowel syndrome without diarrhea 12/06/2019 Left inguinal hernia 01/04/2012 Mitral regurgitation 03/02/2009 PONV (postoperative nausea and vomiting) Prostate cancer (HCC) 08/03/2015 Psoriasis 03/04/2010 Radiation proctitis 07/12/2016 Umbilical hernia 02/03/2009 PAST SURGICAL HISTORY Procedure Laterality Date COLONOSCOPY 07/12/2016 radiation proctitis, cauterized COLONOSCOPY 09/13/2021 repeat in 5 years COLONOSCOPY FLX DX W/COLLJ SPEC WHEN PFRMD 10/18/2003 Colonoscopy, [place], [place], negative COLONOSCOPY FLX DX W/COLLJ SPEC WHEN PFRMD 09/30/2013 Repeat 2017 EXTRACTION ERUPTED TOOTH/EXR 03/24/2021 HERNIA REPAIR HX RPR 1ST INGUN HRNA AGE 5 YRS/> REDUCIBLE Hernia repair, inguinal,Lap, Left RPR UMBILICAL HRNA 5 YRS/> REDUCIBLE 02/13/2009 Simple TONSILLECTOMY HX ULTRASOUND PROSTATE BIOPSY 11/26/2014 ULTRASOUND PROSTATE BIOPSY 2015 ALLERGIES Penicillins MEDICATIONS zolpidem (AMBIEN) 5 mg tablet Take 1 tablet by mouth at bedtime as needed for sedation for up to 14days. losartan (COZAAR) 50 mg tablet Take 1 tablet by mouth once daily. simvastatin (ZOCOR) 20 mg tablet Take 1 tablet by mouth once daily. amLODIPine (NORVASC) 10 mg tablet Take 1 tablet by mouth once daily. triamcinolone acetonide (KENALOG) 0.1 % cream Apply 1 application to affected area twice daily. As directed. dicyclomine (BENTYL) 20 mg tablet Take 1 tablet by mouth every 6 hours. As needed for abdominal pain. FAMILY HISTORY Problem Relation Age of Onset Stroke Mother may. 71 years old Hypertension Mother Arthritis Mother rheumatoid Cancer Father smoker-lung cancer, may. other (Only child [Other]) Other Social History Tobacco Use Smoking status: Former Packs/day: 0.50 Years: 10.00 Pack years: 5.00 Types: Cigarettes Quit date: 10/17/1978 Years since quittin.7 Smokeless tobacco: Never Substance Use Topics Alcohol use: Yes Alcohol/week: 15.0 standard drinks Types: 6 Cans of Beer (12oz) per week Drug use: No PHYSICAL EXAM BP 130/72 Pulse 79 Temp 36.6 C (97.9 F) (Temporal) Resp 14 Wt 83.9 kg (185 lb) BMI 26.54 kg/m General Appearance: well appearing, in no acute distress, alert Skin: Skin color, texture, turgor normal for age; Eyes: conjunctiva pink and moist, no icterus, sclera white, non-injected Oropharynx: moist Lungs: Lungs clear to auscultation. No wheezing, rhonchi, rales. Heart: RRR without murmur, gallop, or rubs. No ectopy Abdomen: Abdomen soft, non-tender. Bowel sounds normal. No masses, organomegaly DATA REVIEWED: stool studies ASSESSMENT/PLAN: 1. Acute diarrhea - ICD9: 787.91, ICD10: R19.7 (primary diagnosis) Suspect viral gastroenteritis. Stool for enteric pathogens negative, O&P pending. Symptoms haveresolved. Exam benign. Follow-up as needed for any recurrent symptoms. 2. Abdominal cramping - ICD9: 789.00, ICD10: R10.9 As above Prescription instructions reviewed with patient as applicable. Potential red flag symptoms discussed with the patient. Reviewed appropriate action plan to take if red flag symptoms occur. Patient agreeable to treatment plan. Delmy Thomas APRN.CNP documented in this encounterM[facility]12-28-2022 History of Present illness Narrative* Canelo Warner APRN.CNP - 06/15/2022 8:28 AM EST Subjective HPI HPI Umesh Preston is a 72 year old male who presents today for CC of abdominal cramping, changes in stool patter. This started 1 week ago. Has tried otc medication for relief. Symptoms are worsened mostly at night while sleeping. Risk factors hx of IBS and prostate cancer. Is concerned for abdominal infection today. Reports normal colonoscopy in past year. Denies change in urination, testicular pain, fever, rash. 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 HTN (hypertension) 02/03/2009 Hyperlipidemia 02/03/2009 Irritable bowel syndrome without diarrhea 12/06/2019 Left inguinal hernia 01/04/2012 Mitral regurgitation 03/02/2009 PONV (postoperative nausea and vomiting) Prostate cancer (HCC) 08/03/2015 Psoriasis 03/04/2010 Radiation proctitis 07/12/2016 Umbilical hernia 02/03/2009 PAST SURGICAL HISTORY Procedure Laterality Date COLONOSCOPY 07/12/2016 radiation proctitis, cauterized COLONOSCOPY 09/13/2021 repeat in 5 years COLONOSCOPY FLX DX W/COLLJ SPEC WHEN PFRMD 10/18/2003 Colonoscopy, [place], [place], negative COLONOSCOPY FLX DX W/COLLJ SPEC WHEN PFRMD 09/30/2013 Repeat 2017 EXTRACTION ERUPTED TOOTH/EXR 03/24/2021 HERNIA REPAIR HX RPR 1ST INGUN HRNA AGE 5 YRS/> REDUCIBLE Hernia repair, inguinal,Lap, Left RPR UMBILICAL HRNA 5 YRS/> REDUCIBLE 02/13/2009 Simple TONSILLECTOMY HX ULTRASOUND PROSTATE BIOPSY 11/26/2014 ULTRASOUND PROSTATE BIOPSY 2015 ALLERGIES Penicillins MEDICATIONS zolpidem (AMBIEN) 5 mg tablet Take 1 tablet by mouth at bedtime as needed for sedation for up to 14days. losartan (COZAAR) 50 mg tablet Take 1 tablet by mouth once daily. simvastatin (ZOCOR) 20 mg tablet Take 1 tablet by mouth once daily. amLODIPine (NORVASC) 10 mg tablet Take 1 tablet by mouth once daily. triamcinolone acetonide (KENALOG) 0.1 % cream Apply 1 application to affected area twice daily. As directed. dicyclomine (BENTYL) 20 mg tablet Take 1 tablet by mouth every 6 hours. As needed for abdominal pain. FAMILY HISTORY Problem Relation Age of Onset Stroke Mother dec. 71 years old Hypertension Mother Arthritis Mother rheumatoid Cancer Father smoker-lung cancer, may. other (Only child [Other]) Other Social History Tobacco Use Smoking status: Former Packs/day: 0.50 Years: 10.00 Pack years: 5.00 Types: Cigarettes Quit date: 10/17/1978 Years since quittin.6 Smokeless tobacco: Never Substance Use Topics Alcohol use: Yes Alcohol/week: 15.0 standard drinks Types: 6 Cans of Beer (12oz) per week Drug use: No ROS Objective Blood pressure 128/72, pulse 86, temperature 36.3 C (97.3 F), resp. rate 16, weight 84.8 kg (187 lb), SpO2 98 %. Physical Exam Constitutional: General: He is not in acute distress. Appearance: He is not toxic-appearing or diaphoretic. HENT: Head: Normocephalic and atraumatic. Cardiovascular: Rate and Rhythm: Normal rate and regular rhythm. Heart sounds: Normal heart sounds, S1 normal and S2 normal. Pulmonary: Effort: Pulmonary effort is normal. Breath sounds: Normal breath sounds. Abdominal: General: Bowel sounds are normal. Palpations: Abdomen is soft. There is no hepatomegaly or splenomegaly. Tenderness: There is no abdominal tenderness. There is no right CVA tenderness or left CVA tenderness. Neurological: Mental Status: He is alert and oriented to person, place, and time. Gait: Gait is intact. ASSESSMENT/PLAN: 1. Bowel habit changes - ICD9: 787.99, ICD10: R19.4 (primary diagnosis) Stool testing obtained Will call results Will schedule f/u with pcp - ENTERIC BACTERIAL PANEL BY PCR - OVA + PARA MICROSCOPIC 2. Lower abdominal pain - ICD9: 789.09, ICD10: R10.30 Stool testing obtained Occurring mostly at night, if s/s become severe go to ER No symptoms at time of exam. - ENTERIC BACTERIAL PANEL BY PCR - OVA + PARA MICROSCOPIC Canelo Warner APRN.CNP documented in this encounterM[facility]12-20-2022 Miscellaneous Notes* Telephone Encounter - Edna Maxwell LPN - 06/07/2022 8:09 AM EST Left message for patient with results and recommendations.Edna Maxwell LPN * Telephone Encounter - Violet Combs LPN - 06/07/2022 8:02 AM EST Phone call placed brief message * Telephone Encounter - Briseyda Berumen APRN.CNP - 06/07/2022 7:50 AM EST Please notify of negative influenza and covid test. Continue comfort measures for symptoms as you would for a cold. Any worsening symptoms follow up with PCP or ER. Briseyda Berumen APRN.CNP documented in this encounterMorrow [facility] Hospital12-19-2022 History of Present illness Narrative* Huong Nick PA-C - 06/06/2022 9:57 AM EST This note was created using [employer]. Subjective Umesh Preston is a 71 year old male. HPI Patient presents with vomiting, diarrhea, sweats, headache off and on over the past 2 days. He states he has had the chills as well. He has checked his temperature at home and has not had a fever. Hewas not feeling well and threw up Monday and had diarrhea at the same time. He started to improve the day but then Monday happened again with vomiting. Denies any blood in stool. Denies chest pain or shortness of breath. No syncope. No dizziness. Did not eat out prior to illness. No recent antibiotics. No recent travel Review of Systems Constitutional: Positive for chills and fatigue. Negative for fever. HENT: Negative for congestion, postnasal drip, rhinorrhea and sore throat. Gastrointestinal: Positive for abdominal pain, diarrhea, nausea and vomiting. Genitourinary: Negative. Musculoskeletal: Positive for myalgias. Neurological: Positive for headaches. All other systems reviewed and are negative. 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 90 tablet 3 simvastatin (ZOCOR) 20 mg tablet Take 1 tablet by mouth once daily. 90 tablet 3 amLODIPine (NORVASC) 10 mg tablet Take 1 tablet by mouth once daily. 90 tablet 3 triamcinolone acetonide (KENALOG) 0.1 % cream Apply 1 application to affected area twice daily. As directed. 80 g 1 dicyclomine (BENTYL) 20 mg tablet Take 1 tablet by mouth every 6 hours. As needed for abdominal pain. 28 tablet 3 zolpidem (AMBIEN) 5 mg tablet Take 1 tablet by mouth at bedtime as needed for sedation for up to 14days. 14 tablet 0 No current facility-administered medications for this visit. PAST SURGICAL HISTORY Procedure Laterality Date COLONOSCOPY 07/12/2016 radiation proctitis, cauterized COLONOSCOPY 09/13/2021 repeat in 5 years COLONOSCOPY FLX DX W/COLLJ SPEC WHEN PFRMD 10/18/2003 Colonoscopy, [place], [place], negative COLONOSCOPY FLX DX W/COLLJ SPEC WHEN PFRMD 09/30/2013 Repeat 2017 EXTRACTION ERUPTED TOOTH/EXR 03/24/2021 HERNIA REPAIR HX RPR 1ST INGUN HRNA AGE 5 YRS/> REDUCIBLE Hernia repair, inguinal,Lap, Left RPR UMBILICAL HRNA 5 YRS/> REDUCIBLE 02/13/2009 Simple TONSILLECTOMY HX ULTRASOUND PROSTATE BIOPSY 11/26/2014 ULTRASOUND PROSTATE BIOPSY 2015 FAMILY HISTORY Problem Relation Age of Onset Stroke Mother dec. 71 years old Hypertension Mother Arthritis Mother rheumatoid Cancer Father smoker-lung cancer, dec. other (Only child [Other]) Other Social History Tobacco Use Smoking status: Former Packs/day: 0.50 Years: 10.00 Pack years: 5.00 Types: Cigarettes Quit date: 10/17/1978 Years since quittin.6 Smokeless tobacco: Never Substance Use Topics Alcohol use: Yes Alcohol/week: 15.0 standard drinks Types: 6 Cans of Beer (12oz) per week Drug use: No Objective BP 140/64 Pulse 90 Temp 36.3 C (97.3 F) Resp 21 Wt 85.6 kg (188 lb 12.8 oz) SpO2 99% BMI 27.09 kg/m Physical Exam Vitals reviewed. Constitutional: Appearance: Normal appearance. HENT: Head: Normocephalic and atraumatic. Right Ear: Tympanic membrane, ear canal and external ear normal. Left Ear: Tympanic membrane, ear canal and external ear normal. Nose: Congestion present. Mouth/Throat: Mouth: Mucous membranes are moist. Pharynx: Oropharynx is clear. Cardiovascular: Rate and Rhythm: Normal rate and regular rhythm. Heart sounds: Normal heart sounds. Pulmonary: Effort: Pulmonary effort is normal. Breath sounds: Normal breath sounds. Musculoskeletal: Cervical back: Neck supple. Lymphadenopathy: Cervical: No cervical adenopathy. Skin: General: Skin is warm and dry. Findings: No rash. Neurological: Mental Status: He is alert. Assessment and Plan ASSESSMENT/PLAN: 1. Vomiting and diarrhea - ICD9: 787.03, 787.91, ICD10: R11.10, R19.7 (primary diagnosis) Patient brought up that he was concerned for cardiac etiology. Discussed with him I cannot do any cardiac testing here to rule out out. He has had vomiting and diarrhea with chills and sweats. Discussed with him there is a very good chance this is a viral gastroenteritis however again cannot completely rule out cardiac causes here. If he wants this done he needs to go to the ER. He is not having any chest pain or shortness of breath here. Symptoms are better today. Patient understands this. - COVID WITH FLUA+B, ROUTINE 2. Encounter for laboratory testing for COVID-19 virus - ICD9: V01.79, ICD10: Z20.822 - COVID WITH FLUA+B, ROUTINE Huong Nick PA-C [facility] History of Past illness Narrative* Problem Noted Date Diagnosed Date Resolved Date Postherpetic neuralgia 01/27/202203/27 High grade prostatic intraep ithelial neoplasia 05/26/2015 03/30/2017 PSA elevation 08/10/2014 12/18/2015 Left inguinal hernia 01/04/2012 013 BPH NOS w ur obs/LUTS 08/09/20112018 Health maintenance examination 03/02/2009 12/07/2018 Mitral regurgitation 03/02/2009 013 Overview: Clinically as of 02-25 Umbilical hernia 02/03/2009 08/09/2011 Overview: Umbilical hernia repair on 02-13-09 documented as of this encounter (statuses as of 03/28/2023) [facility] of Past illness Narrative* Problem Noted Date Diagnosed Date Resolved Date Postherpetic neuralgia 01/27/202203/27 High grade prostatic intraep ithelial neoplasia 05/26/2015 03/30/2017 PSA elevation 08/10/2014 12/18/2015 Left inguinal hernia 01/04/2012 013 BPH NOS w ur obs/LUTS 08/09/20112018 Health maintenance examination 03/02/2009 12/07/2018 Mitral regurgitation 03/02/2009 013 Overview: Clinically as of 02-25 Umbilical hernia 02/03/2009 08/09/2011 Overview: Umbilical hernia repair on 02-13-09 documented as of this encounter (statuses as of 05/02/2023) [facility] History of Past illness Narrative* Problem Noted Date Diagnosed Date Resolved Date Postherpetic neuralgia 01/27/202203/27 High grade prostatic intraep ithelial neoplasia 05/26/2015 03/30/2017 PSA elevation 08/10/2014 12/18/2015 Left inguinal hernia 01/04/2012 013 BPH NOS w ur obs/LUTS 08/09/20112018 Health maintenance examination 03/02/2009 12/07/2018 Mitral regurgitation 03/02/2009 013 Overview: Clinically as of 02-25 Umbilical hernia 02/03/2009 08/09/2011 Overview: Umbilical hernia repair on 02-13-09 documented as of this encounter (statuses as of 05/20/2023) [facility] History of Present illness Narrative* Jamey Damian MD - 01/27/2022 8:50 AM EDT This note was created using [employer]. Subjective Umesh Preston is a 71 year old male. He had shingles 6 weeks ago. He still had itching and burningin his right posterior chest that caused insomnia. Overall this was slowly improving. His hypertension and lipids were controlled. Anemia was noted, but he had no symptoms of any bleeding. Review of Systems Constitutional: Negative. HENT: Negative. Respiratory: Negative. Cardiovascular: Negative. Gastrointestinal: Negative. Skin: Positive for rash. Neurological: Negative. ACTIVE PROBLEM LIST Htn (Hypertension) Hyperlipidemia Psoriasis Adenomatous Colon Polyp History of Prostate Cancer Irritable Bowel Syndrome Without Diarrhea Perinephric Cyst Social History Tobacco Use Smoking status: Former Packs/day: 0.50 Years: 10.00 Pack years: 5.00 Types: Cigarettes Quit date: 10/17/1978 Years since quittin.3 Smokeless tobacco: Never Substance Use Topics Alcohol use: Yes Alcohol/week: 15.0 standard drinks Types: 6 Cans of Beer (12oz) per week Drug use: No Current Outpatient Medications Medication Sig losartan (COZAAR) 50 mg tablet Take 1 tablet by mouth once daily. simvastatin (ZOCOR) 20 mg tablet Take 1 tablet by mouth once daily. amLODIPine (NORVASC) 10 mg tablet Take 1 tablet by mouth once daily. triamcinolone acetonide (KENALOG) 0.1 % cream Apply 1 application to affected area twice daily. As directed. dicyclomine (BENTYL) 20 mg tablet Take 1 tablet by mouth every 6 hours. As needed for abdominal pain. No current facility-administered medications for this visit. Objective BP 128/66 (BP Site: Right Arm, BP Position: Sitting) Pulse 76 Temp 36.2 C (97.1 F) (Temporal) Resp 18 Wt 82.9 kg (182 lb 12.8 oz) BMI 26.23 kg/m Physical Exam Constitutional: Appearance: He is not ill-appearing. Cardiovascular: Rate and Rhythm: Normal rate and regular rhythm. Heart sounds: No murmur heard. No gallop. Pulmonary: Breath sounds: Normal breath sounds. Chest: Chest wall: No tenderness. Musculoskeletal: Right lower leg: No edema. Left lower leg: No edema. Skin: Comments: Postinflammatory pigmentation right scapular area. Neurological: Mental Status: He is alert. Assessment and Plan 1. 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 Risks: Possible side effects were discussed. Warnings: sedation. Duration: short term. - ZOLPIDEM 5 MG TABLET 2. Postherpetic neuralgia - ICD9: 053.19, ICD10: B02.29 Consider gabapentin if this protracts. Discussed medication dosage, usage, goals of therapy, and side effects. 3. Primary hypertension - ICD9: 401.9, ICD10: I10 - good control - BASIC METABOLIC PNL 4. Anemia, unspecified type - ICD9: 285.9, ICD10: D64.9 Dilutional? He drinks plenty of fluids. - CBC 5. Need for COVID-19 vaccine - ICD9: V04.89, ICD10: Z23 - PFIZER-BIONTECH COVID-19 VACCINE, AGE 12+ YR (KINNEY TOP) Jamey Damian MD [facility] Miscellaneous Notes* Telephone Encounter - Gia Whitley LPN - 12/25/2021 8:16 AM EDT Pt calling to request treatment for shingles. He reports is symptoms have been ongoing for a week. He will come to urgent care for evaluation of this and his discomfort. [facility] History of Past illness Narrative* Problem Noted Date Resolved Date High grade prostatic intraepithelial neoplasia 1 07/27/2014 03/30/2017 PSA elevation 08/10/2014 12/18/2015 Left inguinal hernia 01/04/2012 08/13/2012 BPH NOS w ur obs/LUTS 08/09/2011 12/07/2018 Health maintenance examination 03/02/2009 0 12/07/2018 Mitral regurgitation 03/02/2009 08/13/2012 Overview: Clinically as of 02-25 Umbilical hernia 02/03/2009 08/09/2011 Overview: Umbilical hernia repair on 02-13-09 documented as of this encounter (statuses as of 12/27/2021) [facility] of [facility] illness Narrative* Problem Noted Date Resolved Date High grade prostatic intraepithelial neoplasia 1 07/27/2014 03/30/2017 PSA elevation 08/10/2014 12/18/2015 Left inguinal hernia 01/04/2012 08/13/2012 BPH NOS w ur obs/LUTS 08/09/2011 12/07/2018 Health maintenance examination 03/02/2009 0 12/07/2018 Mitral regurgitation 03/02/2009 08/13/2012 Overview: Clinically as of 02-25 Umbilical hernia 02/03/2009 08/09/2011 Overview: Umbilical hernia repair on 02-13-09 documented as of this encounter (statuses as of 01/27/2022) [facility] of [facility] illness Narrative* Problem Noted Date Resolved Date High grade prostatic intraepithelial neoplasia 1 07/27/2014 03/30/2017 PSA elevation 08/10/2014 12/18/2015 Left inguinal hernia 01/04/2012 08/13/2012 BPH NOS w ur obs/LUTS 08/09/2011 12/07/2018 Health maintenance examination 03/02/2009 0 12/07/2018 Mitral regurgitation 03/02/2009 08/13/2012 Overview: Clinically as of 02-25 Umbilical hernia 02/03/2009 08/09/2011 Overview: Umbilical hernia repair on 02-13-09 documented as of this encounter (statuses as of 06/06/2022) [facility] of [facility] illness Narrative* Problem Noted Date Resolved Date High grade prostatic intraepithelial neoplasia 1 07/27/2014 03/30/2017 PSA elevation 08/10/2014 12/18/2015 Left inguinal hernia 01/04/2012 08/13/2012 BPH NOS w ur obs/LUTS 08/09/2011 12/07/2018 Health maintenance examination 03/02/2009 0 12/07/2018 Mitral regurgitation 03/02/2009 08/13/2012 Overview: Clinically as of 02-25 Umbilical hernia 02/03/2009 08/09/2011 Overview: Umbilical hernia repair on 02-13-09 documented as of this encounter (statuses as of 06/07/2022) [facility] of [facility] illness Narrative* Problem Noted Date Resolved Date High grade prostatic intraepithelial neoplasia 1 07/27/2014 03/30/2017 PSA elevation 08/10/2014 12/18/2015 Left inguinal hernia 01/04/2012 08/13/2012 BPH NOS w ur obs/LUTS 08/09/2011 12/07/2018 Health maintenance examination 03/02/2009 0 12/07/2018 Mitral regurgitation 03/02/2009 08/13/2012 Overview: Clinically as of 02-25 Umbilical hernia 02/03/2009 08/09/2011 Overview: Umbilical hernia repair on 02-13-09 documented as of this encounter (statuses as of 06/21/2022) [facility] Narrative* Problem Noted Date Resolved Date High grade prostatic intraepithelial neoplasia 1 07/27/2014 03/30/2017 PSA elevation 08/10/2014 12/18/2015 Left inguinal hernia 01/04/2012 08/13/2012 BPH NOS w ur obs/LUTS 08/09/2011 12/07/2018 Health maintenance examination 03/02/2009 0 12/07/2018 Mitral regurgitation 03/02/2009 08/13/2012 Overview: Clinically as of 02-25 Umbilical hernia 02/03/2009 08/09/2011 Overview: Umbilical hernia repair on 02-13-09 documented as of this encounter (statuses as of 06/23/2022) [facility] of [facility] illness Narrative* Problem Noted Date Resolved Date High grade prostatic intraepithelial neoplasia 1 07/27/2014 03/30/2017 PSA elevation 08/10/2014 12/18/2015 Left inguinal hernia 01/04/2012 08/13/2012 BPH NOS w ur obs/LUTS 08/09/2011 12/07/2018 Health maintenance examination 03/02/2009 0 12/07/2018 Mitral regurgitation 03/02/2009 08/13/2012 Overview: Clinically as of 02-25 Umbilical hernia 02/03/2009 08/09/2011 Overview: Umbilical hernia repair on 02-13-09 documented as of this encounter (statuses as of 06/23/2022) [facility] Narrative* Problem Noted Date Resolved Date High grade prostatic intraepithelial neoplasia 1 07/27/2014 03/30/2017 PSA elevation 08/10/2014 12/18/2015 Left inguinal hernia 01/04/2012 08/13/2012 BPH NOS w ur obs/LUTS 08/09/2011 12/07/2018 Health maintenance examination 03/02/2009 0 12/07/2018 Mitral regurgitation 03/02/2009 08/13/2012 Overview: Clinically as of 02-25 Umbilical hernia 02/03/2009 08/09/2011 Overview: Umbilical hernia repair on 02-13-09 documented as of this encounter (statuses as of 11/16/2022) [facility] Narrative* Problem Noted Date Resolved Date High grade prostatic intraepithelial neoplasia 1 07/27/2014 03/30/2017 PSA elevation 08/10/2014 12/18/2015 Left inguinal hernia 01/04/2012 08/13/2012 BPH NOS w ur obs/LUTS 08/09/2011 12/07/2018 Health maintenance examination 03/02/2009 0 12/07/2018 Mitral regurgitation 03/02/2009 08/13/2012 Overview: Clinically as of 02-25 Umbilical hernia 02/03/2009 08/09/2011 Overview: Umbilical hernia repair on 02-13-09 documented as of this encounter (statuses as of 12/14/2022) [facility] Narrative* Problem Noted Date Resolved Date High grade prostatic intraepithelial neoplasia 1 07/27/2014 03/30/2017 PSA elevation 08/10/2014 12/18/2015 Left inguinal hernia 01/04/2012 08/13/2012 BPH NOS w ur obs/LUTS 08/09/2011 12/07/2018 Health maintenance examination 03/02/2009 0 12/07/2018 Mitral regurgitation 03/02/2009 08/13/2012 Overview: Clinically as of 02-25 Umbilical hernia 02/03/2009 08/09/2011 Overview: Umbilical hernia repair on 02-13-09 documented as of this encounter (statuses as of 12/16/2022) [facility] Narrative* Problem Noted Date Resolved Date High grade prostatic intraepithelial neoplasia 1 07/27/2014 03/30/2017 PSA elevation 08/10/2014 12/18/2015 Left inguinal hernia 01/04/2012 08/13/2012 BPH NOS w ur obs/LUTS 08/09/2011 12/07/2018 Health maintenance examination 03/02/2009 0 12/07/2018 Mitral regurgitation 03/02/2009 08/13/2012 Overview: Clinically as of 02-25 Umbilical hernia 02/03/2009 08/09/2011 Overview: Umbilical hernia repair on 02-13-09 documented as of this encounter (statuses as of 12/22/2022) [facility] Diagnosis Secondary insomnia- Primary Organic insomnia, unspecified Postherpetic neuralgia Herpes zoster with other nervous system complications Primary hypertension Unspecified essential hypertension Anemia, unspecified type Need for COVID-19 vaccine [facility] encounter [facility]* Diagnosis Vomiting and diarrhea- Primary Vomiting alone Encounter for laboratory testing for COVID-19 virus documented [facility] encounter [facility]* Diagnosis Bowel habit changes- Primary Other symptoms involving digestive system Lower abdominal pain Abdominal pain, other specified site documented [facility] this encounter [facility]* Diagnosis Acute diarrhea- Primary Diarrhea Abdominal cramping Abdominal pain, unspecified site documented [facility] this encounter [facility]* Diagnosis Hyperlipidemia, unspecified hyperlipidemia type- Primary Primary hypertension Unspecified essential hypertension History of prostate cancer Personal history of malignant neoplasm of prostate [facility] encounter [facility]* Diagnosis Arthralgia of multiple joints- Primary Pain in joint, multiple sites Acute midline low back pain without sciatica [facility]* Diagnosis Acute midline low back pain without sciatica- Primary Arthralgia of multiple joints Pain in joint, multiple sites documented [facility]* Diagnosis Preop exam for internal medicine- Primary Other specified pre-operative examination Primary hypertension Unspecified essential hypertension [facility]* Diagnosis Onset Date Resolution Status Lumbar stenosis acute HTN (hypertension) chronic Hyperlipidemia chronic [facility] Work Phone: Evaluation note* Diagnosis Right inguinal pain- Primary Abdominal pain, right lower quadrant History of prostate cancer Personal history of malignant neoplasm of prostate Primary hypertension Unspecified essential hypertension S/P lumbar spinal fusion Arthrodesis status documented in this encounter [facility] note* Diagnosis Right inguinal pain Abdominal pain, right lower quadrant documented in this encounter [facility] note* Diagnosis Right inguinal hernia Inguinal hernia without mention of obstruction or gangrene, unilateral or unspecified, (not specified as recurrent) documented in this encounter [facility] note* Diagnosis Lip cyst- Primary Diseases of lips documented in this encounter [facility] note* Diagnosis Acute midline low back pain without sciatica documented in this encounter [facility] note* Diagnosis Primary hypertension- Primary Unspecified essential hypertension Hyperlipidemia, unspecified hyperlipidemia type Screening for depression Encounter for screening examination for other mental health and behavioral disorders Encounter for immunization Need for other specified prophylactic vaccination against single bacterial disease documented in this encounter [facility] note* Diagnosis Onset Date Resolution Status Admit Date HTN (hypertension) chronic Octobe r 2024 8:55am Hyperlipidemia chronic April 022024 8:55am [facility] Work Phone: Progress note Author Stuart Johnson [facility] Services Note Date/Time April 02, 2025 9 :31am [facility] [address] [place] [address] OFFICE VISIT Date of Service: 04/02/25 MR#: [id number] Acct: [id number] Name: UMESH PRESTON Rep #: [id number] : 1950 Provider: Dr. Dhaval Johnson MD Age/Sex: 74/M Location: [facility] Status: Signed HPI HPI History of Present Illness Details: The patient is a 74-year-old male with a history of hypertension and hypercholesterolemia, presenting for cardiovascular evaluation. The patient expresses concern about his cardiovascular health due to a family history of strokes and myocardial infarctions. He desires to establish care with a local siebel consultant for ongoing management and to address any potential issues promptly, especially given his plans to travel to [place] around [place]. He reports not feeling well since undergoing cataract surgery and cyst removal from his jaw in December, attributing this to the anesthesia. He denies experiencingdyspnea, chest pain, dizziness, or syncope. He has not had any episodes of chestpain since 2018, when he was hospitalized for such symptoms. His physical exam appears to be unremarkable at this time and his EKG demonstrates a sinus rhythm with a rate of 78 bpm first-degree AV block and premature atrial complexes noted. A left anterior fascicular block is present. He has a history of hypertension and hypercholesterolemia, both of which are currently well-controlled with medication. He is a former smoker, having quit 45years ago. He underwent back surgery in the fall of 2022, which has limited his ability to walk long distances. Previously, he walked 3-5 miles daily; currently, he walks 0.5 to 0.75 miles per day and plays golf, mostly using a cart but walking some of the course.He lives alone and has a son who resides 150 miles away. He expresses anxiety about living alone and the possibility of experiencing a medical emergency without immediate assistance. He has a family history of cardiovascular disease, with both parents and most relatives having from strokes or myocardial infarctions. 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 Required: No Accompanied by: Self Is patient in pain?: No Allergies Penicillins (PCN) Allergy (Verified 04/02/25 09:01) Hives Medications ?Medication ?Instructions ?Recorded ?Confirmed ?Type amlodipine 10 mg tablet 10 mg PO DAILY BP 02/17/19 1 History simvastatin 20 mg tablet 20 mg PO DAILY CHOLESTEROL 0 02/17/19 04/02/25 History losartan 50 mg tablet 50 mg PO QDAY 03/18/2504/02 History Ejection fraction %: 60 Have you fallen in the past year?: No [facility] Medical History Mitral regurgitation IBS (irritable bowel syndrome) Lumbar stenosis Arthritis History of pain when walking Cancer History of psoriasis Prostate disease Chest pain TIA (transient ischemic attack) Hyperlipidemia HTN (hypertension) Surgical History Hx of cataract surgery S/P lumbar fusion (05/18/23) Hx of oral surgery Hx of colonoscopy Hx of tonsillectomy Hx of umbilical hernia repair Hx of inguinal hernia repair Family History Mother CVA (cerebral vascular accident) Hypertension Father Cancer Social History Smoking Status: Former smoker alcohol intake: current alcohol intake frequency: 0-2 drinks per day substance use type: does not use ROS Const Const: Negative for fatigue, weakness, daytime sleepiness or difficulty sleeping ENT ENT: Negative for dizziness or Nosebleed/epistaxis Cardio Chest Pain: No Palpitations: No Edema: None Resp Respiratory: Positive for SOB at rest; Negative for SOB with activity, SOB orthopnea\SOB lying down or Cough GI GI: Negative nausea, vomiting or heartburn Neuro Neuro: Negative for dizziness, lightheadedness, near syncope or weakness Endo Endo: Negative for fatigue Cardiology Exam Const Appearance: cooperative, healthy appearing, no acute distress, well developed and well groomed Nutritional Appearance: average body habitus and well nourished Orientation: alert, awake and oriented x3 Head Head: normal to inspection, normocephalic and atraumatic Ears: hearing grossly normal bilaterally and external ears normal Nose: external nose normal, nares normal, nasal mucous membranes and turbinates normal, septum normal and no nasal discharge Face and Sinus: face symmetric Mouth: oral mucosae normal, tongue normal, oropharynx normal and moist mucous membranes Teeth and gingiva: dentition normal Throat: posterior oropharynx normal, tonsils normal and uvula midline Eyes General: appearance normal, both eyes and all related structures Eyelids: eyelids normal Conjunctivae: conjunctivae normal Pupils: PERRL, normal by confrontation and accommodation normal EOM: EOM intact bilaterally Neck Neck: normal visual inspection, trachea midline and no JVD JVD: +5 Carotids: normal carotid upstroke and bounding pulses Chest Chest inspection: normal inspection of the chest, symmetric chest movement and normal respiratory effort Auscultation: Bilateral: Clear to Auscultation Cardio Palpation: normal PMI Rate: regular rate Rhythm: regular rhythm Heart sounds: S1 normal, S2 normal and normal, physiologic split S2; Negative rub, gallop or murmur GI GI: normal to inspection, soft, no hepatosplenomegaly and bowel sounds present Neuro General: patient alert, patient awake, patient oriented x3, gait normal, moves all extremities and no focal sensory deficit Skin Skin: no rashes or lesions noted Extremities Pulses: Normal: Right Femoral Pulse, Left Femoral Pulse, Right Dorsalis Pedis Pulse, Left Dorsalis Pedis Pulse, Right Posterior Tibial Pulse, Left Posterior Tibial Pulse, Right Radial Pulse and Left Radial Pulse Lower Extremity Edema: None: Bilateral Musculoskel Musculoskeletal: No joint tenderness Psych Psychological: normal affect Supplemental Info Supplemental Information Echocardiogram 02/18/19 Interpretation Summary Contrast injection was performed. Left ventricular systolic function is normal. The estimated ejection fraction is 60 %. The left atrium is moderately enlarged. Mild (1+) mitral valve insufficiency. Trivial tricuspid valve insufficiency. Mild (1+) aortic valve insufficiency. Trivial pulmonic valve insufficiency. Transmitral diastolic flow velocities suggest diastolic dysfunction (pseudonormal pattern). Bubble contrast study negative for right to left interatrial shunt. Stress Test 05/29/19 Conclusions: Normal adequate treadmill EKG. Negative for ischemia by EKG criteria. No anginal symptoms noted. Rare PVC noted. Test terminated due to dyspnea. Although the patient did not quite reach target heart rate, his rate pressure product was adequate to call at a adequate test. Patient tolerated the procedure well. No complications. Recommend clinical correlation or alternative mode of testing of coronary Klooster disease and strongly suspected. Chest CTA 05/28/19 IMPRESSION: 1. No pulmonary embolism 2. Unremarkable aorta. 3. Severe coronary artery disease. AAA US Screening 10/02/17 ([facility]) Findings There is tapering of a normal sized abdominal aorta without aneurysm. Common iliac arteries are normal in size as well. No significant atherosclerotic disease is seen. Labs: LDL Cholesterol, (0-130) 61 mg/dL HDL Cholesterol, (40-) 82 mg/dL Cholesterol, (200) 160 mg/dL Triglycerides, (-199) 85 mg/dL Diagnostics: Electrocardiogram Echocardiogram Stress Test Chest X-Ray Chest CTA Past Visits: Cardiology Visit Today Assessment and Plan Assessment and Plan (1) HTN (hypertension): Status: Chronic Qualifiers: Hypertension type: essential hypertension Qualified Code(s): I10 - Essential (primary) hypertension Plan: His blood pressure appears to be well-controlled at this particular time. He will remain on the amlodipine and the losartan without making any changes. Patient expresses concern about family history of cardiovascular disease and seeks ongoing cardiology care due to limited local access. - Order echocardiogram to assess cardiac function and valve status. - Order stress test to evaluate functional capacity. - Order CT chest to assess for coronary artery plaque and other thoracic pathology. - Order carotid and aortic ultrasound to reassess for vascular disease; last study was in 2019. - Results will be reviewed and communicated within one week of test completion; if abnormal, patient will return for further evaluation; if normal, annual follow- up will be recommended. - Provided contact information for the practice and encouraged patient to reach out with any (2) Hyperlipidemia: Status: Chronic Qualifiers: Hyperlipidemia type: unspecified Qualified Code(s): E78.5 - Hyperlipidemia, unspecified Plan: He will continue with current lipid-lowering therapy. His most recent lipid profile demonstrated total cholesterol 176 HDL of 78 LDL of 82. Triglycerides of 82. These numbers are excellent. Orders: Orders 12 Lead EKG performed by [facility] Today E78.5 - Hyperlipidemia, unspecified, G45.9 -Transient cerebral ischemic attack, unspecified, I10 - Essential (primary) hypertension, I34.0 - Nonrheumatic mitral (valve) insufficiency, R07.9 - Chest pain, unspecified Echo Complete Today I10 - Essential (primary) hypertension Nuclear Stress Test - [facility] Today E78.5 - Hyperlipidemia, unspecified, I10 -Essential (primary) hypertension Cardiac Calcium Scoring 2 Weeks E78.5 - Hyperlipidemia, unspecified Plan Details Follow Up: 1 Year (sd) Coding Level of Care Code Off vis,new,level 4 Diagnoses Essential hypertension I10 Hypertension type: essential hypertension Hyperlipidemia, unspecified hyperlipidemia type E78.5 Hyperlipidemia type: unspecified Coding Level of Care Code Off vis,new,level 4 Diagnoses Essential hypertension I10 Hypertension type: essential hypertension Hyperlipidemia, unspecified hyperlipidemia type E78.5 Hyperlipidemia type: unspecified Clinical Quality Measures Falls Risk Screening/Assistive Devices Have you fallen in the past year?: No Cardiac Ejection fraction %: 60 04/02/25 0938 <Electronically signed by Parnell Alex M D> Date _ Stuart Johnson MD [employer] Signature: Date (if applicable) CC: Dr. Jamey Damian MD ~ [facility] [employer] Work Phone: Reason for referral (narrative)* Diagnostic Procedure Only (Routine) - Closed Specialty Diagnoses / Procedures Referred By Contac t Referred To Contact XR IMAGING Diagnoses Acute midline low back pain without sciatica Procedures XR LUMBAR GENERAL 3V AP/LAT/L5-S1 RADEX SPINE LUMBOSACRAL 2/3 VIEWS Delmy Thomas APRN.COUTIERIER [address] [place] [address] Xr Imaging Referral ID Status Reason Start Date Expiration Date V isits Requested Visits Authorized [id number] Closed Auto-Generate d Referral 12/14/2022 01/13/2024 1 1 [facility] for referral (narrative)* Diagnostic Procedure Only (Routine) - Closed Specialty Diagnoses / Procedures Referred By Contac t Referred To Contact XR IMAGING Diagnoses Acute midline low back pain without sciatica Procedures XR LUMBAR GENERAL 3V AP/LAT/L5-S1 RADEX SPINE LUMBOSACRAL 2/3 VIEWS Delmy Treviño SCRIPT ARTIST.COUTIERIER [address] [place] [address] [place] [address] Referral ID Status Reason Start Date Expiration Date V isits Requested Visits Authorized [id number] Closed Auto-Generate d Referral 12/14/2022 01/13/2024 1 1 [facility] for referral (narrative)No reason [facility] referral [facility]: Reason for visit Narrative* Diagnostic Procedure Only (Routine) - Closed Specialty Diagnoses / Procedures Referred By Contac t Referred To Contact XR IMAGING Diagnoses Acute midline low back pain without sciatica Procedures XR LUMBAR GENERAL 3V AP/LAT/L5-S1 RADEX SPINE LUMBOSACRAL 2/3 VIEWS Delmy Treviño, SILVANO.COUTIERIER [address] [place] [address] [place] [address] Referral ID Status Reason Start Date Expiration Date V isits Requested Visits Authorized [id number] Closed Auto-Generate d Referral 12/14/2022 01/13/2024 1 1 [facility] Advance Directives No Advanced Directives Records FoundDocuments on File Type Date Recorded Patient Vp Expl anation Advance Directive(s) 09/13/2021 8:50 AM Advance Directive(s) 08/16/2021 7:22 AM Advance Directive Response Recorded Date/ Time Living Will No May 18, 2 023 3:15pm Power of Ceramic Plater No May 18, 2023 3:15pm Health Concerns Infection Onset Date Last Indicated Resolved Time COVID-19 Rule-Out 06/06/2022 06/06/2022 Reason for Referral Specialty Diagnoses / Procedures Referred By Contac t Referred To Contact Orthopedics Diagnoses Acute midline low back pain without sciatica Arthralgia of multiple joints Procedures CONSULT TO ORTHOPAEDICS Delmy Thomas, SILVANO.COUTIERIER [address] [place] [address] Referral ID Status Reason Start Date Expiration Date Visits Requested Visits Authorized [id number] Ref Not Required PCP Requested Referral 12/21/2022 12/21/2023 1 1 Specialty Diagnoses / Procedures Referred By Contac t Referred To Contact General Surgery Diagnoses Right inguinal pain Procedures CONSULT TO GENERAL SURGERY OFFICE/OUTPATIENT [facility] 60 MINUTES Jamey Damian MD [address] [place] [address] Referral ID Status Reason Start Date Expiration Date Visits Requested Visits Authorized [id number] Authorized PCP Requested Referral 10/19/2023 10/18/2024 1 1 Specialty Diagnoses / Procedures Referred By Contac t Referred To Contact CT IMAGING Diagnoses Right inguinal pain Procedures CT ABD/PEL W IVCON CT ABD & PELVIS W/CONTRAST Jamey Damian MD [address] [place] [address] [place] [address] Referral ID Status Reason Start Date Expiration Date Visits Requested Visits Authorized [id number] Authorized Auto-Generat ed Referral 10/19/2023 11/17/2024 1 1 Chief Complaint and Reason for Visit Chief Complaint PREOP Post Lum Interbody Fusion Watt Two Level Post Lum Interbody Fusion Watt Two Level Post Lum Interbody Fusion Watt Two Level Reason for Visit Lumbar stenosis HTN (hypertension) Hyperlipidemia Chief Complaint Admit Date CP (SELF) April 02, 2025 8 :55am Reason for Visit Admit Date HTN (hypertension) April 02, 2025 8 :55am Hyperlipidemia April 02, 2025 8 :55am Family History No Family History Records Found Relationship Condition Age at Onset Recorded Date/T carmen Unknown Family History?Heart Disease, Stroke Unknown May 28, 2019 9:56pm Family History?Hypertension Unknown February 17, 2019 11:58am Relationship Condition Age at Onset Recorded Date/T carmen mother Cerebrovascular accident (CVA) Unknown Hypertension Unknown father Malignant neoplasm Unknown Summary Purpose Additional Source Comments Source Comments (unrecognize d section and content) In the event this informatio n is protected by the Federal Confidentiality of Alcohol and Drug Abuse Patient Records regulations: The Federal rules restrict any use of the information to criminally investigate or prosecute any alcohol or drug abuse patient.[facility] the event this information is protected by the Federal Confidentiality of Alcohol and Drug Abuse Patient Records regulations: The Federal rules restrict any use of the information to criminally investigate or prosecute any alcohol or drug abuse patient.[facility] the event this information is protected by the Federal Confidentiality of Alcohol and Drug Abuse Patient Records regulations: The Federal rules restrict any use of the information to criminally investigate or prosecute any alcohol or drug abuse patient.[facility] the event this information is protected by the Federal Confidentiality of Alcohol and Drug Abuse Patient Records regulations: The Federal rules restrict any use of the information to criminally investigate or prosecute any alcohol or drug abuse patient.[facility] the event this information is protected by the Federal Confidentiality of Alcohol and Drug Abuse Patient Records regulations: The Federal rules restrict any use of the information to criminally investigate or prosecute any alcohol or drug abuse patient.[facility] the event this information is protected by the Federal Confidentiality of Alcohol and Drug Abuse Patient Records regulations: The Federal rules restrict any use of the information to criminally investigate or prosecute any alcohol or drug abuse patient.[facility] the event this information is protected by the Federal Confidentiality of Alcohol and Drug Abuse Patient Records regulations: The Federal rules restrict any use of the information to criminally investigate or prosecute any alcohol or drug abuse patient.[facility] the event this information is protected by the Federal Confidentiality of Alcohol and Drug Abuse Patient Records regulations: The Federal rules restrict any use of the information to criminally investigate or prosecute any alcohol or drug abuse patient.[facility] the event this information is protected by the Federal Confidentiality of Alcohol and Drug Abuse Patient Records regulations: The Federal rules restrict any use of the information to criminally investigate or prosecute any alcohol or drug abuse patient.[facility] the event this information is protected by the Federal Confidentiality of Alcohol and Drug Abuse Patient Records regulations: The Federal rules restrict any use of the information to criminally investigate or prosecute any alcohol or drug abuse patient.[facility]In the event this information is protected by the Federal Confidentiality of Alcohol and Drug Abuse Patient Records regulations: The Federal rules restrict any use of the information to criminally investigate or prosecute any alcohol or drug abuse patient.[facility]In the event this information is protected by the Federal Confidentiality of Alcohol and Drug Abuse Patient Records regulations: The Federal rules restrict any use of the information to criminally investigate or prosecute any alcohol or drug abuse patient.[facility] the event this information is protected by the Federal Confidentiality of Alcohol and Drug Abuse Patient Records regulations: The Federal rules restrict any use of the information to criminally investigate or prosecute any alcohol or drug abuse patient.[facility]In the event this information is protected by the Federal Confidentiality of Alcohol and Drug Abuse Patient Records regulations: The Federal rules restrict any use of the information to criminally investigate or prosecute any alcohol or drug abuse patient.[facility]In the event this information is protected by the Federal Confidentiality of Alcohol and Drug Abuse Patient Records regulations: The Federal rules restrict any use of the information to criminally investigate or prosecute any alcohol or drug abuse patient.[facility] HospitalIn the event this information is protected by the Federal Confidentiality of Alcohol and Drug Abuse Patient Records regulations: The Federal rules restrict any use of the information to criminally investigate or prosecute any alcohol or drug abuse patient.[facility] HospitalIn the event this information is protected by the Federal Confidentiality of Alcohol and Drug Abuse Patient Records regulations: The Federal rules restrict any use of the information to criminally investigate or prosecute any alcohol or drug abuse patient.[facility] HospitalIn the event this information is protected by the Federal Confidentiality of Alcohol and Drug Abuse Patient Records regulations: The Federal rules restrict any use of the information to criminally investigate or prosecute any alcohol or drug abuse patient.[facility] HospitalIn the event this information is protected by the Federal Confidentiality of Alcohol and Drug Abuse Patient Records regulations: The Federal rules restrict any use of the information to criminally investigate or prosecute any alcohol or drug abuse patient.[facility] HospitalIn the event this information is protected by the Federal Confidentiality of Alcohol and Drug Abuse Patient Records regulations: The Federal rules restrict any use of the information to criminally investigate or prosecute any alcohol or drug abuse patient.[facility] HospitalIn the event this information is protected by the Federal Confidentiality of Alcohol and Drug Abuse Patient Records regulations: The Federal rules restrict any use of the information to criminally investigate or prosecute any alcohol or drug abuse patient.[facility] HospitalIn the event this information is protected by the Federal Confidentiality of Alcohol and Drug Abuse Patient Records regulations: The Federal rules restrict any use of the information to criminally investigate or prosecute any alcohol or drug abuse patient.[facility] HospitalIn the event this information is protected by the Federal Confidentiality of Alcohol and Drug Abuse Patient Records regulations: The Federal rules restrict any use of the information to criminally investigate or prosecute any alcohol or drug abuse patient.[facility] HospitalIn the event this information is protected by the Federal Confidentiality of Alcohol and Drug Abuse Patient Records regulations: The Federal rules restrict any use of the information to criminally investigate or prosecute any alcohol or drug abuse patient.[facility] HospitalIn the event this information is protected by the Federal Confidentiality of Alcohol and Drug Abuse Patient Records regulations: The Federal rules restrict any use of the information to criminally investigate or prosecute any alcohol or drug abuse patient.[facility] HospitalIn the event this information is protected by the Federal Confidentiality of Alcohol and Drug Abuse Patient Records regulations: The Federal rules restrict any use of the information to criminally investigate or prosecute any alcohol or drug abuse patient.[facility] Reason for Visit (unrecogniz ed section and content) Reason Comments Shingles Reason Comments F/U 6 months Reason Comments Vomiting [place], cold sweats x 2 days Reason Comments Results Reason Comments Diarrhea abdominal cramping a nd bodyaches x 1 week off and on Reason Comments Follow Up Reason Comments Orders Reason Comments joint pain , lower back , left shoulder x 2 weeks Reason Comments Referral Request Reason Comments Pre-Op Exam Back surgery - [facility] Reason Comments Patient Question Patient Update Reason Comments [facility] follow for correction Reason Comments Future Appointment Reason Comments Abdominal Pain RLQ; x 1 week inguin al area Reason Comments Patient Question Specialty Diagnoses / Procedures Referred By Hiram yan Referred To Contact CT IMAGING Diagnoses Right inguinal pain Procedures CT ABD/PEL W IVCON CT ABD & PELVIS W/CONTRAST Jamey Damian MD [address] [place] [address] [place] [address] Referral ID Status Reason Start Date Expiration Date V isits Requested Visits Authorized [id number] Closed Auto-Generate d Referral 10/19/2023 11/17/2024 1 [address] Specialty Diagnoses / Procedures Referred By Hiram t Referred To Contact CT IMAGING Diagnoses Right inguinal pain Procedures CT ABD/PEL W IVCON CT ABD & PELVIS W/CONTRAST Jamey Damian MD [address] [place] [address] [place] [address] Reason Comments Consult Rt inguinal hernia Specialty Diagnoses / Procedures Referred By Hiram yan Referred To Contact General Surgery Diagnoses Right inguinal pain Procedures CONSULT TO GENERAL SURGERY OFFICE/OUTPATIENT [facility] 60 MINUTES Jamey Damian MD [address] [place] [address] Referral ID Status Reason Start Date Expiration Date V isits Requested Visits Authorized [id number] Closed PCP Requested Referral 10/19/2023 10/18/2024 1 1 Reason Comments Patient Update Reason Comments hard lump inside lower lip Reason Comments Follow Up 6 months Care Teams (unrecognized sec tion and content) Dynamics Ax Consultant Relationship Specialty Start Date End Date Jamey Damian MD [address] [place], [place] [address] PCP - General Internal Medicine 08/09/11 Madhu Hood MD, [address] [place] [address] Physician Radiation Oncology 07/29/15 Dynamics Ax Consultant Relationship Specialty Start Date End Date Jamey Damian MD [address] [place], [place] [address] PCP - General Internal Medicine 08/09/11 Madhu Hood MD, MD [address] [place] [address] Physician Radiation Oncology 07/29/15 Dynamics Ax Consultant Relationship Specialty Start Date End Date Jamey Damian MD [address] [place] [address] PCP - General Internal Medicine 08/09/11 aMdhu Hood MD, MD [address] [place] [address] Physician Radiation Oncology 07/29/15 Dynamics Ax Consultant Relationship Specialty Start Date End Date Jamey Damian MD [address] [place] [address] PCP - General Internal Medicine 08/09/11 Madhu Hood MD, [address] [place] [address] Physician Radiation Oncology 07/29/15 Dynamics Ax Consultant Relationship Specialty Start Date End Date Jamey Damian MD [address] [facility] [place] [address] PCP - General Internal Medicine 08/09/11 Madhu Hood MD, [address] [facility] [place] [address] Physician Radiation Oncology 07/29/15 Dynamics Ax Consultant Relationship Specialty Start Date End Date Jamey Damian MD [address] [facility] [place] [address] PCP - General Internal Medicine 08/09/11 Madhu Hood MD, [address] [facility] [place] [address] Physician Radiation Oncology 07/29/15 Dynamics Ax Consultant Relationship Specialty Start Date End Date Jamey Damian MD [address] [facility] [place] [address] PCP - General Internal Medicine 08/09/11 Madhu Hood MD, [address] [place] [address] Physician Radiation Oncology 07/29/15 Dynamics Ax Consultant Relationship Specialty Start Date End Date Jamey Damian MD [address] [facility] [place] [address] PCP - General Internal Medicine 08/09/11 Madhu Hood MD, [address] [place] [address] Physician Radiation Oncology 07/29/15 Dynamics Ax Consultant Relationship Specialty Start Date End Date Jamey Damian MD [address] [facility] [place] [address] PCP - General Internal Medicine 08/09/11 Madhu Hood MD, MD [address] [facility] [place] [address] Physician Radiation Oncology 07/29/15 Dynamics Ax Consultant Relationship Specialty Start Date End Date Jamey Damian MD [address] [facility] [place] [address] PCP - General Internal Medicine 08/09/11 Madhu Hood MD, [address] [place] [address] Physician Radiation Oncology 07/29/15 Dynamics Ax Consultant Relationship Specialty Start Date End Date Jamey Damian MD [address] [facility] [place] [address] PCP - General Internal Medicine 08/09/11 Madhu Hood MD, MD [address] [place] [address] Physician Radiation Oncology 07/29/15 Dynamics Ax Consultant Relationship Specialty Start Date End Date Jamey Damian MD [address] [facility] [place] [address] PCP - General Internal Medicine 08/09/11 Madhu Hood MD, MD [address] [facility] [place] [address] Physician Radiation Oncology 07/29/15 Team Status: Active Member Role Status Dates Dr. Jamey Damian MD Family Provider Active Dr. Jamey Damian MD Primary Care Provider Active Team Status: Active Member Role Status Dates Dr. Jamey Damian MD Primary Care Provider Active Dr. Colby Colon MD Attending Provider Activ e Dr. Wilver Willson DO Referring Provider Active Team Status: Active Member Role Status Dates Dr. Wilver Willson , Admit Provider, R eferring Provider, Other Provider Active Dr. Jamey Damian MD Primary Care Provider Active Dr. Alphonse Good DO Attending Provider, Other Provider Active Team Status: Active Member Role Status Dates Dr. Wilver Willson , Admit Provider, R eferring Provider, Other Provider Active Dr. Jamey Damian MD Primary Care Provider Active Dr. Yen Tucker MD Attending Provider, Other Prov ider Active Team Status: Inactive Member Role Status Dates Dr. Wilver Willson DO Admit Provider, A ttending Provider, Referring Provider Active Dr. Jamey Damian MD Primary Care Provider Active Dr. Yen Tucker MD Other Provider Active Dynamics Ax Consultant Relationship Specialty Start Date End Date Jamey Damian MD [address] [place] [address] PCP - General Internal Medicine 08/09/11 Madhu Hood MD, MD [address] [place] [address] Physician Radiation Oncology 07/29/15 Dynamics Ax Consultant Relationship Specialty Start Date End Date Jamey Damian MD [address] [place] [address] PCP - General Internal Medicine 08/09/11 Madhu Hood MD [address] [place] [address] Physician Radiation Oncology 07/29/15 Dynamics Ax Consultant Relationship Specialty Start Date End Date Jamey Damian MD [address] [place] [address] PCP - General Internal Medicine 08/09/11 Madhu Hood MD [address] [place] [address] Physician Radiation Oncology 07/29/15 Dynamics Ax Consultant Relationship Specialty Start Date End Date Jamey Damian MD [address] [place] [address] PCP - General Internal Medicine 08/09/11 Madhu Hood MD [address] [place] [address] Physician Radiation Oncology 07/29/15 Dynamics Ax Consultant Relationship Specialty Start Date End Date Jamey Damian MD [address] [place] [address] PCP - General Internal Medicine 08/09/11 Madhu Hood MD [address] [place] [address] Physician Radiation Oncology 07/29/15 Dynamics Ax Consultant Relationship Specialty Start Date End Date Jamey Damian MD [address] [place] [address] PCP - General Internal Medicine 08/09/11 Madhu Hood MD [address] [place] [address] Physician Radiation Oncology 07/29/15 Dynamics Ax Consultant Relationship Specialty Start Date End Date Jamey Damian MD [address] [place] [address] PCP - General Internal Medicine 08/09/11 Madhu Hood MD [address] [place] [address] Physician Radiation Oncology 07/29/15 Dynamics Ax Consultant Relationship Specialty Start Date End Date Jamey Damian MD [address] [place] [address] PCP - General Internal Medicine 08/09/11 Madhu Hood MD [address] [place] [address] Physician Radiation Oncology 07/29/15 Dynamics Ax Consultant Relationship Specialty Start Date End Date Jamey Damian MD [address] [place] [address] PCP - General Internal Medicine 08/09/11 Madhu Hood MD [address] [place] [address] Physician Radiation Oncology 07/29/15 Dynamics Ax Consultant Relationship Specialty Start Date End Date Jamey Damian MD [address] [place] [address] PCP - General Internal Medicine 08/09/11 Madhu Hood MD [address] [place] [address] Physician Radiation Oncology 07/29/15 Delmy Treviño, SCRIPT ARTIST.COUTIERIER [address] [place] [address] [facility] Internal Medicine 05/27/24 Dynamics Ax Consultant Relationship Specialty Start Date End Date Jamey Damian MD [address] [facility] [place] [address] PCP - General Internal Medicine 08/09/11 Madhu Hood MD [address] [facility] [address] [place], [place] [address] Physician Radiation Oncology 07/29/15 Delmy Treviño, SCRIPT ARTIST.COUTIERIER [address] [facility] [place] [address] [facility] Internal [facility] 05/27/24 Team Status: Active Member Role/Relationship Status Dates Dr. Jamey Damian MD Primary care physician Activ e Team Status: Inactive Member Role/Relationship Status Dates Dr. Jamey Damian MD Primary care physician Activ e Start: April 02, 2025 End: April 02, 2025 Dr. Jamey Damian MD Referring Provider Active Start: April 02, 2025 End: April 02, 2025 Dr. Stuart Johnson MD Attending physician Active Start: April 02, 2025 End: April 02, 2025 (unrecognized sect ion and content) No Status Records FoundNo Status Records Found INFORMATION SOURCE (unrecogn ized section and content) DATE CREATED AUTHOR 07/19/[address] [facility] [address] [facility] DATE CREATED AUTHOR AUTHOR'S ORGANIZ ATION 04/26/2025 [facility] Goals (unrecognized section and content) Goals may be documented in a n alternate section FOR RECORDS PERTAINING TO PATIENTS WHO ARE OR HAVE BEEN ENROLLED IN A CHEMICAL DEPENDENCY/SUBSTANCEABUSE PROGRAM, SOME INFORMATION MAY BE OMITTED. This clinical summary was aggregated from multiple sources. Caution should be exercised in using it in the provision of clinical care. This summary normalizes information from multiple sources, and as a consequence, information in this document may materially change the coding, format and clinical context of patient data. In addition, data may be omitted in some cases. CLINICAL DECISIONS SHOULD BE BASED ON THE PRIMARY CLINICAL RECORDS. [facility]. provides no warranty or guarantee of the accuracy or completeness of information in this document.
--- NOTE | 2025-05-03 10:21 | STRESSREP ---
Stress Test Report Exercise myocardial perfusion stress test. 74-year-old man with a history of hypertension and chest pain. Stress protocol: Resting EKG demonstrates normal sinus rhythm with a rate of 73 bpm resting blood pressure is 152/80 mmHg. The patient exercised according to the regular [facility] protocol for a total duration of 7 minutes attaining a maximum heart rate of 110 bpm which was 74% of maximum predicted heart rate; the maximum workload was 10.1 metabolic equivalents. At rest there were no ST or T wave changes noted to suggest ischemia and at peak exercise upsloping ST changes only were noted which did not meet the criteria for ischemia. No clinical angina was noted the test was terminated due to the target heart rate being achieved/fatigue. The peak blood pressure was 170/70 mmHg. Rate-pressure product was 18,700. Myocardial perfusion protocol. 11.7 mCi of technetium 99m sestamibi was injected at rest. The patient exercised according to regular [facility] protocol for total duration of 7 minutes and at peak exercise 32.8 mCi of technetium 99m sestamibi was injected stress images were obtained stress and rest images were reconstructed in comparing the short axis vertical long and horizontal long axis. Gated images were also obtained. Perfusion SPECT analysis: Review of the stress images demonstrate normal uptake of tracer noted in all areas of the myocardium. The resting images similarly demonstrate normal uptake of tracer noted in all areas of the myocardium. No areas of reversibility are noted to suggest ischemia no previous infarct was noted. Gated SPECT analysis: The gated ejection fraction is 77%. Conclusion: Normal exercise myocardial perfusion stress test at a high workload.
== END 2025-04-28 23:59 | disposition home or self-care (01) ==
PROVIDERS: PCP Internal Medicine; Referring Provider Internal Medicine Cardiovascular Disease; Visit Provider Internal Medicine Cardiovascular Disease
DX: I10 Essential (primary) hypertension (principal); E78.5 Hyperlipidemia, unspecified; I34.0 Nonrheumatic mitral (valve) insufficiency; I25.10 Atherosclerotic heart disease of native coronary artery without angina pectoris
CPT/HCPCS: 78452; 93017; 93306; A9500; A4216

== ENCOUNTER → 2025-05-08 | Outpatient (CLI) | payer MEDICARE, OTHER, SELFPAY ==
--- OUTSIDE RECORDS SUMMARY | 2025-05-08 06:50 | XMS RPT_ITS | CCD ---
Author Organization [facility] Care Team Providers Care Sodder Name Role Phone Jamey Damian MD Primary Care Provider [phone] Erwin HUITRON MD, Daesung Unavailable Dr. Jamey Damian Primary Care Provider Dr. Colby Colon Attending Provider [phone] Dr. Wilver Willson Referring Provider Dr. Wilver Willson Admit Provider [phone] Dr[address] Wilver Willson Other Provider Dr. Alphonse Good Attending Provider Dr. Alphonse Good Other Provider Dr. Yen Tucker Attending Provider Dr. Yen Tucker Other Provider Jamey Damian MD Primary Care Provider [phone] Erwin HUITRON MD, Daesung Unavailable Jamey Damian MD Primary Care Provider Erwin HUITRON, Daesung Unavailable Alfredo TERRAZZO JOURNEYMAN.WINCH TRUCK OPERATOR, Delmy M Unavailable ANCA LOVE Attending Unavailable JAMEY DAMIAN Referring Unavailable JAMEY DAMIAN Primary Care Unavailable JAMEY DAMIAN Referring Unavailable DAMIAN, JAMEY Harris Primary Care Unavailable JAMEY DAMIAN Referring Unavailable DAMIAN, JAMEY Harris Primary Care Unavailable DAMIANJAMEY CHAUDHRY Referring Unavailable DAMIANJAMEY YORK Primary Care Unavailable DAMIAN, KYREE Attending Unavailable JAMEY DAMIAN H Primary Care Unavailable DELMY TREVIÑO Referring Unavailable JAMEY DAMIAN Primary Care Unavailable DELMY TREVIÑO M Referring Unavailable TITA, KYREE Primary Care Unavailable DELMY TREVIÑO M Attending Unavailable JAMEY DAMIAN Primary Care Unavailable DELMY TREVIÑO Attending Unavailable JAMEY DAMIAN Primary Care Unavailable Dr. Jamey Damian MD Primary Care Physician Dr. Jamey Damian MD Referring Provider Dr. Stuart Johnson MD Attending Physician Stuart Johnson Attending Unavailable Jamey Damian Primary Care Unavailable Jamey Damian Referring Unavailable Alex Nardin Attending Unavailable Dhaval Johnsonl Referring Unavailable Jamey Damian Primary Care Unavailable Stuart Johnson Attending Unavailable Stuart Johnson Referring Unavailable Jamey Damian Primary Care Unavailable Allergies Allergy Classification Reported Allergen(s) Allergy Type Date of Onset Reaction(s) Facility (20 sources) Penicillins; Translations: [PENICILLINS] Propensity to adverse reactions 9 Hives, Shortness of Breath [facility] Work Phone: (2 sources) Penicillins Allergy to substance 3 [facility] (1 source) Penicillins Drug allergy (disorder) [address] [facility] Repository Medications Current Medications Medication Drug Class(es) Dates Sig (Normalized) Sig (Original) amLODIPine 10 mg oral tablet (20 sources) Dihydropyridine Calcium Channel Aníbal Start: 02-17-2019 End: 07-03-2024 take 1 tablet by mouth once daily amLODIPine (NORVASC) 10 mg tablet Take 1 tablet by mouth once daily. 90 tablet 3 07/03/2024 Active Comment on above: Take 1 tablet by kelsey th once daily. dicyclomine hydrochloride 20 mg oral [...] above: Take 1 tablet by kelsey th once daily. predniSONE 10 mg oral tablet [...] HMG-CoA Reductase Inhibitor Start: 02-18-20 End: 07-03-19 take 1 tablet by mouth once daily simvastatin (ZOCOR) 20 mg tablet Take 1 tablet by mouth once daily. 90 tablet 3 07/03/2024 Active Comment on above: Take 1 tablet by kelsey th once daily. triamcinolone acetonide 1 mg/ml topical [...] Episodic/Chronic Coronary atherosclerosis and other heart disease (6 sources) Coronary arteriosclerosis; Translations: [Atherosclerotic heart disease of [place] coronary artery without angina pectoris] Onset: 11-01-2023 [...] Onset: 02-03-2009 02-03-2009 Chronic Heart valve disorders (14 sources) Mitral valve regurgitation; Translations: [Nonrheumatic mitral [...] on above: CANCER AND HAD RADIA TION 2016 Other non-traumatic joint disorders (2 sources) Multiple [...] Test Name Value Interpretation Reference Range Facility Limited Chest CT Cardiac Onl yon 04-29-[address] Cardiac Only [facility] Imaging Services [facility] [place], [place] [id number] Limited Chest CT Cardiac Only MR#: [id number] Acct: [id number] Name: UMESH PRESTON Rep #: [id number] : 1950 M 74 From: Daryl graham MD PCP: Dr. Jamey Damian MD Status: REG REF Study: Limited Chest CT Cardiac Only Date of Exam: Exam# [id number] Ordering Dr: Stuart Johnson MD PROCEDURE: LIMITED CHEST CT CARDIAC ONLY 04/29/2025 REASON FOR EXAM: CALCIUM SCORE TECHNIQUE: Procedure Code: CTCCTACHLIM Modality: CT Procedure: LIMITED CHEST CT CARDIAC ONLY CONTRAST: None One or more dose reduction techniques were used (e.g., Automated exposure control, adjustment of the mA and/or kV according to patient size, use of iterative reconstruction technique). RADIATION DOSE SUMMARY: CTDlvol: 12.19 mGy DLP: 219.42 mGycm COMPARISON: None FINDINGS: Atherosclerotic calcification of the aortic arch. Small benign-appearing mediastinal lymph nodes. Dense coronary artery calcification of the 3 coronary vessels. The visualized portions of the lungs is unremarkable. CT/Limited Chest CT Cardiac Only IMPRESSION: Coronary artery calcification. Reading Location: [facility] CC: Dr. Stuart Johnson MD; Dr. Jamey Damian MD Surgical Rn: Signed Normal [facility] Cardiology Visit Reporton Cardiology Visit Report [facility]. [address] [place] [address] OFFICE VISIT Date of Service: 04/02/25 MR#: [id number] Acct: [id number] Name: UMESH PRESTON Rep #: [id number] : 1950 Provider: Dr. Stuart Johnson MD Age/Sex: 74/M Location: [facility] Status: Signed HPI HPI History of Present Illness Details: The patient is a 74-year-old male with a history of hypertension and hypercholesterolemia, presenting for cardiovascular evaluation. The patient expresses concern about his cardiovascular health due to a family history of strokes and myocardial infarctions. He desires to establish care with a local health associate for ongoing management and to address any potential issues promptly, especially given his plans to travel to [place] around [place]. 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 [facility] UMESH PREST[facility] ([id number]) 1950 M Date Time Provider Department 07/17/24 JAMEY DAMIAN During your visit today, we recorded the following information about you: Disha Gomes LPN 07/17/2024 8:47 AM Signed ----- Message from Delmy Treviño APRN.WINCH TRUCK OPERATOR sent at 07/17/2024 8:44 AM EST ----- [...] Date Reviewed: 07/03/2024 Reviewed by: Delmy Treviño APRN.WINCH TRUCK OPERATOR - Fully Assessed Reason for Visit: Results [...] Status:Closed by DISHA GOMES on 07/17/24 Normal [facility] CBC W Auto Differential pane l (Bld)on 07-16-2024 Basophils (Bld) [#/Vol] 0.08 10*3/uL Normal <0.11 [facility] Comment on above: Order Comment: Speci men Type: BLOOD SPECIMENOrdering Facility: [facility] Address: [address] [place] [address] Performed By: #### 5 7021-8 ####[facility] [id number] [place] [address] [place] Basophils/100 WBC (Bld) 1.0 % Normal [facility] Comment on above: Order Comment: Speci men Type: BLOOD SPECIMENOrdering Facility: [facility] Address: [address] [place] [address] Performed By: #### 5 7021-8 ####[facility] [id number] [place] [address] [place] Differential cell count method Nom (Bld) Auto Normal [facility] Comment on above: Order Comment: Speci men Type: BLOOD SPECIMENOrdering Facility: [facility] Address: [address] [place] [address] Performed By: #### 5 7021-8 ####[facility]CL[facility] [id number] [place] [address] [place] Eosinophils (Bld) [#/Vol] 0.13 10*3/uL Normal <0.46 [facility] Comment on above: Order Comment: Speci men Type: BLOOD SPECIMENOrdering Facility: [facility] Address: [address] [place] [address] Performed By: #### 5 7021-8 ####[facility] [id number] [place] [address] [place] Eosinophils/100 WBC (Bld) 1.7 % Normal [facility] Comment on above: Order Comment: Speci men Type: BLOOD SPECIMENOrdering Facility: [facility] Address: [address] [place] [address] Performed By: #### 5 7021-8 ####[facility] [id number] [place] [address] [place] Erythrocyte distribution width (RBC) [Ratio] 12.4 % Normal 11.5-15.0 [facility] Comment on above: Order Comment: Speci men Type: BLOOD SPECIMENOrdering Facility: [facility] Address: [address] [place] [address] Performed By: #### 5 7021-8 ####[facility] [id number] [place] [address] [place] Hematocrit (Bld) [Volume fraction] 40.6 % Normal 39.0-51.0 [facility] Comment on above: Order Comment: Speci men Type: BLOOD SPECIMENOrdering Facility: [facility] Address: [address] [place] [address] Performed By: #### 5 7021-8 ####[facility] [id number] [place] [address] [place] Hemoglobin (Bld) [Mass/Vol] 13.9 g/dL Normal 13.0-17.0 [facility] Comment on above: Order Comment: Speci men Type: BLOOD SPECIMENOrdering Facility: [facility] Address: [address] [place] [address] Performed By: #### 5 7021-8 ####[facility] [id number] [place] [address] [place] Immature granulocytes (Bld) [#/Vol] 10*3/uL Normal <0.10 [facility] Comment on above: Order Comment: Speci men Type: BLOOD SPECIMENOrdering Facility: [facility] Address: [address] [place] [address] Performed By: #### 5 7021-8 ####[facility] [id number] [place] [address] [place] Immature granulocytes/100 WBC (Bld) 0.3 % Normal [facility] Comment on above: Order Comment: Speci men Type: BLOOD SPECIMENOrdering Facility: [facility] Address: [address] [place] [address] Performed By: #### 5 7021-8 ####[facility] [id number] [place] [address] [place] Lymphocytes (Bld) [#/Vol] 2.98 10*3/uL Normal 1.00-4.00 [facility] Comment on above: Order Comment: Speci men Type: BLOOD SPECIMENOrdering Facility: [facility] Address: [address] [place] [address] Performed By: #### 5 7021-8 ####[facility] [id number] [place] [address] [place] Lymphocytes/100 WBC (Bld) 38.2 % Normal [facility] Comment on above: Order Comment: Speci men Type: BLOOD SPECIMENOrdering Facility: [facility] Address: [address] [place] [address] Performed By: #### 5 7021-8 ####[facility] [id number] [place] [address] [place] MCH (RBC) [Entitic mass] 30.4 pg Normal 26.0-34.0 [facility] Comment on above: Order Comment: Speci men Type: BLOOD SPECIMENOrdering Facility: [facility] Address: [address] [place] [address] Performed By: #### 5 7021-8 ####[facility] [id number] [place] [address] [place] MCHC (RBC) [Mass/Vol] 34.2 g/dL Normal 30.5-36.0 [facility] Comment on above: Order Comment: Speci men Type: BLOOD SPECIMENOrdering Facility: [facility] Address: [address] [place] [address] Performed By: #### 5 7021-8 ####[facility] [id number] [place] [address] [place] MCV (RBC) [Entitic vol] 88.8 fL Normal 80.0-100.0 [facility] Comment on above: Order Comment: Speci men Type: BLOOD SPECIMENOrdering Facility: [facility] Address: [address] [place] [address] Performed By: #### 5 7021-8 ####[facility] [id number] [place] [address] [place] Monocytes (Bld) [#/Vol] 0.76 10*3/uL Normal <0.87 [facility] Comment on above: Order Comment: Speci men Type: BLOOD SPECIMENOrdering Facility: [facility] Address: [address] [place] [address] Performed By: #### 5 7021-8 ####[facility]CL[facility] [id number] [place] [address] [place] Monocytes/100 WBC (Bld) 9.7 % Normal [facility] Comment on above: Order Comment: Speci men Type: BLOOD SPECIMENOrdering Facility: [facility] Address: [address] [place] [address] Performed By: #### 5 7021-8 ####[facility]CL[facility] [id number] [place] [address] [place] Neutrophils (Bld) [#/Vol] 3.83 10*3/uL Normal 1.45-7.50 [facility] Comment on above: Order Comment: Speci men Type: BLOOD SPECIMENOrdering Facility: [facility] Address: [address] [place] [address] Performed By: #### 5 7021-8 ####[facility] [id number] [place] [address] [place] Neutrophils/100 WBC (Bld) 49.1 % Normal [facility] Comment on above: Order Comment: Speci men Type: BLOOD SPECIMENOrdering Facility: [facility] Address: [address] [place] [address] Performed By: #### 5 7021-8 ####[facility] [id number] [place] [address] [place] Nucleated RBC (Bld) [#/Vol] 10*3/uL Normal <0.01 [facility] Comment on above: Order Comment: Speci men Type: BLOOD SPECIMENOrdering Facility: [facility] Address: [address] [place] [address] Performed By: #### 5 7021-8 ####[facility] [id number] [place] [address] [place] Nucleated RBC/100 WBC (Bld) [Ratio] 0.0 /100 WBC Normal [facility] Comment on above: Order Comment: Speci men Type: BLOOD SPECIMENOrdering Facility: [facility] Address: [address] [place] [address] Performed By: #### 5 7021-8 ####[facility] [id number] [place] [address] [place] Platelet mean volume (Bld) [Entitic vol] 9.7 fL Normal 9.0-12.7 [facility] Comment on above: Order Comment: Speci men Type: BLOOD SPECIMENOrdering Facility: [facility] Address: [address] [place] [address] Performed By: #### 5 7021-8 ####[facility] [id number] [place] [address] [place] Platelets (Bld) [#/Vol] 290 10*3/uL Normal 150-400 [facility] Comment on above: Order Comment: Speci men Type: BLOOD SPECIMENOrdering Facility: [facility] Address: [address] [place] [address] Performed By: #### 5 7021-8 ####[facility] [id number] [place] [address] [place] RBC (Bld) [#/Vol] 4.57 10*6/uL Normal 4.20-6.00 [facility] Comment on above: Order Comment: Speci men Type: BLOOD SPECIMENOrdering Facility: [facility] Address: [address] [place] [address] Performed By: #### 5 7021-8 ####[facility] [id number] [place] [address] [place] WBC (Bld) [#/Vol] 7.80 10*3/uL Normal 3.70-11.00 [facility] Comment on above: Order Comment: Speci men Type: BLOOD SPECIMENOrdering Facility: [facility] Address: [address] [place] [address] Performed By: #### 5 7021-8 ####[facility] [id number] [place] [address] [place] Comprehensive metabolic 2000 panelon 07-16-2024 Albumin [Mass/Vol] 4.7 g/dL Normal 3.9-4.9 [facility] Comment on above: Order Comment: Speci men Type: BLOOD SPECIMENOrdering Facility: [facility] Address: [address] [place] [address] Performed By: #### 2 4323-8, 14365-0 ####[facility] [id number] [place] [address] [place] ALP [Catalytic activity/Vol] 76 U/L Normal 38-113 [facility] Comment on above: Order Comment: Speci men Type: BLOOD SPECIMENOrdering Facility: [facility] Address: [address] [place] [address] Performed By: #### 2 4323-8, 10382-8 ####[facility] [id number] [address] [place] ALT [Catalytic activity/Vol] 16 U/L Normal 10-54 [facility] Comment on above: Order Comment: Speci men Type: BLOOD SPECIMENOrdering Facility: [facility] Address: [address] [place] [address] Performed By: #### 2 4323-8, 87798-4 ####[facility] [id number] [place] [id number] [place] Anion gap [Moles/Vol] 13 mmol/L Normal 8-15 [facility] Comment on above: Order Comment: Speci men Type: BLOOD SPECIMENOrdering Facility: [facility] Address: [address] [place] [address] Performed By: #### 2 4323-8, 38293-7 ####[facility] [id number] [place] [address] [place] AST [Catalytic activity/Vol] 24 U/L Normal 14-40 [facility] Comment on above: Order Comment: Speci men Type: BLOOD SPECIMENOrdering Facility: [facility] Address: [address] [place] [address] Performed By: #### 2 4323-8, 36930-0 ####[facility] [id number] [place] [address] [place] Bilirubin [Mass/Vol] 0.7 mg/dL Normal 0.2-1.3 [facility] Comment on above: Order Comment: Speci men Type: BLOOD SPECIMENOrdering Facility: [facility] Address: [address] [place] [address] Performed By: #### 2 4323-8, 88388-1 ####[facility] [id number] [place] [address] [place] Calcium [Mass/Vol] 9.6 mg/dL Normal 8.5-10.2 [facility] Comment on above: Order Comment: Speci men Type: BLOOD SPECIMENOrdering Facility: [facility] Address: [address] [place] [address] Performed By: #### 2 4323-8, 59407-5 ####[facility] [id number] [place] [address] [place] Chloride [Moles/Vol] 95 mmol/L Low 98-107 [facility] Comment on above: Order Comment: Speci men Type: BLOOD SPECIMENOrdering Facility: [facility] Address: [address] [place] [address] Performed By: #### 2 4323-8, 59720-4 ####[facility] [id number] [place] [address] [place] CO2 [Moles/Vol] 24 mmol/L Normal 22-30 [facility] Comment on above: Order Comment: Speci men Type: BLOOD SPECIMENOrdering Facility: [facility] Address: [address] [place] [address] Performed By: #### 2 4323-8, 31223-7 ####[facility] [id number] [place] [id number] [place] Creatinine [Mass/Vol] 1.06 mg/dL Normal 0.73-1.22 [facility] Comment on above: Order Comment: Speci men Type: BLOOD SPECIMENOrdering Facility: [facility] Address: [address] [place] [address] Performed By: #### 2 4323-8, 70216-0 ####[facility] [id number] [place] [address] [place] Creatinine and Glomerular filtration rate.predicted panel (S/P/Bld) 75 mL/min/1.73m??? Normal >=60 [facility] Comment on above: Order Comment: Speci men Type: BLOOD SPECIMENOrdering Facility: [facility] Address: [address] [place] [address] Result Comment: Sophia mated Glomerular Filtration Rate [...] actual GFR. Performed By: #### 2 4323-8, 30864-6 ####[facility] [id number] [place] [id number] [place] Glucose [Mass/Vol] 92 mg/dL Normal 74-99 [facility] Comment on above: Order Comment: Speci men Type: BLOOD SPECIMENOrdering Facility: [facility] Address: [address] [place] [address] Result Comment: The [place] Diabetes Association (ADA) provides guidance for cutoff [...] Standards of Medical Care in Diabetes 2016, [place] Diabetes Association. Diabetes Care. 2016.39(Suppl 1). Performed By: #### 2 4323-8, 93648-4 ####[facility] [id number] [place] [address] [place] Potassium [Moles/Vol] 4.5 mmol/L Normal 3.7-5.1 [facility] Comment on above: Order Comment: Speci men Type: BLOOD SPECIMENOrdering Facility: [facility] Address: [address] [place] [address] Performed By: #### 2 4323-8, 27388-5 ####[facility] [id number] [place] [address] [place] Protein [Mass/Vol] 7.5 g/dL Normal 6.3-8.0 [facility] Comment on above: Order Comment: Speci men Type: BLOOD SPECIMENOrdering Facility: [facility] Address: [address] [place] [id number] Performed By: #### 2 4323-8, 67079-8 ####[facility] [id number] [place] [address] [place] Sodium [Moles/Vol] 132 mmol/L Low 136-144 [facility] Comment on above: Order Comment: Speci men Type: BLOOD SPECIMENOrdering Facility: [facility] Address: [address] [place] [address] Performed By: #### 2 4323-8, 70808-7 ####[facility] [id number] [place] [address] [place] Urea nitrogen [Mass/Vol] 16 mg/dL Normal 9-24 [facility] Comment on above: Order Comment: Speci men Type: BLOOD SPECIMENOrdering Facility: [facility] Address: [address] [place] [address] Performed By: #### 2 4323-8, 58043-2 ####[facility] [id number] [place] [address] [place] Lipid 1996 panelon 5 Cholesterol [Mass/Vol] 176 mg/dL Normal <200 [facility] Comment on above: Order Comment: Speci men Type: BLOOD SPECIMENOrdering Facility: [facility] Address: [address] [place] [address] Result Comment: <200 mg/dL, Desirable 200-239 mg/dL, Borderline high >239 mg/dL, High Performed By: #### 2 4323-8, 60192-9 ####[facility] [id number] [place] [address] [place] Cholesterol in HDL [Mass/Vol] 78 mg/dL Normal >39 [facility] Comment on above: Order Comment: Speci men Type: BLOOD SPECIMENOrdering Facility: [facility] Address: [address] [place] [address] Result Comment: 40-5 9 mg/dL, Acceptable >59 mg/dL, High: Negative risk factor for coronary heart disease <40 mg/dL, Low: Positive risk factor for coronary heart disease Performed By: #### 2 4323-8, 90537-9 ####[facility] [id number] [place] [address] [place] Cholesterol in LDL [Mass/Vol] 82 mg/dL Normal <100 [facility] Comment on above: Order Comment: Speci men Type: BLOOD SPECIMENOrdering Facility: [facility] Address: [address] [place] [address] Result Comment: <100 mg/dL, Optimal 100-129 mg/dL, Near optimal/above optimal 130-159 mg/dL, Borderline high 160-189 mg/dL, High >189 mg/dL, Very high Secondary prevention optimal LDL Cholesterol levels are recommended to be < 70 mg/dL Performed By: #### 2 4323-8, 39729-0 ####[facility] [id number] [place] [address] [place] Cholesterol in LDL/Cholesterol in HDL [Mass ratio] 1.05 {ratio} Normal <2.54 [facility] Comment on above: Order Comment: Speci men Type: BLOOD SPECIMENOrdering Facility: [facility] Address: [address] [place] [address] Result Comment: Refe rence: 1. National Cholesterol Education Program ATP III Guideline At-A-Glance Quick Desk Reference: National Heart, Lung, and Blood [place]. National Institutes of Health. 2001: NIH Publication No. 01-3305. 2. An International Atherosclerosis Society position paper: global recommendations for the management of dyslipidemia: executive summary, Atherosclerosis. 2014: 232(2):410-413. Performed By: #### 2 4323-8, ####[facility] LABCLIA [id number] [place] [address] [place] Cholesterol in VLDL [Mass/Vol] 16 mg/dL Normal <30 [facility] Comment on above: Order Comment: Speci men Type: BLOOD SPECIMENOrdering Facility: [facility] Address: [address] [place] [address] Performed By: #### 2 4323-8, ####[facility] LABCLIA [id number] [place] [id number] [place] Cholesterol non HDL [Mass/Vol] 98 mg/dL Normal <130 [facility] Comment on above: Order Comment: Speci men Type: BLOOD SPECIMENOrdering Facility: [facility] Address: [address] [place] [address] Result Comment: <130 mg/dL, Optimal 130-159 mg/dL, Near optimal/above optimal 160-189 mg/dL, Borderline high 190-219 mg/dL, High >219 mg/dL, Very high Secondary prevention optimal non HDL Cholesterol levels are recommended to be <100 mg/dL Performed By: #### 2 4323-8, 56118-0 ####[facility] LABCLIA [id number] [place] [address] [place] Cholesterol.total/Cho lesterol in HDL [Mass ratio] 2.26 {ratio} Normal <5.10 [facility] Comment on above: Order Comment: Speci men Type: BLOOD SPECIMENOrdering Facility: [facility] Address: [address] [place] [address] Performed By: #### 2 4323-8, 12319-7 ####[facility] LABCLIA [id number] [address] [place] FASTING TIME 14 hrs Normal [facility] Comment on above: Order Comment: Speci men Type: BLOOD SPECIMENOrdering Facility: [facility] Address: [address] [place] [address] Performed By: #### 2 4323-8, 75881-6 ####[facility] LABCLIA [id number] [place] [address] [place] Triglyceride [Mass/Vol] 82 mg/dL Normal <150 [facility] Comment on above: Order Comment: Speci men Type: BLOOD SPECIMENOrdering Facility: [facility] Address: [address] [place] [address] Result Comment: <150 mg/dL, Normal 150-199 mg/dL, Borderline high 200-499 mg/dL, High >499 mg/dL, Very high Performed By: #### 2 4323-8, 29178-3 ####[facility] LABCLIA [id number] [place] [address] [place] CNOVon 01-15-2025 CNOV Office Visit (INTMWS ) UMESH PRESTON ([id number]) 1950 M Date Time Provider Department 07/03/24 8:00 AM DELMY TREVIÑO INTMWS During your visit today, we recorded the following information about you: Pulse Respiration Blood pressure Weight 76/minute 14/minute 122/74 85.8 kg Delmy Treviño, TERRAZZO JOURNEYMAN.WINCH TRUCK OPERATOR 07/03/2024 8:26 AM Signed CC: Patient presents [...] W/COLLJ SPEC WHEN PFRMD 10/18/2003 [place], [place], negative COLONOSCOPY FLX DX W/COLLJ SPEC WHEN [...] 12/05/2020 LDL Cholesterol due on 12/09/2023 Covid-19 Vaccine() due on 02/18/2024 DTaP,Tdap,Td Vaccine(1 - Tdap) due on 07/03/2025 Annual PCP Team Chronic Disease Visit due on 07/03/2025 Depression Screening due on 07/03/2025 Anxiety Screening due on 07/03/2025 BP Controlled (<130/80) due on 07/03/2025 Colorectal Cancer Screening due on 09/13/2026 Diabetes Screening due (more content not included)... Normal [facility] CNOVon 11-29-2023 CNOV Office Visit (INTMWS ) UMESH PRESTON ([id number]) 1950 M Date Time Provider Department 11/29/23 9:40 AM DELMY TREVIÑO INTMWS During your visit today, we recorded the following information about you: Temperature Pulse Respiration Blood pressure 97.9 degrees 71/minute 18/minute 164/78 Weight 82.1 kg Delmy Treviño, TERRAZZO JOURNEYMAN.WINCH TRUCK OPERATOR 11/29/2023 12:22 PM Signed CC: Patient presents [...] BMI 25.97 (more content not included)... [facility] Tele[facility] (INTMWS) FLEXUMESH Eugene ([id number]) 1950 M Date Time Provider Department 11/27/23 JAMEY DAMIAN INTMWS During your visit today, we recorded the following information about you: Nciole Ambriz RN 11/27/2023 8:29 AM Signed Patient [...] Breath Date Reviewed: 11/01/2023 Reviewed by: Alaina Caban, IVÁN - Fully Assessed Reason for Visit: Patient [...] Encounter Status:Closed by NICOLE AMBRIZ on 11/27/23 [facility] CNOVon 11-01-2023 CNOV Office Visit (GENSWS ) FLEXUMESH Jabier ([id number]) 1950 M Date Time Provider Department 11/01/23 [...] YRS/> REDUCIBLE (more content not included)... Normal [facility] CT ABD/PEL W IVCONon 05-13-[address] ABD/PEL W IVCON * * *Final Report* * * DATE OF EXAM: Oct 30 2023 2:45PM [facility] 0530 - CT ABD/PEL W IVCON / [...] hernia unchanged from priors dating back to 2016. Status post L4-S1 decompression and posterior instrumented [...] acute process in the abdomen or pelvis. Surgical Rn: LESA Transcribe Date/Time: Oct 31 2023 12:11P Dictated by : SABA MATHIS DO This examination was interpreted and the report reviewed and electronically signed by: SABA MATHIS DO on Oct 31 2023 12:32PM EST [id number] Normal [facility] UM[facility] PREST[facility] ([id number]) 1950 Date Time Provider Department 10/21/23 JAMEY DAMIAN INTMWS During your visit today, [...] Date Reviewed: 06/28/2023 Reviewed by: Delmy Treviño, SILVANO.WINCH TRUCK OPERATOR - Fully Assessed Reason for Visit: Results [...] Encounter Status:Closed by PALOMA HANSEN on 10/21/23 [facility] UMESH PRESTON ([id number]) 1950 M Date Time Provider Department 10/21/23 JAMEY DAMIAN INTMWS During your visit today, we recorded the following information about you: Paloma Hansen LPN 10/21/2023 11:59 AM Signed Patient calling asking if he could have rx for Dicyclomine 20 mg. He said it is helping with his hernia issues. He is using up old rx that RECONSTRUCTIVE DENTIST had given him. Patient uses [facility] for his pharmacy. Please advise Allergies As of Date: 10/21/2023 Noted Allergy Reaction PENICILLINS 02/03/2009 4 - Hives 12 - Shortness of Breath Date Reviewed: 06/28/2023 Reviewed by: Delmy Treviño, TERRAZZO JOURNEYMAN.WINCH TRUCK OPERATOR - Fully Assessed Reason for Visit: Patient Question [3464] Order(s):dicyclomine (BENTYL) 20 mg tabletTake 1 tablet [...] Status:Closed by JAMEY DAMIAN on 10/24/23 Normal [facility] Basic metabolic 2000 panelon 10-20-2023 Anion gap [Moles/Vol] 11 mmol/L 9 - 18 mmol/L [facility] Calcium [Mass/Vol] 9.5 mg/dL 8.5 - 10. 2 mg/dL [facility] Chloride [Moles/Vol] 98 mmol/L 97 - 10 5 mmol/L [facility] CO2 [Moles/Vol] 24 mmol/L 22 - 30 mmol/L [facility] Creatinine [Mass/Vol] 1.04 mg/dL 0.73 - 1.22 mg/dL [facility] GFR/1.73 sq M.predicted among non-blacks MDRD (S/P/Bld) [Vol rate/Area] 77 mL/min/{1.73_m2} - PINF [facility] Comment on above: Estimated Glomerular Filtration [...] 115 mg/dL High 74 - 99 mg/dL [facility] Comment on above: The [place] Diab[employer] s Association (ADA) provides guidance for [...] Standards of Medical Care in Diabetes 2016, [place] [employer]. Diabetes Care. 2016.39(Suppl 1). Interpretation and review of laboratory results Abnormal [facility] Potassium [Moles/Vol] 4.4 mmol/L 3.7 - 5.1 mmol/L [facility] Sodium [Moles/Vol] 133 mmol/L Low 136 - 144 mmol/L [facility] Urea nitrogen [Mass/Vol] 20 mg/dL 9 - 24 mg/dL [facility] Anion gap [Moles/Vol] 11 mmol/L Normal 9-18 [facility] Comment on above: Order Comment: Speci men Type: BLOOD SPECIMENOrdering Facility: [facility] Address: [address] [place] [address] Performed By: #### 2 4321-2 ####[facility] LABCLIA [id number] [place] [address] [place] Calcium [Mass/Vol] 9.5 mg/dL Normal 8.5-10.2 [facility] Comment on above: Order Comment: Speci men Type: BLOOD SPECIMENOrdering Facility: [facility] Address: [address] [place] [address] Performed By: #### 2 4321-2 ####[facility] LABCLIA [id number] [place] [address] [place] Chloride [Moles/Vol] 98 mmol/L Normal 97-105 [facility] Comment on above: Order Comment: Speci men Type: BLOOD SPECIMENOrdering Facility: [facility] Address: [address] [place] [address] Performed By: #### 2 4321-2 ####[facility] LABCLIA [id number] [place] [address] [place] CO2 [Moles/Vol] 24 mmol/L Normal 22-30 [facility] Comment on above: Order Comment: Speci men Type: BLOOD SPECIMENOrdering Facility: [facility] Address: [address] [place] [address] Performed By: #### 2 4321-2 ####[facility] LABCLIA [id number] [place] [address] [place] Creatinine [Mass/Vol] 1.04 mg/dL Normal 0.73-1.22 [facility] Comment on above: Order Comment: Speci men Type: BLOOD SPECIMENOrdering Facility: [facility] Address: [address] [place] [address] Performed By: #### 2 4321-2 ####[facility] LABCLIA [id number] [place] [address] [place] Creatinine and Glomerular filtration rate.predicted panel (S/P/Bld) 77 mL/min/1.73m??? Normal >=60 [facility] Comment on above: Order Comment: Grady truong Type: BLOOD SPECIMENOrdering Facility: [facility] Address: [address] [place] [address] Result Comment: Sophia mated Glomerular Filtration Rate [...] actual GFR. Performed By: #### 2 4321-2 ####[facility] LABCLIA [id number] [place] [address] [place] Glucose [Mass/Vol] 115 mg/dL High 74-99 [facility] Comment on above: Order Comment: Grady truong Type: BLOOD SPECIMENOrdering Facility: [facility] Address: [address] [place] [address] Result Comment: The [place] Diabetes Association (ADA) provides guidance for cutoff [...] Standards of Medical Care in Diabetes 2016, [place] Diabetes [employer]. Diabetes Care. 2016.39(Suppl 1). Performed By: #### 2 4321-2 ####[facility] LABCLIA [id number] [place] [address] [place] Potassium [Moles/Vol] 4.4 mmol/L Normal 3.7-5.1 [facility] Comment on above: Order Comment: Speci men Type: BLOOD SPECIMENOrdering Facility: [facility] Address: [address] [place] [address] Performed By: #### 2 4321-2 ####[facility] LABIA [id number] [place] [address] [place] Sodium [Moles/Vol] 133 mmol/L Low 136-144 [facility] Comment on above: Order Comment: Speci men Type: BLOOD SPECIMENOrdering Facility: [facility] Address: [address] [place] [address] Performed By: #### 2 4321-2 ####[facility] LABIA [id number] [place] [address] [place] Urea nitrogen [Mass/Vol] 20 mg/dL Normal 9-24 [facility] Comment on above: Order Comment: Speci men Type: BLOOD SPECIMENOrdering Facility: [facility] Address: [address] [place] [address] Performed By: #### 2 4321-2 ####[facility] LABIA [id number] [place] [address] [place] CBC panel Auto (Bld)on 10-19 Erythrocyte distribution width (RBC) [Ratio] 14.9 % 11.5 - 15.0 % [facility] Hematocrit (Bld) [Volume fraction] 37.6 % Low 39.0 - 51.0 % [facility] Hemoglobin (Bld) [Mass/Vol] 12.3 g/dL Low 13.0 - 17.0 g/dL [facility] Interpretation and review of laboratory results Abnormal [facility] MCH (RBC) [Entitic mass] 28.8 pg 26.0 - 34.0 pg [facility] MCHC (RBC) [Mass/Vol] 32.7 g/dL 30.5 - 36.0 g/dL [facility] MCV (RBC) [Entitic vol] 88.1 fL 80.0 - 100.0 fL [facility] Nucleated RBC (Bld) [#/Vol] NINF [facility] Platelet mean volume (Bld) [Entitic vol] 9.9 fL 9.0 - 12.7 fL [facility] Platelets (Bld) [#/Vol] 306 10*3/uL [facility] RBC (Bld) [#/Vol] 4.27 10*6/uL 4.20 - 6.0 0 m/uL [facility] WBC (Bld) [#/Vol] 7.83 10*3/uL [facility] Erythrocyte distribution width (RBC) [Ratio] 14.9 % Normal 11.5-15.0 [facility] Comment on above: Order Comment: Speci men Type: BLOOD SPECIMENOrdering Facility: [facility] Address: [address] [place] [address] Performed By: #### 5 8410-2 ####[facility] LABIA [id number] [place] [address] [place] Hematocrit (Bld) [Volume fraction] 37.6 % Low 39.0-51.0 [facility] Comment on above: Order Comment: Speci men Type: BLOOD SPECIMENOrdering Facility: [facility] Address: [address] [place] [address] Performed By: #### 5 8410-2 ####[facility] LABCLIA [id number] [place] [address] [place] Hemoglobin (Bld) [Mass/Vol] 12.3 g/dL Low 13.0-17.0 [facility] Comment on above: Order Comment: Speci men Type: BLOOD SPECIMENOrdering Facility: [facility] Address: [address] [place] [address] Performed By: #### 5 8410-2 ####[facility] LABCLIA [id number] [place] [address] [place] MCH (RBC) [Entitic mass] 28.8 pg Normal 26.0-34.0 [facility] Comment on above: Order Comment: Speci men Type: BLOOD SPECIMENOrdering Facility: [facility] Address: [address] [place] [address] Performed By: #### 5 8410-2 ####[facility] LABCLIA [id number] [place] [address] [place] MCHC (RBC) [Mass/Vol] 32.7 g/dL Normal 30.5-36.0 [facility] Comment on above: Order Comment: Speci men Type: BLOOD SPECIMENOrdering Facility: [facility] Address: [address] [place] [address] Performed By: #### 5 8410-2 ####[facility] LABCLIA [id number] [place] [address] [place] MCV (RBC) [Entitic vol] 88.1 fL Normal 80.0-100.0 [facility] Comment on above: Order Comment: Speci men Type: BLOOD SPECIMENOrdering Facility: [facility] Address: [address] [place] [address] Performed By: #### 5 8410-2 ####[facility] LABIA [id number] [place] [address] [place] Nucleated RBC (Bld) [#/Vol] 10*3/uL Normal <0.01 [facility] Comment on above: Order Comment: Speci men Type: BLOOD SPECIMENOrdering Facility: [facility] Address: [address] [place] [address] Performed By: #### 5 8410-2 ####[facility] LABCLIA [id number] [place] [address] [place] Platelet mean volume (Bld) [Entitic vol] 9.9 fL Normal 9.0-12.7 [facility] Comment on above: Order Comment: Speci men Type: BLOOD SPECIMENOrdering Facility: [facility] Address: [address] [place] [address] Performed By: #### 5 8410-2 ####[facility] LABIA [id number] [place] [address] [place] Platelets (Bld) [#/Vol] 306 10*3/uL Normal 150-400 [facility] Comment on above: Order Comment: Speci men Type: BLOOD SPECIMENOrdering Facility: [facility] Address: [address] [place] [address] Performed By: #### 5 8410-2 ####[facility] LABIA [id number] [place] [address] [place] RBC (Bld) [#/Vol] 4.27 10*6/uL Normal 4.20-6.00 [facility] Comment on above: Order Comment: Speci men Type: BLOOD SPECIMENOrdering Facility: [facility] Address: [address] [place] [address] Performed By: #### 5 8410-2 ####[facility] LABIA [id number] [place] [address] [place] WBC (Bld) [#/Vol] 7.83 10*3/uL Normal 3.70-11.00 [facility] Comment on above: Order Comment: Speci men Type: BLOOD SPECIMENOrdering Facility: [facility] Address: [address] [place] [address] Performed By: #### 5 8410-2 ####[facility] LABIA [id number] [place] [address] [place] PROSTATE-SPECIFIC ANTIGEN DI AGNOSTICon 10-20-2023 Prostate specific Ag [Mass/Vol] 0.38 ng/mL NINF - 2.60 ng/mL [facility] Comment on above: Total PSA test metho dology used is the Electrochemiluminescence Immunoassay by [employer]. Total PSA values by differing methodologies cannot be interchanged. PSA SerPl-mCncon 10-20-2023 Prostate specific Ag [Mass/Vol] 0.38 ng/mL Normal <2.60 [facility] Comment on above: Order Comment: Speci men Type: BLOOD SPECIMENOrdering Facility: [facility] Address: [address] [place] [address] Result Comment: Tota l PSA test methodology used is the Electrochemiluminescence Immunoassay by [employer]. Total PSA values by differing methodologies cannot be interchanged. Performed By: #### 2 857-1 ####[facility] LABCLIA [id number] [facility] [place] [id number] [place] Prostate specific Ag [Mass/V ol]on 10-20-2023 Interpretation and review of laboratory results Normal [facility] CNOVon 10-19-2023 CNOV Office Visit (INTMWS ) UMESH PRESTON ([id number]) 1950 M Date Time Provider Department 10/19/23 6:20 PM JAMEY DAMIAN INTMWS During your visit today, we recorded the following information about you: Temperature Pulse Respiration Blood pressure 98.6 degrees 72/minute 16/minute 134/72 Weight 82.1 kg Jamey Damian MD 10/20/2023 12:49 PM Signed This note was created using [employer]. Subjective Umesh Prseton is a 73 year old male here [...] DX W/COLLJ SPEC WHEN PFRMD 10/18/2003 Colonoscopy, [place], [place], negative COLONOSCOPY FLX DX W/COLLJ SPEC [...] Dalton Feliciano (more content not included)... [facility] UMESH PREST[facility] ([id number]) 1950 M Date Time Provider Department 10/19/23 JAMEY DAMIAN INTCindyWS During your visit today, [...] Date Reviewed: 06/28/2023 Reviewed by: Delmy Treviño APRN.WINCH TRUCK OPERATOR - Fully Assessed Reason for Visit: Future [...] Status:Closed by JAMEY DAMIAN on 10/19/23 Normal [facility] Absolute lymphocyte countOrd ered By: Alphonse Good on 05-19-2023 Lymphocytes Auto (Unsp spec) [#/Vol] 1.48 10*3/uL 0.83-4.[address] [facility] Basophil percentageOrdered B y: Alphonse Good on 05-19-2023 Basophils/100 WBC (Bld) 0.1 % 0-[address] [facility] Chloride [Moles/Vol] 96 mmol/L 98-107 [facility] Eosinophils/100 WBC (Bld) 0.1 % 0-[address] [facility] Glucose [Mass/Vol] 124 mg/dL 74-106 [facility] Comment on above: Fasting Glucose resu lt from 100 to 125 mg/dL suggests IMPAIRED HOMEOSTASIS per A.D.A. criteria. Neutrophils (Bld) [#/Vol] 13.8 10*3/uL 2.0-7.[address] [facility] Neutrophils/100 WBC (Bld) 83.0 % 47-[address] [facility] Potassium [Moles/Vol] 4.1 mmol/L 3.5-5.1 [facility] Sodium [Moles/Vol] 129 mmol/L 136-145 [facility] WBC (Bld) [#/Vol] 16.6 10*3/uL 4.4-11.[address] [facility] Blood erythrocytes count (nu mber/volume)Ordered By: Alphonse Good on 05-19-2023 RBC (Bld) [#/Vol] 2.99 10*6/uL 4.6-6.[address] [facility] Blood hemoglobin measurement (mass/volume)Ordered By: Alphonse Good on 05-19-2023 Hemoglobin (Bld) [Mass/Vol] 9.5 g/dL 13.0-16.[address] [facility] Blood lymphocytes/100 leukoc ytesOrdered By: Alphonse Good on 05-19-2023 Lymphocytes/100 WBC (Bld) 8.9 % 19-[address] [facility] Blood monocytes/100 leukocyt esOrdered By: Alphonse Good on 05-19-2023 Monocytes/100 WBC (Bld) 7.2 % 0-[address] [facility] Blood platelet mean volumeOr dered By: Alphonse Good on 05-19-2023 Platelet mean volume (Bld) [Entitic vol] 10.0 fL 6.2-12.[address] [facility] Determination of erythrocyte mean corpuscular volume (MCV)Ordered By: Alphonse Good on 05-19-2023 MCV (RBC) [Entitic vol] 94.0 fL 80-[address] [facility] Hematocrit Auto (Bld) [Volum e fraction]Ordered By: Alphonse Good on 05-19-2023 Hematocrit (Bld) [Volume fraction] 28.1 % 40-[address] [facility] Laboratory - Chemistry and C hemistry - challengeOrdered By: Alphonse Good on 05-19-2023 CO2 [Moles/Vol] 23.0 mmol/L 21.0-32.[address] [facility] Urea nitrogen/Creatinine [Mass ratio] 19.8 mg/mg 10-[address] [facility] Laboratory - Hematology and Cell countsOrdered By: Alphonse Good on 05-19-2023 Erythrocyte distribution width (RBC) [Entitic vol] 43.7 fL 35.1-43.[address] [facility] Erythrocyte distribution width (RBC) [Ratio] 12.7 % 11.6-14.[address] [facility] Immature granulocytes/100 WBC (Bld) 0.700 % 0.0-0.[address] [facility] Comment on above: IG% - Immature Granu locytes (promyelocytes, myelocytes and metamyelocytes) > 1% indicates that a LEFT SHIFT is Present. MCH (RBC) [Entitic mass] 31.8 pg 27.0-32.[address] [facility] Nucleated RBC/100 WBC (Bld) [Ratio] 0 % 0-5 [facility] Auto (RBC) [Mass/Vol]Or dered By: Alphonse Good on 05-19-2023 MCHC (RBC) [Mass/Vol] 33.8 g/dL 32-36 [facility] No Panel InformationOrdered By: Alphonse Good on 05-19-2023 Estimated Creatinine Clearance Calc 61.18 ml/min [facility] Estimated GFR (MDRD) Amer 80 mL/min >[address] [facility] Comment on above: GFR Calc Estimated GFR (MDRD) Non-Af Amer 66 mL/min >[address] [facility] Comment on above: Non- GFR Calc Platelets bldOrdered By: Kimberly Good on 05-19-2023 Platelets (Bld) [#/Vol] 229 10*3/uL 150-[address] [facility] Serum or plasma calcium enzo urement (mass/volume)Ordered By: Alphonse Good on 05-19-2023 Calcium [Mass/Vol] 8.2 mg/dL 8.5-10.1 [facility] Serum or plasma creatinine m easurement (mass/volume)Ordered By: Alphonse Good on 05-19-2023 Creatinine [Mass/Vol] 1.16 mg/dL 0.70-1.30 [facility] Comment on above: The validity of the calculated GFR & GFRAA in patients over 70 years has not been determined. Clinical correlation is essential. Serum or plasma urea nitroge n measurement (mass/volume)Ordered By: Alphonse Good on 05-19-2023 Urea nitrogen [Mass/Vol] 23 mg/dL 7-[address] [facility] Thin prep Papanicolaou smear with manual screeningOrdered By: Alphonse Good on 05-19-2023 Thin prep Papanicolaou smear with manual screening 10 5-[address] [facility] INR in Blood by Coagulation assayOrdered By: Wilver Willson on 04-27-2023 INR Coag (Bld) [Relative time] 1.0 {INR} [facility] Laboratory - CoagulationOrde red By: Wilver Willson on 04-27-2023 aPTT Coag (Bld) [Time] 34.4 s 24.1-36.[address] [facility] PT Coag (PPP) [Time] 12.9 s 11.7-14.9 [facility] No Panel InformationOrdered By: Wilver Willson on 04-27-2023 Nasal Screen MRSA/MSSA [facility] XR Lumbar spine 3 Viewson IMPRESSION: MULTILEV EL ADVANCED DEGENERATIVE DISC AND FACET DISEASE Surgical Rn: LESA Transcribe Date/Time: Dec 16 2022 12:20P Dictated by : GAIL JAMES MD This examination was interpreted and the report reviewed and electronically signed by: GAIL JAMES MD on Dec 16 2022 12:21PM [facility] DIVISION OF RADIOLOGY * * *Final Report* [...] the lumbar spine. DIVISION OF RADIOLOGY Provider, [facility] - 12/16/2022 * * *Final Report* * [...] MULTILEVEL ADVANCED DEGENERATIVE DISC AND FACET DISEASE Surgical Rn: LESA Transcribe Date/Time: Dec 16 2022 12:20P Dictated by : GAIL JAMES MD This examination was interpreted and the report reviewed and electronically signed by: GAIL JAMES MD on Dec 16 2022 12:21PM EST [facility] XR Lumbar spine 3 ViewsOrder ed By: [facility] Provider on 12-16-2022 [facility] ESR Westergren method (Bld) [Velocity]on 12-14-2022 ESR (Bld) [Velocity] 15 mm/h 0 - 15 mm/hr [facility] XR Lumbar spine 3 Viewson Radiology Study observation (narrative) [facility] OVA + PARA MICROSCOPICon Ova and parasites identified LM Nom (Unsp spec) No Parasites Seen [facility] Gastrointestinal pathogens i dentified SANDY+probe Nom (Stl)on 06-17-2022 Campylobacter sp DNA SANDY+probe Nom (Unsp spec) Not detected Not Detected [facility] Salmonella sp DNA SANDY+probe Ql (Unsp spec) Not detected Not Detected [facility] Shiga toxin stx gene SANDY+probe Nom (Unsp spec) Not detected Not Detected [facility] Shigella sp DNA SANDY+probe Ql (Unsp spec) Not detected Not Detected [facility] Vital Signs Date Time Vital Sign Value Performing Clinician Faci lity 04-02-2025 08:57-0400 Body height 177.[address] Jamey Damian MD Work Phone: [facility] 04-02-2025 08:57-0400 Body mass index (BMI) [Ratio] 27.1 kg/m2 Dr. Jamey Damian MD Work Phone: [facility] 04-02-2025 08:57-0400 Body weight 85.[address] Jamey Damian MD Work Phone: [facility] 04-02-2025 08:57-0400 Diastolic blood pressure 68 mm[Hg] Dr. Jamey Damian MD Work Phone: [facility] 04-02-2025 08:57-0400 Heart rate 75 /min Dr. Jamey Damian MD Work Phone: [facility] 04-02-2025 08:57-0400 Respiratory rate 16 /min Dr. Jamey Damian MD Work Phone: [facility] 04-02-2025 08:57-0400 Systolic blood pressure 128 mm[Hg] Dr. Jamey Damian MD Work Phone: [facility] 07-03-2024 07:56-0500 Body mass index (BMI) [Ratio] 27.14 kg/m2 Delmy Treviño TERRAZZO JOURNEYMAN.WINCH TRUCK OPERATOR Work Phone: [facility] 07-03-2024 07:56-0500 Body weight 85.8 kg Demly Treviño TERRAZZO JOURNEYMAN.WINCH TRUCK OPERATOR Work Phone: [facility] 07-03-2024 07:56-0500 Diastolic blood pressure 74 mm[Hg] Delmy Treviño TERRAZZO JOURNEYMAN.WINCH TRUCK OPERATOR Work Phone: [facility] 07-03-2024 07:56-0500 Heart rate 76 /min Delmy Treviño TERRAZZO JOURNEYMAN.WINCH TRUCK OPERATOR Work Phone: [facility] 07-03-2024 07:56-0500 Respiratory rate 14 /min Delmy Treviño TERRAZZO JOURNEYMAN.WINCH TRUCK OPERATOR Work Phone: [facility] 07-03-2024 07:56-0500 SaO2% (BldA) [Mass fraction] 98 % Delmy Treviño TERRAZZO JOURNEYMAN.WINCH TRUCK OPERATOR Work Phone: [facility] 07-03-2024 07:56-0500 Systolic blood pressure 122 mm[Hg] Delmy Treviño TERRAZZO JOURNEYMAN.WINCH TRUCK OPERATOR Work Phone: [facility] 11-29-2023 09:29-0400 Body mass index (BMI) [Ratio] 25.97 kg/m2 Delmy Treviño TERRAZZO JOURNEYMAN.WINCH TRUCK OPERATOR Work Phone: [facility] 11-29-2023 09:29-0400 Body temperature 97.9 [degF] Delmy Alfredo TERRAZZO JOURNEYMAN.WINCH TRUCK OPERATOR Work Phone: [facility] 11-29-2023 09:29-0400 Body weight 82.1 kg Delmy Alfredo TERRAZZO JOURNEYMAN.WINCH TRUCK OPERATOR Work Phone: [facility] 11-29-2023 09:29-0400 Diastolic blood pressure 78 mm[Hg] Delmy Alfredo TERRAZZO JOURNEYMAN.WINCH TRUCK OPERATOR Work Phone: [facility] 11-29-2023 09:29-0400 Heart rate 71 /min Delmy Alfredo TERRAZZO JOURNEYMAN.WINCH TRUCK OPERATOR Work Phone: [facility] 11-29-2023 09:29-0400 Respiratory rate 18 /min Delmy Alfredo TERRAZZO JOURNEYMAN.WINCH TRUCK OPERATOR Work Phone: [facility] 11-29-2023 09:29-0400 SaO2% (BldA) [Mass fraction] 98 % Delmy Alfredo TERRAZZO JOURNEYMAN.WINCH TRUCK OPERATOR Work Phone: [facility] 11-29-2023 09:29-0400 Systolic blood pressure 164 mm[Hg] Delmy Alfredo TERRAZZO JOURNEYMAN.WINCH TRUCK OPERATOR Work Phone: [facility] 11-01-2023 14:38-0400 Body height 177.8 cm Anca Love MD Work Phone: [facility] 11-01-2023 14:38-0400 Body mass index (BMI) [Ratio] 26.32 kg/m2 Anca Love MD Work Phone: [facility] 11-01-2023 14:38-0400 Body temperature 97.59 [degF] Anca Love MD Work Phone: [facility] 11-01-2023 14:38-0400 Body weight 83.19 kg Anca Love MD Work Phone: [facility] 11-01-2023 14:38-0400 Diastolic blood pressure 72 mm[Hg] Anca Love MD Work Phone: [facility] 11-01-2023 14:38-0400 Heart rate 77 /min Anca Love MD Work Phone: [facility] 11-01-2023 14:38-0400 SaO2% (BldA) [Mass fraction] 99 % Anca Love MD Work Phone: [facility] 11-01-2023 14:38-0400 Systolic blood pressure 138 mm[Hg] Anca Love MD Work Phone: [facility] 10-19-2023 18:18-0400 Body mass index (BMI) [Ratio] 25.97 kg/m2 Jamey Damian MD Work Phone: [facility] 10-19-2023 18:18-0400 Body temperature 98.6 [degF] Jamey Damian MD Work Phone: [facility] 10-19-2023 18:18-0400 Body weight 82.1 kg Jamey Damian MD Work Phone: [facility] 10-19-2023 18:18-0400 Diastolic blood pressure 72 mm[Hg] Jamey Damian MD Work Phone: [facility] 10-19-2023 18:18-0400 Heart rate 72 /min Jamey Damian MD Work Phone: [facility] 10-19-2023 18:18-0400 Respiratory rate 16 /min Jamey Damian MD Work Phone: [facility] 10-19-2023 18:18-0400 SaO2% (BldA) [Mass fraction] 98 % Jamey Damian MD Work Phone: [facility] 10-19-2023 18:18-0400 Systolic blood pressure 134 mm[Hg] Jamey Damian MD Work Phone: [facility] 05-19-2023 15:09-0500 Body temperature 98.7 [degF] Dr. Jamey Damian Work Phone: [facility] 05-19-2023 15:09-0500 Diastolic blood pressure 68 mm[Hg] Dr. Jamey Damian Work Phone: [facility] 05-19-2023 15:09-0500 Heart rate 92 /min Dr. Jamey Damian Work Phone: 5(830)660-385777 [place] [address] 05-19-2023 15:09-0500 Respiratory rate 16 /min Dr. Jamey Damian Work Phone: 7(991)[phone] [place] [address] 05-19-2023 15:09-0500 SaO2% (BldA) [Mass fraction] 98 % Dr. Jamey Damian Work Phone: 8(412)572-099242 [place] [address] 05-19-2023 15:09-0500 Systolic blood pressure 130 mm[Hg] Dr. Jamey Damian Work Phone: 6(717)501-878242 [place] [address] 05-18-2023 20:20-0500 Inhaled oxygen flow rate 2 L/min Dr. Jamey Damian Work Phone: 5(538)789-823842 [place] [address] 05-18-2023 15:15-0500 Body height 177.[address] Jamey Damian Work Phone: 0(661)389-466542 [place] [address] 05-18-2023 15:15-0500 Body mass index (BMI) [Ratio] 26.1 kg/m2 Dr. Jamey Damian Work Phone: 8(831)[phone] [place] [address] 05-18-2023 15:15-0500 Body weight 82.[address] 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 Work Phone: [facility] 03-27-2023 08:19-0400 Heart rate 87 /min Delmy Older TERRAZZO JOURNEYMAN.WINCH TRUCK OPERATOR Work Phone: [facility] 03-27-2023 08:19-0400 Respiratory rate 16 /min Delmy Older TERRAZZO JOURNEYMAN.WINCH TRUCK OPERATOR Work Phone: [facility] 03-27-2023 08:19-0400 SaO2% (BldA) [Mass fraction] 97 % Delmy Older TERRAZZO JOURNEYMAN.WINCH TRUCK OPERATOR Work Phone: [facility] 03-27-2023 08:19-0400 Systolic blood pressure 138 mm[Hg] Delmy Older TERRAZZO JOURNEYMAN.WINCH TRUCK OPERATOR Work Phone: [facility] 12-14-2022 11:54-0400 Body weight 84.37 kg Delmy Older TERRAZZO JOURNEYMAN.WINCH TRUCK OPERATOR Work Phone: [facility] 12-14-2022 11:54-0400 Diastolic blood pressure 76 mm[Hg] Delmy Older TERRAZZO JOURNEYMAN.WINCH TRUCK OPERATOR Work Phone: [facility] 12-14-2022 11:54-0400 Heart rate 80 /min Delmy Older TERRAZZO JOURNEYMAN.WINCH TRUCK OPERATOR Work Phone: [facility] 12-14-2022 11:54-0400 Respiratory rate 16 /min Delmy Older TERRAZZO JOURNEYMAN.WINCH TRUCK OPERATOR Work Phone: [facility] 12-14-2022 11:54-0400 Systolic blood pressure 136 mm[Hg] Delmy Older TERRAZZO JOURNEYMAN.WINCH TRUCK OPERATOR Work Phone: [facility] 06-21-2022 08:17-0500 Diastolic blood pressure 72 mm[Hg] Delmy Older TERRAZZO JOURNEYMAN.WINCH TRUCK OPERATOR Work Phone: [facility] 06-21-2022 08:17-0500 Systolic blood pressure 130 mm[Hg] Delmy Older TERRAZZO JOURNEYMAN.WINCH TRUCK OPERATOR Work Phone: [facility] 06-21-2022 08:07-0500 Body temperature 97.9 [degF] Delmy Older TERRAZZO JOURNEYMAN.WINCH TRUCK OPERATOR Work Phone: [facility] 06-21-2022 08:07-0500 Body weight 83.92 kg Delmy Older TERRAZZO JOURNEYMAN.WINCH TRUCK OPERATOR Work Phone: [facility] 06-21-2022 08:07-0500 Heart rate 79 /min Delmy Older TERRAZZO JOURNEYMAN.WINCH TRUCK OPERATOR Work Phone: [facility] 06-21-2022 08:07-0500 Respiratory rate 14 /min Delmy Older TERRAZZO JOURNEYMAN.WINCH TRUCK OPERATOR Work Phone: [facility] 06-15-2022 07:15-0500 Body temperature 97.3 [degF] Canelo Timmy TERRAZZO JOURNEYMAN.WINCH TRUCK OPERATOR Work Phone: [facility] 06-15-2022 07:15-0500 Body weight 84.82 kg Canelo Timmy TERRAZZO JOURNEYMAN.WINCH TRUCK OPERATOR Work Phone: [facility] 06-15-2022 07:15-0500 Diastolic blood pressure 72 mm[Hg] Canelo Timmy TERRAZZO JOURNEYMAN.WINCH TRUCK OPERATOR Work Phone: [facility] 06-15-2022 07:15-0500 Heart rate 86 /min Canelo Timmy TERRAZZO JOURNEYMAN.WINCH TRUCK OPERATOR Work Phone: [facility] 06-15-2022 07:15-0500 Respiratory rate 16 /min Canelo Timmy TERRAZZO JOURNEYMAN.WINCH TRUCK OPERATOR Work Phone: [facility] 06-15-2022 07:15-0500 SaO2% (BldA) [Mass fraction] 98 % Canelo Timmy TERRAZZO JOURNEYMAN.WINCH TRUCK OPERATOR Work Phone: [facility] 06-15-2022 07:15-0500 Systolic blood pressure 128 mm[Hg] Canelo Timmy TERRAZZO JOURNEYMAN.WINCH TRUCK OPERATOR Work Phone: [facility] 06-06-2022 09:05-0500 Body temperature 97.3 [degF] Huong Athy PA-C Work Phone: [facility] 06-06-2022 09:05-0500 Body weight 85.64 kg Huong Athy PA-C Work Phone: [facility] 06-06-2022 09:05-0500 Diastolic blood pressure 64 mm[Hg] Huong Athy PA-C Work Phone: [facility] 06-06-2022 09:05-0500 Heart rate 90 /min Huong Athy PA-C Work Phone: [facility] 06-06-2022 09:05-0500 Respiratory rate 21 /min Huong Nick PA-C Work Phone: [facility] 06-06-2022 09:05-0500 SaO2% (BldA) [Mass fraction] 99 % Huong Nick PA-C Work Phone: [facility] 06-06-2022 09:05-0500 Systolic blood pressure 140 mm[Hg] Huong Nick PA-Liudmila Work Phone: [facility] 01-27-2022 08:56-0400 Diastolic blood pressure 66 mm[Hg] Jamey Damian MD Work Phone: [facility] 01-27-2022 08:56-0400 Systolic blood pressure 128 mm[Hg] Jamey Damian MD Work Phone: [facility] 01-27-2022 08:39-0400 Body temperature 97.11 [degF] Jamey Damian MD Work Phone: [facility] 01-27-2022 08:39-0400 Body weight 82.92 kg Jamey Damian MD Work Phone: [facility] 01-27-2022 08:39-0400 Heart rate 76 /min Jamey Damian MD Work Phone: [facility] 01-27-2022 08:39-0400 Respiratory rate 18 /min Jamey Damian MD Work Phone: [facility] Encounters Encounter Date Encounter Type Care Provider Facility Start: 04-29-2025 ambulatory Stuart Johnson Facility:[facility] Start: 04-28-2025 End: 04-28-2025 ambulatory Stuart Johnson Facility:[facility] Start: 04-02-2025 End: 04-02-[address] Stuart Johnson MD -[facility] Work Phone: Start: 04-02-2025 End: 04-02-[address] Jamey Damian MD Work Phone: -[facility] Start: 07-17-2024 End: 07-17-2024 Telephone encounter Jamey Damian MD Work Phone: [facility] [place] Comment on above: Results Start: 07-16-2024 End: 07-16-2024 ambulatory DELMY TREVIÑO Facility:[facility] Start: 07-03-2024 End: 07-03-2024 ambulatory DELMY TREVIÑO Facility:[facility] Start: 07-03-2024 End: 07-03-2024 Patient encounter procedure Delmy Treviño TERRAZZO JOURNEYMAN.WINCH TRUCK OPERATOR Work Phone: [facility] [place] Comment on above: Primary hypertension (Primary Dx); Hyperlipidemia, unspecified hyperlipidemia type; Screening for depression; Encounter for screening examination for other mental health and behavioral disorders; Encounter for immunization Start: 11-29-2023 End: 11-29-2023 ambulatory DELMY TREVIÑO Facility:[facility] Start: 11-29-2023 End: 11-29-2023 Patient encounter procedure Delmy Treviño TERRAZZO JOURNEYMAN.WINCH TRUCK OPERATOR Work Phone: [facility] [place] Comment on above: Lip cyst (Primary Dx ) Start: 11-27-2023 Telephone encounter Jamey barker MD Work Phone: [facility] [place] Comment on above: Patient Update Start: 11-01-2023 End: 11-01-2023 ambulatory ANCA LOVE Facility:[facility] Start: 11-01-2023 End: 11-01-2023 Patient encounter procedure Anca Love MD Work Phone: General Surgery Comment on above: Right inguinal herni a Start: 10-30-2023 End: 10-30-2023 ambulatory JAMEY DAMIAN Facility:[facility] Start: 10-30-2023 End: 10-30-2023 Subsequent hospital visit by physician [facility] Comment on above: Right inguinal pain [R10.31] Start: 10-21-2023 Telephone encounter Jamey barker MD Work Phone: [facility] [place] Comment on above: Results Patient Question Start: 10-20-2023 End: 10-20-2023 ambulatory JAMEY DAMIAN Facility:[facility] Start: 10-19-2023 End: 10-19-2023 ambulatory JAMEY DAMIAN Facility:[facility] Start: 10-19-2023 End: 10-19-2023 Patient encounter procedure Jamey Damian MD Work Phone: [facility] [place] Comment on above: Right inguinal pain (Primary Dx); History of prostate cancer; Primary hypertension; S/P lumbar spinal fusion Start: 10-19-2023 Telephone encounter Jamey barker MD Work Phone: [facility] [place] Comment on above: Future Appointment Start: 05-19-2023 Telephone encounter Jamey barker MD Work Phone: [facility] [place] Comment on above: [facility] follow for illed nursing Start: 05-19-2023 Non-patient / Non-visit Dr. Jade Damian Work Phone: [facility] Work Phone: Start: 05-18-2023 Non-patient / Non-visit Dr. Jade Damian Work Phone: [facility] Work Phone: Start: 05-18-2023 End: 05-19-2023 Evaluation and management of inpatient Dr. Jamey Damian Work Phone: [facility] Work Phone: Start: 04-28-2023 Telephone encounter Jamey barker MD Work Phone: [facility] [place] Comment on above: Patient Question; Pa lucianant Update Start: 04-27-2023 End: 04-27-2023 Non-patient / Non-visit Dr. Jamey Damian Work Phone: [facility] Work Phone: Start: 03-27-2023 End: 03-27-2023 Patient encounter procedure Delmy Older TERRAZZO JOURNEYMAN.WINCH TRUCK OPERATOR Work Phone: [facility] [place] Comment on above: Preop exam for inter nal medicine (Primary Dx); Primary hypertension Start: 03-27-2023 End: 03-27-2023 Patient encounter status Delmy Older TERRAZZO JOURNEYMAN.WINCH TRUCK OPERATOR Work Phone: [facility] Work Phone: Start: 12-21-2022 Telephone encounter Jamey barker MD Work Phone: [facility] [place] Comment on above: Referral Request Start: 12-16-2022 Telephone encounter Delmy Older TERRAZZO JOURNEYMAN.WINCH TRUCK OPERATOR Work Phone: [facility] [place] Comment on above: Results Start: 12-14-2022 End: 12-14-2022 Subsequent hospital visit by physician Xr [facility] [place] Work Phone: Radiology Comment on above: Acute midline low ba ck pain without sciatica [M54.50] Start: 12-14-2022 End: 12-14-2022 Patient encounter procedure Delmy Older TERRAZZO JOURNEYMAN.WINCH TRUCK OPERATOR Work Phone: [facility] [place] Comment on above: Arthralgia of multip le joints (Primary Dx); Acute midline low back pain without sciatica Start: 11-15-2022 Telephone encounter Jamey barker MD Work Phone: [facility] [place] Comment on above: Orders Start: 06-21-2022 Telephone encounter Canelo lion APRN.WINCH TRUCK OPERATOR Work Phone: [facility] Comment on above: Results Start: 06-21-2022 End: 06-21-2022 Patient encounter procedure Delmy Older TERRAZZO JOURNEYMAN.WINCH TRUCK OPERATOR Work Phone: [facility] [place] Comment on above: Acute diarrhea (Prim alexander Dx); Abdominal cramping Start: 06-15-2022 End: 06-15-2022 Patient encounter procedure Canelo Warner APRN.WINCH TRUCK OPERATOR Work Phone: [facility] Comment on above: Bowel habit changes (Primary Dx); Lower abdominal pain Start: 06-07-2022 Telephone encounter Briseyda Jamaica TERRAZZO JOURNEYMAN.WINCH TRUCK OPERATOR Work Phone: [facility] Comment on above: Results Start: 06-06-2022 End: 06-06-2022 Patient encounter procedure Huong Nick PA-C Work Phone: [facility] Comment on above: Vomiting and diarrhe a (Primary Dx); Encounter for laboratory testing for COVID-19 virus Start: 01-27-2022 End: 01-27-2022 Patient encounter procedure Jamey Damian MD Work Phone: [facility] [place] Comment on above: Secondary insomnia ( Primary Dx); Postherpetic neuralgia; Primary hypertension; Anemia, unspecified type; Need for COVID-19 vaccine Start: 12-25-2021 Telephone encounter Jamey barker MD Work Phone: [facility] [place] Comment on above: Shingles Start: 03-02-2009 End: 12-07-2018 Patient encounter status Jamey Damian MD Work Phone: [facility] Procedures Date Procedure Procedure Detail Performing Clinician Start: 07-16-2024 Lipid 1996 panel - S sam or Plasma Jamey Damian MD Work Phone: Start: 07-03-2024 [employer] COVI D-19 VACCINE AGE 12+ YR (COMIRNATY) Delmy Treviño TERRAZZO JOURNEYMAN.WINCH TRUCK OPERATOR Work Phone: Start: 07-03-2024 Adult depression scr eening assessment Delmy Treviño TERRAZZO JOURNEYMAN.WINCH TRUCK OPERATOR Work Phone: Start: 05-18-2023 Fluoroscopic guidance Nancy [...] spine lumbosac ral 2/3 views Delmy Treviño TERRAZZO JOURNEYMAN.WINCH TRUCK OPERATOR Work Phone: Start: 12-08-2022 Lipid 1996 panel - S sam or Plasma Delmy Thomas TERRAZZO JOURNEYMAN.WINCH TRUCK OPERATOR Work Phone: Start: 06-16-2022 Ova&parasites direct smears concentration & id Canelo Warner TERRAZZO JOURNEYMAN.WINCH TRUCK OPERATOR Work Phone: Start: 01-27-2022 [employer] COVI D-19 VACCINE, AGE 12+ YR (KINNEY TOP) Jamey Damian MD Work Phone: Start: 09-13-2021 Colonoscopy Jamey Cortez MD Work Phone: Start: 07-29-2021 Adult depression scr eening assessment Jamey Damian MD Work Phone: Plan of Treatment Date Care Activity Detail Author Start: 07-16-2029 Lipid panel Lipid Screening [facility] Start: 12-09-2027 Lipid 1996 panel - S sam or Plasma Lipid Screening [facility] Start: 12-09-2027 Lipid panel Lipid Screening [facility] Start: 12-09-2027 LIPID SCREEN LIPID SCREEN [facility] Start: 07-16-2027 Diabetes Screening Diabetes Screenin [facility] Start: 01-19-2027 LIPID SCREEN LIPID SCREEN [facility] Start: 10-19-2026 Diabetes Screening Diabetes Screenin g [facility] Start: 09-13-2026 Colonoscopy COLONOSCOPY [facility] Start: 09-13-2026 COLORECTAL CANCER SCREENING COLORECTAL CANCER SCREENING [facility] Start: 09-13-2026 Screening for malign ant neoplasm of colon [facility] Start: 12-08-2025 DIABETES SCREEN DIABETES SCREEN [facility] Start: 12-08-2025 Diabetes Screening Diabetes Screenin g [facility] Start: 10-19-2025 LIPID SCREEN LIPID SCREEN [facility] Start: 07-16-2025 Hepatitis B surface antibody level LDL Cholesterol [facility] Start: 07-03-2025 Annual PCP Team Automotive Technician Instructor aroldo Disease Visit Annual PCP Team Chronic Disease Visit [facility] Start: 07-03-2025 Anxiety Screening Anxiety Screening [facility] Start: 07-03-2025 BP Controlled (<130/80) BP Controlle d (<130/80) [facility] Start: 07-03-2025 Depression Screening Depression Scre ening [facility] Start: 07-03-2025 Urine microalbumin profile DTaP,Tdap,Td Vaccine (1 - Tdap) [facility] Comment on above: Postponed from 06/09 (Declined at this time) Start: 04-02-2025 Radionuclide imaging of perfusion of myocardium under exercise stress [facility] Start: 04-02-2025 End: 04-02-2025 Evaluation of diagnostic study results [facility] Start: 01-19-2025 DIABETES SCREEN DIABETES SCREEN [facility] Start: 01-01-2025 End: 01-01-2025 Patient encounter procedure 01/01/2025 8:00 AM EDT Office Visit [facility] [place] [address] [place] [address] Delmy Treviño, TERRAZZO JOURNEYMAN.WINCH TRUCK OPERATOR [address] [place], [place] [id number] medicare 6 months [facility] [place] Comment on above: medicare 6 months Start: 11-28-2024 Annual PCP Team Automotive Technician Instructor aroldo Disease Visit Annual PCP Team Chronic Disease Visit [facility] Start: 10-18-2024 Annual PCP Team Automotive Technician Instructor aroldo Disease Visit Annual PCP Team Chronic Disease Visit [facility] Start: 07-03-2024 End: 10-02-2024 CBC W Auto Differential panel - Blood COMPLETE BLOOD COUNT AND DIFFERENTIAL Lab Routine Primary hypertension Expected: 07/03/2024, Expires: 10/02/2024 [facility] Comment on above: Expected: 07/03/2024 , Expires: 10/02/2024 Start: 07-03-2024 End: 10-02-2024 Comprehensive metabolic 2000 panel - Serum or Plasma COMPREHENSIVE METABOLIC PANEL Lab Routine Primary hypertension Hyperlipidemia, unspecified hyperlipidemia type Expected: 07/03/2024, Expires: 10/02/2024 [facility] Work Phone: Comment on above: Expected: 07/03/2024 , Expires: 10/02/2024 Start: 07-03-2024 End: 10-02-2024 Lipid 1996 panel - Serum or Plasma LIPID PANEL BASIC Lab Routine Hyperlipidemia, unspecified hyperlipidemia type Expected: 07/03/2024, Expires: 10/02/2024 [facility] Comment on above: Expected: 07/03/2024 , Expires: 10/02/2024 Start: 07-03-2024 End: 07-03-2024 Patient encounter procedure 07/03/2024 8:00 AM EST Office Visit [facility] [place] [address], [place] [id number] Delmy Treviño, TERRAZZO JOURNEYMAN.WINCH TRUCK OPERATOR [address] [place] [address] 6 mth V [facility] [place] Comment on above: 6 mth V Start: 06-28-2024 Pneumococcal Vaccine : 65+ (2 of 2 - PCV) Pneumococcal Vaccine: 65+ (2 of 2 - PCV) [facility] Comment on above: Postponed from 12/05 (Declined at this time) Start: 06-28-2024 RSV Vaccine (1 - 1-d ose 60+ series) RSV Vaccine (1 - 1-dose 60+ series) [facility] Comment on above: Postponed from 06/09 (Declined at this time) Start: 03-27-2024 Annual PCP Team Automotive Technician Instructor aroldo Disease Visit Annual PCP [facility] [facility] Start: 03-27-2024 Urine microalbumin profile DTaP,Tdap,Td Vaccine (1 - Tdap) [facility] Comment on above: Postponed from 06/09 (Declined at this time) Start: 03-17-2024 DIABETES SCREEN DIABETES SCREEN [facility] Start: 02-18-2024 Covid-19 Vaccine ( season) Covid-19 Vaccine ( season) [facility] Start: 02-18-2024 Influenza vaccination Influenza Vacc ine (#1) [facility] Start: 12-25-2023 End: 12-25-2023 Patient encounter procedure 12/25/2023 8:20 AM EDT Office Visit Internal Medicine [place] [address] [place] [address] Delmy Treviño, TERRAZZO JOURNEYMAN.WINCH TRUCK OPERATOR [address] [place], [place] [id number] 6 mth V [facility] [place] Comment on above: 6 mth V Start: 12-15-2023 ANNUAL PCP TEAM OPTICS TECHNICAL OFFICER AROLDO DISEASE VISIT ANNUAL PCP TEAM CHRONIC DISEASE VISIT [facility] Start: 12-09-2023 Hepatitis B surface antibody level LDL Cholesterol [facility] Start: 11-29-2023 End: 11-29-2023 Patient encounter procedure 11/29/2023 9:40 AM EDT Office Visit Internal Medicine [place] [address] [place] [address] Delmy Treviño, TERRAZZO JOURNEYMAN.WINCH TRUCK OPERATOR [address] [place], [place] [id number] hard lump inside lower lip, noted over [...] Visit General Surgery [address] [place], [place] [id number] Anca Love MD [address] [place] [phone] Right inguinal pain [R10.31] General Surgery Comment on above: Right inguinal pain [R10.31] Start: 10-30-2023 End: 10-30-2023 Patient encounter procedure 10/30/2023 3:15 PM EDT Office Visit General Surgery [address] [place], [place] [phone] Anca Love MD [address] [place] [id number] Right inguinal pain [R10.31] General Surgery Comment on above: Right inguinal pain [R10.31] Start: 10-30-2023 End: 10-30-2023 Patient encounter procedure Cat Scan Comment on above: Right inguinal pain [R10.31] Start: 10-27-2023 Covid-19 Vaccine () Covid-19 Vaccine () [facility] Start: 06-21-2023 ANNUAL PCP TEAM OPTICS TECHNICAL OFFICER AROLDO DISEASE VISIT ANNUAL PCP TEAM CHRONIC DISEASE VISIT [facility] Start: 06-19-2023 Behavioral Health Screening Behavioral Health Screening [facility] Start: 05-19-2023 Referral to service [facility] Start: 05-19-2023 Patient discharge [facility] Start: 05-18-2023 Oxygen therapy [facility] Start: 05-18-2023 Consultation [facility] Start: 05-18-2023 Following clinical pathway protocol [facility] Start: 05-18-2023 Admission procedure [facility] Start: 05-18-2023 Maintenance of drain age tube [facility] Start: 05-18-2023 Provision of activit y privileges [facility] Start: 05-18-2023 Application of ice collar, cap or bag [facility] Start: 05-18-2023 Application of intermittent pneumatic compression device [facility] Start: 05-18-2023 Catheterization of vein [facility] Start: 05-18-2023 Consultation [facility] Start: 05-18-2023 Following clinical pathway protocol [facility] Start: 05-18-2023 Incentive spirometry [facility] Start: 05-18-2023 Introduction of urin alexander catheter [facility] Start: 05-18-2023 Measuring intake and output [facility] Start: 05-18-2023 Neurovascular assessment [facility] Start: 05-18-2023 Patient education [facility] Start: 05-18-2023 Procedure discontinued [facility] Start: 05-18-2023 Recommendation to continue with treatment [facility] Start: 05-18-2023 Referral to service [facility] Start: 05-18-2023 Taking patient vital signs [facility] Start: 05-18-2023 [facility] Start: 02-17-2023 Covid-19 Vaccine ( season) Covid-19 Vaccine ( season) [facility] Start: 02-17-2023 Influenza vaccination INFLUENZA (#1) [facility] Start: 01-27-2023 ANNUAL PCP TEAM OPTICS TECHNICAL OFFICER AROLDO DISEASE VISIT ANNUAL PCP TEAM CHRONIC DISEASE VISIT [facility] Start: 01-27-2023 BP CONTROLLED (<130/80) BP CONTROLLE D (<130/80) [facility] Start: 12-17-2022 End: 02-16-2023 CBC W Auto Differential panel - Blood CBC + DIFF Lab Routine Primary hypertension Expected: 12/17/2022 (Approximate), Expires: 02/16/2023 [facility] Work Phone: Comment on above: Expected: 12/17/2022 (Approximate), Expires: 02/16/2023 Start: 12-17-2022 End: 02-16-2023 Comprehensive metabolic 2000 panel - Serum or Plasma COMP METABOLIC PANEL Lab Routine Hyperlipidemia, unspecified hyperlipidemia type Primary hypertension Expected: 12/17/2022 (Approximate), Expires: 02/16/2023 [facility] Work Phone: Comment on above: Expected: 12/17/2022 (Approximate), Expires: 02/16/2023 Start: 12-17-2022 End: 02-16-2023 Lipid 1996 panel - Serum or Plasma LIPID PANEL BASIC Lab Routine Hyperlipidemia, unspecified hyperlipidemia type Expected: 12/17/2022 (Approximate), Expires: 02/16/2023 [facility] Work Phone: Comment on above: Expected: 12/17/2022 (Approximate), Expires: 02/16/2023 Start: 12-17-2022 End: 02-16-2023 Prostate specific Ag [Mass/volume] in Serum or Plasma PSA/PROSTSPECAG DIAG Lab Routine History of prostate cancer Expected: 12/17/2022 (Approximate), Expires: 02/16/2023 [facility] Work Phone: Comment on above: Expected: 12/17/2022 (Approximate), Expires: 02/16/2023 Start: 12-14-2022 End: 02-13-2023 C reactive protein [Mass/volume] in Serum or Plasma [facility] Work Phone: Comment on above: Expected: 12/14/2022 , Expires: 02/13/2023 Start: 12-14-2022 End: 02-13-2023 Creatine kinase [Enzymatic activity/volume] in Serum or Plasma [facility] Work Phone: Comment on above: Expected: 12/14/2022 , Expires: 02/13/2023 Start: 07-30-2022 End: 09-29-2022 Basic metabolic 2000 panel - Serum or Plasma BASIC METABOLIC PNL Lab Routine Primary hypertension Expected: 07/30/2022, Expires: 09/29/2022 [facility] Work Phone: Comment on above: Expected: 07/30/2022 , Expires: 09/29/2022 Start: 07-30-2022 End: 09-29-2022 CBC panel - Blood by Automated count CBC Lab Routine Anemia, unspecified type Expected: 07/30/2022, Expires: 09/29/2022 [facility] Work Phone: Comment on above: Expected: 07/30/2022 , Expires: 09/29/2022 Start: 07-29-2022 Adult depression screening assessment DEPRESSION SCREENING [facility] Start: 07-29-2022 ANNUAL PCP TEAM OPTICS TECHNICAL OFFICER AROLDO DISEASE VISIT ANNUAL PCP TEAM CHRONIC DISEASE VISIT [facility] Start: 06-19-2022 ADVANCE DIRECTIVE DISCUSSION ADVANCE DIRECTIVE DISCUSSION [facility] Start: 06-19-2022 DEPRESSION ASSESSMENT DEPRESSION ASS ESSMENT [facility] Start: 06-06-2022 End: 06-20-2022 Influenza virus A and B RNA and SARS-CoV-2 (COVID-19) N gene panel - Respiratory specimen by SANDY with probe detection COVID WITH FLUA+B, ROUTINE Microbiology Routine Vomiting and diarrhea Encounter for laboratory testing for COVID-19 virus Expected: 06/06/2022, Expires: 06/20/2022 [facility] Work Phone: Comment on above: Expected: 06/06/2022 , Expires: 06/20/2022 Start: 03-24-2022 COVID-19 VACCINE (5 - Booster for Moderna series) COVID-19 VACCINE (5 - Booster for Moderna series) [facility] Start: 02-17-2022 Influenza vaccination INFLUENZA (#1) [facility] Start: 08-20-2021 COVID-19 VACCINE (4 - Booster for Moderna series) COVID-19 VACCINE (4 - Booster for Moderna series) [facility] Start: 06-19-2021 ADVANCE DIRECTIVE DISCUSSION ADVANCE DIRECTIVE DISCUSSION [facility] Start: 06-19-2021 DEPRESSION ASSESSMENT DEPRESSION ASS ESSMENT [facility] Start: 12-05-2020 Pneumococcal Vaccine : 65+ (2 - PCV) Pneumococcal Vaccine: 65+ (2 - PCV) [facility] Start: 12-05-2020 PNEUMOCOCCAL: 65+ (2 - PCV) PNEUMOCOCCAL: 65+ (2 - PCV) [facility] Start: 08-14-2013 FECAL OCCULT BLOOD FECAL OCCULT BLOO D [facility] Start: 08-14-2013 Screening for malign ant neoplasm of colon Fecal Occult Blood [facility] Start: 10-09-2012 SHINGRIX VACCINE (2 of 3) ADAMS GRIX VACCINE (2 of 3) [facility] Start: 2012 RSV Vaccine (1 - 1-d ose 60+ series) RSV Vaccine (1 - 1-dose 60+ series) [facility] Start: 1997 COLOGUARD (FIT-DNA) COLOGUARD (FIT-D NA) [facility] Start: [address] COLONOGRAPHY [facility] Start: 1997 Screening for malign ant neoplasm of colon [facility] Start: 1997 SIGMOIDOSCOPY SIGMOIDOSCOPY [facility] Start: 1971 Urine microalbumin profile DTAP,TDAP,TD (1 - Tdap) [facility] Start: 1970 Anxiety Screening Anxiety Screening [facility] Start: 1970 BP CONTROLLED (<130/80) BP CONTROLLE D (<130/80) [facility] Start: 1970 Depression Screening Depression Scre ening [facility] End: 11-17-2024 CT Abdomen and Pelvis W contrast IV CT ABD/PEL W IVCON Radiology Routine Right inguinal pain 1 Occurrences starting 10/19/2023 until 11/17/2024 [facility] Work Phone: Comment on above: 1 Occurrences starti ng 10/19/2023 until 11/17/2024 CT Abdomen and Pelvi s W contrast IV CT ABD/PEL W IVCON Radiology Routine Right inguinal pain 10/30/2023 2:45 PM EDT [facility] Work Phone: CT angiography of coronary arteries [facility] Patient referral [facility] Work Phone: End: 01-13-2024 Radex spine lumbosacral 2/3 views XR LUMBAR GENERAL 3V AP/LAT/L5-S1 Radiology Routine Acute midline low back pain without sciatica 1 Occurrences starting 12/14/2022 until 01/13/2024 [facility] Work Phone: Comment on above: 1 Occurrences starti ng 12/14/2022 until 01/13/2024 Radex spine lumbosac ral 2/3 views XR LUMBAR GENERAL 3V AP/LAT/L5-S1 Radiology Routine Acute midline low back pain without sciatica 12/14/2022 12:46 PM EDT [facility] Work Phone: [facility] Immunizations Immunization Date Immunization Notes Care Provider Alex silva 07-03-2024 COVID-19 vaccine, ag e 12+ yr (PFIZER-BIONTECH COMIRNATY) Delmy Treviño TERRAZZO JOURNEYMAN.WINCH TRUCK OPERATOR Work Phone: [facility] 07-03-2024 pneumococcal conjuga te (PCV20) vaccine, 20 valent (PREVNAR 20) Delmy Treviño APRN.WINCH TRUCK OPERATOR Work Phone: [facility] 07-03-2024 pneumococcal Conjuga te, unspecified formulation Delmy Treviño APRN.WINCH TRUCK OPERATOR Work Phone: [facility] 03-21-2024 influenza, high dose seasonal, preservative-free Delmy Treviño TERRAZZO JOURNEYMAN.WINCH TRUCK OPERATOR Work Phone: [facility] 03-21-2024 respiratory syncytia l virus (RSV) vaccine, adjuvanted (AREXVY) Delmy Alfredo TERRAZZO JOURNEYMAN.WINCH TRUCK OPERATOR Work Phone: [facility] 06-28-2023 COVID-19 vaccine, ag e 12+ yr, 2022- season ([employer]manship) Jamey Damian MD Work Phone: [facility] 03-17-2023 influenza, high dose seasonal, preservative-free Delmy Older TERRAZZO JOURNEYMAN.WINCH TRUCK OPERATOR Work Phone: [facility] Work Phone: 03-17-2023 influenza virus vaccine, unspecified formulation Xr [place] Work Phone: [facility] 09-19-2022 zoster vaccine recombinant Delmy Older TERRAZZO JOURNEYMAN.WINCH TRUCK OPERATOR Work Phone: [facility] Work Phone: 07-19-2022 zoster vaccine recombinant Delmy Older TERRAZZO JOURNEYMAN.WINCH TRUCK OPERATOR Work Phone: [facility] Work Phone: 01-27-2022 COVID-19 vaccine, ag e 12+ yr (SampleBoard-BIONTECH - KINNEY TOP) Jamey Damian MD Work Phone: [facility] Work Phone: 03-17-2021 influenza, high-dose , quadrivalent vaccine (FLUZONE HIGH DOSE QUADRIVALENT) Jamey Damian MD Work Phone: [facility] 09-16-2020 COVID-19 vaccine, fu ll dose (MODERNA) Jamey Damian MD Work Phone: [facility] Work Phone: 08-19-2020 COVID-19 vaccine, fu ll dose (MODERNA) Jamey Damian MD Work Phone: [facility] Work Phone: 03-16-2020 influenza (aIIV4) vaccine, age 65+ yr, quadrivalent, PF (FLUAD QUADRIVALENT) Jamey Damian MD Work Phone: [facility] Work Phone: 12-06-2019 pneumococcal polysaccharide vaccine, 23 valent Jamey Damian MD Work Phone: [facility] 04-08-2019 influenza, injectabl e, quadrivalent, preservative free Jamey Damian MD Work Phone: [facility] Work Phone: 04-02-[address] Jamey Damian Work Phone: [facility] 04-02-2018 influenza, high dose seasonal, preservative-free Jamey Damian MD Work Phone: [facility] Work Phone: 03-30-2017 influenza, injectabl e, quadrivalent, contains preservative Jamey Damian MD Work Phone: [facility] 03-21-2016 influenza, seasonal, injectable Jamey Damian MD Work Phone: [facility] 08-14-2012 zoster vaccine, live Jamey Damian MD Work Phone: [facility] Work Phone: Payers Date Payer Category Payer Self-pay [id number] 2017 Medicare MEDICARE MEDICAR E A AND B [id number] 2017-Present [phone] [place] [address] Medicare [id number] 2017 Medicare MEDICARE MEDICAR E A AND B [id number] 2017-Present [phone] [place] [address] Medicare [id number] 2017 Unknown MMO MMO MEDICARE SUPPLEMENT [id number] 2017-Present [phone] [address] [place] [address] Indemnity [id number] 2017 Unknown MMO MMO MEDICARE SUPPLEMENT [id number] 2017-Present [phone] [address] [place] [address] Indemnity [id number] 2017 Medicare [id number] 2017 Unknown [id number] 2011 Unknown AULTCARE [id number] Unknown [id number] Unknown [id number] Unknown [id number] Social History Date Type Detail Facility Start: 01-27-2022 End: 03-18-2025 Tobacco smoking status NHIS Ex-smoker [facility] Work Phone: Start: 10-17-1968 End: 10-17-1978 History of tobacco use Current smoker [facility] Work Phone: Start: 10-17-1968 End: 10-17-1978 History of tobacco use Cigarette Smoker [facility] Work Phone: Start: 10-29-2021 End: 07-03-2024 Alcohol intake Current drinker of alcohol (finding) [facility] Start: 10-29-2021 End: 12-14-2022 Alcohol intake [facility] Work Phone: Start: 1950 Sex Assigned At Not on file C [facility] Start: 12-16-2021 End: 01-27-2022 Exposure to SARS-CoV-2 (event) Not sure [facility] Work Phone: Start: 01-27-2022 End: 07-03-2024 Tobacco use and exposure Smokeless tobacco non-user [facility] Work Phone: Start: 12-14-2022 End: 03-27-2023 Tobacco use panel [facility] Work Phone: Adult Depression Screening Assessment 0 [facility] Work Phone: Start: 04-26-2023 Tobacco smoking stat [facility] Unknown if ever smoked [facility] Start: 05-28-2019 Occasional [facility] Start: 05-28-2019 None [facility] Start: 05-28-2019 Alone [facility] Start: 05-28-2019 Non-smoker [facility] Start: 1950 Sex Assigned At Male W [facility] How often to you hav e a drink containing alcohol? Never [facility] Medical Equipment Procedure Code Equipment Code Equipment Original Text Equipment Identifier Dates [id number] FDA Start: 05-18-2023 screw 6.5 x 45 [...] Start: 05-18-2023 set screws FDA Start: 05-18-2023 [id number] FDA Start: 05-18-2023 set screws FDA Start: 05-18-2023 set screws FDA Start: 05-18-2023 Collagen haemost atic agent, non-antimicrobial )[id number] [id number] FDA Start: 05-18-2023 Plant polysaccha ride haemostatic agent, bioabsorbable ()[id number] [id number] 1 FDA Start: 05-18-2023 Plant polysaccha ride haemostatic agent, bioabsorbable ()[id number] [id number] 1 FDA Start: 05-18-2023 Plant polysaccha ride haemostatic agent, bioabsorbable ()[id number] [id number] 1 FDA Start: 05-18-2023 GRAFT,FRANCISCO [facility]ITE MED [...] Assessment Result Facility 05-19-2023 Functional status Ambulates [facility] Work Phone: Mental Status Date Assessment Result Facility 05-19-2023 Cognitive function Level Of Cons ciousness Awake;Alert [facility] Work Phone: 05-19-2023 Cognitive function Voice/Name [facility] Work Phone: Clinical Notes 05-26-2015 to 04-02-2025 Telephone Encounter - Disha Gomes LPN - 07/17/2024 8:50 AM ESTTelephone Encounter - Disha Gomes LPN - 07/17/2024 8:50 AM Delmy Hall, SILVANO.WINCH TRUCK OPERATOR - 07/03/2024 8:01 AM EST Note Date & Type Note Facility 04-02-2025 Progress note [facility] 01-29-2025 Telephone encounter Note Patient notified of below results/recommendation, verbalized understanding. Disha Gomes LPN [facility] 07-17-2024 Miscellaneous Notes Patient notified of below results/recommendation, verbalized understanding. Disha Gomes LPN ----- Message from Delmy Treviño APRN.WINCH TRUCK OPERATOR sent at 07/17/2024 8:44 AM EST ----- Please let the patient know his labs looked good overall. Sodium is a little low which is chronic and not significant. Lipids are optimal. Delmy Treviño APRN.WINCH TRUCK OPERATOR documented in this encounter [facility] 07-17-2024 Telephone encounter Note ----- Message from Delmy Treviño APRN.WINCH TRUCK OPERATOR sent at 07/17/2024 8:44 AM EST ----- Please let the patient know his labs looked good overall. Sodium is a little low which is chronic and not significant. Lipids are optimal. Delmy Treviño APRN.WINCH TRUCK OPERATOR [facility] 07-03-2024 Note HNO ID: [id number] Author: DELMY TREVIÑO APRN.MARITZA Service: ? Author [...] DX W/COLLJ SPEC WHEN PFRMD 10/18/2003 Colonoscopy, [place], [place], negative COLONOSCOPY FLX DX W/COLLJ SPEC [...] 12/05/2020 LDL Cholesterol due on 12/09/2023 Covid-19 Vaccine(2023- season) due on 02/18/2024 DTaP,Tdap,Td Vaccine(1 - [...] Completed DATA REVI (more content not included)... [facility] 07-03-2024 History of Present illness Narrative CC: [...] DX W/COLLJ SPEC WHEN PFRMD 10/18/2003 Ter[facility], [place], [place], negative COLONOSCOPY FLX DX W/COLLJ SPEC [...] LDL Cholesterol due on 12/09/2023 Covid-19 Vaccine( - 2023- season) due on 02/18/2024 DTaP,Tdap,Td Vaccine(1 - [...] Patient agreeable to treatment plan. Delmy Treviño APRN.WINCH TRUCK OPERATOR documented in this encounter [facility] 11-29-2023 Note HNO ID: [id number] Author: DELMY TREVIÑO APRN.MARITZA Service: ? Author [...] DX W/COLLJ SPEC WHEN PFRMD 10/18/2003 Colonoscopy, [place], negative COLONOSCOPY FLX DX W/COLLJ SPEC WHEN [...] lower lip. Approximatel (more content not included)... [facility] 11-29-2023 History of Present illness Narrative Images [...] W/COLLJ SPEC WHEN PFRMD 10/18/2003 [facility], [place], negative COLONOSCOPY FLX DX W/COLLJ SPEC WHEN [...] Left Ear: No mastoid tenderness. Mouth/Throat: Lips: [place]. Mouth: Mucous membranes are moist. Oral lesions [...] Patient agreeable to treatment plan. Delmy Treviño APRN.WINCH TRUCK OPERATOR documented in this encounter [facility] 11-27-2023 Telephone encounter Note Patient calling [...] now and his appt. Nicole Ambriz RN [facility] 11-27-2023 Miscellaneous Notes Patient calling to [...] Nicole Ambriz RN documented in this encounter [facility] 11-01-2023 Note HNO ID: [id number] Author: ANCA LOVE MD Service: ? Author [...] entered by the nurse and reviewed by ar Nursing Notes: Alaina Caban RN 11/01/2023 2:38 [...] vomiting, denies jaundice/he (more content not included)... [facility] 11-01-2023 History of Present illness Narrative Umesh [...] DX W/COLLJ SPEC WHEN PFRMD 10/18/2003 Colonoscopy, [place], [place], negative COLONOSCOPY FLX DX W/COLLJ SPEC [...] entered by the nurse and reviewed by ar Nursing Notes: Alaina Caban RN 11/01/2023 2:38 [...] have surgery, he doesn't want to leave [facility] and would prefer [facility] I have told him signs/symptoms of hernia [...] of any pertinent laboratory studies/radiological imaging/medical records, [id number] patient care, obtaining oral medical history from the patient in this encounter, counseling and educating the patient/family/caregiver, and completing appropriate medical documentation. Anca oLve MD documented in this encounter [facility] 11-01-2023 Nurse Note REVIEW OF SYSTEMS: [...] N/A Last Colonoscopy: 09/13/2021 Alaina Caban RN [facility] 11-01-2023 Nurse Note REVIEW OF SYSTEMS: [...] Alaina Caban RN documented in this encounter [facility] 10-30-2023 History of Present illness Narrative [...] PATIENT PRESENTS WITH AN IMPLANTABLE OR ATTACHED ACID MIXER: No ALLERGIES: Reviewed and unchanged CONTRAST ALLERGY: [...] RADIOLOGY DEPARTMENT: CT; Exam(s) Completed: Abdomen/Pelvis SIGNATURE: HILARY De León) PATIENT NAME: Umesh Preston DATE: October 30, 2023 TIME: 2:50 PM documented in this encounter [facility] 10-30-2023 Note HNO ID: [id number] Author: AZALEA BRADSHAW RT(R) Service: ? Author Type: Memorial Marker Designer Type: Progress Notes Filed: 10/30/2023 14:51 Note [...] PATIENT PRESENTS WITH AN IMPLANTABLE OR ATTACHED ACID MIXER: No ALLERGIES: Reviewed and unchanged CONTRAST ALLERGY: [...] DATE: October 30, 2023 TIME: 2:50 PM [facility] 10-21-2023 Telephone encounter Note Patient calling asking if he could have rx for Dicyclomine 20 mg. He said it is helping with his hernia issues. He is using up old rx that RECONSTRUCTIVE DENTIST had given him. Patient uses [facility] for his pharmacy. Please advise [facility] 10-21-2023 Miscellaneous Notes Patient calling asking if he could have rx for Dicyclomine 20 mg. He said it is helping with his hernia issues. He is using up old rx that RECONSTRUCTIVE DENTIST had given him. Patient uses [facility] [facility] for his pharmacy. Please advise documented in this encounter [facility] 10-21-2023 Telephone encounter Note Phoned patient and went over results, notes from Dr Damian with understanding. [facility] 10-21-2023 Miscellaneous Notes Phoned patient and went over results, notes from Dr Damian with understanding. ----- Message from Jamey Damian MD sent at 10/21/2023 10:09 AM EDT ----- Test results are okay and stable compared to previous results. Mild anemia. Mild hyponatremia (low sodium). Prostate specific antigen normal. documented in this encounter [facility] 10-21-2023 Telephone encounter Note ----- Message from Jamey Damian MD sent at 10/21/2023 10:09 AM EDT ----- Test results are okay and stable compared to previous results. Mild anemia. Mild hyponatremia (low sodium). Prostate specific antigen normal. [facility] 10-19-2023 Note HNO ID: [id number] Author: JAMEY DAMIAN MD Service: ? Author Type: Physician Type: Progress Notes Filed: 10/20/2023 12:49 Note Text: This note was created using SuperSecretriter. Subjective Umesh Preston is a 73 year [...] DX W/COLLJ SPEC WHEN PFRMD 10/18/2003 Colonoscopy, [place], [place], negative COLONOSCOPY FLX DX W/COLLJ SPEC [...] V45.4, ICD10: Z98.1 Noted. Jamey Damian MD [facility] 10-19-2023 History of Present illness Narrative This note was created using NoteWriter. Subjective [...] DX W/COLLJ SPEC WHEN PFRMD 10/18/2003 Colonoscopy, [place], [place], negative COLONOSCOPY FLX DX W/COLLJ SPEC [...] Jamey Damian MD documented in this encounter [facility] 10-19-2023 Telephone encounter Note Noted. [facility] 10-19-2023 Miscellaneous Notes Noted. Pt calls [...] Marianela Combs LPN documented in this encounter [facility] 10-19-2023 Telephone encounter Note Pt calls [...] apt today 6:20 PM Marianela Combs LPN [facility] 05-20-2023 Miscellaneous Notes Let detailed vm on identified vm with provider's message. Yes, I'll follow for general medical. Nyla- [facility] reports patient had surgery- fusion on back, and will be d/c'd from [facility] today with orders for [facility] SN. Dr. Willson will follow for wound care, asking if pcp will follow for non wound care orders? documented in this encounter [facility] 05-19-2023 Progress note Note Date/Time May 19, 2023 1:52pm [facility] Medical Records Department [address] [place] [address] Progress Note 05/19/23 1343 MR#: [id number] Acct: [id number] Name: UMESH PRESTON Rep #:[id number] : 1950 72 From: Yen Tucker MD PCP: Dr. Jamey Damian MD Status:A DM IN Location: MS3 [id number] Subjective Subjective Patient seen and examined. He [...] (Auto) 83.0 H, Lymph % (Auto) 8.9L, Humphreys % (Auto) 7.2, Eos % (Auto) 0.1, [...] spine surgery Charges/Coding Visit Charges Inpatient E&M: 82013 Subs Hosp L2 05/19/23 1357 <Electronically signed by Yen Tucker MD> Yen Tucker MD Cosigner Signature (if applicable): CC: ~ Signed [facility] Work Phone: 1(476) 552-900912-01-2023 Consult note Author Steve Hart [facility] May 19, 2023 11:09am Note Date/Time May 19, 2023 1 1:09am [facility] Medical Records Department [address] [place] [address] Counseling Note - Pharmacy 05/19/23 1108 MR#: [id number] Acct: [id number] Name: UMESH PRESTON Rep #:[id number] : 1950 72 From: Steve Hart PCP: Dr. Jamey Damian MD Status:A DM IN Y [place]: [facility] AP806-8 Pharmacy [facility] Service has performed discharge medication reconciliation [...] Signature (if applicable): Date CC: ~ Signed [facility] Work Phone: 1(308) 422-509712-01-2023 Discharge summary Author Wilver Willson [facility] May 19, 2023 10:40am Note Date/Time May 18, 2023 7:13am [facility] Medical Records Department [address] [place] [address] Discharge Summary 05/18/23 0713 MR#: [id number] Acct: [id number] Name: UMESH PRESTON Rep #:[id number] : 1950 72 From: Wilver Brewer PCP: Dr. Jamey Damian MD Status:A DM IN Location: MS3 SF287-9 Providers Date of Admission: 05/18/23 Primary Care Physician: Dr. Jamey Damian MD Reason For Visit: Post Lum Interbody Fusion Kevan Two Level Diagnosis Discharge Diagnosis (1) Lumbar [...] Willson DO; Dr. Jamey Damian MD~ Signed [facility] Work Phone: 1(620) 390-603111-30-2023 Progress note Author [facility] May 18, 2023 6:45pm Note Date/Time May 18, 2023 5:16pm [facility] Medical Records Department [address] [place] [address] Progress Note - Hospitalist 05/18/23 1712 MR#: [id number] Acct: [id number] Name: UMESH PRESTON Rep #:[id number] : 1950 72 From: Alphonse guardado DO PCP: Dr. Jamey Damian MD Status:A DM IN Location: MS3 LC444-3 Reason for Visit Reason for Visit: Diagnoses [...] Patient is a 72-year-old male who presented [facility] on 05/18/2023 for planned orthopedic procedure. [...] 25 minutes. Charges/Coding Visit Charges Inpatient E&M: 66514 Subs Hosp L1 05/18/231844 <Electronically signed by Alphonse Good DO> Cosigner Signature (if applicable): CC: ~ Signed [facility] Work Phone: 1(473) 390-611611-30-2023 Progress note Author Wilver Willson [facility] May 18, 2023 3:45pm Note Date/Time May 18, 2023 7:13am [facility] Medical Records Department [address] [place] [address] Progress Note - Orthopedic 05/18/23712 MR#: [id number] Acct: [id number] Name: UMESH PRESTON Rep #:[id number] : 1950 72 From: Wilver Brewer PCP: Dr. Jamey Damian MD Status:A DM IN Location: [place] [address] Objective Data Objective Data Vital Signs: Vital [...] orders Discharge planning, likely home tomorrow 05/18/23 8403 <Electronically signed by Wilver Willson DO> Cosigner Signature (if applicable): CC: ~ Signed [facility] Work Phone: 1(874) 217-577011-30-2023 Procedure [facility] 05-01-2023 Miscellaneous Notes* Telephone Encounter - Omar Pierre Ma - 05/01/2023 3:44 PM EST Form received - signed and faxed back. Patient notified. * Telephone Encounter - Omar Pierre Ma - 05/01/2023 11:44 AM EST TC to patient - he states that [facility] needs something from us stating that Delmy is ok with labs that were drawn. Advised patient to contact [facility] office and have them fax a [...] labs from PAT at baseline Delmy Thomas APRN.MARITZA * Telephone Encounter - Gia Whitley LPN - 04/28/2023 12:52 PM EST Results rec'd from Dr. Mathur's office to RECONSTRUCTIVE DENTIST to review. * Telephone Encounter - Arielle Morgan RN - 04/28/2023 12:00 PM EST Patient calls and states that he is scheduled for surgery at [facility] on 05/18. Patient had x rays and labs done yesterday. Patient sodium level was low and patient was supposed to call provider to advise on this. Patient is going to be out of after next Monday returning to home on 05/15/2023. Please review and advise, Arielle Morgan RN [facility] History of Present illness Narrative* Delmy Thomas APRN.CNP - 03/27/2023 8:20 AM EDT CC: Patient [...] and chest x-ray completed during PAT at [facility], date TBD There is no known pertinent [...] diet Delmy Thomas APRN.CNP [facility] Miscellaneous Notes* Telephone Encounter - Omar Pierre Ma - 12/21/2022 6:55 PM EDT Patient notified, verbalized understanding. Referral faxed to [facility] @ [phone]. Omar Pierre Ma * Telephone Encounter - Delmy Thomas APRN.CNP - 12/21/2022 6:01 PM EDT We don't have spine medicine in [place] with [facility]. We can fax referral to [facility] but he will need to set up appointment Delmy Thomas APRN.MARITZA * Telephone Encounter - Marianela Combs LPN - 12/21/2022 3:35 PM EDT Pt calling for a referral for Ortho to be seen for his back. He needs to stay in [place]. Please put in referral and notify him to help get apt booked. Marianela Combs LPN [facility]23 Miscellaneous Notes* Telephone Encounter - Omar Pierre Ma - 12/16/2022 1:54 PM EDT Patient notified, verbalized understanding. Please send rx to [facility]. * Telephone Encounter - Delmy Thomas APRN.CNP [...] if symptoms do not improve Delmy Thomas APRN.CNP [facility] History of Present illness Narrative* Sveta Miller RT(R) - 12/14/2022 12:50 PM EDT Radiology [...] 14, 2022 12:36 PM documented in this encounterMer[facility]06-28-2023 History of Present illness Narrative* Delmy Thomas APRN.CNP - 12/14/2022 12:04 PM EDT CC: Patient [...] DX W/COLLJ SPEC WHEN PFRMD 10/18/2003 Colonoscopy, [place], [place], negative COLONOSCOPY FLX DX W/COLLJ SPEC [...] plan. Delmy Thomas APRN.CNP documented in this encounterMer[facility]05-31-2023 Miscellaneous Notes* Telephone Encounter - Cindy [...] test. Disha Gomes LPN documented in this encounterMer[facility]01-03-2023 Miscellaneous Notes* Telephone Encounter - Nathalia Gil - 06/21/2022 11:39 AM EST Patient given results and verbalized understanding of instructions given. Nathalia Gil * Telephone Encounter - Canelo Warner APRN.CNP - 06/21/2022 11:02 AM EST Please notify that stool testing negative. Continue f/u with pcp. documented in this encounterMercy [facility]01-03-2023 History of Present illness Narrative* Delmy Older, TERRAZZO JOURNEYMAN.WINCH TRUCK OPERATOR - 06/21/2022 8:11 AM EST CC: Patient presents with: Follow Up HPI Umesh Preston is a 72 year [...] DX W/COLLJ SPEC WHEN PFRMD 10[facility]18[facility]2003 [facility] [place] [place] COLONOS[place] FLX DX W/COLLJ SPEC WHEN [...] plan. Delmy Thomas APRN.CNP documented in this encounterMer[facility]12-28-2022 History of Present illness Narrative* Canelo [...] DX W/COLLJ SPEC WHEN PFRMD 10/18/2003 [facility] [place] [place] COLONOSCOPY FLX DX W/COLLJ SPEC WHEN [...] - OVA + PARA MICROSCOPIC Canelo Warner APRN.MARITZA documented in this encounterMer[facility]12-20-2022 Miscellaneous Notes* Telephone Encounter - Edna [...] up with PCP or ER. Briseyda Berumen APRN.MARITZA documented in this encounterMercy Health [facility]12-19-2022 History of Present illness Narrative* Huong Nick PA-C - 06/06/2022 9:57 AM EST This note was created using SuperSecretriter. Subjective Umesh Preston is a 71 year [...] at the same time. He started to improvethroughout the day but then Monday happened again [...] DX W/COLLJ SPEC WHEN PFRMD 10/18/2003 Terri, [facility] [place], negative COLONOSCOPY FLX DX W/COLLJ SPEC [...] ROUTINE Huong Nick PA-C documented in this encounterMer[facility]08-11-2022 History of Past illness Narrative* Problem [...] of this encounter (statuses as of 03/28/2023) [facility] History of Past illness Narrative* Problem [...] of this encounter (statuses as of 05/02/2023) [facility] of Past illness Narrative* Problem [...] of this encounter (statuses as of 05/20/2023) [facility] History of Present illness Narrative* Jamey Damian MD - 01/27/2022 8:50 AM EDT This note was created using SuperSecretriter. Subjective Umesh Preston is a 71 year [...] the short term and not in the group home. Risks: Possible side effects were discussed. Warnings: [...] vaccine - ICD9: V04.89, ICD10: Z23 - [employer] COVID-19 VACCINE, AGE 12+ YR (KINNEY TOP) Jamey Damian MD documented in this encounterMer[facility]07-09-2022 Miscellaneous Notes* Telephone Encounter - Gia Angi RAMAN - 12/25/2021 8:16 AM EDT Pt calling to request treatment for shingles. He reports is symptoms have been ongoing for a week. He will come to urgent care for evaluation of this and his discomfort. documented in this encounterMer[facility]12-[facility]-2015 History of Past illness Narrative* Problem [...] of this encounter (statuses as of 12/27/2021) [facility] of [facility] illness Narrative* Problem [...] of this encounter (statuses as of 01/27/2022) [facility] of [facility] illness Narrative* Problem [...] of this encounter (statuses as of 06/06/2022) [facility] illness Narrative* Problem [...] of this encounter (statuses as of 06/07/2022) [facility] illness Narrative* Problem [...] of this encounter (statuses as of 06/21/2022) [facility] illness Narrative* Problem [...] of this encounter (statuses as of 06/23/2022) [facility] illness Narrative* Problem [...] of this encounter (statuses as of 06/23/2022) [facility] Narrative* Problem [...] of this encounter (statuses as of 11/16/2022) [facility] Narrative* Problem [...] of this encounter (statuses as of 12/14/2022) [facility] illness Narrative* Problem [...] of this encounter (statuses as of 12/16/2022) [facility] illness Narrative* Problem [...] of this encounter (statuses as of 12/22/2022) [facility]* Diagnosis Secondary insomnia- Primary Organic insomnia, unspecified Postherpetic neuralgia Herpes zoster with other nervous system complications Primary hypertension Unspecified essential hypertension Anemia, unspecified type Need for COVID-19 vaccine documented in this encounter [facility]* Diagnosis Vomiting and diarrhea- Primary Vomiting alone Encounter for laboratory testing for COVID-19 virus documented in this encounter [facility]* Diagnosis Bowel habit changes- Primary Other symptoms involving digestive system Lower abdominal pain Abdominal pain, other specified site documented in this encounter [facility]* Diagnosis Acute diarrhea- Primary Diarrhea Abdominal cramping Abdominal pain, unspecified site documented [facility] this encounter [facility]* Diagnosis Hyperlipidemia, unspecified hyperlipidemia type- Primary Primary hypertension Unspecified essential hypertension History of prostate cancer Personal history of malignant neoplasm of prostate documented in this encounter [facility]* Diagnosis Arthralgia of multiple joints- Primary Pain in joint, multiple sites Acute midline low back pain without sciatica documented in this encounter [facility]* Diagnosis Acute midline low back pain without sciatica- Primary Arthralgia of multiple joints Pain in joint, multiple sites documented [facility] this encounter [facility]* Diagnosis Preop exam for internal medicine- Primary Other specified pre-operative examination Primary hypertension Unspecified essential hypertension documented in this encounter [facility]* Diagnosis Onset Date Resolution Status Lumbar stenosis acute HTN (hypertension) chronic Hyperlipidemia chronic [facility] Work Phone: Evaluation note* Diagnosis Right inguinal pain- Primary Abdominal pain, right lower quadrant History of prostate cancer Personal history of malignant neoplasm of prostate Primary hypertension Unspecified essential hypertension S/P lumbar spinal fusion Arthrodesis status documented in this encounter [facility]* Diagnosis Right inguinal pain Abdominal pain, right lower quadrant documented in this encounter [facility] note* Diagnosis Right inguinal hernia Inguinal hernia without mention of obstruction or gangrene, unilateral or unspecified, (not specified as recurrent) documented [facility] this encounter [facility]* Diagnosis Lip cyst- Primary Diseases of lips documented in this encounter [facility]* Diagnosis Acute midline low back pain without sciatica documented [facility] this encounter [facility]* Diagnosis Primary hypertension- Primary Unspecified essential hypertension Hyperlipidemia, unspecified hyperlipidemia type Screening for depression Encounter for screening examination for other mental health and behavioral disorders Encounter for immunization Need for other specified prophylactic vaccination against single bacterial disease documented in this encounter [facility]* Diagnosis Onset Date Resolution Status Admit Date HTN (hypertension) chronic Octobe 2024 8:55am Hyperlipidemia chronic April 022024 8:55am [facility] Work Phone: Progress note Author Stuart Johnson [facility] Note Date/Time April 02, 2025 9 :31am [facility] [place] [facility] [address] [place] [address] OFFICE VISIT Date of Service: 04/02/25 MR#: [id number] Acct: [id number] Name: UMESH PRESTON Rep #: [id number] : 1950 Provider: Dr. Dhaval Johnson MD Age/Sex: 74/M [facility] Status: Signed HPI HPI History of Present Illness Details: The patient is a 74-year-old male with a history of hypertension and hypercholesterolemia, presenting for cardiovascular evaluation. The patient expresses concern about his cardiovascular health due to a family history of strokes and myocardial infarctions. He desires to establish care with a local health associate for ongoing management and to address any potential issues promptly, especially given his plans to travel to [place] around [place]. 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 AAA US Screening 10/02/17 (CC) Findings There is tapering of a normal [...] %: 60 04/02/25 0938 <Electronically signed by Stuart Cruz> Date _ Stuart Johnson MD Cosigner Signature: Date (if applicable) CC: Dr. Jamey Damian MD ~ [facility] Work Phone: Reason for referral (narrative)* Diagnostic Procedure Only (Routine) - Closed Specialty Diagnoses / Procedures Referred By Contac t Referred To Contact XR IMAGING Diagnoses Acute midline low back pain without sciatica Procedures XR LUMBAR GENERAL 3V AP/LAT/L5-S1 RADEX SPINE LUMBOSACRAL 2/3 VIEWS Delmy Thomas APRN.WINCH TRUCK OPERATOR [address] [place] [address] Xr Imaging Referral ID Status Reason Start Date Expiration Date V isits Requested Visits Authorized [id number] Closed Auto-Generate d Referral 12/14/2022 01/13/2024 1 1 [facility] for referral (narrative)* Diagnostic Procedure Only (Routine) - Closed Specialty Diagnoses / Procedures Referred By Contac t Referred To Contact XR IMAGING Diagnoses Acute midline low back pain without sciatica Procedures XR LUMBAR GENERAL 3V AP/LAT/L5-S1 RADEX SPINE LUMBOSACRAL 2/3 VIEWS Delmy Treviño APRN.WINCH TRUCK OPERATOR [address] [place] [address] [place] [address] Referral ID Status Reason Start Date Expiration Date V isits Requested Visits Authorized [id number] Closed Auto-Generate d Referral 12/14/2022 01/13/2024 1 1 [facility] for referral (narrative)No reason for referral information availableMattel [facility] Work Phone: Reason for visit Narrative* Diagnostic Procedure Only (Routine) - Closed Specialty Diagnoses / Procedures Referred By Contac t Referred To Contact XR IMAGING Diagnoses Acute midline low back pain without sciatica Procedures XR LUMBAR GENERAL 3V AP/LAT/L5-S1 RADEX SPINE LUMBOSACRAL 2/3 VIEWS Delmy Treviño APRN.WINCH TRUCK OPERATOR [address] [place] [address] [place] [address] Referral ID Status Reason Start Date Expiration Date V isits Requested Visits Authorized [id number] Closed Auto-Generate d Referral 12/14/2022 01/13/2024 1 1 [facility] Advance Directives No Advanced Directives Records FoundDocuments on File Type Date Recorded 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 Advance Directive(s) 09/13/2021 8:50 AM Advance Directive(s) 08/16/2021 7:22 AM Advance Directive Response Recorded Date/ Time Living Will No May 18, 2 023 3:15pm Power of Steel Fabricator No May 18, 2023 3:15pm Health Concerns Infection Onset Date Last Indicated Resolved Time COVID-19 Rule-Out 06/06/2022 06/06/2022 Reason for Referral Specialty Diagnoses / Procedures Referred By Contac t Referred To Contact Orthopedics Diagnoses Acute midline low back pain without sciatica Arthralgia of multiple joints Procedures CONSULT TO ORTHOPAEDICS Delmy Thomas APRN.CNP [address] [place] [id number] Referral ID Status Reason Start Date Expiration Date Visits Requested Visits Authorized [id number] Ref Not Required PCP Requested Referral 12/21/2022 12/21/2023 1 1 Specialty Diagnoses / Procedures Referred By Contac t Referred To Contact General Surgery Diagnoses Right inguinal pain Procedures CONSULT TO GENERAL SURGERY OFFICE/OUTPATIENT [facility] 60 MINUTES Jamey Damian MD [address] [place] [address] Referral ID Status Reason Start Date Expiration Date Visits Requested Visits Authorized [id number] Authorized PCP Requested Referral 10/19/2023 10/18/2024 1 1 Specialty Diagnoses / Procedures Referred By Contac t Referred To Contact CT IMAGING Diagnoses Right inguinal pain Procedures CT ABD/PEL W IVCON CT ABD & PELVIS W/CONTRAST Jamey Damian MD [address] [place] [address] [place] [address] Referral ID Status Reason Start Date Expiration Date Visits Requested Visits Authorized [id number] Authorized Auto-Generat ed Referral 10/19/2023 11/17/2024 1 [...] or prosecute any alcohol or drug abuse patient.[facility] HospitalIn the event this information is protected by the Federal Confidentiality of Alcohol and Drug Abuse Patient Records regulations: The Federal rules restrict any use of the information to criminally investigate or prosecute any alcohol or drug abuse patient.[facility] HospitalIn the event this information is protected by the Federal Confidentiality of Alcohol and Drug Abuse Patient Records regulations: The Federal rules restrict any use of the information to criminally investigate or prosecute any alcohol or drug abuse patient.[facility] HospitalIn the event this information is protected by the Federal Confidentiality of Alcohol and Drug Abuse Patient Records regulations: The Federal rules restrict any use of the information to criminally investigate or prosecute any alcohol or drug abuse patient.[facility] HospitalIn the event this information is protected by the Federal Confidentiality of Alcohol and Drug Abuse Patient Records regulations: The Federal rules restrict any use of the information to criminally investigate or prosecute any alcohol or drug abuse patient.[facility] HospitalIn the event this information is protected by the Federal Confidentiality of Alcohol and Drug Abuse Patient Records regulations: The Federal rules restrict any use of the information to criminally investigate or prosecute any alcohol or drug abuse patient.[facility] HospitalIn the event this information is protected by the Federal Confidentiality of Alcohol and Drug Abuse Patient Records regulations: The Federal rules restrict any use of the information to criminally investigate or prosecute any alcohol or drug abuse patient.[facility] HospitalIn the event this information is protected by the Federal Confidentiality of Alcohol and Drug Abuse Patient Records regulations: The Federal rules restrict any use of the information to criminally investigate or prosecute any alcohol or drug abuse patient.[facility] HospitalIn the event this information is protected by the Federal Confidentiality of Alcohol and Drug Abuse Patient Records regulations: The Federal rules restrict any use of the information to criminally investigate or prosecute any alcohol or drug abuse patient.[facility] HospitalIn the event this information is protected by the Federal Confidentiality of Alcohol and Drug Abuse Patient Records regulations: The Federal rules restrict any use of the information to criminally investigate or prosecute any alcohol or drug abuse patient.[facility] HospitalIn the event this information is protected by the Federal Confidentiality of Alcohol and Drug Abuse Patient Records regulations: The Federal rules restrict any use of the information to criminally investigate or prosecute any alcohol or drug abuse patient.[facility] HospitalIn the event this information is protected by the Federal Confidentiality of Alcohol and Drug Abuse Patient Records regulations: The Federal rules restrict any use of the information to criminally investigate or prosecute any alcohol or drug abuse patient.[facility] HospitalIn the event this information is protected by the Federal Confidentiality of Alcohol and Drug Abuse Patient Records regulations: The Federal rules restrict any use of the information to criminally investigate or prosecute any alcohol or drug abuse patient.[facility] HospitalIn the event this information is protected by the Federal Confidentiality of Alcohol and Drug Abuse Patient Records regulations: The Federal rules restrict any use of the information to criminally investigate or prosecute any alcohol or drug abuse patient.[facility] HospitalIn the event this information is protected by the Federal Confidentiality of Alcohol and Drug Abuse Patient Records regulations: The Federal rules restrict any use of the information to criminally investigate or prosecute any alcohol or drug abuse patient.[facility] HospitalIn the event this information is protected by the Federal Confidentiality of Alcohol and Drug Abuse Patient Records regulations: The Federal rules restrict any use of the information to criminally investigate or prosecute any alcohol or drug abuse patient.[facility] HospitalIn the event this information is protected by the Federal Confidentiality of Alcohol and Drug Abuse Patient Records regulations: The Federal rules restrict any use of the information to criminally investigate or prosecute any alcohol or drug abuse patient.[facility] HospitalIn the event this information is protected by the Federal Confidentiality of Alcohol and Drug Abuse Patient Records regulations: The Federal rules restrict any use of the information to criminally investigate or prosecute any alcohol or drug abuse patient.[facility] HospitalIn the event this information is protected by the Federal Confidentiality of Alcohol and Drug Abuse Patient Records regulations: The Federal rules restrict any use of the information to criminally investigate or prosecute any alcohol or drug abuse patient.[facility] HospitalIn the event this information is protected by the Federal Confidentiality of Alcohol and Drug Abuse Patient Records regulations: The Federal rules restrict any use of the information to criminally investigate or prosecute any alcohol or drug abuse patient.[facility] HospitalIn the event this information is protected by the Federal Confidentiality of Alcohol and Drug Abuse Patient Records regulations: The Federal rules restrict any use of the information to criminally investigate or prosecute any alcohol or drug abuse patient.[facility] HospitalIn the event this information is protected by the Federal Confidentiality of Alcohol and Drug Abuse Patient Records regulations: The Federal rules restrict any use of the information to criminally investigate or prosecute any alcohol or drug abuse patient.[facility] HospitalIn the event this information is protected by the Federal Confidentiality of Alcohol and Drug Abuse Patient Records regulations: The Federal rules restrict any use of the information to criminally investigate or prosecute any alcohol or drug abuse patient.[facility] HospitalIn the event this information is protected by the Federal Confidentiality of Alcohol and Drug Abuse Patient Records regulations: The Federal rules restrict any use of the information to criminally investigate or prosecute any alcohol or drug abuse patient.[facility] HospitalIn the event this information is protected by the Federal Confidentiality of Alcohol and Drug Abuse Patient Records regulations: The Federal rules restrict any use of the information to criminally investigate or prosecute any alcohol or drug abuse patient.[facility] HospitalIn the event this information is protected by the Federal Confidentiality of Alcohol and Drug Abuse Patient Records regulations: The Federal rules restrict any use of the information to criminally investigate or prosecute any alcohol or drug abuse patient.[facility] Reason for Visit (unrecogniz ed section [...] Comments Patient Question Patient Update Reason Comments [facility] follow for [facility] Reason Comments Future Appointment Reason Comments Abdominal Pain RLQ; x 1 week inguin al area Reason Comments Patient Question Specialty Diagnoses / Procedures Referred By Contac t Referred To Contact CT IMAGING Diagnoses Right inguinal pain Procedures CT ABD/PEL W IVCON CT ABD & PELVIS W/CONTRAST Jamey Damian MD [address] [place], [place] [id number] [place] [address] Referral ID Status Reason Start Date Expiration Date V isits Requested Visits Authorized [id number] Closed Auto-Generate d Referral 10/19/2023 11/17/2024 1 [address] Specialty Diagnoses / Procedures Referred By Contac t Referred To Contact CT IMAGING Diagnoses Right inguinal pain Procedures CT ABD/PEL W IVCON CT ABD & PELVIS W/CONTRAST Jamey Damian MD [address] [place], [place] [phone] [place] [address] Reason Comments Consult Rt inguinal hernia Specialty Diagnoses / Procedures Referred By Contac t Referred To Contact General Surgery Diagnoses Right inguinal pain Procedures CONSULT TO GENERAL SURGERY OFFICE/OUTPATIENT [facility] 60 MINUTES Jamey Damian MD [address] [place] [id number] Referral ID Status Reason Start Date Expiration Date V isits Requested Visits Authorized [id number] Closed PCP Requested Referral 10/19/2023 10/18/2024 1 1 Reason Comments Patient Update Reason Comments hard lump inside lower lip Reason Comments Follow Up 6 months Care Teams (unrecognized sec tion and content) Sodder Relationship Specialty Start Date End Date Jamey Damian MD [address] [facility] [place] [address] PCP - General Internal Medicine 08/09/11 Madhu Hood MD, MD [address] [facility] [address] Physician Radiation Oncology 07/29/15 Sodder Relationship Specialty Start Date End Date Jamey Damian MD [address] [facility] [place] [address] PCP - General Internal Medicine 08/09/11 Madhu Hood MD, MD [address] [place] [address] Physician Radiation Oncology 07/29/15 Sodder Relationship Specialty Start Date End Date Jamey Damian MD [address] [facility] [place] [address] PCP - General Internal Medicine 08/09/11 Madhu Hood MD, MD [address] [facility] [place] [address] Physician Radiation Oncology 07/29/15 Sodder Relationship Specialty Start Date End Date Jamey Damian MD [address] [facility] [place] [address] PCP - General Internal Medicine 08/09/11 Madhu Hood MD, MD [address] [facility] [place] [place] [address] Physician Radiation Oncology 07/29/15 Sodder Relationship Specialty Start Date End Date Jamey Damian MD [address] [facility] [place] [address] PCP - General Internal Medicine 08/09/11 Madhu Hood MD, [address] [place] [address] Physician Radiation Oncology 07/29/15 Sodder Relationship Specialty Start Date End Date Jamey Damian MD [address] [facility] [place] [address] PCP - General Internal Medicine 08/09/11 aMdhu Hood MD, [address] [facility] [place] [address] Physician Radiation Oncology 07/29/15 Sodder Relationship Specialty Start Date End Date Jamey Damian MD [address] [facility] [place] [address] PCP - General Internal Medicine 08/09/11 Madhu Hood MD, [address] [facility] [place] [address] Physician Radiation Oncology 07/29/15 Sodder Relationship Specialty Start Date End Date Jamey Damian MD [address] [facility] [place] [address] PCP - General Internal Medicine 08/09/11 Madhu Hood MD, [address] [place] [address] Physician Radiation Oncology 07/29/15 Sodder Relationship Specialty Start Date End Date Jamey Damian MD [address] [facility] [place] [address] PCP - General Internal Medicine 08/09/11 Madhu Hood MD, [address] [facility] [place] [address] Physician Radiation Oncology 07/29/15 Sodder Relationship Specialty Start Date End Date Jamey Damian MD [address] [place], [place] [address] PCP - General Internal Medicine 08/09/11 Madhu Hood MD, [address] [place], [place] [address] Physician Radiation Oncology 07/29/15 Sodder Relationship Specialty Start Date End Date Jamey Damian MD [address] [place], [place] [address] PCP - General Internal Medicine 08/09/11 Madhu Hood MD, [address] [place] [address] Physician Radiation Oncology 07/29/15 Sodder Relationship Specialty Start Date End Date Jamey Damian MD [address] [place], [place] [address] PCP - General Internal Medicine 08/09/11 Madhu Hood MD, MD [address] [place], [place] [address] Physician Radiation Oncology 07/29/15 Team Status: Active [...] Role Status Dates Dr. Wilver Willson , DO Admit Provider, R eferring Provider, Other Provider Active Dr. Jamey Damian MD Primary Care Provider Active Dr. Yen Tucker MD Attending Provider, Other Prov ider Active Team Status: Inactive Member Role Status Dates Dr. Wilver Willson , Admit Provider, A ttending Provider, Referring Provider Active Dr. Jamey Damian MD Primary Care Provider Active Dr. Yen Tucker MD Other Provider Active Sodder Relationship Specialty Start Date End Date Jamey Damian MD [address] [facility], [place] [address] PCP - General Internal Medicine 08/09/11 Madhu Hood MD, MD [address] [place] [address] Physician Radiation Oncology 07/29/15 Sodder Relationship Specialty Start Date End Date Jamey Damian MD [address] [place] [address] PCP - General Internal Medicine 08/09/11 Madhu Hood MD [address] [place] [address] Physician Radiation Oncology 07/29/15 Sodder Relationship Specialty Start Date End Date Jamey Damian MD [address] [place] [address] PCP - General Internal Medicine 08/09/11 Madhu Hood MD [address] [place] [address] Physician Radiation Oncology 07/29/15 Sodder Relationship Specialty Start Date End Date Jamey Damian MD [address] [facility] [place] [address] PCP - General Internal Medicine 08/09/11 Madhu Hood MD [address] [place] [address] Physician Radiation Oncology 07/29/15 Sodder Relationship Specialty Start Date End Date Jamey Damian MD [address] [facility] [place] [address] PCP - General Internal Medicine 08/09/11 Madhu Hood MD [address] [place] [address] Physician Radiation Oncology 07/29/15 Sodder Relationship Specialty Start Date End Date Jamey Damian MD [address] [facility] [place] [address] PCP - General Internal Medicine 08/09/11 Madhu Hood MD [address] [place] [address] Physician Radiation Oncology 07/29/15 Sodder Relationship Specialty Start Date End Date Jamey Damian MD [address] [facility] [place] [address] PCP - General Internal Medicine 08/09/11 Madhu Hood MD [address] [place] [address] Physician Radiation Oncology 07/29/15 Sodder Relationship Specialty Start Date End Date Jamey Damian MD [address] [place] [address] PCP - General Internal Medicine 08/09/11 Madhu Hood MD [address] [place] [address] Physician Radiation Oncology 07/29/15 Sodder Relationship Specialty Start Date End Date Jamey Damian MD [address] [place] [address] PCP - General Internal Medicine 08/09/11 Madhu Hood MD [address] [place] [address] Physician Radiation Oncology 07/29/15 Sodder Relationship Specialty Start Date End Date Jamey Damian MD [address] [place] [address] PCP - General Internal Medicine 08/09/11 Madhu Hood MD [address] [place] [address] Physician Radiation Oncology 07/29/15 Delmy Treviño, TERRAZZO JOURNEYMAN.WINCH TRUCK OPERATOR [address] [place] [address] Leak Detection Engineer Internal Medicine 05/27/24 Sodder Relationship Specialty Start Date End Date Jamey Damian MD [address] [place] [address] PCP - General Internal Medicine 08/09/11 Madhu Hood MD [address] [place] [address] Physician Radiation Oncology 07/29/15 Delmy Treviño, TERRAZZO JOURNEYMAN.WINCH TRUCK OPERATOR [address] [place] [address] Leak Detection Engineer Internal Medicine 05/27/24 Team Status: Active Member Role/Relationship Status [...] section and content) DATE CREATED AUTHOR 07/19/2024 [facility] DATE CREATED AUTHOR AUTHOR'S ORGANIZ ATION 04/30/2025 [facility] Goals (unrecognized section and content) Goals [...] BE BASED ON THE PRIMARY CLINICAL RECORDS. [employer] provides no warranty or guarantee of the accuracy or completeness of information in this document.
[2025-05-08 07:44] LABS: Anion Gap 11 (5-15); BUN 22 mg/dL (4-19); BUN/Creat Ratio 19.0 RATIO (10-20); Calcium,Total 9.2 mg/dL (7.6-11.0); Carbon Dioxide 23.9 mmol/L (21.0-32.0); Chloride 98 mmol/L (98-108); Glucose 114 mg/dL (70-99); Potassium 4.2 mmol/L (3.3-5.1)
[2025-05-08 07:48] LABS: Hematocrit 39.1 % (40-54); Hemoglobin 13.6 g/dL (13.0-16.5); Immature Granulocytes Count 0.030 X10^3/uL (0.0-0.0); Mean Corp Hgb Conc 34.8 g/dL (32-36); Mean Corpuscular Volume 90.9 fL (80-94); Mean Platelet Vol. 9.8 fl (6.2-12.0); NRBC Flagged by Analyzer 0 % (0-5); Platelet Count 273 K/mm3 (150-450); RBC Distribution Width CV 12.4 % (11.6-14.6); RBC Distribution Width SD 41.2 fl (35.1-43.9); Red Blood Count 4.30 M/mm3 (4.6-6.2); White Blood Count 6.6 K/mm3 (4.4-11.0)
== END | disposition home or self-care (01) ==
PROVIDERS: Physician Assistant Medical; PCP Internal Medicine; Referring Provider Nurse Practitioner Gerontology; Visit Provider Nurse Practitioner Gerontology
DX: I10 Essential (primary) hypertension (principal); R07.9 Chest pain, unspecified; E78.5 Hyperlipidemia, unspecified; R93.1 Abnormal findings on diagnostic imaging of heart and coronary circulation; R94.30 Abnormal result of cardiovascular function study, unspecified
CPT/HCPCS: 36415; 80048; 85025

== ENCOUNTER 2025-05-23 07:09 | Day surgery (SDC) | payer MEDICARE, OTHER, SELFPAY ==
--- NOTE | 2025-05-09 16:16 | HP.PCM_ITS ---
History and Physical The patient is a 74-year-old male with a history of hypertension and hypercholesterolemia that established with us for a cardiovascular evaluation. The patient expresses concern about his cardiovascular health due to a family history of strokes and myocardial infarctions. He desires to establish care with a local clip loading machine adjuster for ongoing management and to address any potential issues promptly, especially given his plans to travel to [place] around [place]. He reports not feeling well since undergoing cataract surgery and cyst removal from his jaw in December, attributing this to the anesthesia. He denies experiencing dyspnea, chest pain, dizziness, or syncope. He has not had any episodes of chest pain since 2018, when he was hospitalized for such symptoms. His physical exam appears to be unremarkable at this time and his EKG demonstrates a sinus rhythm with a rate of 78 bpm first-degree AV block and premature atrial complexes no klaudia. A left anterior fascicular block is present. He has a history of hypertension and hypercholesterolemia, both of which are currently well-controlled with medication. He is a former smoker, having quit 45 years ago. He underwent back surgery in the fall of 2022, which has limited his ability to walk long distances. Previously, he walked 3-5 miles daily; currently, he walks 0.5 to 0.75 miles per day and plays golf, mostly using a cart but walking some of the course.He lives alone and has a son who resides 150 miles away. He expresses anxiety about living alone and the possibility of experiencing a medical emergency without immediate assistance. He has a family history of cardiovascular disease, with both parents and most relatives having from strokes or myocardial infarctions. On May 01, 2025 he underwent a coronary calcium score, this demonstrated extensive three-vessel plaquing with a total score of 4634. On May 03, 2025 he underwent a stress test which was negative for ischemia at a high workload. He was able to walk 10.1 METS. With his elevated calcium score and decrease in exercise tolerance per patient concerned that his stress test is incorrect and that he could have a balanced ischemia. Would like to obtain a diagnostic heart catheterization to further assess. ROS Const Const: Negative for fatigue, weakness, daytime sleepiness or difficulty sleeping ENT ENT: Negative for dizziness or Nosebleed/epistaxis Cardio Chest Pain: No Palpitations: No Edema: None Resp Respiratory: Positive for SOB at rest; Negative for SOB with activity, SOB orthopnea\SOB lying down or Cough GI GI: Negative nausea, vomiting or heartburn Neuro Neuro: Negative for dizziness, lightheadedness, near syncope or weakness Endo Endo: Negative for fatigue Cardiology Exam Const Appearance: cooperative, healthy appearing, no acute distress, well developed and well groomed Nutritional Appearance: average body habitus and well nourished Orientation: alert, awake and oriented x3 Head Head: normal to inspection, normocephalic and atraumatic Ears: hearing grossly normal bilaterally and external ears normal Nose: external nose normal, nares normal, nasal mucous membranes and turbinates normal, septum normal and no nasal discharge Face and Sinus: face symmetric Mouth: oral mucosae normal, tongue normal, oropharynx normal and moist mucous membranes Teeth and gingiva: dentition normal Throat: posterior oropharynx normal, tonsils normal and uvula midline Eyes General: appearance normal, both eyes and all related structures Eyelids: eyelids normal Conjunctivae: conjunctivae normal Pupils: PERRL, normal by confrontation and accommodation normal EOM: EOM intact bilaterally Neck Neck: normal visual inspection, trachea midline and no JVD JVD: +5 Carotids: normal carotid upstroke and bounding pulses Chest Chest inspection: normal inspection of the chest, symmetric chest movement and normal respiratory effort Auscultation: Bilateral: Clear to Auscultation Cardio Palpation: normal PMI Rate: regular rate Rhythm: regular rhythm Heart sounds: S1 normal, S2 normal and normal, physiologic split S2; Negative rub, gallop or murmur GI GI: normal to inspection, soft, no hepatosplenomegaly and bowel sounds present Neuro General: patient alert, patient awake, patient oriented x3, gait normal, moves all extremities and no focal sensory deficit Skin Skin: no rashes or lesions noted Extremities Pulses: Normal: Right Femoral Pulse, Left Femoral Pulse, Right Dorsalis Pedis Pulse, Left Dorsalis Pedis Pulse, Right Posterior Tibial Pulse, Left Posterior Tibial Pulse, Right Radial Pulse and Left Radial Pulse Lower Extremity Edema: None: Bilateral Musculoskel Musculoskeletal: No joint tenderness Psych Psychological: normal affect Assessment & Plan Assessment/Plan (1) Elevated coronary artery calcium score: (2) HTN (hypertension): QUALIFIERS: Hypertension type: essential hypertension Qualified Code(s): I10 - Essential (primary) hypertension (3) Hyperlipidemia: QUALIFIERS: Hyperlipidemia type: unspecified Qualified Code(s): E78.5 - Hyperlipidemia, unspecified (4) PENA (dyspnea on exertion): PLAN: Plan Plan is to pursue a diagnostic heart catheterization and follow-up accordingly after.
[2025-05-22 08:06] VITALS: BMI 27.1
--- OUTSIDE RECORDS SUMMARY | 2025-05-23 07:15 | XMS RPT_ITS | CCD ---
Author Organization [facility] Care Team Providers Care Thread Drawer Name Role Phone Jamey Damian MD Primary Care Provider Erwin HUITRON MD, Daesung Unavailable Dr. Jamey Damian Primary Care Provider Dr. Colby Colon Attending Provider [phone] Dr. Wilver Willson Referring Provider Dr. Wilver Willson Admit Provider Dr. Wilver Willson Other Provider Dr. Alphonse Good Attending Provider Dr. Alphonse Good Other Provider Dr. Yen Tucker Attending Provider [phone] Dr. Yen Tucker Other Provider Jamey Damian MD Primary Care Provider Erwin HUITRON MD, Daesung Unavailable Jamey Damian MD Primary Care Provider Erwin HUITRON, Daesung Unavailable Alfredo TANK TENDER.TEACHER EDUCATION INSTRUCTOR, Delmy M Unavailable ANCA LOVE Attending Unavailable [...] Care Unavailable Jamey Damian Referring Unavailable Alex Billings Attending Unavailable Dhaval Johnsonl Referring Unavailable Jamey Damian Primary Care Unavailable Stuart Johnson Attending Unavailable Stuart Johnson Referring Unavailable Jamey Damian Primary Care Unavailable Allergies Allergy Classification Reported Allergen(s) Allergy Type Date of Onset Reaction(s) Facility (20 sources) Penicillins; Translations: [PENICILLINS] Propensity to adverse reactions 9 Hives, Shortness of Breath [facility] Work Phone: (2 sources) Penicillins Allergy to substance 3 [facility] (1 source) Penicillins Drug allergy (disorder) 5 [facility] Repository Medications Current Medications Medication Drug [...] Coronary arteriosclerosis; Translations: [Atherosclerotic heart disease of [place] coronary artery without angina pectoris] Onset: [...] yon 04-29-[address] Cardiac Only [facility] Imaging Services [facility] [place], [place] [id number] Limited Chest CT Cardiac Only MR#: [id number] Acct: [id number] Name: UMESH PRESTON Rep #: [id number] : 1950 M 74 From: Daryl graham MD PCP: Dr. Jamey Damian MD Status: REG REF Study: Limited Chest CT Cardiac Only Date of Exam: Exam# [id number] Ordering Dr: Stuart Johnson MD PROCEDURE: LIMITED [...] Only IMPRESSION: Coronary artery calcification. Reading Location: [facility] CC: Dr. Stuart Johsnon MD; Dr. Jamey Damian MD Ice House Supervisor: Signed Normal [facility] Cardiology Visit Reporton Cardiology Visit Report [facility] [place] [address] OFFICE VISIT Date of Service: 04/02/25 MR#: [id number] Acct: [id number] Name: UMESH PRESTON Rep #: [id number] : 1950 Provider: Dr. Stuart Johnson MD Age/Sex: 74/M [place] [facility] [place] Status: Signed HPI HPI History of Present Illness Details: The patient is a 74-year-old male with a history of hypertension and hypercholesterolemia, presenting for cardiovascular evaluation. The patient expresses concern about his cardiovascular health due to a family history of strokes and myocardial infarctions. He desires to establish care with a local wastewater technician for ongoing management and to address any potential issues promptly, especially given his plans to travel to [place] around [place]. He reports not feeling well since undergoing [...] Source Monitor Intake Visit Reasons: CP (SELF) Nursing Professor Required: No Accompanied by: Self Is patient [...] and S (more content not included)... [facility] UMESH PREST[facility] ([id number]) 1950 M Date Time Provider Department 07/17/24 JAMEY DAMIAN During your visit today, we recorded the following information about you: Disha Gomes LPN 07/17/2024 8:47 AM Signed ----- Message from Delmy Treviño APRN.TEACHER EDUCATION INSTRUCTOR sent at 07/17/2024 8:44 AM EST ----- [...] Date Reviewed: 07/03/2024 Reviewed by: Delmy Treviño APRN.TEACHER EDUCATION INSTRUCTOR - Fully Assessed Reason for Visit: Results [...] Status:Closed by DISHA GOMES on 07/17/24 Normal [facility] CBC W Auto Differential pane l (Bld)on 07-16-2024 Basophils (Bld) [#/Vol] 0.08 10*3/uL Normal <0.11 [facility] Comment on above: Order Comment: Speci men Type: BLOOD SPECIMENOrdering Facility: [facility] Address: [address] [place] [address] Performed By: #### 5 7021-8 ####[facility] LABIA [id number] [place] [address] [place] Basophils/100 WBC (Bld) 1.0 % Normal [facility] Comment on above: Order Comment: Speci men Type: BLOOD SPECIMENOrdering Facility: [facility] Address: [address] [place] [address] Performed By: #### 5 7021-8 ####[facility] LABCLIA [id number] [place] [address] [place] Differential cell count method Nom (Bld) Auto Normal [facility] Comment on above: Order Comment: Speci men Type: BLOOD SPECIMENOrdering Facility: [facility] Address: [address] [place] [address] Performed By: #### 5 7021-8 ####[facility] LABCLIA [id number] [place] [address] [place] Eosinophils (Bld) [#/Vol] 0.13 10*3/uL Normal <0.46 [facility] Comment on above: Order Comment: Speci men Type: BLOOD SPECIMENOrdering Facility: [facility] Address: [address] [place] [address] Performed By: #### 5 7021-8 ####[facility] LABCLIA [id number] [place] [address] [place] Eosinophils/100 WBC (Bld) 1.7 % Normal [facility] Comment on above: Order Comment: Speci men Type: BLOOD SPECIMENOrdering Facility: [facility] Address: [address] [place] [address] Performed By: #### 5 7021-8 ####[facility] LABCLIA [id number] [place] [address] [place] Erythrocyte distribution width (RBC) [Ratio] 12.4 % Normal 11.5-15.0 [facility] Comment on above: Order Comment: Speci men Type: BLOOD SPECIMENOrdering Facility: [facility] Address: [address] [place] [address] Performed By: #### 5 7021-8 ####[facility] LABCLIA [id number] [place] [address] [place] Hematocrit (Bld) [Volume fraction] 40.6 % Normal 39.0-51.0 [facility] Comment on above: Order Comment: Speci men Type: BLOOD SPECIMENOrdering Facility: [facility] Address: [address] [place] [address] Performed By: #### 5 7021-8 ####[facility] LABCLIA [id number] [place] [address] [place] Hemoglobin (Bld) [Mass/Vol] 13.9 g/dL Normal 13.0-17.0 [facility] Comment on above: Order Comment: Speci men Type: BLOOD SPECIMENOrdering Facility: [facility] Address: [address] [place] [address] Performed By: #### 5 7021-8 ####[facility] LABCLIA [id number] [place] [address] [place] Immature granulocytes (Bld) [#/Vol] 10*3/uL Normal <0.10 [facility] Comment on above: Order Comment: Speci men Type: BLOOD SPECIMENOrdering Facility: [facility] Address: [address] [place] [address] Performed By: #### 5 7021-8 ####[facility] LABCLIA [id number] [place] [address] [place] Immature granulocytes/100 WBC (Bld) 0.3 % Normal [facility] Comment on above: Order Comment: Speci men Type: BLOOD SPECIMENOrdering Facility: [facility] Address: [address] [place] [address] Performed By: #### 5 7021-8 ####[facility] LABCLIA [id number] [place] [address] [place] Lymphocytes (Bld) [#/Vol] 2.98 10*3/uL Normal 1.00-4.00 [facility] Comment on above: Order Comment: Speci men Type: BLOOD SPECIMENOrdering Facility: [facility] Address: [address] [place] [address] Performed By: #### 5 7021-8 ####[facility] LABCLIA [id number] [place] [address] [place] Lymphocytes/100 WBC (Bld) 38.2 % Normal [facility] Comment on above: Order Comment: Speci men Type: BLOOD SPECIMENOrdering Facility: [facility] Address: [address] [place] [address] Performed By: #### 5 7021-8 ####[facility] LABIA [id number] [place] [address] [place] MCH (RBC) [Entitic mass] 30.4 pg Normal 26.0-34.0 [facility] Comment on above: Order Comment: Speci men Type: BLOOD SPECIMENOrdering Facility: [facility] Address: [address] [place] [address] Performed By: #### 5 7021-8 ####[facility] LABIA [id number] [place] [address] [place] MCHC (RBC) [Mass/Vol] 34.2 g/dL Normal 30.5-36.0 [facility] Comment on above: Order Comment: Speci men Type: BLOOD SPECIMENOrdering Facility: [facility] Address: [address] [place] [address] Performed By: #### 5 7021-8 ####[facility] LABIA [id number] [place] [address] [place] MCV (RBC) [Entitic vol] 88.8 fL Normal 80.0-100.0 [facility] Comment on above: Order Comment: Speci men Type: BLOOD SPECIMENOrdering Facility: [facility] Address: [address] [place] [address] Performed By: #### 5 7021-8 ####[facility] LABIA [id number] [place] [address] [place] Monocytes (Bld) [#/Vol] 0.76 10*3/uL Normal <0.87 [facility] Comment on above: Order Comment: Speci men Type: BLOOD SPECIMENOrdering Facility: [facility] Address: [address] [place] [address] Performed By: #### 5 7021-8 ####[facility] LABCLIA [id number] [place] [address] [place] Monocytes/100 WBC (Bld) 9.7 % Normal [facility] Comment on above: Order Comment: Speci men Type: BLOOD SPECIMENOrdering Facility: [facility] Address: [address] [place] [address] Performed By: #### 5 7021-8 ####[facility] LABCLIA [id number] [place] [address] [place] Neutrophils (Bld) [#/Vol] 3.83 10*3/uL Normal 1.45-7.50 [facility] Comment on above: Order Comment: Speci men Type: BLOOD SPECIMENOrdering Facility: [facility] Address: [address] [place] [address] Performed By: #### 5 7021-8 ####[facility] LABIA [id number] [place] [address] [place] Neutrophils/100 WBC (Bld) 49.1 % Normal [facility] Comment on above: Order Comment: Speci men Type: BLOOD SPECIMENOrdering Facility: [facility] Address: [address] [place] [address] Performed By: #### 5 7021-8 ####[facility] LABIA [id number] [place] [address] [place] Nucleated RBC (Bld) [#/Vol] 10*3/uL Normal <0.01 [facility] Comment on above: Order Comment: Speci men Type: BLOOD SPECIMENOrdering Facility: [facility] Address: [address] [place] [address] Performed By: #### 5 7021-8 ####[facility] LABCLIA [id number] [place] [address] [place] Nucleated RBC/100 WBC (Bld) [Ratio] 0.0 /100 WBC Normal [facility] Comment on above: Order Comment: Speci men Type: BLOOD SPECIMENOrdering Facility: [facility] Address: [address] [place] [address] Performed By: #### 5 7021-8 ####[facility] LABIA [id number] [place] [address] [place] Platelet mean volume (Bld) [Entitic vol] 9.7 fL Normal 9.0-12.7 [facility] Comment on above: Order Comment: Speci men Type: BLOOD SPECIMENOrdering Facility: [facility] Address: [address] [place] [address] Performed By: #### 5 7021-8 ####[facility]IA [id number] [place] [address] [place] Platelets (Bld) [#/Vol] 290 10*3/uL Normal 150-400 [facility] Comment on above: Order Comment: Speci men Type: BLOOD SPECIMENOrdering Facility: [facility] Address: [address] [place] [address] Performed By: #### 5 7021-8 ####[facility]IA [id number] [place] [address] [place] RBC (Bld) [#/Vol] 4.57 10*6/uL Normal 4.20-6.00 [facility] Comment on above: Order Comment: Speci men Type: BLOOD SPECIMENOrdering Facility: [facility] Address: [address] [place] [address] Performed By: #### 5 7021-8 ####[facility] LABIA [id number] [place] [address] [place] WBC (Bld) [#/Vol] 7.80 10*3/uL Normal 3.70-11.00 [facility] Comment on above: Order Comment: Speci men Type: BLOOD SPECIMENOrdering Facility: [facility] Address: [address] [place] [address] Performed By: #### 5 7021-8 ####[facility] LABCLIA [id number] [place] [address] [place] Comprehensive metabolic 2000 panelon 07-16-2024 Albumin [Mass/Vol] 4.7 g/dL Normal 3.9-4.9 [facility] Comment on above: Order Comment: Speci men Type: BLOOD SPECIMENOrdering Facility: [facility] Address: [address] [place] [address] Performed By: #### 2 4323-8, 66573-0 ####[facility] LABCLIA [id number] [place] [address] [place] ALP [Catalytic activity/Vol] 76 U/L Normal 38-113 [facility] Comment on above: Order Comment: Speci men Type: BLOOD SPECIMENOrdering Facility: [facility] Address: [address] [place] [address] Performed By: #### 2 4323-8, 20699-5 ####[facility] LABCLIA [id number] [address] [place] ALT [Catalytic activity/Vol] 16 U/L Normal 10-54 [facility] Comment on above: Order Comment: Speci men Type: BLOOD SPECIMENOrdering Facility: [facility] Address: [address] [place] [address] Performed By: #### 2 4323-8, 19377-3 ####[facility] LABCLIA [id number] [place] [id number] [place] Anion gap [Moles/Vol] 13 mmol/L Normal 8-15 [facility] Comment on above: Order Comment: Speci men Type: BLOOD SPECIMENOrdering Facility: [facility] Address: [address] [place] [address] Performed By: #### 2 4323-8, 60669-2 ####[facility] LABCLIA [id number] [place] [address] [place] AST [Catalytic activity/Vol] 24 U/L Normal 14-40 [facility] Comment on above: Order Comment: Speci men Type: BLOOD SPECIMENOrdering Facility: [facility] Address: [address] [place] [address] Performed By: #### 2 4323-8, 58808-6 ####[facility] LABCLIA [id number] [place] [address] [place] Bilirubin [Mass/Vol] 0.7 mg/dL Normal 0.2-1.3 [facility] Comment on above: Order Comment: Speci men Type: BLOOD SPECIMENOrdering Facility: [facility] Address: [address] [place] [address] Performed By: #### 2 4323-8, 51624-1 ####[facility]IA [id number] [place] [address] [place] Calcium [Mass/Vol] 9.6 mg/dL Normal 8.5-10.2 [facility] Comment on above: Order Comment: Speci men Type: BLOOD SPECIMENOrdering Facility: [facility] Address: [address] [place] [address] Performed By: #### 2 4323-8, 20686-0 ####[facility] LABCLIA [id number] [place] [address] [place] Chloride [Moles/Vol] 95 mmol/L Low 98-107 [facility] Comment on above: Order Comment: Speci men Type: BLOOD SPECIMENOrdering Facility: [facility] Address: [address] [place] [address] Performed By: #### 2 4323-8, 76969-5 ####[facility] LABCLIA [id number] [place] [address] [place] CO2 [Moles/Vol] 24 mmol/L Normal 22-30 [facility] Comment on above: Order Comment: Speci men Type: BLOOD SPECIMENOrdering Facility: [facility] Address: [address] [place] [address] Performed By: #### 2 4323-8, 86124-5 ####[facility] LABCLIA [id number] [place] [id number] [place] Creatinine [Mass/Vol] 1.06 mg/dL Normal 0.73-1.22 [facility] Comment on above: Order Comment: Speci men Type: BLOOD SPECIMENOrdering Facility: [facility] Address: [address] [place] [address] Performed By: #### 2 4323-8, 29601-9 ####[facility] LABCLIA [id number] [place] [address] [place] Creatinine and Glomerular filtration rate.predicted panel (S/P/Bld) 75 mL/min/1.73m??? Normal >=60 [facility] Comment on above: Order Comment: Speci men Type: BLOOD SPECIMENOrdering Facility: [facility] Address: [address] [place] [address] Result Comment: Sophia mated Glomerular Filtration Rate [...] actual GFR. Performed By: #### 2 4323-8, 27469-1 ####[facility] LABCLIA [id number] [place] [id number] [place] Glucose [Mass/Vol] 92 mg/dL Normal 74-99 [facility] Comment on above: Order Comment: Speci men Type: BLOOD SPECIMENOrdering Facility: [facility] Address: [address] [place] [address] Result Comment: The [place] Diabetes Association (ADA) provides guidance for cutoff [...] Standards of Medical Care in Diabetes 2016, [place] [employer]. Diabetes Care. 2016.39(Suppl 1). Performed By: #### 2 4323-8, 76597-9 ####[facility] LABCLIA [id number] [place] [address] [place] Potassium [Moles/Vol] 4.5 mmol/L Normal 3.7-5.1 [facility] Comment on above: Order Comment: Speci men Type: BLOOD SPECIMENOrdering Facility: [facility] Address: [address] [place] [address] Performed By: #### 2 4323-8, 87138-0 ####[facility] LABCLIA [id number] [place] [address] [place] Protein [Mass/Vol] 7.5 g/dL Normal 6.3-8.0 [facility] Comment on above: Order Comment: Speci men Type: BLOOD SPECIMENOrdering Facility: [facility] Address: [address] [place] [id number] Performed By: #### 2 4323-8, 38583-0 ####[facility] LABCLIA [id number] [place] [address] [place] Sodium [Moles/Vol] 132 mmol/L Low 136-144 [facility] Comment on above: Order Comment: Speci men Type: BLOOD SPECIMENOrdering Facility: [facility] Address: [address] [place] [address] Performed By: #### 2 4323-8, 48752-1 ####[facility] LABCLIA [id number] [place] [address] [place] Urea nitrogen [Mass/Vol] 16 mg/dL Normal 9-24 [facility] Comment on above: Order Comment: Speci men Type: BLOOD SPECIMENOrdering Facility: [facility] Address: [address] [place] [address] Performed By: #### 2 4323-8, 41774-5 ####[facility] LABCLIA [id number] [place] [address] [place] Lipid 1996 panelon 5 Cholesterol [Mass/Vol] 176 mg/dL Normal <200 [facility] Comment on above: Order Comment: Speci men Type: BLOOD SPECIMENOrdering Facility: [facility] Address: [address] [place] [address] Result Comment: <200 mg/dL, Desirable 200-239 mg/dL, Borderline high >239 mg/dL, High Performed By: #### 2 4323-8, 33246-9 ####[facility]CLIA [id number] [place] [address] [place] Cholesterol in HDL [Mass/Vol] 78 mg/dL Normal >39 [facility] Comment on above: Order Comment: Speci men Type: BLOOD SPECIMENOrdering Facility: [facility] Address: [address] [place] [address] Result Comment: 40-5 9 mg/dL, Acceptable >59 mg/dL, High: Negative risk factor for coronary heart disease <40 mg/dL, Low: Positive risk factor for coronary heart disease Performed By: #### 2 4323-8, 45966-5 ####[facility]CLIA [id number] [place] [address] [place] Cholesterol in LDL [Mass/Vol] 82 mg/dL Normal <100 [facility] Comment on above: Order Comment: Speci men Type: BLOOD SPECIMENOrdering Facility: [facility] Address: [address] [place] [address] Result Comment: <100 mg/dL, Optimal 100-129 mg/dL, Near optimal/above optimal 130-159 mg/dL, Borderline high 160-189 mg/dL, High >189 mg/dL, Very high Secondary prevention optimal LDL Cholesterol levels are recommended to be < 70 mg/dL Performed By: #### 2 4323-8, 81475-2 ####[facility]CLIA [id number] [place] [address] [place] Cholesterol in LDL/Cholesterol in HDL [Mass ratio] 1.05 {ratio} Normal <2.54 [facility] Comment on above: Order Comment: Speci men Type: BLOOD SPECIMENOrdering Facility: [facility] Address: [address] [place] [address] Result Comment: Refe rence: 1. National Cholesterol Education Program ATP III Guideline At-A-Glance Quick Desk Reference: National Heart, Lung, and Blood [place]. National Institutes of Health. 2001: NIH Publication No. 01-3305. 2. An International Atherosclerosis Society position paper: global recommendations for the management of dyslipidemia: executive summary, Atherosclerosis. 2014: 232(2):410-413. Performed By: #### 2 4323-8, ####[facility]CLIA [id number] [place] [address] [place] Cholesterol in VLDL [Mass/Vol] 16 mg/dL Normal <30 [facility] Comment on above: Order Comment: Speci men Type: BLOOD SPECIMENOrdering Facility: [facility] Address: [address] [place] [address] Performed By: #### 2 4323-8, ####[facility]CLIA [id number] [place] [id number] [place] Cholesterol non HDL [Mass/Vol] 98 mg/dL Normal <130 [facility] Comment on above: Order Comment: Speci men Type: BLOOD SPECIMENOrdering Facility: [facility] Address: [address] [place] [address] Result Comment: <130 mg/dL, Optimal 130-159 mg/dL, Near optimal/above optimal 160-189 mg/dL, Borderline high 190-219 mg/dL, High >219 mg/dL, Very high Secondary prevention optimal non HDL Cholesterol levels are recommended to be <100 mg/dL Performed By: #### 2 4323-8, 13406-1 ####[facility]CLIA [id number] [place] [address] [place] Cholesterol.total/Cho lesterol in HDL [Mass ratio] 2.26 {ratio} Normal <5.10 [facility] Comment on above: Order Comment: Speci men Type: BLOOD SPECIMENOrdering Facility: [facility] Address: [address] [place] [address] Performed By: #### 2 4323-8, 69561-3 ####[facility] LABCLIA [id number] [address] [place] FASTING TIME 14 hrs Normal [facility] Comment on above: Order Comment: Speci men Type: BLOOD SPECIMENOrdering Facility: [facility] Address: [address] [place] [address] Performed By: #### 2 4323-8, 95840-6 ####[facility]CLIA [id number] [place] [address] [place] Triglyceride [Mass/Vol] 82 mg/dL Normal <150 [facility] Comment on above: Order Comment: Speci men Type: BLOOD SPECIMENOrdering Facility: [facility] Address: [address] [place] [address] Result Comment: <150 mg/dL, Normal 150-199 mg/dL, Borderline high 200-499 mg/dL, High >499 mg/dL, Very high Performed By: #### 2 4323-8, 19863-3 ####[facility]CLIA [id number] [place] [address] [place] CNOVon 01-15-2025 CNOV Office Visit (INTMWS ) UMESH PRESTON ([id number]) 1950 M Date Time Provider Department 07/03/24 8:00 AM DELMY TREVIÑO INTMWS During your visit today, we recorded the following information about you: Pulse Respiration Blood pressure Weight 76/minute 14/minute 122/74 85.8 kg Delmy Treviño, TANK TENDER.TEACHER EDUCATION INSTRUCTOR 07/03/2024 8:26 AM Signed CC: Patient presents [...] W/COLLJ SPEC WHEN PFRMD 10/18/2003 [place], [place], negative COLONOSCOPY FLX DX W/COLLJ SPEC WHEN [...] Screening due (more content not included)... Normal [facility] CNOVon 11-29-2023 CNOV Office Visit (INTMWS ) UMESH PRESTON ([id number]) 1950 M Date Time Provider Department 11/29/23 9:40 AM DELMY TREVIÑO INTMWS During your visit today, we recorded the following information about you: Temperature Pulse Respiration Blood pressure 97.9 degrees 71/minute 18/minute 164/78 Weight 82.1 kg Delmy Treviño, TANK TENDER.TEACHER EDUCATION INSTRUCTOR 11/29/2023 12:22 PM Signed CC: Patient presents [...] BMI 25.97 (more content not included)... [facility]INTMWS[facility] FLEXUMESH Eugene ([id number]) 1950 M Date Time Provider Department 11/27/23 [...] Encounter Status:Closed by NICOLE AMBRIZ on 11/27/23 [facility] CNOVon 11-01-2023 CNOV Office Visit (GENSWS ) FLEXUMESH Jabier ([id number]) 1950 M Date Time Provider Department 11/01/23 [...] YRS/> REDUCIBLE (more content not included)... Normal [facility] CT ABD/PEL W IVCONon 05-13-[address] ABD/PEL W IVCON * * *Final Report* * * DATE OF EXAM: Oct 30 2023 2:45PM [facility] 0530 - CT ABD/PEL W IVCON [...] acute process in the abdomen or pelvis. Ice House Supervisor: LESA Transcribe Date/Time: Oct 31 2023 12:11P Dictated by : SABA MATHIS DO This examination was interpreted and the report reviewed and electronically signed by: SABA MATHIS DO on Oct 31 2023 12:32PM EST [id number] Normal [facility] UMESH PRESTON ([id number]) 1950 Date Time Provider Department 10/21/23 JAMEY [...] Date Reviewed: 06/28/2023 Reviewed by: Delmy Treviño, SILVANO.TEACHER EDUCATION INSTRUCTOR - Fully Assessed Reason for Visit: Results [...] Encounter Status:Closed by PAL[facility]EN [facility] UMESH PREST[facility] ([id number]) 1950 M Date Time Provider Department 10/21/23 JAMEY DAMIAN INTMWS During your visit today, we recorded the following information about you: Paloma Hansen LPN 10/21/2023 11:59 AM Signed Patient calling asking if he could have rx for Dicyclomine 20 mg. He said it is helping with his hernia issues. He is using up old rx that PRODUCT SAFETY PROFESSIONAL had given him. Patient uses [facility] for his [facility]. Please advise Allergies As of Date: 10/21/2023 Noted Allergy Reaction PENICILLINS 02/03/2009 4 - Hives 12 - Shortness of Breath Date Reviewed: 06/28/2023 Reviewed by: Delmy Treviño, TANK TENDER.TEACHER EDUCATION INSTRUCTOR - Fully Assessed Reason for Visit: Patient Question [2819] Order(s):dicyclomine (BENTYL) 20 mg tabletTake 1 tablet [...] Status:Closed by JAMEY DAMIAN on 10/24/23 Normal [facility] Basic metabolic 2000 panelon 10-20-2023 Anion gap [Moles/Vol] 11 mmol/L 9 - 18 mmol/L [facility] Calcium [Mass/Vol] 9.5 mg/dL 8.5 - 10. 2 mg/dL [facility] Chloride [Moles/Vol] 98 mmol/L 97 - 10 5 mmol/L [facility] CO2 [Moles/Vol] 24 mmol/L 22 - 30 mmol/L [facility] Creatinine [Mass/Vol] 1.04 mg/dL 0.73 - 1.22 mg/dL [facility] GFR/1.73 sq M.predicted among non-blacks MDRD (S/P/Bld) [Vol rate/Area] 77 mL/min/{1.73_m2} - PINF [facility] Comment on above: Estimated Glomerular [...] 115 mg/dL High 74 - 99 mg/dL [facility] Comment on above: The [place] Diabete s Association (ADA) provides guidance for [...] Standards of Medical Care in Diabetes 2016, [place] Diabetes Association. Diabetes Care. 2016.39(Suppl 1). Interpretation and review of laboratory results Abnormal [facility] Potassium [Moles/Vol] 4.4 mmol/L 3.7 - 5.1 mmol/L [facility] Sodium [Moles/Vol] 133 mmol/L Low 136 - 144 mmol/L [facility] Urea nitrogen [Mass/Vol] 20 mg/dL 9 - 24 mg/dL [facility] Anion gap [Moles/Vol] 11 mmol/L Normal 9-18 [facility] Comment on above: Order Comment: Speci men Type: BLOOD SPECIMENOrdering Facility: [facility] Address: [address] [place] [address] Performed By: #### 2 4321-2 ####[facility] LABCLIA [id number] [place] [address] [place] Calcium [Mass/Vol] 9.5 mg/dL Normal 8.5-10.2 [facility] Comment on above: Order Comment: Speci men Type: BLOOD SPECIMENOrdering Facility: [facility] Address: [address] [place] [address] Performed By: #### 2 4321-2 ####[facility] LABCLIA [id number] [place] [address] [place] Chloride [Moles/Vol] 98 mmol/L Normal 97-105 [facility] Comment on above: Order Comment: Speci men Type: BLOOD SPECIMENOrdering Facility: [facility] Address: [address] [place] [address] Performed By: #### 2 4321-2 ####[facility] LABCLIA [id number] [place] [address] [place] CO2 [Moles/Vol] 24 mmol/L Normal 22-30 [facility] Comment on above: Order Comment: Speci men Type: BLOOD SPECIMENOrdering Facility: [facility] Address: [address] [place] [address] Performed By: #### 2 4321-2 ####[facility] LABCLIA [id number] [place] [address] [place] Creatinine [Mass/Vol] 1.04 mg/dL Normal 0.73-1.22 [facility] Comment on above: Order Comment: Speci men Type: BLOOD SPECIMENOrdering Facility: [facility] Address: [address] [place] [address] Performed By: #### 2 4321-2 ####[facility] LABCLIA [id number] [place] [address] [place] Creatinine and Glomerular filtration rate.predicted panel (S/P/Bld) 77 mL/min/1.73m??? Normal >=60 [facility] Comment on above: Order Comment: Grady truong Type: BLOOD SPECIMENOrdering Facility: [facility] Address: [address] [place] [address] Result Comment: Sophia mated Glomerular Filtration Rate [...] actual GFR. Performed By: #### 2 4321-2 ####[facility] LABCLIA [id number] [place] [address] [place] Glucose [Mass/Vol] 115 mg/dL High 74-99 [facility] Comment on above: Order Comment: Grady truong Type: BLOOD SPECIMENOrdering Facility: [facility] Address: [address] [place] [address] Result Comment: The [place] Diabetes Association (ADA) provides guidance for cutoff [...] Standards of Medical Care in Diabetes 2016, [place] Diabetes Association. Diabetes Care. 2016.39(Suppl 1). Performed By: #### 2 4321-2 ####[facility] LABCLIA [id number] [place] [address] [place] Potassium [Moles/Vol] 4.4 mmol/L Normal 3.7-5.1 [facility] Comment on above: Order Comment: Speci men Type: BLOOD SPECIMENOrdering Facility: [facility] Address: [address] [place] [address] Performed By: #### 2 4321-2 ####[facility] LABIA [id number] [place] [address] [place] Sodium [Moles/Vol] 133 mmol/L Low 136-144 [facility] Comment on above: Order Comment: Speci men Type: BLOOD SPECIMENOrdering Facility: [facility] Address: [address] [place] [address] Performed By: #### 2 4321-2 ####[facility] LABIA [id number] [place] [address] [place] Urea nitrogen [Mass/Vol] 20 mg/dL Normal 9-24 [facility] Comment on above: Order Comment: Speci men Type: BLOOD SPECIMENOrdering Facility: [facility] Address: [address] [place] [address] Performed By: #### 2 4321-2 ####[facility] LABIA [id number] [place] [address] [place] CBC panel Auto (Bld)on 10-19 Erythrocyte distribution width (RBC) [Ratio] 14.9 % 11.5 - 15.0 % [facility] Hematocrit (Bld) [Volume fraction] 37.6 % Low 39.0 - 51.0 % [facility] Hemoglobin (Bld) [Mass/Vol] 12.3 g/dL Low 13.0 - 17.0 g/dL [facility] Interpretation and review of laboratory results Abnormal [facility] MCH (RBC) [Entitic mass] 28.8 pg 26.0 - 34.0 pg [facility] MCHC (RBC) [Mass/Vol] 32.7 g/dL 30.5 - 36.0 g/dL [facility] MCV (RBC) [Entitic vol] 88.1 fL 80.0 - 100.0 fL [facility] Nucleated RBC (Bld) [#/Vol] NINF [facility] Platelet mean volume (Bld) [Entitic vol] 9.9 fL 9.0 - 12.7 fL [facility] Platelets (Bld) [#/Vol] 306 10*3/uL [facility] RBC (Bld) [#/Vol] 4.27 10*6/uL 4.20 - 6.0 0 m/uL [facility] WBC (Bld) [#/Vol] 7.83 10*3/uL [facility] Erythrocyte distribution width (RBC) [Ratio] 14.9 % Normal 11.5-15.0 [facility] Comment on above: Order Comment: Speci men Type: BLOOD SPECIMENOrdering Facility: [facility] Address: [address] [place] [address] Performed By: #### 5 8410-2 ####[facility] LABIA [id number] [place] [address] [place] Hematocrit (Bld) [Volume fraction] 37.6 % Low 39.0-51.0 [facility] Comment on above: Order Comment: Speci men Type: BLOOD SPECIMENOrdering Facility: [facility] Address: [address] [place] [address] Performed By: #### 5 8410-2 ####[facility] LABCLIA [id number] [place] [address] [place] Hemoglobin (Bld) [Mass/Vol] 12.3 g/dL Low 13.0-17.0 [facility] Comment on above: Order Comment: Speci men Type: BLOOD SPECIMENOrdering Facility: [facility] Address: [address] [place] [address] Performed By: #### 5 8410-2 ####[facility] LABCLIA [id number] [place] [address] [place] MCH (RBC) [Entitic mass] 28.8 pg Normal 26.0-34.0 [facility] Comment on above: Order Comment: Speci men Type: BLOOD SPECIMENOrdering Facility: [facility] Address: [address] [place] [address] Performed By: #### 5 8410-2 ####[facility] LABCLIA [id number] [place] [address] [place] MCHC (RBC) [Mass/Vol] 32.7 g/dL Normal 30.5-36.0 [facility] Comment on above: Order Comment: Speci men Type: BLOOD SPECIMENOrdering Facility: [facility] Address: [address] [place] [address] Performed By: #### 5 8410-2 ####[facility] LABCLIA [id number] [place] [address] [place] MCV (RBC) [Entitic vol] 88.1 fL Normal 80.0-100.0 [facility] Comment on above: Order Comment: Speci men Type: BLOOD SPECIMENOrdering Facility: [facility] Address: [address] [place] [address] Performed By: #### 5 8410-2 ####[facility] LABIA [id number] [place] [address] [place] Nucleated RBC (Bld) [#/Vol] 10*3/uL Normal <0.01 [facility] Comment on above: Order Comment: Speci men Type: BLOOD SPECIMENOrdering Facility: [facility] Address: [address] [place] [address] Performed By: #### 5 8410-2 ####[facility] LABCLIA [id number] [place] [address] [place] Platelet mean volume (Bld) [Entitic vol] 9.9 fL Normal 9.0-12.7 [facility] Comment on above: Order Comment: Speci men Type: BLOOD SPECIMENOrdering Facility: [facility] Address: [address] [place] [address] Performed By: #### 5 8410-2 ####[facility] LABIA [id number] [place] [address] [place] Platelets (Bld) [#/Vol] 306 10*3/uL Normal 150-400 [facility] Comment on above: Order Comment: Speci men Type: BLOOD SPECIMENOrdering Facility: [facility] Address: [address] [place] [address] Performed By: #### 5 8410-2 ####[facility] LABIA [id number] [place] [address] [place] RBC (Bld) [#/Vol] 4.27 10*6/uL Normal 4.20-6.00 [facility] Comment on above: Order Comment: Speci men Type: BLOOD SPECIMENOrdering Facility: [facility] Address: [address] [place] [address] Performed By: #### 5 8410-2 ####[facility] LABIA [id number] [place] [address] [place] WBC (Bld) [#/Vol] 7.83 10*3/uL Normal 3.70-11.00 [facility] Comment on above: Order Comment: Speci men Type: BLOOD SPECIMENOrdering Facility: [facility] Address: [address] [place] [address] Performed By: #### 5 8410-2 ####[facility] LABIA [id number] [place] [address] [place] PROSTATE-SPECIFIC ANTIGEN DI AGNOSTICon 10-20-2023 Prostate specific Ag [Mass/Vol] 0.38 ng/mL NINF - 2.60 ng/mL [facility] Comment on above: Total PSA test metho dology used is the Electrochemiluminescence Immunoassay by [employer]. Total PSA values by differing methodologies cannot be interchanged. PSA SerPl-mCncon 10-20-2023 Prostate specific Ag [Mass/Vol] 0.38 ng/mL Normal <2.60 [facility] Comment on above: Order Comment: Speci men Type: BLOOD SPECIMENOrdering Facility: [facility] Address: [address] [place] [address] Result Comment: Tota l PSA test methodology used is the Electrochemiluminescence Immunoassay by [employer]. Total PSA values by differing methodologies cannot be interchanged. Performed By: #### 2 857-1 ####[facility] LABCLIA [id number] [facility] [id number] [id number] [place] Prostate specific Ag [Mass/V ol]on 10-20-2023 Interpretation and review of laboratory results Normal [facility] CNOVon 10-19-2023 CNOV Office Visit (INTMWS ) UMESH PRESTON ([id number]) 1950 M Date Time Provider Department 10/19/23 6:20 PM JAMEY DAMIAN INTMWS During your visit today, we recorded the following information about you: Temperature Pulse Respiration Blood pressure 98.6 degrees 72/minute 16/minute 134/72 Weight 82.1 kg Jamey Damian MD 10/20/2023 12:49 PM Signed This note was created using [employer]. Subjective Umesh Preston is a 73 year [...] DX W/COLLJ SPEC WHEN PFRMD 10/18/2003 Colonoscopy, [place], [place], negative COLONOSCOPY FLX DX W/COLLJ SPEC [...] Dalton Feliciano (more content not included)... Normal [facility] UMESH PRESTON ([id number]) 1950 M Date Time Provider Department 10/19/23 [...] Date Reviewed: 06/28/2023 Reviewed by: Delmy Treviño APRN.TEACHER EDUCATION INSTRUCTOR - Fully Assessed Reason for Visit: Future [...] Status:Closed by JAMEY DAMIAN on 10/19/23 Normal [facility] Absolute lymphocyte countOrd ered By: Alphonse Good on 05-19-2023 Lymphocytes Auto (Unsp spec) [#/Vol] 1.48 10*3/uL 0.83-4.51 [facility] Basophil percentageOrdered B y: Alphonse Good on 05-19-2023 Basophils/100 WBC (Bld) 0.1 % 0-1 [facility] Chloride [Moles/Vol] 96 mmol/L 98-107 [facility] Eosinophils/100 WBC (Bld) 0.1 % 0-5 [facility] Glucose [Mass/Vol] 124 mg/dL 74-106 [facility] Comment on above: Fasting Glucose resu lt from 100 to 125 mg/dL suggests IMPAIRED HOMEOSTASIS per A.D.A. criteria. Neutrophils (Bld) [#/Vol] 13.8 10*3/uL 2.0-7.7 [facility] Neutrophils/100 WBC (Bld) 83.0 % 47-70 [facility] Potassium [Moles/Vol] 4.1 mmol/L 3.5-5.1 [facility] Sodium [Moles/Vol] 129 mmol/L 136-145 [facility] WBC (Bld) [#/Vol] 16.6 10*3/uL 4.4-11.0 [facility] Blood erythrocytes count (nu mber/volume)Ordered By: Alphonse Good on 05-19-2023 RBC (Bld) [#/Vol] 2.99 10*6/uL 4.6-6.2 [facility] Blood hemoglobin measurement (mass/volume)Ordered By: Alphonse Good on 05-19-2023 Hemoglobin (Bld) [Mass/Vol] 9.5 g/dL 13.0-16.5 [facility] Blood lymphocytes/100 leukoc ytesOrdered By: Alphonse Good on 05-19-2023 Lymphocytes/100 WBC (Bld) 8.9 % 19-41 [facility] Blood monocytes/100 leukocyt esOrdered By: Alphonse Good on 05-19-2023 Monocytes/100 WBC (Bld) 7.2 % 0-10 [facility] Blood platelet mean volumeOr dered By: Alphonse Good on 05-19-2023 Platelet mean volume (Bld) [Entitic vol] 10.0 fL 6.2-12.0 [facility] Determination of erythrocyte mean corpuscular volume (MCV)Ordered By: Alphonse Good on 05-19-2023 MCV (RBC) [Entitic vol] 94.0 fL 80-94 [facility] Hematocrit Auto (Bld) [Volum e fraction]Ordered By: Alphonse Good on 05-19-2023 Hematocrit (Bld) [Volume fraction] 28.1 % 40-54 [facility] Laboratory - Chemistry and C hemistry - challengeOrdered By: Alphonse Good on 05-19-2023 CO2 [Moles/Vol] 23.0 mmol/L 21.0-32.0 [facility] Urea nitrogen/Creatinine [Mass ratio] 19.8 mg/mg 10-20 [facility] - Hematology and Cell countsOrdered By: Alphonse oGod on 05-19-2023 Erythrocyte distribution width (RBC) [Entitic vol] 43.7 fL 35.1-43.9 [facility] Erythrocyte distribution width (RBC) [Ratio] 12.7 % 11.6-14.6 [facility] Immature granulocytes/100 WBC (Bld) 0.700 % 0.0-0.9 [facility] Comment on above: IG% - Immature Granu locytes (promyelocytes, myelocytes and metamyelocytes) > 1% indicates that a LEFT SHIFT is Present. MCH (RBC) [Entitic mass] 31.8 pg 27.0-32.0 [facility] Nucleated RBC/100 WBC (Bld) [Ratio] 0 % 0-5 [facility] Auto (RBC) [Mass/Vol]Or dered By: Alphonse Good on 05-19-2023 MCHC (RBC) [Mass/Vol] 33.8 g/dL 32-36 [facility] No Panel InformationOrdered By: Alphonse Good on 05-19-2023 Estimated Creatinine Clearance Calc 61.18 ml/min [facility] Estimated GFR (MDRD) Amer 80 mL/min >60 [facility] Comment on above: GFR Calc Estimated GFR (MDRD) Non-Af Amer 66 mL/min >60 [facility] Comment on above: Non- GFR Calc Platelets bldOrdered By: Kimberly Good on 05-19-2023 Platelets (Bld) [#/Vol] 229 10*3/uL 150-450 [facility] Serum or plasma calcium enzo urement (mass/volume)Ordered By: Alphonse Good on 05-19-2023 Calcium [Mass/Vol] 8.2 mg/dL 8.5-10.1 [facility] Serum or plasma creatinine m easurement (mass/volume)Ordered By: Alphonse Good on 05-19-2023 Creatinine [Mass/Vol] 1.16 mg/dL 0.70-1.30 [facility] Comment on above: The validity of the calculated GFR & GFRAA in patients over 70 years has not been determined. Clinical correlation is essential. Serum or plasma urea nitroge n measurement (mass/volume)Ordered By: Alphonse Good on 05-19-2023 Urea nitrogen [Mass/Vol] 23 mg/dL 7-18 [facility] Thin prep Papanicolaou smear with manual screeningOrdered By: Alphonse Good on 05-19-2023 Thin prep Papanicolaou smear with manual screening 10 5-15 [facility] INR in Blood by Coagulation assayOrdered By: Wilver Willson on 04-27-2023 INR Coag (Bld) [Relative time] 1.0 {INR} [facility] Laboratory - CoagulationOrde red By: Wilver Willson on 04-27-2023 aPTT Coag (Bld) [Time] 34.4 s 24.1-36.2 [facility] PT Coag (PPP) [Time] 12.9 s 11.7-14.9 [facility] No Panel InformationOrdered By: Wilver Willson on 04-27-2023 Nasal Screen MRSA/MSSA [facility] XR Lumbar spine 3 Viewson IMPRESSION: MULTILEV EL ADVANCED DEGENERATIVE DISC AND FACET DISEASE Ice House Supervisor: LESA Transcribe Date/Time: Dec 16 2022 12:20P Dictated by : GAIL JAMES MD This examination was interpreted and the report reviewed and electronically signed by: GAIL JAMES MD on Dec 16 2022 12:21PM [facility] DIVISION OF RADIOLOGY * * *Final [...] the lumbar spine. DIVISION OF RADIOLOGY Provider, [facility] - 12/16/2022 * * *Final Report* [...] MULTILEVEL ADVANCED DEGENERATIVE DISC AND FACET DISEASE Ice House Supervisor: LESA Transcribe Date/Time: Dec 16 2022 12:20P Dictated by : GAIL JAMES MD This examination was interpreted and the report reviewed and electronically signed by: GAIL JAMES MD on Dec 16 2022 12:21PM EST [facility] XR Lumbar spine 3 ViewsOrder ed By: [facility] Provider on 12-16-2022 [facility] ESR Westergren method (Bld) [Velocity]on 12-14-2022 ESR (Bld) [Velocity] 15 mm/h 0 - 15 mm/hr [facility] XR Lumbar spine 3 Viewson Radiology Study observation (narrative) [facility] OVA + PARA MICROSCOPICon Ova and parasites identified LM Nom (Unsp spec) No Parasites Seen [facility] Gastrointestinal pathogens i dentified SANDY+probe Nom (Stl)on 06-17-2022 Campylobacter sp DNA SANDY+probe Nom (Unsp spec) Not detected Not Detected [facility] Salmonella sp DNA SANDY+probe Ql (Unsp spec) Not detected Not Detected [facility] Shiga toxin stx gene SANDY+probe Nom (Unsp spec) Not detected Not Detected [facility] Shigella sp DNA SANDY+probe Ql (Unsp spec) Not detected Not Detected [facility] Vital Signs Date Time Vital Sign Value Performing Clinician Faci lity 04-02-2025 08:57-0400 Body height 177.[address] Jamey Damian MD Work Phone: [facility] 04-02-2025 08:57-0400 Body mass index (BMI) [Ratio] 27.1 kg/m2 Dr. Jamey Damian MD Work Phone: [facility] 04-02-2025 08:57-0400 Body weight 85.[address] Jamey Damian MD Work Phone: [facility] 04-02-2025 08:57-0400 Diastolic blood pressure 68 mm[Hg] Dr. Jamey Damian MD Work Phone: [facility] 04-02-2025 08:57-0400 Heart rate 75 /min Dr. Jamey Damian MD Work Phone: [facility] 04-02-2025 08:57-0400 Respiratory rate 16 /min Dr. Jamey Damian MD Work Phone: [facility] 04-02-2025 08:57-0400 Systolic blood pressure 128 mm[Hg] Dr. Jamey Damian MD Work Phone: [facility] 07-03-2024 07:56-0500 Body mass index (BMI) [Ratio] 27.14 kg/m2 Delmy Treviño TANK TENDER.TEACHER EDUCATION INSTRUCTOR Work Phone: [facility] 07-03-2024 07:56-0500 Body weight 85.8 kg Delmy Treviño TANK TENDER.TEACHER EDUCATION INSTRUCTOR Work Phone: [facility] 07-03-2024 07:56-0500 Diastolic blood pressure 74 mm[Hg] Delmy Treviño TANK TENDER.TEACHER EDUCATION INSTRUCTOR Work Phone: [facility] 07-03-2024 07:56-0500 Heart rate 76 /min Delmy Treviño TANK TENDER.TEACHER EDUCATION INSTRUCTOR Work Phone: [facility] 07-03-2024 07:56-0500 Respiratory rate 14 /min Delmy Treviño TANK TENDER.TEACHER EDUCATION INSTRUCTOR Work Phone: [facility] 07-03-2024 07:56-0500 SaO2% (BldA) [Mass fraction] 98 % Delmy Treviño TANK TENDER.TEACHER EDUCATION INSTRUCTOR Work Phone: [facility] 07-03-2024 07:56-0500 Systolic blood pressure 122 mm[Hg] Delmy Treviño TANK TENDER.TEACHER EDUCATION INSTRUCTOR Work Phone: [facility] 11-29-2023 09:29-0400 Body mass index (BMI) [Ratio] 25.97 kg/m2 Delmy Treviño TANK TENDER.TEACHER EDUCATION INSTRUCTOR Work Phone: [facility] 11-29-2023 09:29-0400 Body temperature 97.9 [degF] Delmy Alfredo TANK TENDER.TEACHER EDUCATION INSTRUCTOR Work Phone: [facility] 11-29-2023 09:29-0400 Body weight 82.1 kg Delmy Alfredo TANK TENDER.TEACHER EDUCATION INSTRUCTOR Work Phone: [facility] 11-29-2023 09:29-0400 Diastolic blood pressure 78 mm[Hg] Delmy Alfredo TANK TENDER.TEACHER EDUCATION INSTRUCTOR Work Phone: [facility] 11-29-2023 09:29-0400 Heart rate 71 /min Delmy Alfredo TANK TENDER.TEACHER EDUCATION INSTRUCTOR Work Phone: [facility] 11-29-2023 09:29-0400 Respiratory rate 18 /min Delmy Alfredo TANK TENDER.TEACHER EDUCATION INSTRUCTOR Work Phone: [facility] 11-29-2023 09:29-0400 SaO2% (BldA) [Mass fraction] 98 % Delmy Alfredo TANK TENDER.TEACHER EDUCATION INSTRUCTOR Work Phone: [facility] 11-29-2023 09:29-0400 Systolic blood pressure 164 mm[Hg] Delmy Alfredo TANK TENDER.TEACHER EDUCATION INSTRUCTOR Work Phone: [facility] [facility]23 14:38-0400 Body height 177.8 cm Anca Love MD Work Phone: [facility] 11-01-2023 14:38-0400 Body mass index (BMI) [Ratio] 26.32 kg/m2 Anca Love MD Work Phone: [facility] 11-01-2023 14:38-0400 Body temperature 97.59 [degF] Anca Love MD Work Phone: [facility] 11-01-2023 14:38-0400 Body weight 83.19 kg Anca Love MD Work Phone: [facility] 11-01-2023 14:38-0400 Diastolic blood pressure 72 mm[Hg] Anca Love MD Work Phone: [facility] 11-01-2023 14:38-0400 Heart rate 77 /min Anca Love MD Work Phone: [facility] 11-01-2023 14:38-0400 SaO2% (BldA) [Mass fraction] 99 % Anca Love MD Work Phone: [facility] 11-01-2023 14:38-0400 Systolic blood pressure 138 mm[Hg] Anca Love MD Work Phone: [facility] 10-19-2023 18:18-0400 Body mass index (BMI) [Ratio] 25.97 kg/m2 Jamey Damian MD Work Phone: [facility] 10-19-2023 18:18-0400 Body temperature 98.6 [degF] Jamey Damian MD Work Phone: [facility] 10-19-2023 18:18-0400 Body weight 82.1 kg Jamey Damian MD Work Phone: [facility] 10-19-2023 18:18-0400 Diastolic blood pressure 72 mm[Hg] Jamey Damian MD Work Phone: [facility] 10-19-2023 18:18-0400 Heart rate 72 /min Jamey Damian MD Work Phone: [facility] 10-19-2023 18:18-0400 Respiratory rate 16 /min aJmey Damian MD Work Phone: [facility] 10-19-2023 18:18-0400 SaO2% (BldA) [Mass fraction] 98 % Jamey Damian MD Work Phone: [facility] 10-19-2023 18:18-0400 Systolic blood pressure 134 mm[Hg] Jamey Damian MD Work Phone: [facility] 05-19-2023 15:09-0500 Body temperature 98.7 [degF] Dr. Jamey Damian Work Phone: [facility] 05-19-2023 15:09-0500 Diastolic blood pressure 68 mm[Hg] Dr. Jamey Damian Work Phone: [facility] 05-19-2023 15:09-0500 Heart rate 92 /min Dr. Jamey Damian Work Phone: 1(090)641-598135 [place] [address] 05-19-2023 15:09-0500 Respiratory rate 16 /min Dr. Jamey Damian Work Phone: 8(644)396-625202 [place] [address] 05-19-2023 15:09-0500 SaO2% (BldA) [Mass fraction] 98 % Dr. Jamey Damian Work Phone: 0(636)994-293602 [place] [address] 05-19-2023 15:09-0500 Systolic blood pressure 130 mm[Hg] Dr. Jamey Damian Work Phone: 0(124)833-433602 [place] [address] 05-18-2023 20:20-0500 Inhaled oxygen flow rate 2 L/min Dr. Jamey Damian Work Phone: 0(829)799-649002 [place] [address] 05-18-2023 15:15-0500 Body height 177.[address] Jamey Damian Work Phone: 9(511)227-293002 [place] [address] 05-18-2023 15:15-0500 Body mass index (BMI) [Ratio] 26.1 kg/m2 Dr. Jamey Damian Work Phone: 6(002)235-885002 [place] [address] 05-18-2023 15:15-0500 Body weight 82.[address] Jamey Damian Work Phone: 8(719)774-689002 [place] [address] 03-27-2023 08:19-0400 Body height 177.8 cm Delmy Older TANK TENDER.TEACHER EDUCATION INSTRUCTOR Work Phone: [facility] 03-27-2023 08:19-0400 Body weight 83.92 kg Delmy Older TANK TENDER.TEACHER EDUCATION INSTRUCTOR Work Phone: [facility] 03-27-2023 08:19-0400 Diastolic blood pressure 76 mm[Hg] Delmy Older TANK TENDER.TEACHER EDUCATION INSTRUCTOR Work Phone: [facility] 03-27-2023 08:19-0400 Heart rate 87 /min Delmy Older TANK TENDER.TEACHER EDUCATION INSTRUCTOR Work Phone: [facility] 03-27-2023 08:19-0400 Respiratory rate 16 /min Delmy Older TANK TENDER.TEACHER EDUCATION INSTRUCTOR Work Phone: [facility] 03-27-2023 08:19-0400 SaO2% (BldA) [Mass fraction] 97 % Delmy Older TANK TENDER.TEACHER EDUCATION INSTRUCTOR Work Phone: [facility] 03-27-2023 08:19-0400 Systolic blood pressure 138 mm[Hg] Delmy Older TANK TENDER.TEACHER EDUCATION INSTRUCTOR Work Phone: [facility] 12-14-2022 11:54-0400 Body weight 84.37 kg Delmy Older TANK TENDER.TEACHER EDUCATION INSTRUCTOR Work Phone: [facility] 12-14-2022 11:54-0400 Diastolic blood pressure 76 mm[Hg] Delmy Older TANK TENDER.TEACHER EDUCATION INSTRUCTOR Work Phone: [facility] 12-14-2022 11:54-0400 Heart rate 80 /min Delmy Older TANK TENDER.TEACHER EDUCATION INSTRUCTOR Work Phone: [facility] 12-14-2022 11:54-0400 Respiratory rate 16 /min Delmy Older TANK TENDER.TEACHER EDUCATION INSTRUCTOR Work Phone: [facility] 12-14-2022 11:54-0400 Systolic blood pressure 136 mm[Hg] Delmy Older TANK TENDER.TEACHER EDUCATION INSTRUCTOR Work Phone: [facility] 06-21-2022 08:17-0500 Diastolic blood pressure 72 mm[Hg] Delmy Older TANK TENDER.TEACHER EDUCATION INSTRUCTOR Work Phone: [facility] 06-21-2022 08:17-0500 Systolic blood pressure 130 mm[Hg] Delmy Older TANK TENDER.TEACHER EDUCATION INSTRUCTOR Work Phone: [facility] 06-21-2022 08:07-0500 Body temperature 97.9 [degF] Delmy Older TANK TENDER.TEACHER EDUCATION INSTRUCTOR Work Phone: [facility] 06-21-2022 08:07-0500 Body weight 83.92 kg Delmy Older TANK TENDER.TEACHER EDUCATION INSTRUCTOR Work Phone: [facility] 06-21-2022 08:07-0500 Heart rate 79 /min Delmy Older TANK TENDER.TEACHER EDUCATION INSTRUCTOR Work Phone: [facility] 06-21-2022 08:07-0500 Respiratory rate 14 /min Delmy Older TANK TENDER.TEACHER EDUCATION INSTRUCTOR Work Phone: [facility] 06-15-2022 07:15-0500 Body temperature 97.3 [degF] Canelo Timmy TANK TENDER.TEACHER EDUCATION INSTRUCTOR Work Phone: [facility] 06-15-2022 07:15-0500 Body weight 84.82 kg Canelo Timmy TANK TENDER.TEACHER EDUCATION INSTRUCTOR Work Phone: [facility] 06-15-2022 07:15-0500 Diastolic blood pressure 72 mm[Hg] Canelo Timmy TANK TENDER.TEACHER EDUCATION INSTRUCTOR Work Phone: [facility] 06-15-2022 07:15-0500 Heart rate 86 /min Canelo Timmy TANK TENDER.TEACHER EDUCATION INSTRUCTOR Work Phone: [facility] 06-15-2022 07:15-0500 Respiratory rate 16 /min Canelo Timmy TANK TENDER.TEACHER EDUCATION INSTRUCTOR Work Phone: [facility] 06-15-2022 07:15-0500 SaO2% (BldA) [Mass fraction] 98 % Canelo Timmy TANK TENDER.TEACHER EDUCATION INSTRUCTOR Work Phone: [facility] 06-15-2022 07:15-0500 Systolic blood pressure 128 mm[Hg] Canelo Timmy TANK TENDER.TEACHER EDUCATION INSTRUCTOR Work Phone: [facility] 06-06-2022 09:05-0500 Body temperature 97.3 [degF] Huong Athy PA-C Work Phone: [facility] 06-06-2022 09:05-0500 Body weight 85.64 kg Huong Athy PA-C Work Phone: [facility] 06-06-2022 09:05-0500 Diastolic blood pressure 64 mm[Hg] Huong Athy PA-C Work Phone: [facility] 06-06-2022 09:05-0500 Heart rate 90 /min Huong Athy PA-C Work Phone: [facility] 06-06-2022 09:05-0500 Respiratory rate 21 /min Huong Nick PA-C Work Phone: [facility] 06-06-2022 09:05-0500 SaO2% (BldA) [Mass fraction] 99 % Huong Nick PA-C Work Phone: [facility] 06-06-2022 09:05-0500 Systolic blood pressure 140 mm[Hg] Huong Nick PA-Liudmila Work Phone: [facility] 01-27-2022 08:56-0400 Diastolic blood pressure 66 mm[Hg] Jamey Damian MD Work Phone: [facility] 01-27-2022 08:56-0400 Systolic blood pressure 128 mm[Hg] Jamey Damian MD Work Phone: [facility] 01-27-2022 08:39-0400 Body temperature 97.11 [degF] Jamey Damian MD Work Phone: [facility] 01-27-2022 08:39-0400 Body weight 82.92 kg Jamey Damian MD Work Phone: [facility] 01-27-2022 08:39-0400 Heart rate 76 /min Jamey Damian MD Work Phone: [facility] 01-27-2022 08:39-0400 Respiratory rate 18 /min Jamey Damian MD Work Phone: [facility] Encounters Encounter Date Encounter Type Care Provider Facility Start: 04-29-2025 ambulatory Stuart Johnson Facility:[facility] Start: 04-28-2025 End: 04-28-2025 ambulatory Stuart Johnson Facility:[facility] Start: 04-02-2025 End: 04-02-[address] Stuart Johnson MD -[facility] Work Phone: Start: 04-02-2025 End: 04-02-[address] Jamey Damian MD Work Phone: -[facility] Start: 07-17-2024 End: 07-17-2024 Telephone encounter Jamey Damian MD Work Phone: [facility] [place] Comment on above: Results Start: 07-16-2024 End: 07-16-2024 ambulatory DELMY TREVIÑO Facility:[facility] Start: 07-03-2024 End: 07-03-2024 ambulatory DELMY TREVIÑO Facility:[facility] Start: 07-03-2024 End: 07-03-2024 Patient encounter procedure Delmy Treviño TANK TENDER.TEACHER EDUCATION INSTRUCTOR Work Phone: [facility] [place] Comment on above: Primary hypertension (Primary Dx); Hyperlipidemia, unspecified hyperlipidemia type; Screening for depression; Encounter for screening examination for other mental health and behavioral disorders; Encounter for immunization Start: 11-29-2023 End: 11-29-2023 ambulatory DELMY TREVIÑO Facility:[facility] Start: 11-29-2023 End: 11-29-2023 Patient encounter procedure Delmy Treviño TANK TENDER.TEACHER EDUCATION INSTRUCTOR Work Phone: [facility] [place] Comment on above: Lip cyst (Primary Dx ) Start: 11-27-2023 Telephone encounter Jamey barker MD Work Phone: [facility] [place] Comment on above: Patient Update Start: 11-01-2023 End: 11-01-2023 ambulatory ANCA LOVE Facility:[facility] Start: 11-01-2023 End: 11-01-2023 Patient encounter procedure Anca Love MD Work Phone: General Surgery Comment on above: Right inguinal herni a Start: 10-30-2023 End: 10-30-2023 ambulatory JAMEY DAMIAN Facility:[facility] Start: 10-30-2023 End: 10-30-2023 Subsequent hospital visit by physician Ct Prep [facility] Cat Scan Comment on above: Right inguinal pain [R10.31] Start: 10-21-2023 Telephone encounter Jamey barker MD Work Phone: [facility] [place] Comment on above: Results Patient Question Start: 10-20-2023 End: 10-20-2023 ambulatory JAMEY DAMIAN Facility:[facility] Start: 10-19-2023 End: 10-19-2023 ambulatory JAMEY DAMIAN Facility:[facility] Start: 10-19-2023 End: 10-19-2023 Patient encounter procedure Jamey Damian MD Work Phone: [facility] [place] Comment on above: Right inguinal pain (Primary Dx); History of prostate cancer; Primary hypertension; S/P lumbar spinal fusion Start: 10-19-2023 Telephone encounter Jamey barker MD Work Phone: [facility] [place] Comment on above: Future Appointment Start: 05-19-2023 Telephone encounter Jamey barker MD Work Phone: [facility] [place] Comment on above: [facility] follow for illed nursing Start: 05-19-2023 Non-patient / Non-visit Dr. Jade Damian Work Phone: [facility] Work Phone: Start: 05-18-2023 Non-patient / Non-visit Dr. Jade Damian Work Phone: [facility] Work Phone: Start: 05-18-2023 End: 05-19-2023 Evaluation and management of inpatient Dr[facility] Work Phone: Start: 04-28-2023 Telephone encounter Jamey barker MD Work Phone: [facility] [place] Comment on above: Patient Question; Pa lucianant Update Start: 04-27-2023 End: 04-27-2023 Non-patient / Non-visit Dr. Jamey Damian Work Phone: [facility] Work Phone: Start: 03-27-2023 End: 03-27-2023 Patient encounter procedure Delmy Older TANK TENDER.TEACHER EDUCATION INSTRUCTOR Work Phone: [facility] [place] Comment on above: Preop exam for inter nal medicine (Primary Dx); Primary hypertension Start: 03-27-2023 End: 03-27-2023 Patient encounter status Delmy Older TANK TENDER.TEACHER EDUCATION INSTRUCTOR Work Phone: [facility] Work Phone: Start: 12-21-2022 Telephone encounter Jamey barker MD Work Phone: [facility] [place] Comment on above: Referral Request Start: 12-16-2022 Telephone encounter Delmy Older TANK TENDER.TEACHER EDUCATION INSTRUCTOR Work Phone: [facility] [place] Comment on above: Results Start: 12-14-2022 End: 12-14-2022 Subsequent hospital visit by physician Xr [facility] [place] Work Phone: Radiology Comment on above: Acute midline low ba ck pain without sciatica [M54.50] Start: 12-14-2022 End: 12-14-2022 Patient encounter procedure Delmy Older TANK TENDER.TEACHER EDUCATION INSTRUCTOR Work Phone: [facility] [place] Comment on above: Arthralgia of multip le joints (Primary Dx); Acute midline low back pain without sciatica Start: 11-15-2022 Telephone encounter Jamey barker MD Work Phone: [facility] [place] Comment on above: Orders Start: 06-21-2022 Telephone encounter Canelo lion APRN.TEACHER EDUCATION INSTRUCTOR Work Phone: [facility] Comment on above: Results Start: 06-21-2022 End: 06-21-2022 Patient encounter procedure Delmy Older TANK TENDER.TEACHER EDUCATION INSTRUCTOR Work Phone: [facility] [place] Comment on above: Acute diarrhea (Prim alexander Dx); Abdominal cramping Start: 06-15-2022 End: 06-15-2022 Patient encounter procedure Canelo Warner APRN.TEACHER EDUCATION INSTRUCTOR Work Phone: [place] [facility] Comment on above: Bowel habit changes (Primary Dx); Lower abdominal pain Start: 06-07-2022 Telephone encounter Briseyda Jamaica TANK TENDER.TEACHER EDUCATION INSTRUCTOR Work Phone: [place] [facility] Comment on above: Results Start: 06-06-2022 End: 06-06-2022 Patient encounter procedure Huong Nick PA-C Work Phone: [facility] Comment on above: Vomiting and diarrhe a (Primary Dx); Encounter for laboratory testing for COVID-19 virus Start: 01-27-2022 End: 01-27-2022 Patient encounter procedure Jamey Damian MD Work Phone: [facility] [place] Comment on above: Secondary insomnia ( Primary Dx); Postherpetic neuralgia; Primary hypertension; Anemia, unspecified type; Need for COVID-19 vaccine Start: 12-25-2021 Telephone encounter Jamey barker MD Work Phone: [facility] [place] Comment on above: Shingles Start: 03-02-2009 End: 12-07-2018 Patient encounter status Jamey Damian MD Work Phone: [facility] Procedures Date Procedure Procedure Detail Performing Clinician Start: 07-16-2024 Lipid 1996 panel - S sam or Plasma Jamey Damian MD Work Phone: Start: 07-03-2024 [employer] IO COVI D-19 VACCINE AGE 12+ YR (COMIRNATY) Delmy Treviño TANK TENDER.TEACHER EDUCATION INSTRUCTOR Work Phone: Start: 07-03-2024 Adult depression scr eening assessment Delmy Treviño TANK TENDER.TEACHER EDUCATION INSTRUCTOR Work Phone: Start: 05-18-2023 Fluoroscopic guidance Nancy [...] spine lumbosac ral 2/3 views Delmy Treviño TANK TENDER.TEACHER EDUCATION INSTRUCTOR Work Phone: Start: 12-08-2022 Lipid 1996 panel - S sam or Plasma Delmy Thomas TANK TENDER.TEACHER EDUCATION INSTRUCTOR Work Phone: Start: 06-16-2022 [employer] direct smears concentration & id Canelo Warner TANK TENDER.TEACHER EDUCATION INSTRUCTOR Work Phone: Start: 01-27-2022 [employer] COVI D-19 VACCINE, AGE 12+ YR (KINNEY TOP) Jamey Damian MD Work Phone: Start: 09-13-2021 Colonoscopy Jamey Cortez MD Work Phone: Start: 07-29-2021 Adult depression scr eening assessment Jamey Damian MD Work Phone: Plan of Treatment Date Care Activity Detail Author Start: 07-16-2029 Lipid panel Lipid Screening [facility] Start: 12-09-2027 Lipid 1996 panel - S sam or Plasma Lipid Screening [facility] Start: 12-09-2027 Lipid panel Lipid Screening [facility] Start: 12-09-2027 LIPID SCREEN LIPID SCREEN [facility] Start: 07-16-2027 Diabetes Screening Diabetes Screenin [facility] Start: 01-19-2027 LIPID SCREEN LIPID SCREEN [facility] Start: 10-19-2026 Diabetes Screening Diabetes Screenin g [facility] Start: 09-13-2026 Colonoscopy COLONOSCOPY [facility] Start: 09-13-2026 COLORECTAL CANCER SCREENING COLORECTAL CANCER SCREENING [facility] Start: 09-13-2026 Screening for malign ant neoplasm of colon [facility] Start: 12-08-2025 DIABETES SCREEN DIABETES SCREEN [facility] Start: 12-08-2025 Diabetes Screening Diabetes Screenin g [facility] Start: 10-19-2025 LIPID SCREEN LIPID SCREEN [facility] Start: 07-16-2025 Hepatitis B surface antibody level LDL Cholesterol [facility] Start: 07-03-2025 Annual PCP Team Director Of Event Marketing aroldo Disease Visit Annual PCP Team Chronic Disease Visit [facility] Start: 07-03-2025 Anxiety Screening Anxiety Screening [facility] Start: 07-03-2025 BP Controlled (<130/80) BP Controlle d (<130/80) [facility] Start: 07-03-2025 Depression Screening Depression Scre ening [facility] Start: 07-03-2025 Urine microalbumin profile DTaP,Tdap,Td Vaccine (1 - Tdap) [facility] Comment on above: Postponed from 06/09 (Declined at this time) Start: 04-02-2025 Radionuclide imaging of perfusion of myocardium under exercise stress [facility] Start: 04-02-2025 End: 04-02-2025 Evaluation of diagnostic study results [facility] Start: 01-19-2025 DIABETES SCREEN DIABETES SCREEN [facility] Start: 01-01-2025 End: 01-01-2025 Patient encounter procedure 01/01/2025 8:00 AM EDT Office Visit [facility] [place] [address] [place] [address] Delmy Treviño, TANK TENDER.TEACHER EDUCATION INSTRUCTOR [address] [place], [place] [id number] medicare 6 months [facility] [place] Comment on above: medicare 6 months Start: 11-28-2024 Annual PCP Team Director Of Event Marketing aroldo Disease Visit Annual PCP Team Chronic Disease Visit [facility] Start: 10-18-2024 Annual PCP Team Director Of Event Marketing aroldo Disease Visit Annual PCP Team Chronic Disease Visit [facility] Start: 07-03-2024 End: 10-02-2024 CBC W Auto Differential panel - Blood COMPLETE BLOOD COUNT AND DIFFERENTIAL Lab Routine Primary hypertension Expected: 07/03/2024, Expires: 10/02/2024 [facility] Comment on above: Expected: 07/03/2024 , Expires: 10/02/2024 Start: 07-03-2024 End: 10-02-2024 Comprehensive metabolic 2000 panel - Serum or Plasma COMPREHENSIVE METABOLIC PANEL Lab Routine Primary hypertension Hyperlipidemia, unspecified hyperlipidemia type Expected: 07/03/2024, Expires: 10/02/2024 [facility] Work Phone: Comment on above: Expected: 07/03/2024 , Expires: 10/02/2024 Start: 07-03-2024 End: 10-02-2024 Lipid 1996 panel - Serum or Plasma LIPID PANEL BASIC Lab Routine Hyperlipidemia, unspecified hyperlipidemia type Expected: 07/03/2024, Expires: 10/02/2024 [facility] Comment on above: Expected: 07/03/2024 , Expires: 10/02/2024 Start: 07-03-2024 End: 07-03-2024 Patient encounter procedure 07/03/2024 8:00 AM EST Office Visit Internal Medicine [place] [address] [place], [place] [id number] Delmy Treviño, TANK TENDER.TEACHER EDUCATION INSTRUCTOR [address] [place] [address] 6 mth V [facility] [place] Comment on above: 6 mth V Start: 06-28-2024 Pneumococcal Vaccine : 65+ (2 of 2 - PCV) Pneumococcal Vaccine: 65+ (2 of 2 - PCV) [facility] Comment on above: Postponed from 12/05 (Declined at this time) Start: 06-28-2024 RSV Vaccine (1 - 1-d ose 60+ series) RSV Vaccine (1 - 1-dose 60+ series) [facility] Comment on above: Postponed from 06/09 (Declined at this time) Start: 03-27-2024 Annual PCP Team Director Of Event Marketing aroldo Disease Visit Annual PCP Team Chronic Disease Visit [facility] Start: 03-27-2024 Urine microalbumin profile DTaP,Tdap,Td Vaccine (1 - Tdap) [facility] Comment on above: Postponed from 06/09 (Declined at this time) Start: 03-17-2024 DIABETES SCREEN DIABETES SCREEN [facility] Start: 02-18-2024 Covid-19 Vaccine ( season) Covid-19 Vaccine ( season) [facility] Start: 02-18-2024 Influenza vaccination Influenza Vacc ine (#1) [facility] Start: 12-25-2023 End: 12-25-2023 Patient encounter procedure 12/25/2023 8:20 AM EDT Office Visit Internal Medicine [place] [address] [place] [address] Delmy Treviño, TANK TENDER.TEACHER EDUCATION INSTRUCTOR [address] [place], [place] [id number] 6 mth V [facility] [place] Comment on above: 6 mth V Start: 12-15-2023 ANNUAL PCP TEAM PATTERN WEAVER AROLDO DISEASE VISIT ANNUAL PCP TEAM CHRONIC DISEASE VISIT [facility] Start: 12-09-2023 Hepatitis B surface antibody level LDL Cholesterol [facility] Start: 11-29-2023 End: 11-29-2023 Patient encounter procedure 11/29/2023 9:40 AM EDT Office Visit [facility] [place] [address] [place] [address] Delmy Treviño, TANK TENDER.TEACHER EDUCATION INSTRUCTOR [address] [place], [place] [address] hard lump inside lower lip, noted over [...] General Surgery [address] [place], [place] [phone] Anca Love MD [address] [place] [id number] Right inguinal pain [R10.31] General Surgery Comment on above: Right inguinal pain [R10.31] Start: 10-30-2023 End: 10-30-2023 Patient encounter procedure 10/30/2023 3:15 PM EDT Office Visit General Surgery [address] [place], [place] [id number] Anca Love MD [address] [place] [id number] Right inguinal pain [R10.31] General Surgery Comment on above: Right inguinal pain [R10.31] Start: 10-30-2023 End: 10-30-2023 Patient encounter procedure Cat Scan Comment on above: Right inguinal pain [R10.31] Start: 10-27-2023 Covid-19 Vaccine () Covid-19 Vaccine () [facility] Start: 06-21-2023 ANNUAL PCP TEAM PATTERN WEAVER AROLDO DISEASE VISIT ANNUAL PCP TEAM CHRONIC DISEASE VISIT [facility] Start: 06-19-2023 Behavioral Health Screening Behavioral Health Screening [facility] Start: 05-19-2023 Referral to service [facility] Start: 05-19-2023 Patient discharge [facility] Start: 05-18-[address] [facility] Start: 05-18-2023 Consultation [facility] Start: 05-18-2023 Following clinical pathway protocol [facility] Start: 05-18-2023 Admission procedure [facility] Start: 05-18-2023 Maintenance of drain age tube [facility] Start: 05-18-2023 Provision of activit y privileges [facility] Start: 05-18-2023 Application of ice collar, cap or bag [facility] Start: 05-18-2023 Application of intermittent pneumatic compression device [facility] Start: 05-18-[address] [facility] Start: 05-18-2023 Consultation [facility] Start: 05-18-2023 Following clinical pathway protocol [facility] Start: 05-18-2023 Incentive spirometry [facility] Start: 05-18-2023 Introduction of urin alexander catheter [facility] Start: 05-18-2023 Measuring intake and output [facility] Start: 05-18-[address] [facility] Start: 05-18-2023 Patient education [facility] Start: 05-18-[address] [facility] Start: 05-18-2023 Recommendation to continue with treatment [facility] Start: 05-18-2023 Referral to service [facility] Start: 05-18-2023 Taking [address] vital signs [facility] Start: 05-18-2023 [facility] Start: 02-17-2023 Covid-19 Vaccine ( season) Covid-19 Vaccine ( season) [facility] Start: 02-17-2023 Influenza vaccination INFLUENZA (#1) [facility] Start: 01-27-2023 ANNUAL PCP TEAM PATTERN WEAVER AROLDO DISEASE VISIT ANNUAL PCP TEAM CHRONIC DISEASE VISIT [facility] Start: 01-27-2023 BP CONTROLLED (<130/80) BP CONTROLLE D (<130/80) [facility] Start: 12-17-2022 End: 02-16-2023 CBC W Auto Differential panel - Blood CBC + DIFF Lab Routine Primary hypertension Expected: 12/17/2022 (Approximate), Expires: 02/16/2023 [facility] Work Phone: Comment on above: Expected: 12/17/2022 (Approximate), Expires: 02/16/2023 Start: 12-17-2022 End: 02-16-2023 Comprehensive metabolic 2000 panel - Serum or Plasma COMP METABOLIC PANEL Lab Routine Hyperlipidemia, unspecified hyperlipidemia type Primary hypertension Expected: 12/17/2022 (Approximate), Expires: 02/16/2023 [facility] Work Phone: Comment on above: Expected: 12/17/2022 (Approximate), Expires: 02/16/2023 Start: 12-17-2022 End: 02-16-2023 Lipid 1996 panel - Serum or Plasma LIPID PANEL BASIC Lab Routine Hyperlipidemia, unspecified hyperlipidemia type Expected: 12/17/2022 (Approximate), Expires: 02/16/2023 [facility] Work Phone: Comment on above: Expected: 12/17/2022 (Approximate), Expires: 02/16/2023 Start: 12-17-2022 End: 02-16-2023 Prostate specific Ag [Mass/volume] in Serum or Plasma PSA/PROSTSPECAG DIAG Lab Routine History of prostate cancer Expected: 12/17/2022 (Approximate), Expires: 02/16/2023 [facility] Work Phone: Comment on above: Expected: 12/17/2022 (Approximate), Expires: 02/16/2023 Start: 12-14-2022 End: 02-13-2023 C reactive protein [Mass/volume] in Serum or Plasma [facility] Work Phone: Comment on above: Expected: 12/14/2022 , Expires: 02/13/2023 Start: 12-14-2022 End: 02-13-2023 Creatine kinase [Enzymatic activity/volume] in Serum or Plasma [facility] Work Phone: Comment on above: Expected: 12/14/2022 , Expires: 02/13/2023 Start: 07-30-2022 End: 09-29-2022 Basic metabolic 2000 panel - Serum or Plasma BASIC METABOLIC PNL Lab Routine Primary hypertension Expected: 07/30/2022, Expires: 09/29/2022 [facility] Work Phone: Comment on above: Expected: 07/30/2022 , Expires: 09/29/2022 Start: 07-30-2022 End: 09-29-2022 CBC panel - Blood by Automated count CBC Lab Routine Anemia, unspecified type Expected: 07/30/2022, Expires: 09/29/2022 [facility] Work Phone: Comment on above: Expected: 07/30/2022 , Expires: 09/29/2022 Start: 07-29-2022 Adult depression screening assessment DEPRESSION SCREENING [facility] Start: 07-29-2022 ANNUAL PCP TEAM PATTERN WEAVER AROLDO DISEASE VISIT ANNUAL PCP TEAM CHRONIC DISEASE VISIT [facility] Start: 06-19-2022 ADVANCE DIRECTIVE DISCUSSION ADVANCE DIRECTIVE DISCUSSION [facility] Start: 06-19-2022 DEPRESSION ASSESSMENT DEPRESSION ASS ESSMENT [facility] Start: 06-06-2022 End: 06-20-2022 Influenza virus A and B RNA and SARS-CoV-2 (COVID-19) N gene panel - Respiratory specimen by SANDY with probe detection COVID WITH FLUA+B, ROUTINE Microbiology Routine Vomiting and diarrhea Encounter for laboratory testing for COVID-19 virus Expected: 06/06/2022, Expires: 06/20/2022 [facility] Work Phone: Comment on above: Expected: 06/06/2022 , Expires: 06/20/2022 Start: 03-24-2022 COVID-19 VACCINE (5 - Booster for Moderna series) COVID-19 VACCINE (5 - Booster for Moderna series) [facility] Start: 02-17-2022 Influenza vaccination INFLUENZA (#1) [facility] Start: 08-20-2021 COVID-19 VACCINE (4 - Booster for Moderna series) COVID-19 VACCINE (4 - Booster for Moderna series) [facility] Start: 06-19-2021 ADVANCE DIRECTIVE DISCUSSION ADVANCE DIRECTIVE DISCUSSION [facility] Start: 06-19-2021 DEPRESSION ASSESSMENT DEPRESSION ASS ESSMENT [facility] Start: 12-05-2020 Pneumococcal Vaccine : 65+ (2 - PCV) Pneumococcal Vaccine: 65+ (2 - PCV) [facility] Start: 12-05-2020 PNEUMOCOCCAL: 65+ (2 - PCV) PNEUMOCOCCAL: 65+ (2 - PCV) [facility] Start: 08-14-2013 FECAL OCCULT BLOOD FECAL OCCULT BLOO D [facility] Start: 08-14-2013 Screening for malign ant neoplasm of colon Fecal Occult Blood [facility] Start: 10-09-2012 SHINGRIX VACCINE (2 of 3) ADAMS GRIX VACCINE (2 of 3) [facility] Start: 2012 RSV Vaccine (1 - 1-d ose 60+ series) RSV Vaccine (1 - 1-dose 60+ series) [facility] Start: 1997 COLOGUARD (FIT-DNA) COLOGUARD (FIT-D NA) [facility] Start: [address] COLONOGRAPHY [facility] Start: 1997 Screening for malign ant neoplasm of colon [facility] Start: 1997 SIGMOIDOSCOPY SIGMOIDOSCOPY [facility] Start: 1971 Urine microalbumin profile DTAP,TDAP,TD (1 - Tdap) [facility] Start: 1970 Anxiety Screening Anxiety Screening [facility] Start: 1970 BP CONTROLLED (<130/80) BP CONTROLLE D (<130/80) [facility] Start: 1970 Depression Screening Depression Scre ening [facility] End: 11-17-2024 CT Abdomen and Pelvis W contrast IV CT ABD/PEL W IVCON Radiology Routine Right inguinal pain 1 Occurrences starting 10/19/2023 until 11/17/2024 [facility] Work Phone: Comment on above: 1 Occurrences starti ng 10/19/2023 until 11/17/2024 CT Abdomen and Pelvi s W contrast IV CT ABD/PEL W IVCON Radiology Routine Right inguinal pain 10/30/2023 2:45 PM EDT [facility] Work Phone: CT angiography of coronary arteries [facility] Patient referral [facility] Work Phone: End: 01-13-2024 Radex spine lumbosacral 2/3 views XR LUMBAR GENERAL 3V AP/LAT/L5-S1 Radiology Routine Acute midline low back pain without sciatica 1 Occurrences starting 12/14/2022 until 01/13/2024 [facility] Work Phone: Comment on above: 1 Occurrences starti ng 12/14/2022 until 01/13/2024 Radex spine lumbosac ral 2/3 views XR LUMBAR GENERAL 3V AP/LAT/L5-S1 Radiology Routine Acute midline low back pain without sciatica 12/14/2022 12:46 PM EDT [facility] Work Phone: [facility] Immunizations Immunization Date Immunization Notes Care Provider Alex silva 07-03-2024 COVID-19 vaccine, ag e 12+ yr (PFIZER-BIONTECH COMIRNATY) Delmy Treviño TANK TENDER.TEACHER EDUCATION INSTRUCTOR Work Phone: [facility] 07-03-2024 pneumococcal conjuga te (PCV20) vaccine, 20 valent (PREVNAR 20) Delmy Treviño APRN.TEACHER EDUCATION INSTRUCTOR Work Phone: [facility] 07-03-2024 pneumococcal Conjuga te, unspecified formulation Delmy Treviño APRN.TEACHER EDUCATION INSTRUCTOR Work Phone: [facility] 03-21-2024 influenza, high dose seasonal, preservative-free Delmy Treviño TANK TENDER.TEACHER EDUCATION INSTRUCTOR Work Phone: [facility] 03-21-2024 respiratory syncytia l virus (RSV) vaccine, adjuvanted (AREXVY) Delmy Alfredo TANK TENDER.TEACHER EDUCATION INSTRUCTOR Work Phone: [facility] 06-28-2023 COVID-19 vaccine, ag e 12+ yr, 2022- season ([employer]) Jamey Damian MD Work Phone: [facility] 03-17-2023 influenza, high dose seasonal, preservative-free Delmy Older TANK TENDER.TEACHER EDUCATION INSTRUCTOR Work Phone: [facility] Work Phone: 03-17-2023 influenza virus vaccine, unspecified formulation Xr [place] Work Phone: [facility] 09-19-2022 zoster vaccine recombinant Delmy Older TANK TENDER.TEACHER EDUCATION INSTRUCTOR Work Phone: [facility] Work Phone: 07-19-2022 zoster vaccine recombinant Delmy Older TANK TENDER.TEACHER EDUCATION INSTRUCTOR Work Phone: [facility] Work Phone: 01-27-2022 COVID-19 vaccine, ag e 12+ yr ([employer]-BIONTECH - KINNEY TOP) Jamey Damian MD Work Phone: [facility] Work Phone: 03-17-2021 influenza, high-dose , quadrivalent vaccine (FLUZONE HIGH DOSE QUADRIVALENT) Jamey Damian MD Work Phone: [facility] 09-16-2020 COVID-19 vaccine, fu ll dose (MODERNA) Jamey Damian MD Work Phone: [facility] Work Phone: 08-19-2020 COVID-19 vaccine, fu ll dose (MODERNA) Jamey Damian MD Work Phone: [facility] Work Phone: 03-16-2020 influenza (aIIV4) vaccine, age 65+ yr, quadrivalent, PF (FLUAD QUADRIVALENT) Jamey Damian MD Work Phone: [facility] Work Phone: 12-06-2019 pneumococcal polysaccharide vaccine, 23 valent Jamey Damian MD Work Phone: [facility] 04-08-2019 influenza, injectabl e, quadrivalent, preservative free Jamey Damian MD Work Phone: [facility] Work Phone: 04-02-[address] Jamey Damian Work Phone: [facility] 04-02-2018 influenza, high dose seasonal, preservative-free Jamey Damian MD Work Phone: [facility] Work Phone: 03-30-2017 influenza, injectabl e, quadrivalent, contains preservative Jamey Damian MD Work Phone: [facility] 03-21-2016 influenza, seasonal, injectable Jamey Damian MD Work Phone: [facility] 08-14-2012 zoster vaccine, live Jamey Damian MD Work Phone: [facility] Work Phone: Payers Date Payer Category Payer Self-pay [id number] 2017 Medicare MEDICARE MEDICAR E A AND B [id number] 2017-Present [phone] [place] [address] Medicare [id number] 2017 Medicare MEDICARE MEDICAR E A AND B [id number] 2017-Present [phone] [place] [address] Medicare [id number] 2017 Unknown MMO MMO MEDICARE SUPPLEMENT [id number] 2017-Present [phone] [address] [place] [address] Indemnity [id number] 2017 Unknown MMO MMO MEDICARE SUPPLEMENT [id number] 2017-Present [phone] [address] [place] [address] Indemnity [id number] 2017 Medicare [id number] 2017 Unknown [id number] 2011 Unknown AULTCARE [id number] Unknown [id number] Unknown [id number] Unknown [id number] Social History Date Type Detail Facility Start: 01-27-2022 End: 03-18-2025 Tobacco smoking status NHIS Ex-smoker [facility] Work Phone: Start: 10-17-1968 End: 10-17-1978 History of tobacco use Current smoker [facility] Work Phone: Start: 10-17-1968 End: 10-17-1978 History of tobacco use Cigarette Smoker [facility] Work Phone: Start: 10-29-2021 End: 07-03-2024 Alcohol intake Current drinker of alcohol (finding) [facility] Start: 10-29-2021 End: 12-14-2022 Alcohol intake [facility] Work Phone: Start: 1950 Sex Assigned At Not on file C [facility] Start: 12-16-2021 End: 01-27-2022 Exposure to SARS-CoV-2 (event) Not sure [facility] Work Phone: Start: 01-27-2022 End: 07-03-2024 Tobacco use and exposure Smokeless tobacco non-user [facility] Work Phone: Start: 12-14-2022 End: 03-27-2023 Tobacco use panel [facility] Work Phone: Adult Depression Screening Assessment 0 [facility] Work Phone: Start: 04-26-2023 Tobacco smoking stat [facility] Unknown if ever smoked [facility] Start: 05-28-2019 Occasional [facility] Start: 05-28-2019 None [facility] Start: 05-28-2019 Alone [facility] Start: 05-28-2019 Non-smoker [facility] Start: 1950 Sex Assigned At Male W [facility] How often to you hav e a drink containing alcohol? Never [facility] Medical Equipment Procedure Code Equipment Code Equipment Original Text Equipment Identifier Dates [id number] FDA Start: 05-18-2023 screw 6.5 x 45 [...] Start: 05-18-2023 set screws FDA Start: 05-18-2023 [id number] FDA Start: 05-18-2023 set screws FDA Start: 05-18-2023 set screws FDA Start: 05-18-2023 Collagen haemost atic agent, non-antimicrobial )[id number] 01 FDA Start: 05-18-2023 Plant polysaccha ride haemostatic agent, bioabsorbable ()[id number] [id number] 1 FDA Start: 05-18-2023 Plant polysaccha ride haemostatic agent, bioabsorbable ()[id number] [id number] 1 FDA Start: 05-18-2023 Plant polysaccha ride haemostatic agent, bioabsorbable ()[id number] [id number] 1 FDA Start: 05-18-2023 GRAFT,FRACNISCO ELITE MED FDA S tart: 05-18-2023 PUTTY,BONE DBM 5 CC WILLSON FDA Start: 05-18-2023 SEALANT,TISSEEL 2ML FDA Start : 05-18-2023 Talos PPeek IBFD FDA Start: 05-18-2023 Talos Peek IBFD FDA Start: 05-18-2023 yang 60mm FDA Start: 05-18-2023 yang 60mm FDA Start: 05-18-2023 Goals Date Patient Goal Desired Activity /State Functional Status Date Assessment Result Facility 05-19-2023 Functional status Ambulates [facility] Work Phone: Mental Status Date Assessment Result Facility 05-19-2023 Cognitive function Level Of Cons ciousness Awake;Alert [facility] Work Phone: 05-19-2023 Cognitive function Voice/Name [facility] Work Phone: Clinical Notes 05-26-2015 to 04-02-2025 Telephone Encounter - Disha Gomes LPN - 07/17/2024 8:50 AM ESTTelephone Encounter - Disha Gomes LPN - 07/17/2024 8:50 AM Delmy Hall, SILVAON.TEACHER EDUCATION INSTRUCTOR - 07/03/2024 8:01 AM EST Note Date & Type Note Facility 04-02-2025 Progress note [facility] 01-29-2025 Telephone encounter Note Patient notified of below results/recommendation, verbalized understanding. Disha Gomes LPN [facility] 07-17-2024 Miscellaneous Notes Patient notified of below results/recommendation, verbalized understanding. Disha Gomes LPN ----- Message from Delmy Treviño APRN.TEACHER EDUCATION INSTRUCTOR sent at 07/17/2024 8:44 AM EST ----- Please let the patient know his labs looked good overall. Sodium is a little low which is chronic and not significant. Lipids are optimal. Delmy Treviño APRN.TEACHER EDUCATION INSTRUCTOR documented in this encounter [facility] 07-17-2024 Telephone encounter Note ----- Message from Delmy Treviño APRN.TEACHER EDUCATION INSTRUCTOR sent at 07/17/2024 8:44 AM EST ----- Please let the patient know his labs looked good overall. Sodium is a little low which is chronic and not significant. Lipids are optimal. Delmy Treviño APRN.TEACHER EDUCATION INSTRUCTOR [facility] 07-03-2024 Note HNO ID: [id number] Author: DELMY TREVIÑO APRN.MARITZA Service: ? Author [...] DX W/COLLJ SPEC WHEN PFRMD 10/18/2003 Colonoscopy, [place], [place], negative COLONOSCOPY FLX DX W/COLLJ SPEC [...] Completed DATA REVI (more content not included)... [facility] 07-03-2024 History of Present illness Narrative CC: [...] Patient agreeable to treatment plan. Delmy Treviño APRN.TEACHER EDUCATION INSTRUCTOR documented in this encounter [facility] 11-29-2023 Note HNO ID: [id number] Author: DELMY TREVIÑO APRN.MARITZA Service: ? Author [...] W/COLLJ SPEC WHEN PFRMD 10/18/2003 Colonoscopy, [place], negative COLONOSCOPY FLX DX W/COLLJ SPEC WHEN [...] lower lip. Approximatel (more content not included)... [facility] 11-29-2023 History of Present illness Narrative Images [...] W/COLLJ SPEC WHEN PFRMD 10/18/2003 Terri, [place], negative COLONOSCOPY FLX DX W/COLLJ SPEC WHEN [...] Left Ear: No mastoid tenderness. Mouth/Throat: Lips: [place]. Mouth: Mucous membranes are moist. Oral lesions [...] Patient agreeable to treatment plan. Delmy Treviño APRN.TEACHER EDUCATION INSTRUCTOR documented in this encounter [facility] 11-27-2023 Telephone encounter Note Patient [...] now and his appt. Nicole Ambriz RN [facility] 11-27-2023 Miscellaneous Notes Patient calling [...] Nicole Ambriz RN documented in this encounter [facility] 11-01-2023 Note HNO ID: [id number] Author: ANCA LOVE MD Service: ? Author [...] entered by the nurse and reviewed by ms Nursing Notes: Alaina Caban RN 11/01/2023 2:38 [...] vomiting, denies jaundice/he (more content not included)... [facility] 11-01-2023 History of Present illness Narrative Umesh Preston 1950 REFERRING PHYSICIAN: Jmaey Damian MD CHIEF COMPLAINT: Consult (Rt inguinal [...] DX W/COLLJ SPEC WHEN PFRMD 10/18/2003 Colonoscopy, [place], [place], negative COLONOSCOPY FLX DX W/COLLJ SPEC [...] entered by the nurse and reviewed by ms Nursing Notes: Alaina Caban RN 11/01/2023 2:38 [...] C (97.6 F), height 177.8 cm (5' 10"), weight 83.2 kg (183 lb 6.4 oz), [...] have surgery, he doesn't want to leave [facility] and would prefer [facility] I have told him signs/symptoms of [...] of any pertinent laboratory studies/radiological imaging/medical records, [id number] patient care, obtaining oral medical history from the patient in this encounter, counseling and educating the patient/family/caregiver, and completing appropriate medical documentation. Anca Love MD documented in this encounter [facility] 11-01-2023 Nurse Note REVIEW OF [...] N/A Last Colonoscopy: 09/13/2021 Alaina Caban RN [facility] 11-01-2023 Nurse Note REVIEW OF [...] Alaina Caban RN documented in this encounter [facility] 10-30-2023 History of Present illness [...] PATIENT PRESENTS WITH AN IMPLANTABLE OR ATTACHED LEGAL TRANSCRIPTIONIST: No ALLERGIES: Reviewed and unchanged CONTRAST ALLERGY: [...] TIME: 2:50 PM documented in this encounter [facility] 10-30-2023 Note HNO ID: [id number] Author: AZALEA BRADSHAW RT(R) Service: ? Author Type: Arc Furnace Operator Type: Progress Notes Filed: 10/30/2023 14:51 Note [...] PATIENT PRESENTS WITH AN IMPLANTABLE OR ATTACHED LEGAL TRANSCRIPTIONIST: No ALLERGIES: Reviewed and unchanged CONTRAST ALLERGY: [...] DATE: October 30, 2023 TIME: 2:50 PM [facility] 10-21-2023 Telephone encounter Note Patient calling asking if he could have rx for Dicyclomine 20 mg. He said it is helping with his hernia issues. He is using up old rx that PRODUCT SAFETY PROFESSIONAL had given him. Patient uses [facility] for his pharmacy. Please advise [facility] 10-21-2023 Miscellaneous Notes Patient calling asking if he could have rx for Dicyclomine 20 mg. He said it is helping with his hernia issues. He is using up old rx that PRODUCT SAFETY PROFESSIONAL had given him. Patient uses [facility] for his [facility]. Please advise documented in this encounter [facility] 10-21-2023 Telephone encounter Note Phoned patient and went over results, notes from Dr Damian with understanding. [facility] 10-21-2023 Miscellaneous Notes Phoned patient and went over results, notes from Dr Damian with understanding. ----- Message from Jamey Damian MD sent at 10/21/2023 10:09 AM EDT ----- Test results are okay and stable compared to previous results. Mild anemia. Mild hyponatremia (low sodium). Prostate specific antigen normal. documented in this encounter [facility] 10-21-2023 Telephone encounter Note ----- Message from Jamey Damian MD sent at 10/21/2023 10:09 AM EDT ----- Test results are okay and stable compared to previous results. Mild anemia. Mild hyponatremia (low sodium). Prostate specific antigen normal. [facility] 10-19-2023 Note HNO ID: [id number] Author: JAMEY DAMIAN MD Service: ? Author Type: Physician Type: Progress Notes Filed: 10/20/2023 12:49 Note Text: This note was created using [employer]. Subjective Umesh Preston is a 73 year [...] DX W/COLLJ SPEC WHEN PFRMD 10/18/2003 Colonoscopy, [place], [place], negative COLONOSCOPY FLX DX W/COLLJ SPEC [...] V45.4, ICD10: Z98.1 Noted. Jamey Damian MD [facility] 10-19-2023 History of Present illness Narrative This [...] DX W/COLLJ SPEC WHEN PFRMD 10/18/2003 Colonoscopy, [place], [place], negative COLONOSCOPY FLX DX W/COLLJ SPEC [...] Jamey Damian MD documented in this encounter [facility] 10-19-2023 Telephone encounter Note Noted. [facility] 10-19-2023 Miscellaneous Notes Noted. Pt [...] Marianela Combs LPN documented in this encounter [facility] 10-19-2023 Telephone encounter Note Pt [...] apt today 6:20 PM Marianela Combs LPN [facility] 05-20-2023 Miscellaneous Notes Let detailed vm on identified vm with provider's message. Yes, I'll follow for general medical. Nyla- [facility] reports patient had surgery- fusion on back, and will be d/c'd from [facility] today with orders for [facility] SN. Dr. Willson will follow for wound care, asking if pcp will follow for non wound care orders? documented in this encounter [facility] 05-19-2023 Progress note Note Date/Time May 19, 2023 1:52pm [facility] Medical Records Department [address] [place] [address] Progress Note 05/19/23 1343 MR#: [id number] Acct: [id number] Name: UMESH PRESTON Rep #:[id number] : 1950 72 From: Yen Tucker MD PCP: Dr. Jamey Damian MD Status:A DM IN Location: MS3 [id number] Subjective Subjective Patient seen and examined. He [...] (Auto) 83.0 H, Lymph % (Auto) 8.9L, Ste[place]s % (Auto) 7.2, Eos % (Auto) 0.1, [...] spine surgery Charges/Coding Visit Charges Inpatient E&M: 59900 Subs Hosp L2 05/19/23 1357 <Electronically signed by Yen Tucker MD> Yen Tucker MD Cosigner Signature (if applicable): CC: ~ Signed [facility] Work Phone: 1(569) 782-494012-01-2023 Consult note Author Steve Hart [facility] May 19, 2023 11:09am Note Date/Time May 19, 2023 1 1:09am [facility] Medical Records Department [address] [place] [address] Counseling Note - Pharmacy 05/19/23 1108 MR#: [id number] Acct: [id number] Name: UMESH PRESTON Rep #:[id number] : 1950 72 From: Steve Hart PCP: Dr. Jamey Damian MD Status:A DM IN Y [id number] Service has performed discharge medication [...] Signature (if applicable): Date CC: ~ Signed [facility] Work Phone: 1(315) 726-794412-01-2023 Discharge summary Author Wilver Willson [facility] May 19, 2023 10:40am Note Date/Time May 18, 2023 7:13am [facility] Medical Records Department [address] [place] [address] Discharge Summary 05/18/23 0713 MR#: [id number] Acct: [id number] Name: UMESH PRESTON Rep #:[id number] : 1950 72 From: Wilver Brewer PCP: Dr. Jamey Damian MD Status:A DM IN Location: MS3 UE265-2 Providers Date of Admission: 05/18/23 Primary Care [...] Willson DO; Dr. Jamey Damian MD~ Signed [facility] Work Phone: 1(835) 815-576111-30-2023 Progress note [facility] May 18, 2023 6:45pm Note Date/Time May 18, 2023 5:16pm [facility] Medical Records Department [address] [place] [address] Progress Note - Hospitalist 05/18/23 1712 MR#: [id number] Acct: [id number] Name: UMESH PRESTON Rep #:[id number] : 1950 72 From: Alphonse guardado DO PCP: Dr. Jamey Damian MD Status:A DM IN Location: MS3 [id number] Reason for Visit Reason for Visit: Diagnoses [...] Patient is a 72-year-old male who presented [facility] on 05/18/2023 for planned orthopedic procedure. [...] 25 minutes. Charges/Coding Visit Charges Inpatient E&M: 57263 Subs Hosp L1 05/18/232 <Electronically signed by Alphonse Good DO> Cosigner Signature (if applicable): CC: ~ Signed [facility] Work Phone: 1(926) 572-420511-30-2023 Progress note Author Wilver Willson [facility] May 18, 2023 3:45pm Note Date/Time May 18, 2023 7:13am [facility] Medical Records Department [address] [place] [address] Progress Note - Orthopedic 05/18/23712 MR#: [id number] Acct: [id number] Name: UMESH PRESTON Rep #:[id number] : 1950 72 From: Wilver Brewer PCP: Dr. Jamey Damian MD Status:A DM IN Location: [place] [address] Objective Data Objective Data Vital Signs: Vital [...] orders Discharge planning, likely home tomorrow 05/18/23 7515 <Electronically signed by Wilver Willson DO> Cosigner Signature (if applicable): CC: ~ Signed [facility] Work Phone: 1(704) 426-395411-30-2023 Procedure [facility] [facility] 05-01-2023 Miscellaneous Notes* Telephone Encounter - Omar Pierre Ma - 05/01/2023 3:44 PM EST Form received - signed and faxed back. Patient notified. * Telephone Encounter - Omar Pierre Ma - 05/01/2023 11:44 AM EST TC to patient - he states that [facility] needs something from us stating that Delmy [...] Results rec'd from Dr. Mathur's office to PRODUCT SAFETY PROFESSIONAL to review. * Telephone Encounter - Arielle Morgan RN - 04/28/2023 12:00 PM EST Patient calls and states that he is scheduled for surgery at [facility] on 05/18. Patient had x rays and labs done yesterday. Patient sodium level was low and patient was supposed to call provider to advise on this. Patient is going to be out of after next Monday returning to home on 05/15/2023. Please review and advise, Arielle Morgan RN documented in this encounterDelaware [facility] Hospital10-09-2023 History of Present illness Narrative* Delmy Thomas APRN.CNP - 03/27/2023 8:20 AM EDT CC: Patient presents with: Pre-Op Exam: Back surgery - Balbir VANG Umesh Preston is a 72 year old [...] 87 Resp 16 Ht 177.8 cm (5' 10") Wt 83.9 kg (185 lb) SpO2 97% [...] and chest x-ray completed during PAT at [facility], date TBD There is no [...] diet Delmy Thomas APRN.CNP documented in this encounterDelaware County Hospital07-05-2023 Miscellaneous Notes* Telephone Encounter - Omar Pierre Ma - 12/21/2022 6:55 PM EDT Patient notified, verbalized understanding. Referral faxed to [place] @ [phone]. Omar Pierre Ma * Telephone Encounter - Delmy Thomas APRN.CNP - 12/21/2022 6:01 PM EDT We don't have spine medicine in [place] with [facility]. We can fax referral to [facility] but he will need to set up appointment Delmy Thomas APRN.MARITZA * Telephone Encounter - Marianela Combs LPN - 12/21/2022 3:35 PM EDT Pt calling for a referral for Ortho to be seen for his back. He needs to stay in [place]. Please put in referral and notify him to help get apt booked. Marianela Combs LPN documented in this encounterDelaware County Hospital06-30-2023 Miscellaneous Notes* Telephone Encounter - Omar Pierre Ma - 12/16/2022 1:54 PM EDT Patient notified, verbalized understanding. Please send rx to [facility]. * Telephone Encounter - Delmy Thomas APRN.CNP [...] improve Delmy Thomas APRN.CNP documented in this encounterDelaware County Hospital06-28-2023 History of Present illness Narrative* [...] IV DATA: Not applicable SIGNED BY: RT Letty(Reva) December 14, 2022 12:36 PM documented in this encounterDelaware County Hospital06-28-2023 History of Present illness Narrative* [...] not always occur at the same time, "seems to jump around" Described as: aching "in the bones" Cause: no injury Pain is aggravated by: [...] DX W/COLLJ SPEC WHEN PFRMD 10/18/2003 Colonoscopy, [place], [place], negative COLONOSCOPY FLX DX W/COLLJ SPEC [...] plan. Delmy Thomas APRN.CNP documented in this encounterDelaware County Hospital05-31-2023 Miscellaneous Notes* Telephone Encounter - [...] test. Disha Gomes LPN documented in this encounterDelaware County Hospital01-03-2023 Miscellaneous Notes* Telephone Encounter - Nathalia Gil - 06/21/2022 11:39 AM EST Patient given results and verbalized understanding of instructions given. Nathalia Gil * Telephone Encounter - Canelo Warner APRN.CNP - 06/21/2022 11:02 AM EST Please notify that stool testing negative. Continue f/u with pcp. documented in this encounterDelaware County Hospital01-03-2023 History of Present illness Narrative* Delmy Older, TANK TENDER.TEACHER EDUCATION INSTRUCTOR - 06/21/2022 8:11 AM EST CC: Patient [...] DX W/COLLJ SPEC WHEN PFRMD 10/18/2003 Colonoscopy, [place], [place], negative COLONOSCOPY FLX DX W/COLLJ SPEC [...] plan. Delmy Thomas APRN.CNP documented in this encounterDelaware County Hospital12-28-2022 History of Present illness Narrative* [...] MICROSCOPIC Canelo Warner APRN.CNP documented in this encounterDelaware County Hospital12-20-2022 Miscellaneous Notes* Telephone Encounter - [...] ER. Briseyda Berumen APRN.CNP documented in this encounterDelaware County Hospital12-19-2022 History of Present illness Narrative* Huong Nick PA-C - 06/06/2022 9:57 AM EST This note was created using Note[employer]. Subjective Umesh Preston is a 71 year [...] DX W/COLLJ SPEC WHEN PFRMD 10/18/2003 Colonoscopy, [place], [place], negative COLONOSCOPY FLX DX W/COLLJ SPEC [...] ROUTINE Huong Nick PA-C documented in this encounterDelaware County Hospital08-11-2022 History of Past illness Narrative* [...] of this encounter (statuses as of 03/28/2023) [facility] of Past illness Narrative* [...] of this encounter (statuses as of 05/02/2023) [facility] of Past illness Narrative* [...] of this encounter (statuses as of 05/20/2023) [facility] History of Present illness Narrative* Jamey Damian MD - 01/27/2022 8:50 AM EDT This note was created using [employer] 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 Risks: Possible side effects were discussed. Warnings: [...] vaccine - ICD9: V04.89, ICD10: Z23 - PFIZER-Keen IO COVID-19 VACCINE, AGE 12+ YR (KINNEY TOP) Jamey Damian MD documented in this encounterDelaware County Hospital07-09-2022 Miscellaneous Notes* Telephone Encounter - Gia Angi RAMAN - 12/25/2021 8:16 AM EDT Pt calling to request treatment for shingles. He reports is symptoms have been ongoing for a week. He will come to urgent care for evaluation of this and his discomfort. documented in this encounterDelaware County Hospital12-08-2015 History of Past illness Narrative* [...] of this encounter (statuses as of 12/27/2021) [facility] of Past illness Narrative* [...] of this encounter (statuses as of 01/27/2022) [facility] of [facility] illness Narrative* [...] of this encounter (statuses as of 06/06/2022) [facility] of [facility] illness Narrative* [...] of this encounter (statuses as of 06/07/2022) [facility] of [facility] illness Narrative* [...] of this encounter (statuses as of 06/21/2022) [facility] Narrative* [...] of this encounter (statuses as of 06/23/2022) [facility] of [facility] illness Narrative* [...] of this encounter (statuses as of 06/23/2022) [facility] of [facility] illness Narrative* [...] of this encounter (statuses as of 11/16/2022) [facility] of [facility] illness Narrative* [...] of this encounter (statuses as of 12/14/2022) [facility] Narrative* [...] of this encounter (statuses as of 12/16/2022) [facility] of Past illness Narrative* [...] of this encounter (statuses as of 12/22/2022) [facility]* Diagnosis Secondary insomnia- Primary Organic insomnia, unspecified Postherpetic neuralgia Herpes zoster with other nervous system complications Primary hypertension Unspecified essential hypertension Anemia, unspecified type Need for COVID-19 vaccine documented in this encounter [facility]* Diagnosis Vomiting and diarrhea- Primary Vomiting alone Encounter for laboratory testing for COVID-19 virus documented in this encounter [facility]* Diagnosis Bowel habit changes- Primary Other symptoms involving digestive system Lower abdominal pain Abdominal pain, other specified site documented [facility] this encounter [facility]* Diagnosis Acute diarrhea- Primary Diarrhea Abdominal cramping Abdominal pain, unspecified site documented in this encounter [facility]* Diagnosis Hyperlipidemia, unspecified hyperlipidemia type- Primary Primary hypertension Unspecified essential hypertension History of prostate cancer Personal history of malignant neoplasm of prostate documented in this encounter [facility]* Diagnosis Arthralgia of multiple joints- Primary Pain in joint, multiple sites Acute midline low back pain without sciatica documented [facility] this encounter [facility]* Diagnosis Acute midline low back pain without sciatica- Primary Arthralgia of multiple joints Pain in joint, multiple sites documented [facility] this encounter [facility]* Diagnosis Preop exam for internal medicine- Primary Other specified pre-operative examination Primary hypertension Unspecified essential hypertension documented [facility] this encounter [facility]* Diagnosis Onset Date Resolution Status Lumbar stenosis acute HTN (hypertension) chronic Hyperlipidemia chronic [facility] Work Phone: Evaluation note* Diagnosis Right inguinal pain- Primary Abdominal pain, right lower quadrant History of prostate cancer Personal history of malignant neoplasm of prostate Primary hypertension Unspecified essential hypertension S/P lumbar spinal fusion Arthrodesis status documented in this encounter [facility]* Diagnosis Right inguinal pain Abdominal pain, right lower quadrant [facility] Diagnosis Right inguinal hernia Inguinal hernia without mention of obstruction or gangrene, unilateral or unspecified, (not specified as recurrent) documented in this encounter [facility]* Diagnosis Lip cyst- Primary Diseases of lips documented in this encounter [facility]* Diagnosis Acute midline low back pain without sciatica documented [facility] this encounter [facility]* Diagnosis Primary hypertension- Primary Unspecified essential hypertension Hyperlipidemia, unspecified hyperlipidemia type Screening for depression Encounter for screening examination for other mental health and behavioral disorders Encounter for immunization Need for other specified prophylactic vaccination against single bacterial disease documented in this encounter [facility]* Diagnosis Onset Date Resolution Status Admit Date HTN (hypertension) chronic Oct2024 8:55am Hyperlipidemia chronic April 022024 8:55am [facility] Work Phone: Progress note Author Stuart Johnson [facility] Note Date/Time April 02, 2025 9 :31am [facility] [place] [facility] [address] [place] [address] OFFICE VISIT Date of Service: 04/02/25 MR#: [id number] Acct: [id number] Name: UMESH PRESTON Rep #: [id number] : 1950 Provider: Dr. Dhaval Johnson MD Age/Sex: 74/M Location: [facility] Status: Signed HPI HPI History of Present Illness Details: The patient is a 74-year-old male with a history of hypertension and hypercholesterolemia, presenting for cardiovascular evaluation. The patient expresses concern about his cardiovascular health due to a family history of strokes and myocardial infarctions. He desires to establish care with a local wastewater technician for ongoing management and to address any potential issues promptly, especially given his plans to travel to [place] around [place]. He reports not feeling well since undergoing [...] Source Monitor Intake Visit Reasons: CP (SELF) Nursing Professor Required: No Accompanied by: Self Is patient [...] rest; Negative for SOB with activity, SOB orthopnea\\SOB lying down or Cough GI GI: Negative [...] coronary artery disease. AAA US Screening 10/02/17 ([facility]) Findings There is tapering of a normal [...] applicable) CC: Dr. Jamey Damian MD ~ [facility] Work Phone: Reaguu for referral (narrative)* Diagnostic Procedure Only (Routine) - Closed Specialty Diagnoses / Procedures Referred By Contac t Referred To Contact XR IMAGING Diagnoses Acute midline low back pain without sciatica Procedures XR LUMBAR GENERAL 3V AP/LAT/L5-S1 RADEX SPINE LUMBOSACRAL 2/3 VIEWS Delmy Thomas APRN.TEACHER EDUCATION INSTRUCTOR [address] [place] [address] Xr Imaging Referral ID Status Reason Start Date Expiration Date V isits Requested Visits Authorized [id number] Closed Auto-Generate d Referral 12/14/2022 01/13/2024 1 1 [facility] for referral (narrative)* Diagnostic Procedure Only (Routine) - Closed Specialty Diagnoses / Procedures Referred By Contac t Referred To Contact XR IMAGING Diagnoses Acute midline low back pain without sciatica Procedures XR LUMBAR GENERAL 3V AP/LAT/L5-S1 RADEX SPINE LUMBOSACRAL 2/3 VIEWS Delmy Treviño APRN.TEACHER EDUCATION INSTRUCTOR [address] [place] [address] [place] [address] Referral ID Status Reason Start Date Expiration Date V isits Requested Visits Authorized [id number] Closed Auto-Generate d Referral 12/14/2022 01/13/2024 1 1 [facility] for referral (narrative)No reason for referral information availableLoma [facility] Work Phone: Rehzsr for visit Narrative* Diagnostic Procedure Only (Routine) - Closed Specialty Diagnoses / Procedures Referred By Contac t Referred To Contact XR IMAGING Diagnoses Acute midline low back pain without sciatica Procedures XR LUMBAR GENERAL 3V AP/LAT/L5-S1 RADEX SPINE LUMBOSACRAL 2/3 VIEWS Delmy Treviño APRN.TEACHER EDUCATION INSTRUCTOR [address] [place] [address] [place] [address] Referral ID Status Reason Start Date Expiration Date V isits Requested Visits Authorized [id number] Closed Auto-Generate d Referral 12/14/2022 01/13/2024 1 1 [facility] Advance Directives No Advanced Directives Records FoundDocuments on File Type Date Recorded 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 Advance Directive(s) 09/13/2021 8:50 AM Advance Directive(s) 08/16/2021 7:22 AM Advance Directive Response Recorded Date/ Time Living Will No May 18, 2 023 3:15pm Power of Leasing Director No May 18, 2023 3:15pm Health Concerns Infection Onset Date Last Indicated Resolved Time COVID-19 Rule-Out 06/06/2022 06/06/2022 Reason for Referral Specialty Diagnoses / Procedures Referred By Contac t Referred To Contact Orthopedics Diagnoses Acute midline low back pain without sciatica Arthralgia of multiple joints Procedures CONSULT TO ORTHOPAEDICS Delmy Thomas APRN.CNP [address] [place] [address] Referral ID Status Reason Start Date Expiration Date Visits Requested Visits Authorized [id number] Ref Not Required PCP Requested Referral 12/21/2022 12/21/2023 1 1 Specialty Diagnoses / Procedures Referred By Contac t Referred To Contact General Surgery Diagnoses Right inguinal pain Procedures CONSULT TO GENERAL SURGERY OFFICE/OUTPATIENT [facility] 60 MINUTES Jamey Damian MD [address] [place] [address] Referral ID Status Reason Start Date Expiration Date Visits Requested Visits Authorized [id number] Authorized PCP Requested Referral 10/19/2023 10/18/2024 1 1 Specialty Diagnoses / Procedures Referred By Contac t Referred To Contact CT IMAGING Diagnoses Right inguinal pain Procedures CT ABD/PEL W IVCON CT ABD & PELVIS W/CONTRAST Jamey Damian MD [address] [place] [address] [place] [address] Referral ID Status Reason Start Date Expiration Date Visits Requested Visits Authorized [id number] Authorized Auto-Generat ed Referral 10/19/2023 11/17/2024 1 [...] or prosecute any alcohol or drug abuse patient.[facility] HospitalIn the event this information is protected by the Federal Confidentiality of Alcohol and Drug Abuse Patient Records regulations: The Federal rules restrict any use of the information to criminally investigate or prosecute any alcohol or drug abuse patient.[facility] HospitalIn the event this information is protected by the Federal Confidentiality of Alcohol and Drug Abuse Patient Records regulations: The Federal rules restrict any use of the information to criminally investigate or prosecute any alcohol or drug abuse patient.[facility] HospitalIn the event this information is protected by the Federal Confidentiality of Alcohol and Drug Abuse Patient Records regulations: The Federal rules restrict any use of the information to criminally investigate or prosecute any alcohol or drug abuse patient.[facility] HospitalIn the event this information is protected by the Federal Confidentiality of Alcohol and Drug Abuse Patient Records regulations: The Federal rules restrict any use of the information to criminally investigate or prosecute any alcohol or drug abuse patient.[facility] HospitalIn the event this information is protected by the Federal Confidentiality of Alcohol and Drug Abuse Patient Records regulations: The Federal rules restrict any use of the information to criminally investigate or prosecute any alcohol or drug abuse patient.[facility] HospitalIn the event this information is protected by the Federal Confidentiality of Alcohol and Drug Abuse Patient Records regulations: The Federal rules restrict any use of the information to criminally investigate or prosecute any alcohol or drug abuse patient.[facility] HospitalIn the event this information is protected by the Federal Confidentiality of Alcohol and Drug Abuse Patient Records regulations: The Federal rules restrict any use of the information to criminally investigate or prosecute any alcohol or drug abuse patient.[facility] HospitalIn the event this information is protected by the Federal Confidentiality of Alcohol and Drug Abuse Patient Records regulations: The Federal rules restrict any use of the information to criminally investigate or prosecute any alcohol or drug abuse patient.[facility] HospitalIn the event this information is protected by the Federal Confidentiality of Alcohol and Drug Abuse Patient Records regulations: The Federal rules restrict any use of the information to criminally investigate or prosecute any alcohol or drug abuse patient.[facility] HospitalIn the event this information is protected by the Federal Confidentiality of Alcohol and Drug Abuse Patient Records regulations: The Federal rules restrict any use of the information to criminally investigate or prosecute any alcohol or drug abuse patient.[facility] HospitalIn the event this information is protected by the Federal Confidentiality of Alcohol and Drug Abuse Patient Records regulations: The Federal rules restrict any use of the information to criminally investigate or prosecute any alcohol or drug abuse patient.[facility] HospitalIn the event this information is protected by the Federal Confidentiality of Alcohol and Drug Abuse Patient Records regulations: The Federal rules restrict any use of the information to criminally investigate or prosecute any alcohol or drug abuse patient.[facility] HospitalIn the event this information is protected by the Federal Confidentiality of Alcohol and Drug Abuse Patient Records regulations: The Federal rules restrict any use of the information to criminally investigate or prosecute any alcohol or drug abuse patient.[facility] HospitalIn the event this information is protected by the Federal Confidentiality of Alcohol and Drug Abuse Patient Records regulations: The Federal rules restrict any use of the information to criminally investigate or prosecute any alcohol or drug abuse patient.[facility] HospitalIn the event this information is protected by the Federal Confidentiality of Alcohol and Drug Abuse Patient Records regulations: The Federal rules restrict any use of the information to criminally investigate or prosecute any alcohol or drug abuse patient.[facility] HospitalIn the event this information is protected by the Federal Confidentiality of Alcohol and Drug Abuse Patient Records regulations: The Federal rules restrict any use of the information to criminally investigate or prosecute any alcohol or drug abuse patient.[facility] HospitalIn the event this information is protected by the Federal Confidentiality of Alcohol and Drug Abuse Patient Records regulations: The Federal rules restrict any use of the information to criminally investigate or prosecute any alcohol or drug abuse patient.[facility] HospitalIn the event this information is protected by the Federal Confidentiality of Alcohol and Drug Abuse Patient Records regulations: The Federal rules restrict any use of the information to criminally investigate or prosecute any alcohol or drug abuse patient.[facility] HospitalIn the event this information is protected by the Federal Confidentiality of Alcohol and Drug Abuse Patient Records regulations: The Federal rules restrict any use of the information to criminally investigate or prosecute any alcohol or drug abuse patient.[facility] HospitalIn the event this information is protected by the Federal Confidentiality of Alcohol and Drug Abuse Patient Records regulations: The Federal rules restrict any use of the information to criminally investigate or prosecute any alcohol or drug abuse patient.[facility] HospitalIn the event this information is protected by the Federal Confidentiality of Alcohol and Drug Abuse Patient Records regulations: The Federal rules restrict any use of the information to criminally investigate or prosecute any alcohol or drug abuse patient.[facility] HospitalIn the event this information is protected by the Federal Confidentiality of Alcohol and Drug Abuse Patient Records regulations: The Federal rules restrict any use of the information to criminally investigate or prosecute any alcohol or drug abuse patient.[facility] HospitalIn the event this information is protected by the Federal Confidentiality of Alcohol and Drug Abuse Patient Records regulations: The Federal rules restrict any use of the information to criminally investigate or prosecute any alcohol or drug abuse patient.[facility] HospitalIn the event this information is protected by the Federal Confidentiality of Alcohol and Drug Abuse Patient Records regulations: The Federal rules restrict any use of the information to criminally investigate or prosecute any alcohol or drug abuse patient.[facility] HospitalIn the event this information is protected by the Federal Confidentiality of Alcohol and Drug Abuse Patient Records regulations: The Federal rules restrict any use of the information to criminally investigate or prosecute any alcohol or drug abuse patient.[facility] Reason for Visit (unrecogniz ed [...] Comments Patient Question Patient Update Reason Comments [facility] follow for assisted Reason Comments Future Appointment Reason Comments Abdominal Pain RLQ; x 1 week inguin al area Reason Comments Patient Question Specialty Diagnoses / Procedures Referred By Contac t Referred To Contact CT IMAGING Diagnoses Right inguinal pain Procedures CT ABD/PEL W IVCON CT ABD & PELVIS W/CONTRAST Jamey Damian MD [address] [place], [place] [id number] [place] [address] Referral ID Status Reason Start Date Expiration Date V isits Requested Visits Authorized [id number] Closed Auto-Generate d Referral 10/19/2023 11/17/2024 1 [address] Specialty Diagnoses / Procedures Referred By Contac t Referred To Contact CT IMAGING Diagnoses Right inguinal pain Procedures CT ABD/PEL W IVCON CT ABD & PELVIS W/CONTRAST Jamey Damian MD [address] [place], [place] [id number] [facility] Reason Comments Consult Rt inguinal hernia Specialty Diagnoses / Procedures Referred By Contac t Referred To Contact General Surgery Diagnoses Right inguinal pain Procedures CONSULT TO GENERAL SURGERY OFFICE/OUTPATIENT [facility] 60 MINUTES Jamey Damian MD [address] [place], [place] [id number] Referral ID Status Reason Start Date Expiration Date V isits Requested Visits Authorized [id number] Closed PCP Requested Referral 10/19/2023 10/18/2024 1 1 Reason Comments Patient Update Reason Comments hard lump inside lower lip Reason Comments Follow Up 6 months Care Teams (unrecognized sec tion and content) Thread Drawer Relationship Specialty Start Date End Date Jamey Damian MD [address] [facility] [place] [address] PCP - General Internal Medicine 08/09/11 Madhu Hood MD, [address] [place] [facility] [place] [address] Physician Radiation Oncology 07/29/15 Thread Drawer Relationship Specialty Start Date End Date Jamey Damian MD [address] [facility] [place] [address] PCP - General Internal Medicine 08/09/11 Madhu Hood MD, [address] [place] [facility] [place] [address] Physician Radiation Oncology 07/29/15 Thread Drawer Relationship Specialty Start Date End Date Jamey Damian MD [address] [facility] [place] [address] PCP - General Internal Medicine 08/09/11 Madhu Hood MD, [address] [place] [place] [address] Physician Radiation Oncology 07/29/15 Thread Drawer Relationship Specialty Start Date End Date Jamey Damian MD [address] [facility] [place] [address] PCP - General Internal Medicine 08/09/11 Madhu Hood MD, [address] [place] [place] [address] Physician Radiation Oncology 07/29/15 Thread Drawer Relationship Specialty Start Date End Date Jamey Damian MD [address] [facility] [place] [address] PCP - General Internal Medicine 08/09/11 Madhu Hood MD, [address] [facility] [place] [address] Physician Radiation Oncology 07/29/15 Thread Drawer Relationship Specialty Start Date End Date Jamey Damian MD [address] [facility] [place] [address] PCP - General Internal Medicine 08/09/11 Madhu Hood MD, [address] [place] [place] [address] Physician Radiation Oncology 07/29/15 Thread Drawer Relationship Specialty Start Date End Date Jamey Damian MD [address] [facility] [place] [address] PCP - General Internal Medicine 08/09/11 Madhu Hood MD, [address] [facility] [place] [address] Physician Radiation Oncology 07/29/15 Thread Drawer Relationship Specialty Start Date End Date Jamey Damian MD [address] [facility] [place] [address] PCP - General Internal Medicine 08/09/11 Madhu Hood MD, [address] [facility] [place] [address] Physician Radiation Oncology 07/29/15 Thread Drawer Relationship Specialty Start Date End Date Jamey Damian MD [address] [facility] [place] [address] PCP - General Internal Medicine 08/09/11 Madhu Hood MD, [address] [place] [place] [address] Physician Radiation Oncology 07/29/15 Thread Drawer Relationship Specialty Start Date End Date Jamey Damian MD [address] [place], [place] [address] PCP - General Internal Medicine 08/09/11 Madhu Hood MD, [address] [place], [place] [address] Physician Radiation Oncology 07/29/15 Thread Drawer Relationship Specialty Start Date End Date Jamey Damian MD [address] [place], [place] [address] PCP - General Internal Medicine 08/09/11 Madhu Hood MD, [address] [place] [address] Physician Radiation Oncology 07/29/15 Thread Drawer Relationship Specialty Start Date End Date Jamey Damian MD [address] [place], [place] [address] PCP - General Internal Medicine 08/09/11 Madhu Hood MD, MD [address] [place], [place] [address] Physician Radiation Oncology 07/29/15 Team Status: Active [...] Dates Dr. Wilver Willson DO Admit Provider, R eferring Provider, Other [...] Dr. Yen Tucker MD Other Provider Active Thread Drawer Relationship Specialty Start Date End Date Jamey Damian MD [address] [place] [address] PCP - General Internal Medicine 08/09/11 Madhu Hood MD, MD [address] [place] [address] Physician Radiation Oncology 07/29/15 Thread Drawer Relationship Specialty Start Date End Date Jamey Damian MD [address] [place] [address] PCP - General Internal Medicine 08/09/11 Madhu Hood MD [address] [place] [address] Physician Radiation Oncology 07/29/15 Thread Drawer Relationship Specialty Start Date End Date Jamey Damian MD [address] [place] [address] PCP - General Internal Medicine 08/09/11 Madhu Hood MD [address] [facility] [place] [address] Physician Radiation Oncology 07/29/15 Thread Drawer Relationship Specialty Start Date End Date Jamey Damian MD [address] [facility] [place] [address] PCP - General Internal Medicine 08/09/11 Madhu Hood MD [address] [place] [address] Physician Radiation Oncology 07/29/15 Thread Drawer Relationship Specialty Start Date End Date Jamey Damian MD [address] [facility] [place] [address] PCP - General Internal Medicine 08/09/11 Madhu Hood MD [address] [facility] [place] [address] Physician Radiation Oncology 07/29/15 Thread Drawer Relationship Specialty Start Date End Date Jamey Damian MD [address] [facility] [place] [address] PCP - General Internal Medicine 08/09/11 Madhu Hood MD [address] [place] [address] Physician Radiation Oncology 07/29/15 Thread Drawer Relationship Specialty Start Date End Date Jamey Damian MD [address] [facility] [place] [address] PCP - General Internal Medicine 08/09/11 Madhu Hood MD [address] [place] [address] Physician Radiation Oncology 07/29/15 Thread Drawer Relationship Specialty Start Date End Date Jamey Damian MD [address] [place] [address] PCP - General Internal Medicine 08/09/11 Madhu Hood MD [address] [place] [address] Physician Radiation Oncology 07/29/15 Thread Drawer Relationship Specialty Start Date End Date Jamey Damian MD [address] [place] [address] PCP - General Internal Medicine 08/09/11 Madhu Hood MD [address] [place] [address] Physician Radiation Oncology 07/29/15 Thread Drawer Relationship Specialty Start Date End Date Jamey Damian MD [address] [place] [address] PCP - General Internal Medicine 08/09/11 Madhu Hood MD [address] [place] [address] Physician Radiation Oncology 07/29/15 Delmy Treviño, TANK TENDER.TEACHER EDUCATION INSTRUCTOR [address] [place] [address] Renal Dialysis Technician Internal Medicine 05/27/24 Thread Drawer Relationship Specialty Start Date End Date Jamey Damian MD [address] [place] [address] PCP - General Internal Medicine 08/09/11 Madhu Hood MD [address] [place] [address] Physician Radiation Oncology 07/29/15 Delmy Treviño APRN.TEACHER EDUCATION INSTRUCTOR [address] [place] [address] Renal Dialysis Technician Internal Medicine 05/27/24 Team Status: Active Member [...] section and content) DATE CREATED AUTHOR 07/19/2024 [facility] DATE CREATED AUTHOR AUTHOR'S ORGANIZ ATION 04/30/2025 [facility] Goals (unrecognized section and content) Goals may [...] BE BASED ON THE PRIMARY CLINICAL RECORDS. [employer] provides no warranty or guarantee of the accuracy or completeness of information in this document.
--- NOTE | 2025-05-23 09:20 | CL.D_ITS ---
Patient Name: UMESH MCCORD Study Date: 05/23/2025 Performing: Stuart Johnson MD Ht: 70 inches 177.8 cm : 1950 Wt: 189 lbs 85.73 kg Age: 74 Gender: male BSA: 2.04 PROCEDURE(S) PERFORMED DC01-(08439)LHC/COR/LV CLINICAL PROFILE AND INDICATIONS Indications: Suspected CAD Heart Failure: None Stress/Imaging Date: 05/03/25Calcium Score: 4000 CAD Presentations: No Sxs, no angina. CONCLUSIONS Moderate to severe diffuse calcification with no high-grade stenosis noted in any coronary territory. Preserved ejection fraction. RECOMMENDATIONS Aggressive risk factor modification. DESCRIPTION OF PROCEDURE The patient arrived to the procedure lab. The risks and benefits of the procedure as well as a full description of our services here and current unavailability of surgical backup were fully explained to the patient and/or their significant other prior to the catheterization. The Timeout was completed, verifying the correct patient and procedure. The patient's procedural site was prepped and draped in the usual fashion. Local anesthetic was given subcutaneously to right radial region with Lidocaine 2%. Using a modified Seldinger technique, arterial access was obtained via the right radial artery, a 6Fr sheath was inserted. Left Coronary Artery selective angiography was performed in multiple views using a 5 Fr. 4.0 Fountain catheter. Right Coronary Artery selective angiography was then performed in multiple views using a 5 Fr. 4.0 Fountain catheter. Left Ventriculography was performed in PADRON projection using a 5 Fr. Pigtail catheter. LV to AO pullback pressures were then recorded.The arterial sheath was pulled and a TR Band was applied for hemostasis CORONARY ANGIOGRAPHY DOMINANCE: Right Dominant LEFT HEART ASSESSMENT Left Ventricular Ejection Fraction: by LV Gram 60 % Normal LV wall motion Normal Left Ventricular systolic function LEFT MAIN: Moderate calcification, Distal 20% stenosis present LEFT ANTERIOR DESCENDING ARTERY: Moderate calcification, Left anterior descending artery is a large vessel. There is moderate proximal calcification and moderate stenosis approximately 40% and 40 to 50% distal LAD stenosis. No high-grade stenosis is present. CIRCUMFLEX ARTERY: Moderate calcification, Nondominant large vessel with a first small obtuse marginal branch and a second larger obtuse marginal branch with a 50% smooth mid segment stenosis and a third obtuse marginal branch with no high-grade stenosis. RIGHT CORONARY ARTERY: Moderate calcification Dominant vessel with 30 to 40% proximal and mid stenosis and distal mild luminal irregularities. COMPLICATIONS No Complications PROCEDURE MEDICATIONS Fentanyl 50 mcg IV Versed 1 mg IV Versed 1 mg IV Versed 1 mg IV Oxygen: 2 L/min via nasal cannula Heparin given IA 05/23/2025 08:49:37 Verapamil 2.5mg, Ntg 100mcgs, 3000 units of Heparin given IA 05/23/2025 08:49:37 SUMMARY OF HEMODYNAMIC DATA Time AIR REST ECG 07:37:03 ECG 08:38:49 Art 137/72 (95) 08:59:12 AO 114/61 (84) SA 09:01:30 LV 109/1, 8 09:06:21 LV 110/0, 9 09:06:28 LV 111/1, 11 09:07:21 LVp 110/1, 9 09:07:25 AOp 110/45 (74) 09:07:30 Signed By Stuart Johnson MD On 05/23/2025 09:19:35 Stuart Johnson MD
== END 2025-05-23 11:00 | disposition home or self-care (01) ==
PROVIDERS: PCP Internal Medicine; Referring Provider Internal Medicine Cardiovascular Disease; Visit Provider Internal Medicine Cardiovascular Disease
DX: I25.10 Atherosclerotic heart disease of native coronary artery without angina pectoris (principal); I10 Essential (primary) hypertension; Z87.891 Personal history of nicotine dependence; I44.0 Atrioventricular block, first degree; I44.4 Left anterior fascicular block; E78.00 Pure hypercholesterolemia, unspecified; R06.09 Other forms of dyspnea
CPT/HCPCS: 93458; 99152; 99153; Q9967; C1769; C1894